=== PATIENT | male | born 1955 | race Caucasian/White ===

== ENCOUNTER → 2017-04-01 | Outpatient (CLI) | payer MEDICARE, OTHER, SELFPAY | PROVIDERS: Family Provider Emergency Medicine; Visit Provider Orthopaedic Surgery | DX: S62.101D Fracture of unspecified carpal bone, right wrist, subsequent encounter for fracture with routine healing (principal) | CPT/HCPCS: 73110 ==

== ENCOUNTER → 2017-05-13 09:29 | Outpatient (CLI) | payer MEDICARE, OTHER, SELFPAY ==
--- NOTE | 2017-05-13 09:32 | XR_ITS ---
XR wrist RT min 3V HISTORY: Follow-up fracture ITS.REASON: Status post right wrist fracture ORDERING PHYSICIAN: Marlon Samuel MD PATIENT AGE: 61 years COMPARISON: 04/01/2017 FINDINGS: Impacted distal radial fracture once again noted with mild dorsal angulation of the distal fracture fragment. Fracture lines are less apparent compared to the previous exam consistent with healing of the fracture. Avulsion of the ulnar styloid once again noted unchanged. There is a notch in the lateral aspect of the scaphoid and may be a normal variant. IMPRESSION: Healing distal radial fracture with ulnar styloid avulsion.
== END ==
PROVIDERS: PCP Emergency Medicine; Visit Provider Orthopaedic Surgery
DX: Z47.89 Encounter for other orthopedic aftercare (principal)
CPT/HCPCS: 73110

== ENCOUNTER → 2018-11-11 09:34 | Outpatient (CLI) | payer MEDICARE, OTHER, SELFPAY ==
--- NOTE | 2018-11-11 09:44 | FL_ITS ---
EXAM: Barium swallow/esophagram. INDICATION: ITS.REASON: difficulty swallowing ORDERING PHYSICIAN: Caleb Coelho MD PATIENT AGE: 63 years COMPARISON: None TECHNIQUE: In the upright position the patient was observed to swallow barium in both the AP and lateral view. The cervical esophagus was examined under fluoroscopy with images obtained. The patient was then placed prone in the right anterior oblique position and was observed to swallow barium with Valsalva technique . FLUOROSCOPY TIME: 1 minute and 2 seconds FINDINGS: There was no evidence of aspiration. There was normal peristalsis. No filling defects or mucosal abnormalities. No masses or strictures. IMPRESSION: Negative barium swallow.
== END ==
PROVIDERS: PCP Emergency Medicine; Visit Provider Emergency Medicine
DX: R13.10 Dysphagia, unspecified (principal)
CPT/HCPCS: 74220

== ENCOUNTER 2019-04-23 19:40 | Observation (INO) ==
[2019-04-23 20:07] LABS: Basophils % 0.4 % (0.1-2.0); Eosinophils # 0.3 K/mm3 (0.0-0.4); Eosinophils % 3.4 % (0.1-12.0); Hematocrit 42.9 % (42.0-52.0); Hemoglobin 14.5 g/dL (14.1-18.0); Lymphocytes # 1.1 K/mm3 (0.7-4.5); Lymphocytes % 11.3 % (10-50); Mean Corpuscular HGB Conc 33.9 g/dL (31.8-35.4); Mean Corpuscular Volume 94.9 fl (80-94); Mean Platelet Volume 8.6 fl (7.4-10.4); Monocytes # 0.6 K/mm3 (0.1-1.0); Monocytes % 5.8 % (1.7-9.3); Neutrophils # 7.5 K/mm3 (1.8-7.8); Neutrophils % 79.1 % (37.0-80.0); Platelet Count 165 K/mm3 (142-424); Red Blood Count 4.52 M/mm3 (4.60-6.20); Red Cell Distribution Width 13.4 % (11.5-17.5); White Blood Count 9.5 K/mm3 (4.8-10.8)
--- NOTE | 2019-04-23 20:12 | Emergency Department Note ---
ED Disposition Clinical Impression: Small bowel obstruction Disposition: Admitted As Inpatient Condition on Discharge: Fair Referrals: Caleb Coelho MD [Primary Care Provider] - - Critical Care Critical Care Time: No Attestation: On 04/23/19, the high probability of a clinically significant, sudden or life threatening deterioration of the following system(s) required my full and direct attention, intervention and personal management. The time I documented below is in addition to time spent performing reported procedures but includes the following listed in this critical care notation. Medical Decision Making - Tucker Inquiry Pt receiving controlled substance: Yes [place] was queried for this patient: No Reason not queried -: Emergent pt cond-no time Risks and benefits of using a controlled substance: were not discussed with pt by me Vital Signs: 04/23/19 19:41 04/23/19 20:13 Temperature 98.5 F Temperature Source Oral Pulse Rate [Right] 76 75 Respiratory Rate 16 16 Blood Pressure [Right Arm] 160/80 H 137/64 Blood Pressure Mean [Right Arm] 106 88 Blood Pressure Source [Right Arm] Automatic Cuff Blood Pressure Position [Right Arm] Supine 02 Sat by Pulse Oximetry 94 L 94 L Oxygen Delivery Method Room Air - Lab Data Lab Results 04/23/19 18:45: WBC 9.5, RBC 4.52 L, Hgb 14.5, Hct 42.9, MCV 94.9 H, MCH 32.2 H, MCHC 33.9, RDW 13.4, Plt Count 165, MPV 8.6, Neut % (Auto) 79.1, Lymph % (Auto) 11.3, [place] % (Auto) 5.8, Eos % (Auto) 3.4, Baso % (Auto) 0.4, Neut # (Auto) 7.5, Lymph # (Auto) 1.1, [place] # (Auto) 0.6, Eos # (Auto) 0.3, Baso # (Auto) 0.0 04/23/19 18:45: Sodium 140, Potassium 3.9, Chloride 105, Carbon Dioxide 28, Anion Gap 10.9, BUN 11, Creatinine 0.91, Estimated Creat Clear 124, Estimated GFR 84, Est GFR ( Amer) 101, Glucose 179 H, Calcium 8.5, Total Bilirubin 0.7, AST 59 H, ALT 70, Alkaline Phosphatase 173 H, Total Protein 6.4, Albumin 3.5, Globulin 2.9, Albumin/Globulin Ratio 1.2, Amylase 23 L, Lipase 34 L 04/23/19 19:45: Troponin I < 0.02 04/23/19 21:30: Urine Color Yellow, Urine Appearance Clear, Urine pH 6.0, Ur Specific [place] 1.010, Urine Protein Negative, Urine Glucose (UA) Negative, Urine Ketones Negative, Urine Blood Trace-i, Urine Nitrate Negative, Urine Bilirubin Negative, Urine Urobilinogen 1.0, Ur Leukocyte Esterase 1+ A, Urine RBC 3-5, Urine WBC 5-10 Result diagrams: 04/23/19 18:45 04/23/19 18:45 Orders (Tests/Meds): ED MEDICATIONS Generic Name Dose Route Start Last Admin Trade Name Freq PRN Reason Stop Dose Admin Sodium Chloride 1,000 mls @ 999 mls/hr 04/23/19 20:00 04/23/19 19:51 Sod Chlor 0.9% 1000ml Bag IV 04/23/19 21:00 999 mls/hr .[id number] SHWETHA Administration Discontinued Medications Generic Name Dose Route Start Last Admin Trade Name Freq PRN Reason Stop Dose Admin Ioversol 75 ml 04/23/19 21:03 04/23/19 21:04 Rad-Optiray 350 100ml Vial IV 04/23/19 21:04 75 ml ONCE ONE Administration Protocol Morphine Sulfate 4 mg 04/23/19 21:39 04/23/19 21:44 Morphine 4mg/Ml Syringe IV 04/23/19 21:40 4 mg ONCE ONE Administration Ondansetron HCl 4 mg 04/23/19 19:47 04/23/19 19:51 Zofran 4mg/2ml Vial IV 04/23/19 19:48 4 mg ONCE ONE Administration Sodium Chloride 10 ml 04/23/19 21:03 04/23/19 21:04 Rad-Saline Flush 10ml Syringe IV 04/23/19 21:04 10 ml ONCE ONE Administration ORDERS Category Date Time Status CT abdomen pelvis w con Stat Cat Scan 04/23/19 20:17 Taken Urine Culture Stat Micro 04/23/19 21:30 Received - CT Data CT Scan: Abdomen, Pelvis Time Received: 21:40 ([facility] fax) ED CT Reviewed: Yes: I have viewed the radiologist's interpretation Findings Narrative: Multiple loops of dilated small bowel with air-fluid levels and a transition point to decompressed bowel in the pelvis, compatible with mechanical small bowel obstruction. Small fat-containing ventral hernia. - ECG Data Tracing #1 EKG interpreted by Ramiro Tobin MD: Rhythm: sinus Rate: 72 [place]: normal Ectopy: none Conduction: normal ST Segment Changes: none T Wave Changes: none Q Waves: none No evidence of acute ischemia or injury Normal electrocardiogram - Physician Consults Physician Consulted: Daniel Time: 21:45 Reason -: Surgical Eval/Care Comment/Response: NG tube. Additional Consult: Laquita Time: 21:49 Reason -: Admission Comment/Response: Agrees to admit the patient to the hospital. We discussed the patient's clinical information, including history, exam, laboratory and radiology results and ED course. Per hospital procedure, I will write temporary bridge inpatient orders on the patient. Specific orders requested by the admitting physician: Sliding scale insulin, before meals and at bedtime. N.p.o. IV normal saline. Pain medication and nausea medication. General Adult HPI - General Chief complaint: Nausea/Vomiting/Diarrhea Stated complaint: Nausea Time Seen by Provider: 04/23/19 20:12 Mode of Arrival: EMS Limitations: No Limitations Description of Symptoms (Recalled from ER Triage Doc. by RN): Pt states he has felt nauseated for a few days - History of Present Illness HPI narrative: States that for 2 to 3 days he has generalized abdominal discomfort, but states that "the crux of it" is in the epigastrium. Nausea and vomiting. Denies diarrhea or constipation or fever. Denies urinary symptoms. Says that he feels generally weak and sick all over. Denies cough or cold symptoms. Prior cholecystectomy and appendectomy. States he has not had this type of pain before. - Related Data Home Medications Medication Instructions Recorded Confirmed aripiprazole 15 mg tablet 30 mg PO BID tab 05/13/17 04/23/19 aspirin 81 mg tablet,delayed 81 mg PO QDAY 05/13/17 04/23/19 release ferrous sulfate 325 mg (65 mg 325 mg PO ONCE tab 05/13/17 04/23/19 iron) tablet gabapentin 100 mg capsule 100 mg PO BID cap 05/13/17 04/23/19 ibuprofen 400 mg tablet 600 mg PO Q6H PRN tab 05/13/17 04/23/19 insulin NPH-regular 70-30 U-100 18 unit SUB-Q QPM ml 05/13/17 04/23/19 insulin 100 unit/mL subcutaneous pen insulin NPH-regular 70-30 U-100 30 unit SUB-Q QAM ml 05/13/17 04/23/19 insulin 100 unit/mL subcutaneous pen lisinopril 20 mg tablet 20 mg PO QDAY 05/13/17 04/23/19 loperamide 2 mg capsule 2 mg PO Q3H cap 05/13/17 04/23/19 sertraline 100 mg tablet 100 mg PO Q24H 05/15/17 04/23/19 simvastatin 40 mg tablet 40 mg PO QAM 05/15/17 04/23/19 Ascorbic Acid [Vitamin C] 250 mg PO DAILY 04/23/19 04/23/19 Cholecalciferol (Vitamin D3) 400 units PO DAILY 04/23/19 04/23/19 [Vitamin D3] Metformin HCl [Glucophage Xr] 500 mg PO BID 04/23/19 04/23/19 Multivitamin [Multi-Vitamin Plain] 1 tab PO DAILY 04/23/19 04/23/19 Omeprazole [Omeprazole 40mg 40 mg PO DAILY 04/23/19 04/23/19 Capsule] Allergies Allergy/AdvReac Type Severity Reaction Status Date / Time No Known Allergies Allergy Verified 01/08/19 09:21 [facility] History - Hepatitis A Screen Drug use history?: No High risk sexual behaviors?: No History of sexually transmitted infection?: No Currently employed?: No Childcare worker?: No Do you have indoor plumbing?: Yes Do you have electricity?: Yes Attestation statement:: This patient has been screened for Hepatitis A risk factors. I have reviewed the patient's past medical history: Yes Medical History: Reports:: Anxiety, Depression, Diabetes Mellitus Type 2, Gastro esophageal Reflux Disease(GERD), Hyperlipidemia, Hypertension Denies:: Diabetes Mellitus Type 1, Internal Pacemaker, Lung Disease, Seizures Other Medical History: Reports: Arthritis Comment: Neuropathy, Schizophrenia, Iron Def. Other Surgeries: Yes: Appendectomy, Cholecystectomy, Colonoscopy, EGD, Other. No: Pacemaker - Social History Smoking Status: Never smoker Alcohol Intake: never Substance Use Type: denies use Occupational Status: disabled Housing: assisted living facility Comment: Patients resides at [facility] - Psychiatric History Pschychiatric History:: Reports:: Anxiety, Depression, Schizophrenia Family Hx:: Unable to obtain ROS Obtained: Yes All systems reviewed & no additional complaints - Constitutional Constitutional: Reports fatigue, Denies fever(s), Reports weakness - Cardiovascular Cardiovascular: Denies chest pain - Respiratory Respiratory: No cough, No dyspnea - Gastrointestinal Gastrointestingal: Reports: abdominal pain, nausea, vomiting. Denies: constipation, diarrhea - Genitourinary Male Genitourinary: Denies difficulty urinating Physical Exam - General General appearance: alert, in no apparent distress - Head Head exam: atraumatic, normocephalic - Eye Eye exam: Present: normal appearance, EOMI - ENT ENT exam: Present: mucous membranes moist - Neck Neck exam: Present: normal inspection, trachea midline - Chest Chest inspection: Present: normal inspection, symmetric chest wall rise - Respiratory Respiratory exam: Present: normal lung sounds bilaterally. Absent: respiratory distress - Cardiovascular Cardiovascular exam: Present: regular rate, normal rhythm, normal heart sounds - Abdominal Exam Abdominal exam: Present: distention, tenderness, normal bowel sounds Abdominal tenderness: Present: epigastrium, moderate - Extremities Exam Extremities exam: Present: normal inspection - Neurological Exam Neurological exam: Present: alert - Psychiatric Psychiatric exam: Present: normal mood, flat affect - Skin Skin exam: Present: warm, dry
[2019-04-23 20:17] LABS: Albumin Level 3.5 gm/dL (3.4-5.0); Albumin/Globulin Ratio 1.2 (1.1-1.8); Anion Gap 10.9 mEq/L (5-15); Bilirubin,Total 0.7 mg/dL (0.2-1.0); Calcium 8.5 mg/dL (8.5-10.1); Globulin 2.9 gm/dl (1.3-3.2); Total Protein,Serum 6.4 gm/dL (6.4-8.2)
[2019-04-23 21:32] LABS: Microscopic, Urine URINE MICROSCOPIC (MICROSCOPIC)
[2019-04-23 21:33] LABS: Appearance,Urine CLEAR (Clear); Bilirubin,Urine Negative (Negative); Blood, Urine TRACE-I (Negative); Color,Urine YELLOW (Yellow); Glucose,Urine (UA) Negative (Negative); Ketones,Urine Negative (Negative); Leukocyte Esterase,Urine 1+ (Negative); Protein,Urine Negative (Negative)
--- NOTE | 2019-04-23 23:28 | Consult Report ---
*Admission Date: 04/23/19 *Reason for consult:: Small bowel obstruction *History of present illness: Is a 63-year-old gentleman seen in consultation from the service of Dr. Coelho for evaluation regarding possible small bowel obstruction. He presented to the emergency department with increasing abdominal pain with nausea and associated emesis. He states that he has continued to pass flatus and his most recent episode of flatus was approximately 1 hour ago. Despite continuing to pass flatus he did have radiographic evidence of a possible small bowel obstruction with multiple loops of dilated small bowel and a possible transition in the right lower quadrant. Surgical service was consulted for ongoing evaluation and management. Review of Systems - Constitutional Denies chills - Eyes Denies change in vision - ENT Denies difficulty swallowing - *Cardiovascular Denies chest pain - *Respiratory Denies cough - *Gastrointestinal Reports abdominal pain, Reports nausea, Reports vomiting - *Neurologic Reports weakness [facility] History Medical History: Reports:: Anxiety, Depression, Diabetes Mellitus Type 2, Gastroesophageal Reflux Disease(GERD), Hyperlipidemia, Hypertension Denies:: Cancer, Diabetes Mellitus Type 1, Internal Pacemaker, Lung Disease, MRSA, Seizures *Have you ever received a pneumonia vaccine?: No *Have you received a flu vaccine this season?: Yes Other Medical History: Reports: Arthritis Other Surgeries: Yes: Appendectomy, Cholecystectomy, Colonoscopy, EGD, Other. No: Pacemaker Amputation: No - *Social History Smoking Status: Never smoker Alcohol Intake: never Substance Use Type: denies use *Occupational Status:: disabled Housing: assisted living facility *Travel in the last 8 weeks: None - Psychiatric History Pschychiatric History:: Reports:: Anxiety, Depression, Schizophrenia Family Hx:: Unable to obtain, Diabetes, Hyperlipidemia, Hypertension Meds Home Medications Medication Instructions Recorded Confirmed Type aripiprazole 15 mg tablet 30 mg PO BID tab 05/13/17 04/23/19 History aspirin 81 mg tablet,delayed 81 mg PO QDAY 05/13/17 04/23/19 History release ferrous sulfate 325 mg (65 mg 325 mg PO ONCE tab 05/13/17 04/23/19 History iron) tablet gabapentin 100 mg capsule 100 mg PO BID cap 05/13/17 04/23/19 History ibuprofen 400 mg tablet 600 mg PO Q6H PRN tab 05/13/17 04/23/19 History insulin NPH-regular 70-30 U-100 18 unit SUB-Q QPM ml 05/13/17 04/23/19 History insulin 100 unit/mL subcutaneous pen insulin NPH-regular 70-30 U-100 30 unit SUB-Q QAM ml 05/13/17 04/23/19 History insulin 100 unit/mL subcutaneous pen lisinopril 20 mg tablet 20 mg PO QDAY 05/13/17 04/23/19 History loperamide 2 mg capsule 2 mg PO Q3H cap 05/13/17 04/23/19 History sertraline 100 mg tablet 100 mg PO Q24H 05/15/17 04/23/19 History simvastatin 40 mg tablet 40 mg PO QAM 05/15/17 04/23/19 History Acetaminophen [Tylenol 8 Hour] 650 mg PO Q12HP PRN 04/23/19 04/23/19 History Ascorbic Acid [Vitamin C] 250 mg PO DAILY 04/23/19 04/23/19 History Cholecalciferol (Vitamin D3) 400 units PO DAILY 04/23/19 04/23/19 History [Vitamin D3] Metformin HCl [Glucophage Xr] 500 mg PO BID 04/23/19 04/23/19 History Multivitamin [Multi-Vitamin Plain] 1 tab PO DAILY 04/23/19 04/23/19 History Omeprazole [Omeprazole 40mg 40 mg PO DAILY 04/23/19 04/23/19 History Capsule] Allergies Allergy/AdvReac Type Severity Reaction Status Date / Time No Known Allergies Allergy Verified 01/08/19 09:21 Exam Vital signs and Labs for Last 24 Hours: Temp Pulse Resp BP Pulse Ox 98.0 F 70 18 146/73 H 94 L 04/23/19 22:10 04/23/19 22:10 04/23/19 22:10 04/23/19 22:10 04/23/19 20:13 Laboratory Results - last 24 hr 04/23/19 18:45: WBC 9.5, RBC 4.52 L, Hgb 14.5, Hct 42.9, MCV 94.9 H, MCH 32.2 H, MCHC 33.9, RDW 13.4, Plt Count 165, MPV 8.6, Neut % (Auto) 79.1, Lymph % (Auto) 11.3, [place] % (Auto) 5.8, Eos % (Auto) 3.4, Baso % (Auto) 0.4, Neut # (Auto) 7.5, Lymph # (Auto) 1.1, [place] # (Auto) 0.6, Eos # (Auto) 0.3, Baso # (Auto) 0.0 04/23/19 18:45: Sodium 140, Potassium 3.9, Chloride 105, Carbon Dioxide 28, Anion Gap 10.9, BUN 11, Creatinine 0.91, Estimated Creat Clear 124, Estimated GFR 84, Est GFR ( Amer) 101, Glucose 179 H, Calcium 8.5, Total Bilirubin 0.7, AST 59 H, ALT 70, Alkaline Phosphatase 173 H, Total Protein 6.4, Albumin 3.5, Globulin 2.9, Albumin/Globulin Ratio 1.2, Amylase 23 L, Lipase 34 L 04/23/19 19:45: Troponin I < 0.02 04/23/19 21:30: Urine Color Yellow, Urine Appearance Clear, Urine pH 6.0, Ur Specific [place] 1.010, Urine Protein Negative, Urine Glucose (UA) Negative, Urine Ketones Negative, Urine Blood Trace-i, Urine Nitrate Negative, Urine Bilirubin Negative, Urine Urobilinogen 1.0, Ur Leukocyte Esterase 1+ A, Urine RBC 3-5, Urine WBC 5-10 I & O for Last 24 hours: Intake & Output 04/21/19 04/22/19 04/23/19 04/24/19 11:59 11:59 11:59 11:59 Intake Total 1000 / 1000 Balance 1000 / 1000 Weight 260 lb - Constitutional no acute distress - *Routine Respiratory Exam Absent: respiratory distress - *Routine Cardiovascular Exam Present: RRR - *Routine Abdominal Exam Present: soft, tenderness, distended Results - Labs 04/23/19 18:45 04/23/19 18:45 Laboratory Results - last 24 hr 04/23/19 18:45: WBC 9.5, RBC 4.52 L, Hgb 14.5, Hct 42.9, MCV 94.9 H, MCH 32.2 H, MCHC 33.9, RDW 13.4, Plt Count 165, MPV 8.6, Neut % (Auto) 79.1, Lymph % (Auto) 11.3, [place] % (Auto) 5.8, Eos % (Auto) 3.4, Baso % (Auto) 0.4, Neut # (Auto) 7.5, Lymph # (Auto) 1.1, [place] # (Auto) 0.6, Eos # (Auto) 0.3, Baso # (Auto) 0.0 04/23/19 18:45: Sodium 140, Potassium 3.9, Chloride 105, Carbon Dioxide 28, Anion Gap 10.9, BUN 11, Creatinine 0.91, Estimated Creat Clear 124, Estimated GFR 84, Est GFR ( Amer) 101, Glucose 179 H, Calcium 8.5, Total Bilirubin 0.7, AST 59 H, ALT 70, Alkaline Phosphatase 173 H, Total Protein 6.4, Albumin 3.5, Globulin 2.9, Albumin/Globulin Ratio 1.2, Amylase 23 L, Lipase 34 L 04/23/19 19:45: Troponin I < 0.02 04/23/19 21:30: Urine Color Yellow, Urine Appearance Clear, Urine pH 6.0, Ur Specific [place] 1.010, Urine Protein Negative, Urine Glucose (UA) Negative, Urine Ketones Negative, Urine Blood Trace-i, Urine Nitrate Negative, Urine Bilir ubin Negative, Urine Urobilinogen 1.0, Ur Leukocyte Esterase 1+ A, Urine RBC 3- 5, Urine WBC 5-10 - Imaging CT scan - abdomen: report reviewed, image reviewed CT scan - pelvis: report reviewed, image reviewed Assessment and Plan (1) Small bowel obstruction Current visit: Yes Status: Acute Category: Medical Code(s): K56.609 - Unspecified intestinal obstruction, unspecified as to partial versus complete obstruction The patient has had symptoms for approximately 3 days and he continues to pass flatus. His overall findings are somewhat equivocal and may not be secondary to a true mechanical obstruction. Consideration for enteritis or other inflammatory etiology will be ongoing. Flat and upright abdominal films have been ordered for tomorrow and serial abdominal exams will continue. If he continues to pass flatus and his films do not show improvement a small bowel series will be considered. If he does not continue to pass flatus plans for operative intervention will be implemented.
--- NOTE | 2019-04-24 08:06 | Progress Note ---
Subjective Patient reports: feels better, flatus, no bowel movement Narrative: He states that his abdominal pain is "almost gone". He states that he is "almost back to normal". Exam Vital signs and Labs for Last 24 Hours: Temp Pulse Resp BP Pulse Ox 98.2 F 80 18 126/60 90 L 04/24/19 04:00 04/24/19 04:00 04/24/19 04:00 04/24/19 04:00 04/24/19 04:00 Laboratory Results - last 24 hr 04/23/19 18:45: WBC 9.5, RBC 4.52 L, Hgb 14.5, Hct 42.9, MCV 94.9 H, MCH 32.2 H, MCHC 33.9, RDW 13.4, Plt Count 165, MPV 8.6, Neut % (Auto) 79.1, Lymph % (Auto) 11.3, [place] % (Auto) 5.8, Eos % (Auto) 3.4, Baso % (Auto) 0.4, Neut # (Auto) 7.5, Lymph # (Auto) 1.1, [place] # (Auto) 0.6, Eos # (Auto) 0.3, Baso # (Auto) 0.0 04/23/19 18:45: Sodium 140, Potassium 3.9, Chloride 105, Carbon Dioxide 28, Anion Gap 10.9, BUN 11, Creatinine 0.91, Estimated Creat Clear 124, Estimated GFR 84, Est GFR ( Amer) 101, Glucose 179 H, Calcium 8.5, Total Bilirubin 0.7, AST 59 H, ALT 70, Alkaline Phosphatase 173 H, Total Protein 6.4, Albumin 3.5, Globulin 2.9, Albumin/Globulin Ratio 1.2, Amylase 23 L, Lipase 34 L 04/23/19 19:45: Troponin I < 0.02 04/23/19 21:30: Urine Color Yellow, Urine Appearance Clear, Urine pH 6.0, Ur Specific [place] 1.010, Urine Protein Negative, Urine Glucose (UA) Negative, Urine Ketones Negative, Urine Blood Trace-i, Urine Nitrate Negative, Urine Bilirubin Negative, Urine Urobilinogen 1.0, Ur Leukocyte Esterase 1+ A, Urine RBC 3-5, Urine WBC 5-10 04/24/19 06:02: POC Glucose 145 H I & O for Last 24 hours: Intake & Output 04/21/19 04/22/19 04/23/19 04/24/19 11:59 11:59 11:59 11:59 Intake Total 1882 / 1882 Output Total 600 / 600 Balance 1282 / 1282 Weight 260 lb 3 oz - Constitutional no acute distress - *Routine Respiratory Exam Absent: respiratory distress - *Routine Cardiovascular Exam Present: RRR - *Routine Abdominal Exam Present: soft Comments: Much less tender Progress Note: A&P (1) Small bowel obstruction Status: Acute Assessment and plan: CT with IV contrast only reveals changes consistent with either partial obstruction or ileus/enteritis. The patient does feel significantly better this AM; however, he is a somewhat poor historian and is somewhat slow to answer questions. Recommendations for repeat CT scan with both IV and PO contrast were made by radiology and this has been ordered as it will likely help assist in decision making/disposition. Keep NPO for now F/U AM films and repeat CT Serial exams to continue Current Visit: Yes
--- NOTE | 2019-04-24 11:14 | History & Physical Report ---
*Admission Date: 04/23/19 *Chief complaint: abd pain *History of present illness: this patient from local [facility] living -he was seen in the ed-cription of Symptoms (Recalled from ER Triage Doc. by RN): Pt states he has felt nauseated for a few days States that for 2 to 3 days he has generalized abdominal discomfort, but states that "the crux of it" is in the epigastrium. Nausea and vomiting. Denies diarrhea or constipation or fever. Denies urinary symptoms. Says that he feels generally weak and sick all over. Denies cough or cold symptoms. Prior cholecystectomy and appendectomy. States he has not had this type of pain before. pt was found to have sbo and after discussion with surg was admitted [facility] History I have reviewed the patient's past medical history: Yes Medical History: Reports:: Anxiety, Depression, Diabetes Mellitus Type 2, Gastroesophageal Reflux Disease(GERD), Hyperlipidemia, Hypertension Denies:: Cancer, Diabetes Mellitus Type 1, Internal Pacemaker, Lung Disease, MRSA, Seizures *Have you ever received a pneumonia vaccine?: No *Have you received a flu vaccine this season?: Yes Other Medical History: Reports: Arthritis Other Surgeries: Yes: Appendectomy, Cholecystectomy, Colonoscopy, EGD, Other. No: Pacemaker Amputation: No - *Social History Smoking Status: Never smoker Alcohol Intake: never Substance Use Type: denies use *Occupational Status:: disabled Housing: assisted living facility *Travel in the last 8 weeks: None - Psychiatric History Pschychiatric History:: Reports:: Anxiety, Depression, Schizophrenia Family Hx:: Unable to obtain, Diabetes, Hyperlipidemia, Hypertension Review of Systems - Review of Systems Review of systems:: pertinent systems reviewed and negative unless documented below - Constitutional Denies fever(s) - Eyes Denies change in vision - ENT Denies dizziness - *Cardiovascular Denies chest pain at rest - *Respiratory Denies cough - *Gastrointestinal Reports abdominal pain, Reports bloating, Reports nausea, Reports vomiting - *Genitourinary Denies blood in urine - *Musculoskeletal Denies joint pain, Denies joint swelling - Integumentary/Breasts Denies rash - *Neurologic Reports weakness, Denies headache(s), Denies seizure-like activity - Psychiatric Denies anxiety Meds Home Medications Medication Instructions Recorded Confirmed Type aripiprazole 15 mg tablet 30 mg PO BID tab 05/13/17 04/23/19 History aspirin 81 mg tablet,delayed 81 mg PO QDAY 05/13/17 04/23/19 History release ferrous sulfate 325 mg (65 mg 325 mg PO ONCE tab 05/13/17 04/23/19 History iron) tablet gabapentin 100 mg capsule 100 mg PO BID cap 05/13/17 04/23/19 History ibuprofen 400 mg tablet 600 mg PO Q6H PRN tab 05/13/17 04/23/19 History insulin NPH-regular 70-30 U-100 18 unit SUB-Q QPM ml 05/13/17 04/23/19 History insulin 100 unit/mL subcutaneous pen insulin NPH-regular 70-30 U-100 30 unit SUB-Q QAM ml 05/13/17 04/23/19 History insulin 100 unit/mL subcutaneous pen lisinopril 20 mg tablet 20 mg PO QDAY 05/13/17 04/23/19 History loperamide 2 mg capsule 2 mg PO Q3H cap 05/13/17 04/23/19 History sertraline 100 mg tablet 100 mg PO Q24H 05/15/17 04/23/19 History simvastatin 40 mg tablet 40 mg PO QAM 05/15/17 04/23/19 History Acetaminophen [Tylenol 8 Hour] 650 mg PO Q12HP PRN 04/23/19 04/23/19 History Ascorbic Acid [Vitamin C] 250 mg PO DAILY 04/23/19 04/23/19 History Cholecalciferol (Vitamin D3) 400 units PO DAILY 04/23/19 04/23/19 History [Vitamin D3] Metformin HCl [Glucophage Xr] 500 mg PO BID 04/23/19 04/23/19 History Multivitamin [Multi-Vitamin Plain] 1 tab PO DAILY 04/23/19 04/23/19 History Omeprazole [Omeprazole 40mg 40 mg PO DAILY 04/23/19 04/23/19 History Capsule] Allergies Allergy/AdvReac Type Severity Reaction Status Date / Time No Known Allergies Allergy Verified 01/08/19 09:21 Exam Vital signs and Labs for Last 24 Hours: Temp Pulse Resp BP Pulse Ox 98.6 F 79 18 166/74 H 91 L 04/24/19 08:00 04/24/19 08:00 04/24/19 08:00 04/24/19 08:00 04/24/19 09:39 Laboratory Results - last 24 hr 04/23/19 18:45: WBC 9.5, RBC 4.52 L, Hgb 14.5, Hct 42.9, MCV 94.9 H, MCH 32.2 H, MCHC 33.9, RDW 13.4, Plt Count 165, MPV 8.6, Neut % (Auto) 79.1, Lymph % (Auto) 11.3, [place] % (Auto) 5.8, Eos % (Auto) 3.4, Baso % (Auto) 0.4, Neut # (Auto) 7.5, Lymph # (Auto) 1.1, [place] # (Auto) 0.6, Eos # (Auto) 0.3, Baso # (Auto) 0.0 04/23/19 18:45: Sodium 140, Potassium 3.9, Chloride 105, Carbon Dioxide 28, Anion Gap 10.9, BUN 11, Creatinine 0.91, Estimated Creat Clear 124, Estimated GFR 84, Est GFR ( Amer) 101, Glucose 179 H, Calcium 8.5, Total Bilirubin 0.7, AST 59 H, ALT 70, Alkaline Phosphatase 173 H, Total Protein 6.4, Albumin 3.5, Globulin 2.9, Albumin/Globulin Ratio 1.2, Amylase 23 L, Lipase 34 L 04/23/19 19:45: Troponin I < 0.02 04/23/19 21:30: Urine Color Yellow, Urine Appearance Clear, Urine pH 6.0, Ur Specific [place] 1.010, Urine Protein Negative, Urine Glucose (UA) Negative, Urine Ketones Negative, Urine Blood Trace-i, Urine Nitrate Negative, Urine Bilirubin Negative, Urine Urobilinogen 1.0, Ur Leukocyte Esterase 1+ A, Urine RBC 3-5, Urine WBC 5-10 04/24/19 06:02: POC Glucose 145 H I & O for Last 24 hours: Intake & Output 04/21/19 04/22/19 04/23/19 04/24/19 11:59 11:59 11:59 11:59 Intake Total 1882 / 1882 Output Total 600 / 600 Balance 1282 / 1282 Weight 260 lb 3 oz - Constitutional no acute distress, obese - *Routine HEENT Exam Head: Present: normocephalic Eye: Present: EOMI, PERRL ENT: Present: mucous membranes dry - *Routine Neck Exam Absent: JVD - *Routine Respiratory Exam Present: decreased breath sounds - *Routine Cardiovascular Exam Present: RRR, murmur, S4 - *Routine Abdominal Exam Present: soft, tenderness, distended Comments: has ng tube - *Routine Extremities Exam Absent: edema - *Routine Skin Exam Present: intact - *Routine Neurological Exam Present: alert, oriented X3, CN II-XII intact - Routine Psychiatric Exam Present: normal affect Assessment and Plan (1) Small bowel obstruction Current visit: Yes Status: Acute Category: Medical Code(s): K56.609 - Unspecified intestinal obstruction, unspecified as to partial versus complete obstruction (2) Obesity (BMI 30-39.9) Current visit: Yes Status: Acute Category: Medical Code(s): E66.9 - Obesity, unspecified (3) Splenomegaly Current visit: Yes Status: Acute Category: Medical Code(s): R16.1 - Splenomegaly, not elsewhere classified (4) Diverticulosis Current visit: Yes Status: Acute Category: Medical Code(s): K57.90 - Diverticulosis of intestine, part unspecified, without perforation or abscess without bleeding (5) Hx of cholecystectomy Current visit: Yes Status: Acute Category: Surgical Code(s): Z90.49 - Acquired absence of other specified parts of digestive tract (6) Diabetes mellitus Current visit: Yes Status: Acute Qualifiers: Diabetes mellitus type: type 2 Diabetes mellitus exterminator insulin use: with fpc use Diabetes mellitus complication status: with other specified complication Qualified Code(s): E11.69 - Type 2 diabetes mellitus with other specified complication; Z79.4 - exterminator (current) use of insulin Category: Medical Code(s): E11.9 - Type 2 diabetes mellitus without complications
--- NOTE | 2019-04-24 12:09 | Pharmacy Consult Notes ---
[facility] Pharmacy VTE Monitoring - Patient Demographics Admission date: 04/24/19 Report Date: 04/24/19 Time: 12:08 Allergies/Adverse Reactions: Patient Allergies No Known Allergies Allergy (Verified 01/08/19 09:21) Height: 1.8 m Weight: 118.019 kg Patient Problems: Current Active Problems Small bowel obstruction (Acute) Obesity (BMI 30-39.9) (Acute) Splenomegaly (Acute) Diverticulosis (Acute) Hx of cholecystectomy (Acute) Diabetes mellitus (Acute) - VTE Risk Labs: VTE Related Lab Results Hgb 14.5 g/dL (14.1-18.0) 04/23/19 18:45 Hct 42.9 % (42.0-52.0) 04/23/19 18:45 Plt Count 165 K/mm3 (142-424) 04/23/19 18:45 BUN 11 mg/dL (7-18) 04/23/19 18:45 Creatinine 0.91 mg/dL (0.70-1.30) 04/23/19 18:45 Estimated Creat Clear 124 mL/min (50-200) 04/23/19 18:45 VTE Score: 5 VTE Risk Level: Low Risk - Prophylaxis Types of VTE Prophylaxis: TEDS Knee High (LOS HOSE ORDERED) Location of Applied Device: Refused
--- NOTE | 2019-04-24 14:20 | Electrocardiograph Report ---
APPROVED REPORT Exam: Resting ECG HR:72 bpm ECG Measurements Heart Rate 72 AXES SC 174 P 38 QRSd 94 QRS 35 QT 398 T42 QTc 435 <Conclusion> Normal sinus rhythm Normal ECG Electronically signed by : Salvador Mayfield, 04/24/2019 14:19:26
--- NOTE | 2019-04-25 08:18 | Progress Note ---
Subjective Patient reports: feels better, flatus, bowel movement Narrative: The patient states that he has no abdominal pain. He states that he had a bowel movement last night and continues to pass "a little bit of gas". Exam Vital signs and Labs for Last 24 Hours: Temp Pulse Resp BP Pulse Ox 98.2 F 67 17 131/59 L 90 L 04/25/19 03:52 04/25/19 03:52 04/25/19 03:52 04/25/19 03:52 04/25/19 03:52 Laboratory Results - last 24 hr 04/24/19 11:06: POC Glucose 193 H 04/24/19 15:57: POC Glucose 167 H 04/24/19 20:40: POC Glucose 145 H 04/25/19 05:43: POC Glucose 133 H I & O for Last 24 hours: Intake & Output 04/22/19 04/23/19 04/24/19 04/25/19 11:59 11:59 11:59 11:59 Intake Total 2122 / 2122 2049 / 2049 Output Total 900 / 900 90 / 90 Balance 1222 / 1222 1960 / 1960 Weight 260 lb 3 oz 263 lb 1 oz Microbiology Reports for the Last 24 Hours: Microbiology 04/23/19 21:30 Urine,Clean Catch Urine Culture - Preliminary - Constitutional no acute distress - *Routine Respiratory Exam Absent: respiratory distress - *Routine Cardiovascular Exam Present: RRR - *Routine Abdominal Exam Present: soft Progress Note: A&P (1) Small bowel obstruction Status: Ruled-out Assessment and plan: The patient's repeat CT scan yesterday and abdominal films this morning are more consistent with enteritis. A partial obstruction is still a possibility; however, this is less likely. A complete obstruction has been "ruled out" secondary to the fact that contrast is noted within the colon. In addition, he has had a bowel movement overnight and continues to pass flatus. Remove nasogastric tube Clear liquid diet without carbonation Continue serial abdominal exams Current Visit: Yes (2) Obesity (BMI 30-39.9) Status: Acute Current Visit: Yes (3) Splenomegaly Status: Acute Current Visit: Yes (4) Diverticulosis Status: Acute Current Visit: Yes (5) Hx of cholecystectomy Status: Acute Current Visit: Yes (6) Diabetes mellitus Status: Acute Current Visit: Yes (7) Enteritis Status: Acute Current Visit: Yes
--- NOTE | 2019-04-25 12:51 | Progress Note ---
Internal Medicine - PN: Subj *Date: 04/26/19 *Time: 07:34 Interval history: doing better w/o ng tube Exam Vital signs and Labs for Last 24 Hours: Temp Pulse Resp BP Pulse Ox 98.3 F 69 18 146/63 H 93 L 04/25/19 08:00 04/25/19 08:00 04/25/19 08:00 04/25/19 08:00 04/25/19 08:00 Laboratory Results - last 24 hr 04/24/19 11:06: POC Glucose 193 H 04/24/19 15:57: POC Glucose 167 H 04/24/19 20:40: POC Glucose 145 H 04/25/19 05:43: POC Glucose 133 H 04/25/19 11:04: POC Glucose 188 H I & O for Last 24 hours: Intake & Output 04/23/19 04/24/19 04/25/19 04/26/19 11:59 11:59 11:59 11:59 Intake Total 2122 / 2122 2170 / 2170 Output Total 900 / 900 90 / 90 Balance 1222 / 1222 2080 / 2080 Weight 260 lb 3 oz 263 lb 1 oz Microbiology Reports for the Last 24 Hours: Microbiology 04/23/19 21:30 Urine,Clean Catch Urine Culture - Preliminary - Constitutional no acute distress - *Routine HEENT Exam Head: Present: normocephalic Eye: Present: EOMI, PERRL ENT: Present: mucous membranes dry - *Routine Neck Exam Absent: JVD - *Routine Respiratory Exam Present: CTA bilaterally - *Routine Cardiovascular Exam Present: RRR, murmur - *Routine Abdominal Exam Present: soft - *Routine Extremities Exam Absent: calf tenderness - *Routine Skin Exam Present: intact - *Routine Neurological Exam Present: alert, oriented X3, CN II-XII intact - Routine Psychiatric Exam Present: normal affect Assessment and Plan (1) Small bowel obstruction Current visit: Yes Status: Ruled-out Category: Medical Code(s): K56.609 - Unspecified intestinal obstruction, unspecified as to partial versus complete obstruction (2) Obesity (BMI 30-39.9) Current visit: Yes Status: Acute Category: Medical Code(s): E66.9 - Obesity, unspecified (3) Splenomegaly Current visit: Yes Status: Acute Category: Medical Code(s): R16.1 - Splenomegaly, not elsewhere classified (4) Diverticulosis Current visit: Yes Status: Acute Category: Medical Code(s): K57.90 - Diverticulosis of intestine, part unspecified, without perforation or abscess without bleeding (5) Hx of cholecystectomy Current visit: Yes Status: Acute Category: Surgical Code(s): Z90.49 - Acquired absence of other specified parts of digestive tract (6) Diabetes mellitus Current visit: Yes Status: Acute Qualifiers: Diabetes mellitus type: type 2 Diabetes mellitus senior care insulin use: with senior care use Diabetes mellitus complication status: with other specified complication Qualified Code(s): E11.69 - Type 2 diabetes mellitus with other specified complication; Z79.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
[2019-04-25 13:49] LABS: Basophils # 0.1 K/mm3 (0-0.2); Basophils % 0.7 % (0.1-2.0); Eosinophils # 0.2 K/mm3 (0.0-0.4); Eosinophils % 1.8 % (0.1-12.0); Hematocrit 38.8 % (42.0-52.0); Hemoglobin 14.2 g/dL (14.1-18.0); Lymphocytes # 1.1 K/mm3 (0.7-4.5); Lymphocytes % 14.1 % (10-50); Mean Corpuscular HGB Conc 36.7 g/dL (31.8-35.4); Mean Platelet Volume 8.8 fl (7.4-10.4); Monocytes # 0.5 K/mm3 (0.1-1.0); Neutrophils # 6.3 K/mm3 (1.8-7.8); Neutrophils % 77.4 % (37.0-80.0); Platelet Count 146 K/mm3 (142-424); Red Blood Count 3.88 M/mm3 (4.60-6.20); Red Cell Distribution Width 13.6 % (11.5-17.5); White Blood Count 8.1 K/mm3 (4.8-10.8)
[2019-04-25 13:58] LABS: Albumin Level 3.4 gm/dL (3.4-5.0); Albumin/Globulin Ratio 1.1 (1.1-1.8); Anion Gap 12.8 mEq/L (5-15); Bilirubin,Total 0.9 mg/dL (0.2-1.0); Calcium 8.1 mg/dL (8.5-10.1); Total Protein,Serum 6.4 gm/dL (6.4-8.2)
--- NOTE | 2019-04-26 07:47 | Progress Note ---
Subjective Patient reports: feels better, flatus, bowel movement, diarrhea (He states that he has had "quite a bit of diarrhea") Exam Vital signs and Labs for Last 24 Hours: Temp Pulse Resp BP Pulse Ox 97.8 F 80 18 152/80 H 93 L 04/26/19 04:00 04/26/19 04:00 04/26/19 04:00 04/26/19 04:00 04/26/19 04:00 Laboratory Results - last 24 hr 04/25/19 11:04: POC Glucose 188 H 04/25/19 13:25: WBC 8.1, RBC 3.88 L, Hgb 14.2, Hct 38.8 L, MCV 100.0 H, MCH 36.7 H, MCHC 36.7 H, RDW 13.6, Plt Count 146, MPV 8.8, Neut % (Auto) 77.4, Lymph % ( Auto) 14.1, [place] % (Auto) 6.0, Eos % (Auto) 1.8, Baso % (Auto) 0.7, Neut # (Auto) 6.3, Lymph # (Auto) 1.1, [place] # (Auto) 0.5, Eos # (Auto) 0.2, Baso # (Auto) 0.1 04/25/19 13:25: Sodium 136, Potassium 3.8, Chloride 99, Carbon Dioxide 28, Anion Gap 12.8, BUN 11, Creatinine 0.99, Estimated Creat Clear 126, Estimated GFR 76, Est GFR ( Amer) 92, Glucose 291 H, Calcium 8.1 L, Total Bilirubin 0.9, AST 27 D, ALT 51 D, Alkaline Phosphatase 183 H, Total Protein 6.4, Albumin 3.4, Globulin 3.0, Albumin/Globulin Ratio 1.1 04/25/19 16:01: POC Glucose 254 H 04/25/19 20:32: POC Glucose 147 H 04/26/19 05:47: POC Glucose 172 H I & O for Last 24 hours: Intake & Output 04/23/19 04/24/19 04/25/19 04/26/19 11:59 11:59 11:59 11:59 Intake Total 2122 / 2122 2170 / 2170 976 / 976 Output Total 900 / 900 90 / 90 240 / 240 Balance 1222 / 1222 2080 / 2080 736 / 736 Weight 260 lb 3 oz 263 lb 1 oz 264 lb 4 oz Microbiology Reports for the Last 24 Hours: Microbiology 04/23/19 21:30 Urine,Clean Catch Urine Culture - Preliminary - Constitutional no acute distress - *Routine Respiratory Exam Absent: respiratory distress - *Routine Cardiovascular Exam Present: RRR - *Routine Abdominal Exam Present: soft Progress Note: A&P (1) Obesity (BMI 30-39.9) Status: Acute Current Visit: Yes (2) Splenomegaly Status: Acute Current Visit: Yes (3) Diverticulosis Status: Acute Current Visit: Yes (4) Hx of cholecystectomy Status: Acute Current Visit: Yes (5) Diabetes mellitus Status: Acute Current Visit: Yes (6) Enteritis Status: Acute Assessment and plan: Although the patient has slightly increased small bowel distention on this morning's film, he does have contrast in his colon and has continued to pass flatus. He currently complains of diarrhea and at least does not have a complete obstruction. The patient's symptoms and radiographic analysis are more consistent with enteritis. Diarrhea panel ordered He has been advanced to full liquid diet Current Visit: Yes (7) Diarrhea Status: Acute Assessment and plan: Diarrhea panel pending Current Visit: Yes
--- NOTE | 2019-04-26 08:33 | Progress Note ---
Internal Medicine - PN: Subj *Date: 04/26/19 *Time: 08:31 Interval history: Patient sitting up in chair asking for something to eat. Patient states he has no abdominal pain just emptiness from not eating. Exam Vital signs and Labs for Last 24 Hours: Temp Pulse Resp BP Pulse Ox 97.8 F 80 18 152/80 H 93 L 04/26/19 04:00 04/26/19 04:00 04/26/19 04:00 04/26/19 04:00 04/26/19 04:00 Laboratory Results - last 24 hr 04/25/19 11:04: POC Glucose 188 H 04/25/19 13:25: WBC 8.1, RBC 3.88 L, Hgb 14.2, Hct 38.8 L, MCV 100.0 H, MCH 36.7 H, MCHC 36.7 H, RDW 13.6, Plt Count 146, MPV 8.8, Neut % (Auto) 77.4, Lymph % (Auto) 14.1, [place] % (Auto) 6.0, Eos % (Auto) 1.8, Baso % (Auto) 0.7, Neut # (Auto) 6.3, Lymph # (Auto) 1.1, [place] # (Auto) 0.5, Eos # (Auto) 0.2, Baso # (Auto) 0.1 04/25/19 13:25: Sodium 136, Potassium 3.8, Chloride 99, Carbon Dioxide 28, Anion Gap 12.8, BUN 11, Creatinine 0.99, Estimated Creat Clear 126, Estimated GFR 76, Est GFR ( Amer) 92, Glucose 291 H, Calcium 8.1 L, Total Bilirubin 0.9, AST 27 D, ALT 51 D, Alkaline Phosphatase 183 H, Total Protein 6.4, Albumin 3.4, Globulin 3.0, Albumin/Globulin Ratio 1.1 04/25/19 16:01: POC Glucose 254 H 04/25/19 20:32: POC Glucose 147 H 04/26/19 05:47: POC Glucose 172 H I & O for Last 24 hours: Intake & Output 04/23/19 04/24/19 04/25/19 04/26/19 11:59 11:59 11:59 11:59 Intake Total 2122 / 2122 2170 / 2170 976 / 976 Output Total 900 / 900 90 / 90 240 / 240 Balance 1222 / 1222 2080 / 2080 736 / 736 Weight 260 lb 3 oz 263 lb 1 oz 264 lb 4 oz Microbiology Reports for the Last 24 Hours: Microbiology 04/23/19 21:30 Urine,Clean Catch Urine Culture - Preliminary - Constitutional no acute distress, obese - *Routine HEENT Exam Head: Present: normocephalic Eye: Present: PERRL ENT: Present: mucous membranes moist - *Routine Neck Exam Present: supple. Absent: lymphadenopathy - *Routine Respiratory Exam Present: CTA bilaterally - *Routine Cardiovascular Exam Present: RRR - *Routine Abdominal Exam Present: soft, normoactive bowel sounds, obese. Absent: tenderness - *Routine Extremities Exam Present: full ROM. Absent: cyanosis, clubbing, edema - *Routine Skin Exam Present: intact, warm. Absent: rash - *Routine Neurological Exam Present: alert - Routine Psychiatric Exam Present: normal affect Assessment and Plan (1) Obesity (BMI 30-39.9) Current visit: Yes Status: Acute Category: Medical Code(s): E66.9 - Obesity, unspecified (2) Splenomegaly Current visit: Yes Status: Acute Category: Medical Code(s): R16.1 - Splenomegaly, not elsewhere classified (3) Diverticulosis Current visit: Yes Status: Acute Category: Medical Code(s): K57.90 - Diverticulosis of intestine, part unspecified, without perforation or abscess without bleeding (4) Hx of cholecystectomy Current visit: Yes Status: Acute Category: Surgical Code(s): Z90.49 - Acquired absence of other specified parts of digestive tract (5) Diabetes mellitus Current visit: Yes Status: Acute Qualifiers: Diabetes mellitus type: type 2 Diabetes mellitus penitentiary insulin use: with penitentiary use Diabetes mellitus complication status: with other specified complication Qualified Code(s): E11.69 - Type 2 diabetes mellitus with other specified complication; Z79.4 - ferry terminal supervisor (current) use of insulin Category: Medical Code(s): E11.9 - Type 2 diabetes mellitus without complications (6) Enteritis Current visit: Yes Status: Acute Category: Medical Code(s): K52.9 - Noninfective gastroenteritis and colitis, unspecified (7) Diarrhea Current visit: Yes Status: Acute Category: Medical Code(s): R19.7 - Diarrhea, unspecified - Assessment and plan all Dx Assessment and Plan for all problems:: Rounded with Dr. Coelho all orders per Laquita Advance to a full liquid diet
--- NOTE | 2019-04-27 08:21 | Progress Note ---
Subjective Patient reports: diarrhea Narrative: asking for "better food" Exam Vital signs and Labs for Last 24 Hours: Temp Pulse Resp BP Pulse Ox 97.4 F L 81 18 164/79 H 95 04/27/19 07:52 04/27/19 07:52 04/27/19 07:52 04/27/19 07:52 04/27/19 07:52 Laboratory Results - last 24 hr 04/23/19 21:30: Urine Color Yellow, Urine Appearance Clear, Urine pH 6.0, Ur Specific [place] 1.010, Urine Protein Negative, Urine Glucose (UA) Negative, Urine Ketones Negative, Urine Blood Trace-i, Urine Nitrate Negative, Urine Bilirubin Negative, Urine Urobilinogen 1.0, Ur Leukocyte Esterase 1+ A, Urine RBC 3-5, Urine WBC 5-10 04/26/19 10:00: Stl Aeromonas (PCR) Not detected, Stl C. cayetanensis PCR Not detected, Stool Rotavirus (PCR) Not detected, Stl Adenov F 40/41 PCR Not detected, Stool Astrovirus (PCR) Not detected, Stool Campylobacter PCR Not detected, Stl C.difficile Tox PCR Not detected, Stool Cryptosporidium PCR Not detected, Stl E.coli Shiga Tox PCR Not detected, Stool E coli O157 PCR Not detected, Stl Enterotoxigenic E PCR Not detected, Stool EPEC (PCR) Not detected, Stool EAEC (PCR) Not detected, Stl E. histolytica PCR Not detected, Stool Giardia Lamblia PCR Not detected, Stool Salmonella PCR Not detected, Stool Sapovirus (PCR) Not detected, Stl P. shigelloides PCR Not detected, Stl Shigella/EIEC PCR Not detected, St Y.enterocolitica PCR Not detected, Stool Vibrio (PCR) Not detected, Stl Vibrio cholerae PCR Not detected, Stl Norovirus GI/GII PCR Not detected 04/26/19 12:14: POC Glucose 284 H 04/26/19 15:33: POC Glucose 223 H 04/26/19 21:12: POC Glucose 178 H 04/27/19 06:02: POC Glucose 168 H I & O for Last 24 hours: Intake & Output 04/24/19 04/25/19 04/26/19 04/27/19 11:59 11:59 11:59 11:59 Intake Total 2122 / 2122 2170 / 2170 1641 / 1641 3526 / 3526 Output Total 900 / 900 90 / 90 640 / 640 2180 / 2180 Balance 1222 / 1222 2080 / 2080 1001 / 1001 1346 / 1346 Weight 260 lb 3 oz 263 lb 1 oz 264 lb 4 oz 266 lb 2 oz Microbiology Reports for the Last 24 Hours: Microbiology 04/23/19 21:30 Urine,Clean Catch Urine Culture - Final Staphylococcus aureus - Constitutional no acute distress - *Routine Respiratory Exam Absent: respiratory distress - *Routine Cardiovascular Exam Present: RRR Progress Note: A&P (1) Obesity (BMI 30-39.9) Status: Acute Current Visit: Yes (2) Splenomegaly Status: Acute Current Visit: Yes (3) Diverticulosis Status: Acute Current Visit: Yes (4) Hx of cholecystectomy Status: Acute Current Visit: Yes (5) Diabetes mellitus Status: Acute Current Visit: Yes (6) Enteritis Status: Acute Assessment and plan: Currently the patient's only complaint is "feeling hungry" and "diarrhea". Advance diet Current Visit: Yes (7) Diarrhea Status: Acute Assessment and plan: Diarrhea panel negative. Ongoing management as per primary service. Current Visit: Yes
[2019-04-27 08:54] LABS: Anion Gap 12.6 mEq/L (5-15); Calcium 8.4 mg/dL (8.5-10.1)
[2019-04-27 08:59] LABS: Basophils % 0.6 % (0.1-2.0); Eosinophils # 0.2 K/mm3 (0.0-0.4); Eosinophils % 2.5 % (0.1-12.0); Hematocrit 40.8 % (42.0-52.0); Hemoglobin 13.7 g/dL (14.1-18.0); Lymphocytes % 14.7 % (10-50); Mean Corpuscular HGB Conc 33.7 g/dL (31.8-35.4); Mean Corpuscular Volume 95.2 fl (80-94); Mean Platelet Volume 8.5 fl (7.4-10.4); Monocytes # 0.5 K/mm3 (0.1-1.0); Monocytes % 8.1 % (1.7-9.3); Neutrophils # 4.8 K/mm3 (1.8-7.8); Platelet Count 185 K/mm3 (142-424); Red Blood Count 4.28 M/mm3 (4.60-6.20); Red Cell Distribution Width 13.4 % (11.5-17.5); White Blood Count 6.5 K/mm3 (4.8-10.8)
--- NOTE | 2019-04-27 09:30 | Discharge Summary ---
General - General Admission date:: 04/23/19 Discharge date: 04/27/19 HPI HPI: 63-year-old male patient sitting up in chair, reports he is feeling better denies abdominal pain. [facility] -he was seen in the ed-cription of Symptoms (Recalled from ER Triage Doc. by RN): Pt states he has felt nauseated for a few days States that for 2 to 3 days he has generalized abdominal discomfort, but states that "the crux of it" is in the epigastrium. Nausea and vomiting. Denies diarrhea or constipation or fever. Denies urinary symptoms. Says that he feels generally weak and sick all over. Denies cough or cold symptoms. Prior cholecystectomy and appendectomy. States he has not had this type of pain before. pt was found to have sbo and after discussion with surg was admitted Hospital Course Hospital Course: Pt sitting up in chair reports he is feeling better, has tolerated a regular diet and will be D/C back to [facility] this patient from local [facility] -he was seen in the ed, Pt states he has felt nauseated for a few days States that for 2 to 3 days he has generalized abdominal discomfort, but states that "the crux of it" is in the epigastrium. Nausea and vomiting. Denies diarrhea or constipation or fever. Denies urinary symptoms. Says that he feels generally weak and sick all over. Denies cough or cold symptoms. Prior cholecystectomy and appendectomy. States he has not had this type of pain before. pt was found to have sbo and after discussion with surg was admitted (Per Dr. Coelho). 04/[address]: IMPRESSION: Persistent mildly dilated loops of small bowel without obvious transition point with some scattered mildly thickened small bowel loops and some stranding of the central mesenteric fat which would lead 1 to consider enteritis over small-bowel obstruction although the latter entity is not excluded. A high-grade obstruction is not felt to be present as contrast does flow into the large bowel in a timely fashion. Suggest follow-up to confirm resolution. Dictated by: Dr. Nguyen 04/[address]: IMPRESSION: Small-bowel loops are slightly more distended in the mid and upper abdominal region on the left with air-fluid levels. The NG tube has been removed. Dictated by: Dr. Nguyen Diarrhea Panel is NEG Gen Surg has seen and Rec: Although the patient has slightly increased small bowel distention on this morning's film, he does have contrast in his colon and has continued to pass flatus. He currently complains of diarrhea and at least does not have a complete obstruction. The patient's symptoms and radiographic analysis are more consistent with enteritis. Urine Culture POS for Staph Aureus MRSA, will be D/C w/ Bactrim DS Objective Vital signs: Temp Pulse Resp BP Pulse Ox 97.4 F L 81 18 164/79 H 95 04/27/19 07:52 04/27/19 07:52 04/27/19 07:52 04/27/19 07:52 04/27/19 07:52 no acute distress - *Routine HEENT Exam Head: Present: normocephalic, atraumatic Eye: Present: EOMI, PERRL. Absent: periorbital swelling ENT: Present: mucous membranes moist. Absent: sinus tenderness - *Routine Neck Exam Present: supple, full ROM, trachea midline. Absent: JVD, tracheal deviation - *Routine Respiratory Exam Present: CTA bilaterally. Absent: accessory muscle use - *Routine Cardiovascular Exam Present: RRR - *Routine Abdominal Exam Present: soft, normoactive bowel sounds. Absent: tenderness, firm - *Routine Extremities Exam Present: full ROM, pulses intact. Absent: calf tenderness - Routine Back/Spine/Pelvis Exam Back/Spine: Present: full ROM. Absent: CVA tenderness - *Routine Skin Exam Present: intact, warm. Absent: erythema, jaundice - *Routine Neurological Exam Present: alert, oriented X3, CN II-XII intact. Absent: altered mental status - Routine Psychiatric Exam Present: normal affect. Absent: auditory hallucinations, visual hallucinations Results Labs on day of discharge: Labs from last 24 hours 04/27/19 04/27/19 04/27/19 08:27 08:27 06:02 WBC 6.5 RBC 4.28 L Hgb 13.7 L Hct 40.8 L MCV 95.2 H MCH 32.1 H MCHC 33.7 RDW 13.4 Plt Count 185 D MPV 8.5 Neut % (Auto) 74.0 Lymph % (Auto) 14.7 [place] % (Auto) 8.1 Eos % (Auto) 2.5 Baso % (Auto) 0.6 Neut # (Auto) 4.8 Lymph # (Auto) 1.0 [place] # (Auto) 0.5 Eos # (Auto) 0.2 Baso # (Auto) 0.0 Sodium 138 Potassium 3.6 Chloride 103 Carbon Dioxide 26 Anion Gap 12.6 BUN 4 L D Creatinine 0.77 D Estimated Creat Clear 127 Estimated GFR 102 Est GFR ( Amer) 123 D Glucose 264 H POC Glucose 168 H Calcium 8.4 L Urine Color Urine Appearance Urine pH Ur Specific [place] Urine Protein Urine Glucose (UA) Urine Ketones Urine Blood Urine Nitrate Urine Bilirubin Urine Urobilinogen Ur Leukocyte Esterase Urine RBC Urine WBC Stl Aeromonas (PCR) Stl C. cayetanensis PCR Stool Rotavirus (PCR) Stl Adenov F PCR Stool Astrovirus (PCR) Stool Campylobacter PCR Stl C.difficile Tox PCR Stool Cryptosporidium PCR Stl E.coli Shiga Tox PCR Stool E coli O157 PCR Stl Enterotoxigenic E PCR Stool EPEC (PCR) Stool EAEC (PCR) Stl E. histolytica PCR Stool Giardia Lamblia PCR Stool Salmonella PCR Stool Sapovirus (PCR) Stl P. shigelloides PCR Stl Shigella/EIEC PCR St Y.enterocolitica PCR Stool Vibrio (PCR) Stl Vibrio cholerae PCR Stl Norovirus GI/GII PCR 04/26/19 04/26/19 04/26/19 21:12 15:33 12:14 WBC RBC Hgb Hct MCV MCH MCHC RDW Plt Count MPV Neut % (Auto) Lymph % (Auto) [place] % (Auto) Eos % (Auto) Baso % (Auto) Neut # (Auto) Lymph # (Auto) [place] # (Auto) Eos # (Auto) Baso # (Auto) Sodium Potassium Chloride Carbon Dioxide Anion Gap BUN Creatinine Estimated Creat Clear Estimated GFR Est GFR ( Amer) Glucose POC Glucose 178 H 223 H 284 H Calcium Urine Color Urine Appearance Urine pH Ur Specific [place] Urine Protein Urine Glucose (UA) Urine Ketones Urine Blood Urine Nitrate Urine Bilirubin Urine Urobilinogen Ur Leukocyte Esterase Urine RBC Urine WBC Stl Aeromonas (PCR) Stl C. cayetanensis PCR Stool Rotavirus (PCR) Stl Adenov F PCR Stool Astrovirus (PCR) Stool Campylobacter PCR Stl C.difficile Tox PCR Stool Cryptosporidium PCR Stl E.coli Shiga Tox PCR Stool E coli O157 PCR Stl Enterotoxigenic E PCR Stool EPEC (PCR) Stool EAEC (PCR) Stl E. histolytica PCR Stool Giardia Lamblia PCR Stool Salmonella PCR Stool Sapovirus (PCR) Stl P. shigelloides PCR Stl Shigella/EIEC PCR St Y.enterocolitica PCR Stool Vibrio (PCR) Stl Vibrio cholerae PCR Stl Norovirus GI/GII PCR 04/26/19 04/23/19 10:00 21:30 WBC RBC Hgb Hct MCV MCH MCHC RDW Plt Count MPV Neut % (Auto) Lymph % (Auto) [place] % (Auto) Eos % (Auto) Baso % (Auto) Neut # (Auto) Lymph # (Auto) [place] # (Auto) Eos # (Auto) Baso # (Auto) Sodium Potassium Chloride Carbon Dioxide Anion Gap BUN Creatinine Estimated Creat Clear Estimated GFR Est GFR ( Amer) Glucose POC Glucose Calcium Urine Color Yellow Urine Appearance Clear Urine pH 6.0 Ur Specific [place] 1.010 Urine Protein Negative Urine Glucose (UA) Negative Urine Ketones Negative Urine Blood Trace-i Urine Nitrate Negative Urine Bilirubin Negative Urine Urobilinogen 1.0 Ur Leukocyte Esterase 1+ A Urine RBC 3-5 Urine WBC 5-10 Stl Aeromonas (PCR) Not detected Stl C. cayetanensis PCR Not detected Stool Rotavirus (PCR) Not detected Stl Adenov F 40/41 PCR Not detected Stool Astrovirus (PCR) Not detected Stool Campylobacter PCR Not detected Stl C.difficile Tox PCR Not detected Stool Cryptosporidium PCR Not detected Stl E.coli Shiga Tox PCR Not detected Stool E coli O157 PCR Not detected Stl Enterotoxigenic E PCR Not detected Stool EPEC (PCR) Not detected Stool EAEC (PCR) Not detected Stl E. histolytica PCR Not detected Stool Giardia Lamblia PCR Not detected Stool Salmonella PCR Not detected Stool Sapovirus (PCR) Not detected Stl P. shigelloides PCR Not detected Stl Shigella/EIEC PCR Not detected St Y.enterocolitica PCR Not detected Stool Vibrio (PCR) Not detected Stl Vibrio cholerae PCR Not detected Stl Norovirus GI/GII PCR Not detected - Additional Comments Rounded w/ Dr. Coelho, all orderws per Dr. Coelho 1. D/C to [facility] 2. Bactrim DS BID X 10 days DS: Diagnosis - Discharge Diagnosis (1) Obesity (BMI 30-39.9) Status: Acute (2) Splenomegaly Status: Acute (3) Diverticulosis Status: Acute (4) Hx of cholecystectomy Status: Acute (5) Diabetes mellitus Status: Acute (6) Enteritis Status: Acute (7) Diarrhea Status: Acute (8) UTI (urinary tract infection), bacterial Status: Acute Discharge Plan - Patient Discharge Instructions ACTIVITY: Continue current activity DIET: continue same diet Patient Instructions: Small Bowel Obstruction, DI for Small Bowel Obstruction - Follow up Plan Follow up with: Sharan Colby APRN [Advanced Practice Nurse] - 2 weeks Disposition: Home, Self-Intermediate Medications: Home Medications Medication Instructions Recorded Confirmed Type aspirin 81 mg tablet,delayed 81 mg PO QDAY 05/13/17 04/23/19 History release ferrous sulfate 325 mg (65 mg 325 mg PO DAILY tab 05/13/17 04/24/19 History iron) tablet gabapentin 100 mg capsule 100 mg PO BID cap 05/13/17 04/23/19 History ibuprofen 400 mg tablet 600 mg PO Q6H PRN tab 05/13/17 04/23/19 History insulin NPH-regular 70-30 U-100 18 unit SUB-Q QPM ml 05/13/17 04/23/19 History insulin 100 unit/mL subcutaneous pen insulin NPH-regular 70-30 U-100 30 unit SUB-Q QAM ml 05/13/17 04/23/19 History insulin 100 unit/mL subcutaneous pen lisinopril 20 mg tablet 20 mg PO DAILY 05/13/17 04/24/19 History loperamide 2 mg capsule 2 mg PO Q3HP PRN cap 05/13/17 04/24/19 History sertraline 100 mg tablet 100 mg PO HS 05/15/17 04/24/19 History simvastatin 40 mg tablet 40 mg PO HS 05/15/17 04/24/19 History Acetaminophen [Tylenol 8 Hour] 650 mg PO Q12HP PRN 04/23/19 04/23/19 History Ascorbic Acid [Vitamin C] 250 mg PO DAILY 04/23/19 04/23/19 History Cholecalciferol (Vitamin D3) 400 units PO DAILY 04/23/19 04/23/19 History [Vitamin D3] Metformin HCl [Glucophage Xr] 500 mg PO BID 04/23/19 04/23/19 History Multivitamin [Multi-Vitamin Plain] 1 tab PO DAILY 04/23/19 04/23/19 History Omeprazole [Omeprazole 40mg 40 mg PO DAILY 04/23/19 04/23/19 History Capsule] ARIPiprazole [Aripiprazole] 30 mg PO BID 04/24/19 04/24/19 History Prescriptions/Medication Reconciliation: New Sulfamethoxazole/Trimethoprim [Bactrim DS tablet] 1 each PO BID tablet Continued ibuprofen 400 mg tablet 600 mg PO Q6H PRN tab PRN Reason: pain loperamide 2 mg capsule 2 mg PO Q3HP PRN cap PRN Reason: Diarrhea ferrous sulfate 325 mg (65 mg iron) tablet 325 mg PO DAILY tab gabapentin 100 mg capsule 100 mg PO BID cap insulin NPH-regular 70-30 U-100 insulin 100 unit/mL subcutaneous pen 18 unit SUB-Q QPM ml insulin NPH-regular 70-30 U-100 insulin 100 unit/mL subcutaneous pen 30 unit SUB-Q QAM ml lisinopril 20 mg tablet 20 mg PO DAILY simvastatin 40 mg tablet 40 mg PO HS sertraline 100 mg tablet 100 mg PO HS aspirin 81 mg tablet,delayed release 81 mg PO QDAY Ascorbic Acid [Vitamin C] 250 mg PO DAILY Omeprazole [Omeprazole 40mg Capsule] 40 mg PO DAILY Metformin HCl [Glucophage Xr] 500 mg PO BID Cholecalciferol (Vitamin D3) [Vitamin D3] 400 units PO DAILY Multivitamin [Multi-Vitamin Plain] 1 tab PO DAILY Acetaminophen [Tylenol 8 Hour] 650 mg PO Q12HP PRN PRN Reason: Mild Pain,Fever,Headache ARIPiprazole [Aripiprazole] 30 mg PO BID - Problem Reconciliation Problems Reviewed?: Yes
== END 2019-04-27 16:15 | disposition home or self-care (01) ==
LOC: ER 19:40 → 2ND 21:52 → INTOOBSV 22:32 → 2ND 22:32
PROVIDERS: ADMIT Emergency Medicine; ATTEND Emergency Medicine
CPT/HCPCS: 36415; 74021; 74022; 74177; 80048; 80053; 81001; 82150; 82962; 83690; 84484; 85025; 87086; 87088; 87186; 87506; 93005; 96365; 96375; 99285; G0378; J2405; Q9967

== ENCOUNTER → 2019-12-20 14:07 | Outpatient (CLI) | payer MEDICARE, OTHER, SELFPAY ==
[2019-12-20 15:16] LABS: Coronavirus 19 IgG Antibody Negative (Negative); Coronavirus 19 IgM Antibody Negative (Negative)
== END ==
PROVIDERS: PCP Emergency Medicine; Visit Provider Emergency Medicine
DX: Z03.818 Encounter for observation for suspected exposure to other biological agents ruled out (principal)
CPT/HCPCS: 36415; 86328

== ENCOUNTER 2019-12-21 08:23 | Day surgery (SDC) | payer MEDICARE, OTHER, SELFPAY ==
[2019-12-21] VITALS (7 sets, daily range): BP systolic 164–194; BP diastolic 74–93; PULSE 55–74; RESP 18–20; TEMP 36.3–36.7; O2SAT 95–99; BMI 36.2
[2019-12-21 09:01] LABS: POC Glucose,Bedside 185 (70-110)
== END 2019-12-21 09:59 | disposition home or self-care (01) ==
LOC: OR 08:24
PROVIDERS: PCP Emergency Medicine; Visit Provider Ophthalmology
PROC: (CPT 66982; principal; 2019-12-21 10:00)
DX: H25.813 Combined forms of age-related cataract, bilateral (principal); H53.8 Other visual disturbances; H57.03 Miosis; H52.10 Myopia, unspecified eye; E11.8 Type 2 diabetes mellitus with unspecified complications; Z90.49 Acquired absence of other specified parts of digestive tract; Z87.19 Personal history of other diseases of the digestive system; E66.9 Obesity, unspecified; Z79.82 Long term (current) use of aspirin; Z79.899 Other long term (current) drug therapy; Z79.4 Long term (current) use of insulin
CPT/HCPCS: 66982; 82962; V2632

== ENCOUNTER → 2020-01-19 13:45 | Outpatient (CLI) | payer MEDICARE, OTHER, SELFPAY ==
[2020-01-19 15:02] LABS: Basophils # 0.1 K/mm3 (0-0.2); Basophils % 0.7 % (0.1-2.0); Eosinophils # 0.1 K/mm3 (0.0-0.4); Eosinophils % 1.6 % (0.1-12.0); Hematocrit 46.3 % (42.0-52.0); Hemoglobin 15.1 g/dL (14.1-18.0); Lymphocytes # 1.5 K/mm3 (0.7-4.5); Lymphocytes % 19.9 % (10-50); Mean Corpuscular HGB Conc 32.7 g/dL (31.8-35.4); Mean Corpuscular Hemoglobin 32.1 pg (27.0-31.2); Mean Corpuscular Volume 98.2 fl (80-94); Mean Platelet Volume 8.8 fl (7.4-10.4); Monocytes # 0.5 K/mm3 (0.1-1.0); Monocytes % 6.8 % (1.7-9.3); Neutrophils # 5.2 K/mm3 (1.8-7.8); Platelet Count 182 K/mm3 (142-424); Red Blood Count 4.72 M/mm3 (4.60-6.20); Red Cell Distribution Width 13.4 % (11.5-17.5); White Blood Count 7.3 K/mm3 (4.8-10.8)
[2020-01-19 15:10] LABS: Chloride 99 mmol/L (98-107); Potassium 3.9 mmoL/L (3.5-5.1); Sodium 140 mmol/L (136-145)
[2020-01-19 15:13] LABS: Alanine Aminotransferase 21 U/L (12-78); Alkaline Phosphatase 141 U/L (38-126); Amylase 35 U/L (30-110); Anion Gap 13.9 mEq/L (5-15); Aspartate Amino Transferase 29 U/L (17-59); Bilirubin,Total 0.6 mg/dl (0.2-1.3); Blood Urea Nitrogen 13 mg/dl (9-20); Calcium 9.5 mg/dl (8.4-10.2); Carbon Dioxide 31 mmol/L (22.0-30.0); Estimated Glomerular Filt Rate 97 ml/min (>60); GFR (African American) 117 ML/MIN (>60); Glucose 272 mg/dl (74-100); Lipase 26 U/L (23-300)
[2020-01-19 15:14] LABS: Albumin Level 4.3 g/dl (3.5-5.0); Albumin/Globulin Ratio 1.9 (1.1-1.8); Globulin 2.3 g/dL (1.3-3.2); Total Protein,Serum 6.6 g/dl (6.3-8.2)
== END ==
PROVIDERS: Visit Provider Emergency Medicine
DX: R19.7 Diarrhea, unspecified (principal); R10.9 Unspecified abdominal pain
CPT/HCPCS: 80053; 82150; 83690; 85025; 87086

== ENCOUNTER → 2020-01-24 11:23 | Outpatient (CLI) | payer MEDICARE, OTHER, SELFPAY ==
[2020-01-24 14:48] LABS: Coronavirus 19 IgG Antibody Negative (Negative); Coronavirus 19 IgM Antibody Negative (Negative)
== END ==
PROVIDERS: Visit Provider Ophthalmology
DX: Z01.89 Encounter for other specified special examinations (principal); H26.9 Unspecified cataract
CPT/HCPCS: 36415; 86328

== ENCOUNTER 2020-01-25 09:15 | Day surgery (SDC) | payer MEDICARE, OTHER, SELFPAY ==
[2020-01-19 10:22] VITALS: BMI 33.5
[2020-01-25 09:34] VITALS: BP 153/80; PULSE 72; RESP 18; TEMP 36.6; O2SAT 94
[2020-01-25 09:49] LABS: POC Glucose,Bedside 124 (70-110)
[2020-01-25 10:40] VITALS: BP 181/81; PULSE 61; RESP 16; RESP 18; O2SAT 97
[2020-01-25 10:45] VITALS: BP 161/78; PULSE 60; RESP 18; O2SAT 97
[2020-01-25 10:50] VITALS: BP 150/74; PULSE 59; RESP 18; O2SAT 99
[2020-01-25 10:55] VITALS: BP 153/76; PULSE 57; RESP 18; O2SAT 99
[2020-01-25 10:58] VITALS: BP 155/70; PULSE 57; RESP 18; TEMP 36.1; O2SAT 96
== END 2020-01-25 11:04 | disposition home or self-care (01) ==
LOC: OR 09:17
PROVIDERS: PCP Emergency Medicine; Visit Provider Ophthalmology
DX: H26.9 Unspecified cataract (principal); H57.03 Miosis; E11.9 Type 2 diabetes mellitus without complications; Z90.49 Acquired absence of other specified parts of digestive tract; Z79.82 Long term (current) use of aspirin; Z79.84 Long term (current) use of oral hypoglycemic drugs; Z79.4 Long term (current) use of insulin; Z79.899 Other long term (current) drug therapy
CPT/HCPCS: 66982; 82962; V2632

== ENCOUNTER → 2020-02-02 13:46 | Outpatient (CLI) | payer MEDICARE, OTHER, SELFPAY | PROVIDERS: Visit Provider Emergency Medicine | DX: A49.9 Bacterial infection, unspecified (principal); N39.0 Urinary tract infection, site not specified | CPT/HCPCS: 87086 ==

== ENCOUNTER → 2020-02-03 12:22 | Outpatient (CLI) | payer MEDICARE, OTHER, SELFPAY ==
--- NOTE | 2020-02-03 12:22 | CT_ITS ---
PROCEDURE: CT ABDOMEN PELVIS WO CON CLINICAL INDICATION: abdominal pain Right-sided abdominal pain COMPARISON: CT CT ABDOMEN PELVIS W CON from 04/24/2019 TECHNIQUE: Axial images obtained with sagittal and coronal reformats. All CT scans at the facility use one or more dose reduction, viz: automated exposure control, ma/kV adjustment per patient size (including targeted exams where dose is matched to indication, i.e. head), or iterative reconstruction technique. FINDINGS: LOWER THORAX: No acute finding ABDOMEN & PELVIS: There has been a prior cholecystectomy. There is mild splenomegaly at 15 cm. There is fatty infiltration of the pancreas. No renal or ureteral calculi. No hydronephrosis. There is minimal ectasia of the left ureter which is nonspecific. No definite ureteral calculus. Unremarkable appearing adrenal glands. No focal liver lesion. There is mild fatty infiltration of the liver. Exophytic isodense the projects off the lower aspect of the right kidney and may represent a renal cyst at 1.5 cm. There is a small umbilical hernia containing fat. Prior appendectomy. No intestinal obstruction or free air. The prostate is enlarged at 4.7 cm. The no pelvic mass or abnormal fluid collection. No acute bony anomalies. There is fusion of the left SI joint and a sclerotic focus in the left ilium unchanged. IMPRESSION: 1. No acute abdominal or pelvic findings. 2. Mild splenomegaly. 3. Other nonacute findings as described above. Dictated by: Real Nguyen MD 02/05/2020 08:54 Real Nguyen MD in [place] 02/05/2020 08:54
== END ==
PROVIDERS: PCP Emergency Medicine; Visit Provider Emergency Medicine
DX: R10.9 Unspecified abdominal pain (principal)
CPT/HCPCS: 74176

== ENCOUNTER → 2020-04-26 10:06 | Outpatient (CLI) | payer MEDICARE, OTHER, SELFPAY ==
[2020-04-26 10:32] LABS: Basophils # 0.1 K/mm3 (0-0.2); Basophils % 0.5 % (0.1-2.0); Eosinophils % 0.4 % (0.1-12.0); Hematocrit 47.8 % (42.0-52.0); Hemoglobin 15.3 g/dL (14.1-18.0); Lymphocytes # 1.6 K/mm3 (0.7-4.5); Lymphocytes % 17.1 % (10-50); Mean Corpuscular Hemoglobin 32.1 pg (27.0-31.2); Mean Corpuscular Volume 100.2 fl (80-94); Mean Platelet Volume 8.7 fl (7.4-10.4); Monocytes # 0.6 K/mm3 (0.1-1.0); Monocytes % 6.5 % (1.7-9.3); Neutrophils # 7.2 K/mm3 (1.8-7.8); Neutrophils % 75.4 % (37.0-80.0); Platelet Count 203 K/mm3 (142-424); Red Blood Count 4.76 M/mm3 (4.60-6.20); Red Cell Distribution Width 14.2 % (11.5-17.5); White Blood Count 9.5 K/mm3 (4.8-10.8)
[2020-04-26 12:24] LABS: Anion Gap 13.9 mEq/L (5-15); Blood Urea Nitrogen 17 mg/dl (9-20); Calcium 9.7 mg/dl (8.4-10.2); Carbon Dioxide 32 mmol/L (22.0-30.0); Chloride 99 mmol/L (98-107); Estimated Glomerular Filt Rate 97 ml/min (>60); GFR (African American) 117 ML/MIN (>60); Glucose 214 mg/dl (74-100); Potassium 3.9 mmoL/L (3.5-5.1); Sodium 141 mmol/L (136-145)
[2020-04-26 12:31] LABS: Coronavirus 19 IgG Antibody Negative (Negative); Coronavirus 19 IgM Antibody Negative (Negative)
== END ==
PROVIDERS: Visit Provider Surgery
DX: L72.3 Sebaceous cyst (principal); R20.8 Other disturbances of skin sensation; Z01.812 Encounter for preprocedural laboratory examination; Z11.52 Encounter for screening for COVID-19
CPT/HCPCS: 36415; 80048; 85025; 86328

== ENCOUNTER 2020-04-28 08:46 | Day surgery (SDC) | payer MEDICARE, OTHER, SELFPAY ==
[2020-04-25 14:00] VITALS: BMI 40.3
[2020-04-28] VITALS (12 sets, daily range): BP systolic 146–166; BP diastolic 75–90; PULSE 64–96; RESP 12–19; TEMP 36.1–36.6; O2SAT 94–99
[2020-04-28 10:03] LABS: POC Glucose,Bedside 155 (70-110)
--- NOTE | 2020-04-28 11:43 | P.PN_ITS ---
[facility] Anesthesia Checklist - Patient Identification Patient Identification: Arm Band - Structural Data Admitted From: Home Planned Operative Procedure/s: general Consent for Planned Operative Procedure(s) Verified: Yes Verified Documents: Surgical Consent - Additional verifications Anesthesia Reactions: No Hx Blood Transfusions: No Blood Transfusion Reaction: No - Airway Assessment TMJ Mobility Assessed: No Dentition: Good Dentition - Anesthesia Plan Anesthesia Risk discussed: Yes Anesthesia Plan: Verified ASA Class: III Anesthesia Type: General - Preoperative Comments Pre-Operative Comments: non [facility] History Medical History: Reports:: Anxiety, Depression, Diabetes Mellitus Type 2, Gastroesophageal Reflux Disease(GERD), Hyperlipidemia, Hypertension Denies:: Cancer, Diabetes Mellitus Type 1, Internal Pacemaker, Lung Disease, MRSA, Seizures *Have you ever received a pneumonia vaccine?: No *Have you received a flu vaccine this season?: No Other Medical History: Reports: Arthritis, Cataracts. Denies: Blood Transfusion Reaction Anesthesia experience/problems:: general Other Surgeries: Yes: Appendectomy, Cholecystectomy, Colonoscopy, EGD, Other. No: Pacemaker Amputation: No Fractures: No - *Social History Smoking Status: Never smoker Alcohol Intake: never Substance Use Type: denies use *Occupational Status:: disabled Housing: assisted living facility *Travel in the last 8 weeks: None - Psychiatric History Pschychiatric History:: Reports:: Anxiety, Depression, Schizophrenia Family Hx:: Diabetes
--- NOTE | 2020-04-28 12:02 | HMH.OPNOTE ---
Date of procedure: 04/28/20 Pre-op Diagnosis:: Recurrent sebaceous cyst along right upper back (2.5 cm) Post-op Diagnosis:: Same Procedure performed:: Excision of 2.5 cm right upper back cyst Surgeon:: Carlos Sanchez MD Anesthesia: local, LMA Estimated blood loss (mL): 10 Operative findings:: 2.5 cm cyst excised in toto Operative note:: After informed consent was obtained the patient was taken to the operating room and placed in the supine position. General anesthesia with laryngeal mask airway was achieved. Patient was then transferred to a left lateral decubitus position. The right upper back was prepped and draped in a sterile fashion. After infiltration local anesthetic an elliptical incision was made around the lesion. The deep subcutaneous tissue was dissected with electrocautery. The lesion was excised in toto and passed off for pathologic evaluation. Hemostasis was achieved with electrocautery along the margin. A small area of ongoing ooze was noted centrally in the deep margin of the wound. This was controlled with interrupted Vicryl. The wound was irrigated. Skin was reapproximated with interrupted 4-0 nylon. Dressings were applied and the patient was transferred to recovery in stable condition after removal of his laryngeal mask airway. Condition: stable Disposition: PACU Specimens:: 2.5 cm right upper back cyst Complications:: No immediate
[2020-04-28 12:34] LABS: POC Glucose,Bedside 153 (70-110)
--- NOTE | 2020-04-28 17:44 | P.PN_ITS ---
[facility] Anesthesia Record Part II Discharge Time: 12:42 Destination: Surgical Day Care (OP Surgery) PACU nurse assessment reviewed?: Yes Patient Condition:: Good Anesthesia Complications:: None Swallowing reflex intact?: Yes Cyanosis?: No Blood Pressure: 158/84 Pulse Rate: 69 Temperature: 97.5 F Mental Status: Alert & Oriented Pain level:: 3 Nausea and/or vomitting:: None Intake, IV Amount: 0
== END 2020-04-28 13:24 | disposition home or self-care (01) ==
LOC: OR 08:47
PROVIDERS: PCP Emergency Medicine; Visit Provider Surgery
PROC: (CPT 11403; principal; 2020-04-28 10:45)
DX: L72.3 Sebaceous cyst (principal); E11.9 Type 2 diabetes mellitus without complications; E78.5 Hyperlipidemia, unspecified; I10 Essential (primary) hypertension; F41.9 Anxiety disorder, unspecified; F32.9 Major depressive disorder, single episode, unspecified; M19.90 Unspecified osteoarthritis, unspecified site; Z90.49 Acquired absence of other specified parts of digestive tract; Z88.2 Allergy status to sulfonamides; Z79.82 Long term (current) use of aspirin; Z79.84 Long term (current) use of oral hypoglycemic drugs; Z79.4 Long term (current) use of insulin; Z79.899 Other long term (current) drug therapy
CPT/HCPCS: 11403; 82962; 88304; 96374; J2405

== ENCOUNTER 2021-01-14 05:52 | Emergency (ER) | payer MEDICARE, OTHER, SELFPAY ==
[2021-01-14 05:45] VITALS: BP 158/70; PULSE 62; RESP 16; TEMP 36.9; O2SAT 96; BMI 33.2
--- NOTE | 2021-01-14 06:20 | XR_ITS ---
PROCEDURE INFORMATION: Exam: XR Right Ribs with PA Chest Exam date and time: 01/14/2021 6:20 AM Age: 65 years old Clinical indication: Pain and injury or trauma; Fall; Rib area; Blunt trauma (contusions or hematomas); Other: Right rib pain; Injury date: 01/13/21; Injury details: Patient fell and hit right ribs-- cxr and 3 rib views taken -- pain is right sided rib pain no one spot diffuse pain TECHNIQUE: Imaging protocol: XR Right ribs with PA chest. Views: 3 views COMPARISON: CT ABDOMEN PELVIS WO CON 02/03/2020 12:58 PM FINDINGS: Lungs: Mild bibasilar atelectasis. Pleural spaces: No pneumothorax. Heart/Mediastinum: Unremarkable. No cardiomegaly. Bones/joints: Mildly displaced fracture right rib 8 posterolaterally. IMPRESSION: 1. Mildly displaced fracture right rib 8 posterolaterally. 2. Mild bibasilar atelectasis. No pneumothorax.
--- NOTE | 2021-01-14 06:40 | HMH.EDGENADL ---
ED Disposition Clinical Impression: Pleurisy Disposition: Home, Self-Care Condition on Discharge: Good Instructions: DI for Pleurisy Additional Instructions: resume orders Referrals: Caleb Coelho MD [Primary Care Provider] - - Critical Care Critical Care Time: No Attestation: On 01/14/21, the high probability of a clinically significant, sudden or life threatening deterioration of the following system(s) required my full and direct attention, intervention and personal management. The time I documented below is in addition to time spent performing reported procedures but includes the following listed in this critical care notation. Medical Decision Making - Medical Records Medical records reviewed: Yes: I reviewed the patient's medical records. - [place] Inquiry Pt receiving controlled substance: No Vital Signs: 01/14/21 05:45 01/14/21 06:41 01/14/21 07:01 Temperature 98.5 F Temperature Source Oral Pulse Rate 72 63 Pulse Rate [Right] 62 Respiratory Rate 16 18 17 Blood Pressure 154/67 H 124/47 L Blood Pressure [Right Arm] 158/70 H Blood Pressure Mean 86 72 Blood Pressure Mean [Right Arm] 99 02 Sat by Pulse Oximetry 96 95 95 01/14/21 07:30 Temperature Temperature Source Pulse Rate 58 L Pulse Rate [Right] Respiratory Rate 19 Blood Pressure 136/51 L Blood Pressure [Right Arm] Blood Pressure Mean 71 Blood Pressure Mean [Right Arm] 02 Sat by Pulse Oximetry 93 L - Lab Data Lab results reviewed: Yes: I reviewed the patient's lab results. Orders (Tests/Meds): ORDERS Category Date Time Status XR ribs RT min 3V w CXR1V Stat Exams 01/14/21 06:20 Taken - Radiology Data #1 Image(s): Chest Image Reviewed: Yes I reviewed the patient's radiology image Preliminary Findings: No Fracture Seen Medical Decision Narrative: pt with no rash or abn xrays and stable exam - prob pleurisy General Adult HPI - General Chief complaint: PAIN Stated complaint: rib pain x1 week Time Seen by Provider: 01/14/21 06:15 Mode of Arrival: EMS Source of Information: Patient, EMS, Medical Record Limitations: No Limitations Description of Symptoms (Recalled from ER Triage Doc. by RN): pt c/o lt rib pain x 1 week - History of Present Illness HPI narrative: pt with rt rib pain w/o fever or rash or trauma - had recent covid-19- resident of [facility] Onset (ago): day(s) Location: chest Severity: moderate Associated symptoms: denies other symptoms Treatments prior to arrival: none - Related Data Home Medications Medication Instructions Recorded Confirmed aspirin 81 mg tablet,delayed 81 mg PO QDAY 05/13/17 07/19/20 release ferrous sulfate 325 mg (65 mg 325 mg PO DAILY tab 05/13/17 07/19/20 iron) tablet ibuprofen 400 mg tablet 600 mg PO Q6H PRN tab 05/13/17 07/19/20 insulin NPH-regular 70-30 U-100 18 unit SUB-Q QPM ml 05/13/17 07/19/20 insulin 100 unit/mL subcutaneous pen insulin NPH-regular 70-30 U-100 30 unit SUB-Q QAM ml 05/13/17 07/19/20 insulin 100 unit/mL subcutaneous pen lisinopril 20 mg tablet 20 mg PO DAILY 05/13/17 07/19/20 loperamide 2 mg capsule 2 mg PO Q3HP PRN cap 05/13/17 07/19/20 sertraline 100 mg tablet 100 mg PO HS 05/15/17 07/19/20 simvastatin 40 mg tablet 40 mg PO HS 05/15/17 07/19/20 Acetaminophen [Tylenol 8 Hour] 650 mg PO Q12HP PRN 04/23/19 07/19/20 Ascorbic Acid [Vitamin C] 250 mg PO DAILY 04/23/19 07/19/20 Cholecalciferol (Vitamin D3) 400 units PO DAILY 04/23/19 07/19/20 [Vitamin D3] Multivitamin [Multi-Vitamin Plain] 1 tab PO DAILY 04/23/19 07/19/20 Omeprazole [Omeprazole 40mg 40 mg PO DAILY 04/23/19 07/19/20 Capsule] ARIPiprazole [Aripiprazole] 30 mg PO BID 04/24/19 07/19/20 metformin 500 mg tablet,extended 2,000 mg PO DAILY tab 01/24/20 07/19/20 release 24 hr Previous Rx's Medication Instructions Recorded Hydrocod/Acet 5/325 mg [[place] 1 - 2 tab PO Q6HP PRN #9 tab 04/28/20 5/325mg tablet] b
[2021-01-14 06:41] VITALS: BP 154/67; PULSE 72; RESP 18; O2SAT 95
[2021-01-14 07:01] VITALS: BP 124/47; PULSE 63; RESP 17; O2SAT 95
[2021-01-14 07:30] VITALS: BP 136/51; PULSE 58; RESP 19; O2SAT 93
[2021-01-14 08:27] LABS: POC Glucose,Bedside 203 (70-110)
--- NOTE | 2021-01-14 09:03 | PC.NURSE ---
spoke with radiology, hafsa said she called [facility] to check on status of xray read. [facility] staff states the images have been assigned but they are currently at a high turn over rate.
--- NOTE | 2021-01-14 09:30 | PC.NURSE ---
Called for pt a ride at [facility], staff states they will send an aide for the pt
[2021-01-14 10:03] VITALS: BP 136/51; PULSE 58; RESP 18; TEMP 36.9; O2SAT 93
== END 2021-01-14 10:03 | disposition home or self-care (01) ==
PROVIDERS: Emergency Provider Emergency Medicine; PCP Emergency Medicine
DX: R09.1 Pleurisy (principal); R07.89 Other chest pain; F41.8 Other specified anxiety disorders; K21.9 Gastro-esophageal reflux disease without esophagitis; E78.5 Hyperlipidemia, unspecified; I10 Essential (primary) hypertension; E11.9 Type 2 diabetes mellitus without complications; Z79.4 Long term (current) use of insulin; Z79.899 Other long term (current) drug therapy
CPT/HCPCS: 71101; 82962; 99282

== ENCOUNTER 2021-03-06 17:10 | Emergency (ER) | payer MEDICARE, OTHER, SELFPAY ==
[2021-03-06 17:13] VITALS: BP 180/73; PULSE 102; RESP 20; TEMP 37.3; O2SAT 94; BMI 33.9
--- NOTE | 2021-03-06 17:35 | XR_ITS ---
PROCEDURE INFORMATION: Exam: XR Chest Exam date and time: 03/06/2021 5:35 PM Age: 65 years old Clinical indication: Other: Aches, chills , diarrhea; Additional info: Aches, chills, diarrhea TECHNIQUE: Imaging protocol: XR of the chest. Views: 1 view. COMPARISON: CR XR RIBS RT MIN 3V W CXR1V 01/14/2021 6:25 AM FINDINGS: Lungs: Unremarkable. No consolidation. Pleural spaces: Unremarkable. No pleural effusion. No pneumothorax. Heart/Mediastinum: Unremarkable. No cardiomegaly. Bones/joints: Unremarkable. IMPRESSION: No acute findings.
[2021-03-06 18:05] LABS: Coronavirus 19, PCR Not Detected (NotDetected); Influenza A, PCR Not Detected (NotDetected); Influenza B, PCR Not Detected (NotDetected)
[2021-03-06 18:08] LABS: Basophils # 0.1 K/mm3 (0-0.2); Basophils % 0.5 % (0.1-2.0); Eosinophils # 0.2 K/mm3 (0.0-0.4); Eosinophils % 2.3 % (0.1-12.0); Hematocrit 39.6 % (42.0-52.0); Hemoglobin 13.6 g/dL (14.1-18.0); Lymphocytes # 0.6 K/mm3 (0.7-4.5); Lymphocytes % 5.5 % (10-50); Mean Corpuscular HGB Conc 34.3 g/dL (31.8-35.4); Mean Corpuscular Hemoglobin 32.1 pg (27.0-31.2); Mean Corpuscular Volume 93.4 fl (80-94); Mean Platelet Volume 9.5 fl (7.4-10.4); Monocytes # 0.5 K/mm3 (0.1-1.0); Monocytes % 5.1 % (1.7-9.3); Neutrophils % 86.6 % (37.0-80.0); Platelet Count 185 K/mm3 (142-424); Red Blood Count 4.24 M/mm3 (4.60-6.20); Red Cell Distribution Width 14.1 % (11.5-17.5); White Blood Count 10.4 K/mm3 (4.8-10.8)
[2021-03-06 18:11] LABS: MANUAL DIFFERENTIAL MANUAL DIFFERENTIAL (MANUAL DIFF); Microscopic, Urine URINE MICROSCOPIC (MICROSCOPIC)
[2021-03-06 18:14] LABS: Alanine Aminotransferase 30 U/L (12-78); Albumin Level 4.1 g/dl (3.5-5.0); Albumin/Globulin Ratio 1.8 (1.1-1.8); Alkaline Phosphatase 123 U/L (38-126); Anion Gap 11.2 mEq/L (5-15); Aspartate Amino Transferase 52 U/L (17-59); Bilirubin,Total 0.3 mg/dl (0.2-1.3); Blood Urea Nitrogen 9 mg/dl (9-20); Calcium 8.9 mg/dl (8.4-10.2); Carbon Dioxide 30 mmol/L (22.0-30.0); Chloride 95 mmol/L (98-107); Creatinine Clearance Estimated 117 mL/min (50-200); Estimated Glomerular Filt Rate 84 ml/min (>60); GFR (African American) 102 ML/MIN (>60); Globulin 2.3 g/dL (1.3-3.2); Glucose 263 mg/dl (74-100); Potassium 4.2 mmoL/L (3.5-5.1); Sodium 132 mmol/L (136-145); Total Protein,Serum 6.4 g/dl (6.3-8.2)
[2021-03-06 18:20] LABS: Appearance,Urine CLEAR (Clear); Bilirubin,Urine Negative (Negative); Blood, Urine TRACE-I (Negative); Color,Urine STRAW (Yellow); Glucose,Urine (UA) 1+ (Negative); Ketones,Urine Negative (Negative); Leukocyte Esterase,Urine Negative (Negative); Nitrate,Urine Negative (Negative); Protein,Urine Negative (Negative); Specific Gravity, Urine <= 1.005 (1.005-1.030); Urobilinogen,Urine 0.2 EU/dl (0.2)
[2021-03-06 18:27] LABS: Eosinophils % 1 % (0-3); Lymphocytes % 4 % (10-50); Monocytes % 3 % (2-9); Neutrophils % 90 % (42-76); Platelet Estimate Normal; RBC Morphology Normal; Total Cells Counted 100
[2021-03-06 18:32] LABS: Bacteria,Urine Trace /lpf; RBC,Urine Occasional #/hpf (0-3); Squamous Epithelial Cell,Urine Occasional #/hpf (0-5)
[2021-03-06 19:16] LABS: Lactic Acid 1.4 mmol/L (0.7-2.1)
[2021-03-06 20:00] VITALS: BP 166/75; PULSE 91; RESP 20; O2SAT 96
[2021-03-06 20:02] VITALS: BP 166/75; PULSE 94; O2SAT 98
[2021-03-06 20:31] VITALS: BP 176/84; PULSE 99; O2SAT 96
[2021-03-06 21:01] VITALS: BP 135/70; PULSE 95; O2SAT 95
--- NOTE | 2021-03-06 21:13 | HMH.EDFEV ---
ED Disposition Clinical Impression: Gastroenteritis Disposition: Home, Self-Care Condition on Discharge: Good Instructions: DI for Viral Gastroenteritis -- Adult Additional Instructions: Please follow up with your primary care physician in 2-3 days for further management. Please collect stool sample and provide to your primary care for collection and analysis. Please continue to take tylenol and ibuprofen for pain and fever control and return if symptoms do not improve. Please stay hydrated and return if inability to tolerate food and hydration intake. Referrals: Caleb Coelho MD [Primary Care Provider] - Time of Disposition: 21:35 - Critical Care Critical Care Time: No Attestation: On 03/06/21, the high probability of a clinically significant, sudden or life threatening deterioration of the following system(s) required my full and direct attention, intervention and personal management. The time I documented below is in addition to time spent performing reported procedures but includes the following listed in this critical care notation. Medical Decision Making - Medical Records Medical records reviewed: Yes: I reviewed the patient's medical records. - Tucker Inquiry Pt receiving controlled substance: No Vital Signs: 03/06/21 17:13 03/06/21 20:00 Temperature 99.1 F Temperature Source Oral Pulse Rate 91 H Pulse Rate [Left Radial] 102 H Respiratory Rate 20 20 Blood Pressure 166/75 H Blood Pressure [Right Arm] 180/73 H Blood Pressure Mean [Right Arm] 108 Blood Pressure Source Automatic Cuff Blood Pressure Source [Right Arm] Automatic Cuff Blood Pressure Position Sitting Blood Pressure Position [Right Arm] Sitting 02 Sat by Pulse Oximetry 94 L 96 Oxygen Delivery Method Room Air Room Air - Lab Data Lab Results 03/06/21 18:00: WBC 10.4, RBC 4.24 L, Hgb 13.6 L, Hct 39.6 L, MCV 93.4, MCH 32.1 H, MCHC 34.3, RDW 14.1, Plt Count 185, MPV 9.5, Neut % (Auto) 86.6 H, Lymph % (Auto) 5.5 L, [place] % (Auto) 5.1, Eos % (Auto) 2.3, Baso % (Auto) 0.5, Neut # (Auto) 9.0 H, Lymph # (Auto) 0.6 L, [place] # (Auto) 0.5, Eos # (Auto) 0.2, Baso # (Auto) 0.1, Total Counted 100, Neutrophils % (Manual) 90 H, Band Neutrophils % 2.0, Lymphocytes % (Manual) 4 L, Monocytes % (Manual) 3, Eosinophils % (Manual) 1, Platelet Estimate Normal, RBC Morphology Normal 03/06/21 18:00: Sodium 132 L, Potassium 4.2, Chloride 95 L, Carbon Dioxide 30, Anion Gap 11.2, BUN 9, Creatinine 0.90, Estimated Creat Clear 117, Estimated GFR 84, Est GFR ( Amer) 102, Glucose 263 H, Calcium 8.9, Total Bilirubin 0.3, AST 52, ALT 30, Alkaline Phosphatase 123, Total Protein 6.4, Albumin 4.1, Globulin 2.3, Albumin/Globulin Ratio 1.8 03/06/21 18:00: SARS-CoV-2 (PCR) Not detected, Influenza A Untype (PCR) Not detected, Influenza Type B (PCR) Not detected 03/06/21 18:00: Urine Color Straw, Urine Appearance Clear, Urine pH 6.0, Ur Specific [place] <= 1.005, Urine Protein Negative, Urine Glucose (UA) 1+, Urine Ketones Negative, Urine Blood Trace-i, Urine Nitrate Negative, Urine Bilirubin Negative, Urine Urobilinogen 0.2, Ur Leukocyte Esterase Negative, Urine RBC Occasional, Ur Squamous Epith Cells Occasional, Urine Bacteria Trace 03/06/21 18:49: Lactate 1.4 Result diagrams: 03/06/21 18:00 03/06/21 18:00 Orders (Tests/Meds): ED MEDICATIONS Generic Name Dose Route Start Last Admin Trade Name Freq PRN Reason Stop Dose Admin Sodium Chloride 1,000 mls @ 999 mls/hr 03/06/21 17:45 03/06/21 18:47 Sod Chlor 0.9% 1000ml Bag IV 03/06/21 18:45 999 mls/hr .Q1H1M SHWETHA Administration Medical Decision Narrative: Mr. Vázquez is a 65 yo male who presents w/ fever, diarrhea, generalized malaise for 1 week. Patient is febrile on arrival, 102, but hemodynamically stable. Patient is given tylenol for fever control which improves 99.7, and 1L IV LR for fluid resucitation. Differentials to consider include: UTI, gastroenteritis, colitis/enteritis, COVID or ot
[2021-03-06 21:19] VITALS: BP 135/70; PULSE 95; RESP 16; TEMP 37.1; O2SAT 96
== END 2021-03-06 21:20 | disposition home or self-care (01) ==
PROVIDERS: Emergency Provider Student in an Organized Health Care Education/Training Program; PCP Emergency Medicine
DX: K52.9 Noninfective gastroenteritis and colitis, unspecified (principal); E11.65 Type 2 diabetes mellitus with hyperglycemia; K21.9 Gastro-esophageal reflux disease without esophagitis; I10 Essential (primary) hypertension; E78.5 Hyperlipidemia, unspecified; F41.8 Other specified anxiety disorders; Z20.822 Contact with and (suspected) exposure to COVID-19
CPT/HCPCS: 71045; 80053; 81001; 83605; 85007; 85025; 96365; 99283; C9803; U0003; U0005

== ENCOUNTER 2022-04-14 23:50 | Emergency (ER) | payer MEDICARE, OTHER, SELFPAY ==
[2022-04-14 23:50] VITALS: BP 172/131; PULSE 101; RESP 16; TEMP 37; O2SAT 93; BMI 33.9
--- NOTE | 2022-04-14 23:54 | ECG_ITS ---
APPROVED REPORT Exam: Resting ECG HR:92 bpm ECG Measurements Heart Rate 92 AXES CO 172 P 56 QRSd 97 QRS 67 QT 359 T 72 QTc 409 Conclusion SINUS RHYTHM NORMAL ECG UNCONFIRMED REPORT Electronically signed by : Salvador Mayfield MD 04/15/2022 20:02:49
[2022-04-15] VITALS (8 sets, daily range): BP systolic 93–125; BP diastolic 39–54; PULSE 64–87; RESP 20; TEMP 36.8; O2SAT 93–96
[2022-04-15 00:09] LABS: Basophils % 0.4 % (0.1-2.0); Eosinophils # 0.1 K/mm3 (0.0-0.4); Eosinophils % 1.3 % (0.1-12.0); Hematocrit 41.7 % (42.0-52.0); Hemoglobin 13.8 g/dL (14.1-18.0); Lymphocytes # 0.5 K/mm3 (0.7-4.5); Mean Corpuscular HGB Conc 33.2 g/dL (31.8-35.4); Mean Corpuscular Hemoglobin 31.6 pg (27.0-31.2); Mean Corpuscular Volume 95.3 fl (80-94); Mean Platelet Volume 8.3 fl (7.4-10.4); Monocytes # 0.4 K/mm3 (0.1-1.0); Monocytes % 3.5 % (1.7-9.3); Neutrophils # 9.4 K/mm3 (1.8-7.8); Neutrophils % 89.8 % (37.0-80.0); Platelet Count 189 K/mm3 (142-424); Red Blood Count 4.37 M/mm3 (4.60-6.20); Red Cell Distribution Width 13.6 % (11.5-17.5); White Blood Count 10.4 K/mm3 (4.8-10.8)
[2022-04-15 00:10] LABS: MANUAL DIFFERENTIAL MANUAL DIFFERENTIAL (MANUAL DIFF)
[2022-04-15 00:17] LABS: Chloride 97 mmol/L (98-107); Sodium 134 mmol/L (136-145)
[2022-04-15 00:18] LABS: Potassium 4.3 mmoL/L (3.5-5.1)
[2022-04-15 00:20] LABS: Alanine Aminotransferase 31 U/L (12-78); Albumin Level 3.9 g/dl (3.5-5.0); Albumin/Globulin Ratio 1.8 (1.1-1.8); Alkaline Phosphatase 129 U/L (38-126); Anion Gap 12.3 mEq/L (5-15); Aspartate Amino Transferase 32 U/L (17-59); Bilirubin,Total 0.4 mg/dl (0.2-1.3); Blood Urea Nitrogen 18 mg/dl (9-20); Carbon Dioxide 29 mmol/L (22.0-30.0); Creatinine Clearance Estimated 115 mL/min (50-200); Estimated Glomerular Filt Rate 84 ml/min (>60); GFR (African American) 102 ML/MIN (>60); Globulin 2.2 g/dL (1.3-3.2); Total Protein,Serum 6.1 g/dl (6.3-8.2)
[2022-04-15 00:21] LABS: Calcium 8.1 mg/dl (8.4-10.2); Glucose 371 mg/dl (74-100)
[2022-04-15 00:26] LABS: C-Reactive Protein 12.2 mg/L (0-4)
[2022-04-15 00:32] LABS: Erythrocyte Sedimentation Rate 23 mm/hr (0-20)
[2022-04-15 00:43] LABS: Troponin I < 0.01 ng/ml (0.00-0.034)
--- NOTE | 2022-04-15 01:01 | XR_ITS ---
PROCEDURE INFORMATION: Exam: XR Chest Exam date and time: 04/15/2022 12:55 AM Age: 66 years old Clinical indication: Cough; Additional info: Cough, weakness TECHNIQUE: Imaging protocol: Radiologic exam of the chest. Views: 2 views. COMPARISON: CR XR CHEST PORTABLE 03/06/2021 5:46 PM FINDINGS: Lungs: Minor elevation the right hemidiaphragm is present. There is flattening of the hemidiaphragms suggesting COPD. The lungs appear stable. No focal areas of consolidation. Pleural spaces: No pleural effusions or appreciable adenopathy. Negative for pneumothorax. Heart/Mediastinum: Cardiac silhouette and pulmonary vasculature are within range of normal. Bones/joints: There is no evidence of acute fracture. The thoracic spine demonstrates mild degenerative changes at multiple levels. IMPRESSION: Negative for an acute cardiopulmonary abnormality. Stable chest radiograph.
--- NOTE | 2022-04-15 01:05 | HMH.EDWEAK ---
Discharge Plan Disposition Patient Disposition: Home, Self-Care Prescriptions Prescriptions: New levofloxacin 500 mg tablet 500 mg PO DAILY Qty: 7 0RF No Action ibuprofen 400 mg tablet 600 mg PO Q6H PRN (Reason: pain) loperamide [Anti-Diarrheal (loperamide)] 2 mg capsule 2 mg PO Q3HP PRN (Reason: Diarrhea) aspirin [Aspir-81] 81 mg tablet,delayed release (DR/EC) 81 mg PO QDAY ferrous sulfate 325 mg (65 mg iron) tablet 325 mg PO DAILY insulin NPH and regular human [Humulin 70/30 U-100 KwikPen] 100 unit/mL (70-30) insulin pen 18 unit SUB-Q QPM Label Comments: once daily at 4:30 pm before supper insulin NPH and regular human [Humulin 70/30 U-100 KwikPen] 100 unit/mL (70-30) insulin pen 30 unit SUB-Q QAM Label Comments: If below 120 take 20 units lisinopril 20 mg tablet 20 mg PO DAILY sertraline 100 mg tablet 100 mg PO HS simvastatin 40 mg tablet 40 mg PO HS (DME) Blood Glucose Test Strip See Rx Instructions .ROUTE .MEDSUPPLY Qty: 100 5RF Rx Instructions: TID As directed (DME) blood-glucose meter [Advanced Glucose Meter] Mis See Rx Instructions .Route Qty: 1 0RF Rx Instructions: Test sugar twice daily (DME) lancets [Advanced Travel Lancets] 28 gauge misc See Rx Instructions .Route Qty: 100 4RF Rx Instructions: Test sugar twice daily (DME) Advanced Gluc Meter Test Strip Strip See Rx Instructions .Route Qty: 100 4RF Rx Instructions: Test sugar twice daily (DME) lancets [OneTouch Delica Plus Lancet] 33 gauge misc See Rx Instructions .ROUTE .COMPLEX Qty: 100 0RF Dose Instruction: TEST BLOOD SUAGR 3 TIMES A DAY DIRECTED Rx Instructions: TEST BLOOD SUAGR 3 TIMES A DAY DIRECTED gabapentin 100 mg capsule 100 mg PO BID Qty: 60 5RF hydrocodone-acetaminophen 1 TAB tablet 1 - 2 tab PO Q6HP PRN (Reason: post-op pain) Qty: 9 0RF multivitamin 0 tablet 1 tab PO DAILY ascorbic acid (vitamin C) 250 tablet 250 mg PO DAILY cholecalciferol (vitamin D3) 400 tablet 400 units PO DAILY omeprazole 40 MG capsule,delayed release(DR/EC) 40 mg PO DAILY acetaminophen 650 MG tablet extended release 650 mg PO Q12HP PRN (Reason: Mild Pain,Fever,Headache) aripiprazole 30 tablet 30 mg PO BID metformin 500 mg tablet extended release 24 hr 2,000 mg PO DAILY Referrals Follow up/Referrals: Caleb Coelho MD [Primary Care Provider] - See instructions Clinical Impressions Clinical Impression: Diabetes mellitus, UTI (urinary tract infection), bacterial Instructions Patient Instructions: DI for Urinary Tract Infection (UTI) Discharge ED Provider: Caleb Coelho Weakness HPI General Chief complaint: Weakness Stated complaint: weakness Time Seen by Provider: 04/15/22 01:05 Mode of Arrival: EMS Source of Information: Patient, EMS and Medical Record Limitations: No Limitations Description of Symptoms (Recalled from ER Triage Doc. by RN): pt c/o increasing weakness and elevated high blood pressure. Pt state he hasn't felt like himself for a couple of days History of Present Illness HPI Narrative: not feeling well over the last few days has been noncompliant with diabetes Complaint: generalized weakness Onset (ago): day(s) Duration: intermittent Location: generalized Migration: none Severity: moderate Associated symptoms: denies other symptoms Related Data Home Medications Medication Instructions Recorded Confirmed aspirin 81 mg tablet,delayed 81 mg PO QDAY Heart disease 05/13/17 07/19/20 release (Aspir-) ferrous sulfate 325 mg (65 mg 325 mg PO DAILY Supplement 05/13/17 07/19/20 iron) tablet ibuprofen 400 mg tablet 600 mg PO Q6H PRN pain 05/13/17 07/19/20 insulin NPH-regular 70-30 U-100 18 unit SUB-Q QPM Diabetes 05/13/17 07/19/20 insulin 100 unit/mL subcutaneous pen (Humulin 70/30 U-100 Yg) insul
[2022-04-15 01:14] LABS: Acetone, Serum (Rapid) None Detected (None Detect)
[2022-04-15 01:37] LABS: Procalcitonin 0.167 ng/mL (0.0-2.0)
[2022-04-15 01:47] LABS: Lymphocytes % 7 % (10-50); Neutrophils % 92 % (42-76); Platelet Estimate Normal; RBC Morphology Normal; Total Cells Counted 100
[2022-04-15 03:18] LABS: Coronavirus 19, PCR Not Detected (NotDetected); Influenza A, PCR Not Detected (NotDetected); Influenza B, PCR Not Detected (NotDetected)
[2022-04-15 03:23] LABS: Troponin I < 0.01 ng/ml (0.00-0.034)
[2022-04-15 03:24] LABS: Microscopic, Urine URINE MICROSCOPIC (MICROSCOPIC)
[2022-04-15 03:25] LABS: Bilirubin,Urine Negative (Negative); Blood, Urine 1+ (Negative); Color,Urine YELLOW (Yellow); Glucose,Urine (UA) 2+ (Negative); Ketones,Urine Negative (Negative); Leukocyte Esterase,Urine 2+ (Negative); Nitrate,Urine Negative (Negative); Protein,Urine Negative (Negative); Urobilinogen,Urine 0.2 EU/dl (0.2)
[2022-04-15 03:29] LABS: Appearance,Urine Slightly Cloudy (Clear)
[2022-04-15 03:47] LABS: Bacteria,Urine 1+ /lpf; Mucus,Urine 1+ /lpf; Squamous Epithelial Cell,Urine Occasional #/hpf (0-5)
--- NOTE | 2022-04-15 04:07 | PC.NURSE ---
re-checked, it was 160. notified
[2022-04-15 04:09] LABS: POC Glucose,Bedside 160 (70-110)
== END 2022-04-15 04:47 | disposition home or self-care (01) ==
PROVIDERS: Emergency Provider Emergency Medicine; PCP Emergency Medicine
DX: R53.1 Weakness (principal); E11.9 Type 2 diabetes mellitus without complications; N39.0 Urinary tract infection, site not specified; Z20.822 Contact with and (suspected) exposure to COVID-19
CPT/HCPCS: 80053; 81001; 82009; 82962; 84145; 84484; 85007; 85025; 85651; 86140; 87086; 96361; 96374; 99285; C9803; J0696; U0003; U0005

== ENCOUNTER 2022-09-26 21:47 | Emergency (ER) | payer MEDICARE, OTHER, SELFPAY ==
--- NOTE | 2022-09-26 21:49 | ECG_ITS ---
APPROVED REPORT Exam: Resting ECG HR:101 bpm ECG Measurements Heart Rate 101 AXES ID 184 P 58 QRSd 97 QRS 63 QT 335 T 42 QTc 393 Conclusion SINUS TACHYCARDIA ABNORMAL RHYTHM ECG UNCONFIRMED REPORT Electronically signed by : Salvador Mayfield MD 09/27/2022 16:18:58
[2022-09-26 21:59] VITALS: BP 160/70; PULSE 82; RESP 16; TEMP 36.6; O2SAT 98; BMI 35.2
[2022-09-26 22:00] VITALS: BP 163/69; PULSE 96; RESP 25; O2SAT 92
--- NOTE | 2022-09-26 22:04 | XR_ITS ---
PROCEDURE INFORMATION: Exam: XR Chest Exam date and time: 09/26/2022 10:30 PM Age: 67 years old Clinical indication: Injury or trauma; Fall; Blunt trauma (contusions or hematomas) TECHNIQUE: Imaging protocol: Radiologic exam of the chest. Views: 1 view. COMPARISON: CR XR CHEST 2V 05/15/2022 00:55 FINDINGS: Lungs: Bibasilar atelectasis. Pleural spaces: Unremarkable. No pleural effusion. No pneumothorax. Heart/Mediastinum: Unremarkable. No cardiomegaly. Bones/joints: Unremarkable. IMPRESSION: No acute intrathoracic organ injury.
--- NOTE | 2022-09-26 22:08 | HMH.EDFALL ---
Discharge Plan Disposition Patient Disposition: Home, Self-Care Chief Complaint: Weakness Prescriptions Prescriptions: No Action ibuprofen 400 mg tablet 600 mg PO Q6H PRN (Reason: pain) loperamide [Anti-Diarrheal (loperamide)] 2 mg capsule 2 mg PO Q3HP PRN (Reason: Diarrhea) aspirin [Aspir-81] 81 mg tablet,delayed release (DR/EC) 81 mg PO QDAY ferrous sulfate 325 mg (65 mg iron) tablet 325 mg PO DAILY insulin NPH and regular human [Humulin 70/30 U-100 KwikPen] 100 unit/mL (70-30) insulin pen 18 unit SUB-Q QPM Label Comments: once daily at 4:30 pm before supper insulin NPH and regular human [Humulin 70/30 U-100 KwikPen] 100 unit/mL (70-30) insulin pen 30 unit SUB-Q QAM Label Comments: If below 120 take 20 units lisinopril 20 mg tablet 20 mg PO DAILY sertraline 100 mg tablet 100 mg PO HS simvastatin 40 mg tablet 40 mg PO HS (DME) Blood Glucose Test Strip See Rx Instructions .ROUTE .MEDSUPPLY Qty: 100 5RF Rx Instructions: TID As directed (DME) blood-glucose meter [Advanced Glucose Meter] Misc See Rx Instructions .Route Qty: 1 0RF Rx Instructions: Test sugar twice daily (DME) lancets [Advanced Travel Lancets] 28 gauge misc See Rx Instructions .Route Qty: 100 4RF Rx Instructions: Test sugar twice daily (DME) Advanced Gluc Meter Test Strip Strip See Rx Instructions .Route Qty: 100 4RF Rx Instructions: Test sugar twice daily (DME) lancets [OneTouch Delica Plus Lancet] 33 gauge misc See Rx Instructions .ROUTE .COMPLEX Qty: 100 0RF Dose Instruction: TEST BLOOD SUAGR 3 TIMES A DAY DIRECTED Rx Instructions: TEST BLOOD SUAGR 3 TIMES A DAY DIRECTED gabapentin 100 mg capsule 100 mg PO BID Qty: 60 5RF hydrocodone-acetaminophen 1 TAB tablet 1 - 2 tab PO Q6HP PRN (Reason: post-op pain) Qty: 9 0RF levofloxacin 500 mg tablet 500 mg PO DAILY Qty: 7 0RF multivitamin 0 tablet 1 tab PO DAILY ascorbic acid (vitamin C) 250 tablet 250 mg PO DAILY cholecalciferol (vitamin D3) 400 tablet 400 units PO DAILY omeprazole 40 MG capsule,delayed release(DR/EC) 40 mg PO DAILY acetaminophen 650 MG tablet extended release 650 mg PO Q12HP PRN (Reason: Mild Pain,Fever,Headache) aripiprazole 30 tablet 30 mg PO BID metformin 500 mg tablet extended release 24 hr 2,000 mg PO DAILY Referrals Follow up/Referrals: Caleb Coelho MD [Primary Care Provider] - See instructions Clinical Impressions Clinical Impression: Lumbar contusion, Diabetes Instructions Patient Instructions: DI for Low Back Pain Discharge ED Provider: Laquita (ED)Caleb Fall HPI General Chief Complaint: Weakness Stated Complaint: fall Time Seen by Provider: 09/26/22 22:00 Mode of Arrival: EMS Source of Information: Patient, EMS and Medical Record Limitations: No Limitations Description of Symptoms (Recalled from ER Triage Doc. by RN): Patient arrives via ems c c/o generalized weakness for the last couple of days. Does report that he fell a few hours ago in his room and his his back on his television. States that he did not hit his head or lose consciousness. Denies any injury from the fall. Denies any cough fever or sick contacts. History of Present Illness HPI Narrative: pt with fall today and has ongoing weakness complaint: fall Onset (ago): hour(s) Fall from: standing Fall witnessed: no Place fall occurred: home Loss of consciousness: none Prolonged down time: no Location of injury: back Severity: moderate Associated symptoms (after fall): denies Related Data Home Medications Medication Instructions Recorded Confirmed aspirin 81 mg tablet,delayed 81 mg PO QDAY Heart disease 05/13/17 07/19/20 release (Aspir-) ferrous sulfate 325 mg (65 mg 325 mg PO DAILY Supplement 05/13/17 07/19/20 iron) tablet ibuprofen 400 mg tablet 600 mg PO
[2022-09-26 22:09] LABS: Coronavirus 19, PCR Not Detected (NotDetected); Influenza A, PCR Not Detected (NotDetected); Influenza B, PCR Not Detected (NotDetected)
--- NOTE | 2022-09-26 22:11 | CT_ITS ---
PROCEDURE INFORMATION: Exam: CT Thoracic Spine Without Contrast Exam date and time: 09/26/2022 10:41 PM Age: 67 years old Clinical indication: Injury or trauma; Blunt trauma (contusions or hematomas); Injury date: Tonight; Injury details: Fall, C/O back pain TECHNIQUE: Imaging protocol: Computed tomography of the thoracic spine without contrast. Radiation optimization: All CT scans at this facility use at least one of these dose optimization techniques: automated exposure control; mA and/or kV adjustment per patient size (includes targeted exams where dose is matched to clinical indication); or iterative reconstruction. REPORTING DATA: Count of CT and Cardiac NM exams in prior 12 months: This patient has received 0 known CTs and 0 known cardiac nuclear medicine studies in the 12 months prior to the current study. COMPARISON: CT CERVICAL SPINE WO CON 26/09/2022 22:38 FINDINGS: Bones/joints: No acute fracture. Normal alignment. No significant disc bulge or herniation. No severe spinal canal stenosis. No significant neural foraminal narrowing. Soft tissues: Unremarkable. Vasculature: The aorta demonstrates mild atherosclerotic disease. Lungs: Posterior atelectasis. Heart: Cardiomegaly. Mitral and aortic valve calcifications. Coronary arteries: Coronary artery calcifications. IMPRESSION: No acute fracture or malalignment of the thoracic spine.
--- NOTE | 2022-09-26 22:11 | CT_ITS ---
PROCEDURE INFORMATION: Exam: CT Cervical Spine Without Contrast Exam date and time: 09/26/2022 10:38 PM Age: 67 years old Clinical indication: Injury or trauma; Fall; Blunt trauma; Injury date: Tonight TECHNIQUE: Imaging protocol: Computed tomography of the cervical spine without contrast. Radiation optimization: All CT scans at this facility use at least one of these dose optimization techniques: automated exposure control; mA and/or kV adjustment per patient size (includes targeted exams where dose is matched to clinical indication); or iterative reconstruction. REPORTING DATA: Count of CT and Cardiac NM exams in prior 12 months: This patient has received 0 known CTs and 0 known cardiac nuclear medicine studies in the 12 months prior to the current study. 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 Multilevel degenerative changes of the cervical spine producing multiple levels of mild spinal canal stenosis. Lungs: Lung apices are normal. Soft tissues: Unremarkable. IMPRESSION: No acute fracture or malalignment of the cervical spine.
--- NOTE | 2022-09-26 22:11 | CT_ITS ---
PROCEDURE INFORMATION: Exam: CT Lumbar Spine Without Contrast Exam date and time: 09/26/2022 10:44 PM Age: 67 years old Clinical indication: Injury or trauma; Blunt trauma (contusions or hematomas); Injury details: Fall, back pain TECHNIQUE: Imaging protocol: Computed tomography of the lumbar spine without contrast. Radiation optimization: All CT scans at this facility use at least one of these dose optimization techniques: automated exposure control; mA and/or kV adjustment per patient size (includes targeted exams where dose is matched to clinical indication); or iterative reconstruction. REPORTING DATA: Count of CT and Cardiac NM exams in prior 12 months: This patient has received 0 known CTs and 0 known cardiac nuclear medicine studies in the 12 months prior to the current study. COMPARISON: CT THORACIC SPINE WO CON 26/09/2022 22:41 FINDINGS: Bones/joints: Scattered bone islands. Multilevel degenerative changes of the lumbar spine producing multiple levels of mild spinal canal stenosis. Liver: Hepatic steatosis. Pancreas: There is a 10 mm pancreatic body cystic lesion image 10 series 3. Kidneys and ureters: Low attenuation renal lesions measuring up to 2 cm in diameter are incompletely characterized, but are likely cysts. No followup imaging is warranted. Stomach and bowel: Duodenal diverticula. Vasculature: The arteries demonstrate mild atherosclerotic disease. Soft tissues: Unremarkable. IMPRESSION: 1. No acute fracture or malalignment of the lumbar spine. 2. There is a 10 mm pancreatic body cystic lesion image 10 series 3. Reimaging every 2 years for 10 years is recommended. (Reference: Hilary, 2017) 3. Hepatic steatosis. COMMENTS: Consistent with the [employer]'s Incidental Findings Committee white paper (J Am Kristi Radiol 2018): Any incidental renal lesion less than 1 cm or classified as too small to characterize, or any incidental cystic renal lesion characterized as simple-appearing, is likely benign. No follow-up imaging is recommended for these lesions per consensus recommendations based on imaging criteria. REFERENCES: Hilary COLLINS, et al. Management of Incidental Pancreatic Cysts: A White Paper of the ACR Incidental Findings Committee. J Am Kristi Radiol. 2017;14(7):911-923.
[2022-09-26 22:13] LABS: Chloride 95 mmol/L (98-107); Sodium 133 mmol/L (136-145)
[2022-09-26 22:15] LABS: Blood Urea Nitrogen 15 mg/dl (9-20); Creatinine Clearance Estimated 118 mL/min (50-200); Estimated Glomerular Filt Rate 84 ml/min (>60); GFR (African American) 102 ML/MIN (>60)
[2022-09-26 22:16] LABS: Alanine Aminotransferase 40 U/L (12-78); Albumin/Globulin Ratio 1.6 (1.1-1.8); Alkaline Phosphatase 126 U/L (38-126); Aspartate Amino Transferase 47 U/L (17-59); Bilirubin,Total 0.5 mg/dl (0.2-1.3); Calcium 8.9 mg/dl (8.4-10.2); Carbon Dioxide 28 mmol/L (22.0-30.0); Globulin 2.5 g/dL (1.3-3.2); Glucose 356 mg/dl (74-100); Total Protein,Serum 6.5 g/dl (6.3-8.2)
[2022-09-26 22:17] LABS: Basophils % 0.1 % (0.1-2.0); Eosinophils # 0.1 K/mm3 (0.0-0.4); Eosinophils % 0.4 % (0.1-12.0); Hematocrit 41.2 % (42.0-52.0); Hemoglobin 13.5 g/dL (14.1-18.0); Lymphocytes # 0.8 K/mm3 (0.7-4.5); Lymphocytes % 4.8 % (10-50); Mean Corpuscular HGB Conc 32.9 g/dL (31.8-35.4); Mean Corpuscular Hemoglobin 30.9 pg (27.0-31.2); Mean Corpuscular Volume 94.2 fl (80-94); Mean Platelet Volume 8.1 fl (7.4-10.4); Monocytes # 0.7 K/mm3 (0.1-1.0); Monocytes % 4.4 % (1.7-9.3); Neutrophils # 14.7 K/mm3 (1.8-7.8); Neutrophils % 90.3 % (37.0-80.0); Platelet Count 195 K/mm3 (142-424); Red Blood Count 4.37 M/mm3 (4.60-6.20); Red Cell Distribution Width 13.8 % (11.5-17.5); White Blood Count 16.3 K/mm3 (4.8-10.8)
[2022-09-26 22:21] LABS: MANUAL DIFFERENTIAL MANUAL DIFFERENTIAL (MANUAL DIFF)
[2022-09-26 22:34] LABS: Troponin I 0.02 ng/ml (0.00-0.034)
[2022-09-26 22:51] LABS: Lymphocytes % 8 % (10-50); Monocytes % 3 % (2-9); Neutrophils % 89 % (42-76); Platelet Estimate Normal; RBC Morphology Normal; Total Cells Counted 100
[2022-09-26 23:03] LABS: Microscopic, Urine URINE MICROSCOPIC (MICROSCOPIC)
[2022-09-26 23:04] LABS: Appearance,Urine CLEAR (Clear); Bilirubin,Urine Negative (Negative); Blood, Urine 1+ (Negative); Color,Urine YELLOW (Yellow); Glucose,Urine (UA) 3+ (Negative); Ketones,Urine Negative (Negative); Leukocyte Esterase,Urine TRACE (Negative); Nitrate,Urine Negative (Negative); PH,Urine 6.5 (5.0-8.5); Protein,Urine Negative (Negative)
[2022-09-26 23:25] LABS: WBC,Urine Occasional #/hpf (0-3)
[2022-09-27 01:47] LABS: Troponin I 0.03 ng/ml (0.00-0.034)
[2022-09-27 04:24] VITALS: BP 152/74; PULSE 79; RESP 18; TEMP 36.6
== END 2022-09-27 04:27 | disposition home or self-care (01) ==
PROVIDERS: Emergency Provider Emergency Medicine; PCP Emergency Medicine
DX: R53.1 Weakness (principal); S30.0XXA Contusion of lower back and pelvis, initial encounter; E11.9 Type 2 diabetes mellitus without complications; W18.30XA Fall on same level, unspecified, initial encounter
CPT/HCPCS: 71045; 72125; 72128; 72131; 80053; 81001; 84484; 85007; 85025; 87636; 93005; 93041; 96361; 96374; 99285; C9803; U0003; U0005

== ENCOUNTER 2022-12-02 08:42 | Emergency (ER) | payer MEDICARE, OTHER, SELFPAY ==
[2022-12-02] VITALS (8 sets, daily range): BP systolic 120–167; BP diastolic 55–80; PULSE 55–96; RESP 16–20; TEMP 36.7–36.9; O2SAT 92–95; BMI 35.5
--- NOTE | 2022-12-02 09:11 | CT_ITS ---
FINAL REPORT TECHNIQUE: Axial images were obtained of the lumbar spine by computed tomography. Coronal and sagittal reconstruction process performed. This study was performed with techniques to keep radiation doses as low as reasonably achievable (ALARA). Individualized dose reduction techniques using automated exposure control or adjustment of mA and/or kV according to the patient''s size were employed. CLINICAL HISTORY: low back pain rad down R leg COMPARISON: 09/27/2022 FINDINGS: There is mild loss of height at the L5-S1 level. Disc spaces are well-preserved. There is no malalignment. The facets are properly aligned. L1-2: No significant spinal canal stenosis or neuroforaminal narrowing. L2-3: No significant spinal canal stenosis or neuroforaminal narrowing. L3-4: Mild diffuse disc bulge. Mild bilateral neuroforaminal narrowing. L4-5: Mild diffuse disc bulge. Mild bilateral neuroforaminal narrowing. L5-S1: Small midline disc protrusion. Mild compromise of the spinal canal. IMPRESSION: Mild degenerative changes L3-4 through L5-S1 as above. Reviewed, Interpreted and Dictated by Gerardo Fraser MD Transcribed by Lisa Ryder Authenticated and [facility]
--- NOTE | 2022-12-02 09:13 | PC.NURSE ---
upon arrival to ED pt requesting to use the restroom, due to weakness bedside commode offered. pt assisted to bedside commode, urine collected and sent to lab. warm blanket given to pt, and tv remote.
--- NOTE | 2022-12-02 09:15 | PC.NURSE ---
BLADDER SCAN DONE WITH 146ML LEFT AFTER VOID
--- NOTE | 2022-12-02 09:21 | HMH.EDGENADL ---
Discharge Plan Disposition Patient Disposition: Home, Self-Care Condition: Good Prescriptions Prescriptions: New lidocaine [Lidoderm] 5 % adhesive patch,medicated 1 patch topical DAILY Qty: 15 0RF Rx Instructions: leave on most painful area for up to 12 hrs naproxen 500 mg tablet 500 mg PO BID PRN (Reason: pain) Qty: 20 0RF No Action ibuprofen 400 mg tablet 600 mg PO Q6H PRN (Reason: pain) loperamide [Anti-Diarrheal (loperamide)] 2 mg capsule 2 mg PO Q3HP PRN (Reason: Diarrhea) aspirin [Aspir-81] 81 mg tablet,delayed release (DR/EC) 81 mg PO QDAY ferrous sulfate 325 mg (65 mg iron) tablet 325 mg PO DAILY insulin NPH and regular human [Humulin 70/30 U-100 KwikPen] 100 unit/mL (70-30) insulin pen 30 unit SUB-Q QAM Patient Comments: If below 120 take 20 units lisinopril 20 mg tablet 20 mg PO DAILY sertraline 100 mg tablet 100 mg PO HS simvastatin 40 mg tablet 40 mg PO HS (DME) Blood Glucose Test Strip See Rx Instructions .ROUTE .MEDSUPPLY Qty: 100 5RF Rx Instructions: TID As directed (DME) blood-glucose meter [Advanced Glucose Meter] Misc See Rx Instructions .Route Qty: 1 0RF Rx Instructions: Test sugar twice daily (DME) lancets [Advanced Travel Lancets] 28 gauge misc See Rx Instructions .Route Qty: 100 4RF Rx Instructions: Test sugar twice daily (DME) lancets [OneTouch Delica Plus Lancet] 33 gauge misc See Rx Instructions .ROUTE .COMPLEX Qty: 100 0RF Dose Instruction: TEST BLOOD SUAGR 3 TIMES A DAY DIRECTED Rx Instructions: TEST BLOOD SUAGR 3 TIMES A DAY DIRECTED Humulin 70/30 U-100 KwikPen 100 unit/mL (70-30) insulin pen See Rx Instructions .ROUTE .COMPLEX Qty: 15 0RF Dose Instruction: INJECT 35 UNITS SUBCUTANEOUSLY EVERY DAY IN THE MORNING and 22 UNITS SUBCUTANEOUSLY EVERY DAY AT BEDTIME Rx Instructions: INJECT 35 UNITS SUBCUTANEOUSLY EVERY DAY IN THE MORNING and 22 UNITS SUBCUTANEOUSLY EVERY DAY AT BEDTIME (DME) OneTouch Ultra Test Strip See Rx Instructions .ROUTE .COMPLEX Qty: 100 0RF Dose Instruction: TEST BLOOD SUGAR 2 TIMES A DAY Rx Instructions: TEST BLOOD SUGAR 2 TIMES A DAY gabapentin 100 mg capsule 100 mg PO BID Qty: 60 5RF hydrocodone-acetaminophen 1 TAB tablet 1 - 2 tab PO Q6HP PRN (Reason: post-op pain) Qty: 9 0RF levofloxacin 500 mg tablet 500 mg PO DAILY Qty: 7 0RF multivitamin 0 tablet 1 tab PO DAILY ascorbic acid (vitamin C) 250 tablet 250 mg PO DAILY cholecalciferol (vitamin D3) 400 tablet 400 units PO DAILY omeprazole 40 MG capsule,delayed release(DR/EC) 40 mg PO DAILY acetaminophen 650 MG tablet extended release 650 mg PO Q12HP PRN (Reason: Mild Pain,Fever,Headache) aripiprazole 30 tablet 30 mg PO BID metformin 500 mg tablet extended release 24 hr 2,000 mg PO DAILY Referrals Follow up/Referrals: Caleb Coelho MD [Primary Care Provider] - See instructions Activity Restrictions/Add. Instructions Additional Instructions/Restrictions: You were evaluated in the emergency department today. Please lemon picker your prescriptions and take as needed for pain. You may also take Tylenol. Follow-up with your primary care provider over the next 3 days for reassessment. Return to the emergency department for new or worsening symptoms, such as urinary incontinence, fecal incontinence, saddle anesthesia, or other concerns. Clinical Impressions Clinical Impression: Acute right-sided back pain with sciatica Instructions Patient Instructions: DI for Sciatica, DI for Acute Pain -- Adult Discharge ED Provider: Noa Menjivar General Adult HPI General Chief complaint: PAIN Stated complaint: weakness Time Seen by Provider: 12/02/22 08:44 Mode of Arrival: EMS Source of Information: Patient Limitations: No Limitations Description of Symptoms (Recalled f
--- NOTE | 2022-12-02 09:23 | PC.NURSE ---
lidocaine patch placed on right lower hip
--- NOTE | 2022-12-02 10:47 | PC.NURSE ---
contacted rad to check on status of CT results, waiting nutrition technician back
--- NOTE | 2022-12-02 11:39 | INFXCTL.NOTE ---
contacted rad to check on status of CT results, rad staff reports will send down preliminaries
--- NOTE | 2022-12-02 11:56 | PC.NURSE ---
called [facility] for transport, they were going to call [facility] to see if someone could get him.
--- NOTE | 2022-12-02 12:38 | PC.NURSE ---
Called jenn back for pt transport, no answer at either place
--- NOTE | 2022-12-02 13:30 | PC.NURSE ---
contacted care management to assist with d/c transport of pt.
--- NOTE | 2022-12-02 13:47 | CARE MANAGER ---
[facility]
--- NOTE | 2022-12-02 13:49 | PC.NURSE ---
george from care management is attempting to arrange transport via [facility]
--- NOTE | 2022-12-02 14:02 | INFXCTL.NOTE ---
assisted pt to the bathroom
== END 2022-12-02 15:16 | disposition home or self-care (01) ==
PROVIDERS: Emergency Provider Emergency Medicine; PCP Emergency Medicine
DX: M54.41 Lumbago with sciatica, right side (principal); R53.1 Weakness; E11.9 Type 2 diabetes mellitus without complications
CPT/HCPCS: 72131; 99284

== ENCOUNTER 2023-01-25 03:18 | Emergency (ER) | payer MEDICARE, OTHER, SELFPAY ==
[2023-01-25] VITALS (10 sets, daily range): BP systolic 129–159; BP diastolic 66–80; PULSE 56–68; RESP 16–20; TEMP 36.7–36.8; O2SAT 95–97; BMI 34.8
--- NOTE | 2023-01-25 03:48 | HMH.EDGENADL ---
Discharge Plan Disposition Patient Disposition: Xfer Other Condition: Good Prescriptions Prescriptions: New fluticasone propionate [Flonase Allergy Relief] 50 mcg/actuation spray,suspension 1 spray intranasal BID Qty: 16 0RF Rx Instructions: administer into each nostril loratadine [Claritin] 10 mg tablet 10 mg PO DAILY Qty: 30 0RF ibuprofen 800 mg tablet 800 mg PO Q8H PRN (Reason: pain) Qty: 20 0RF No Action ibuprofen 400 mg tablet 600 mg PO Q6H PRN (Reason: pain) loperamide [Anti-Diarrheal (loperamide)] 2 mg capsule 2 mg PO Q3HP PRN (Reason: Diarrhea) aspirin [Aspir-81] 81 mg tablet,delayed release (DR/EC) 81 mg PO QDAY ferrous sulfate 325 mg (65 mg iron) tablet 325 mg PO DAILY insulin NPH and regular human [Humulin 70/30 U-100 KwikPen] 100 unit/mL (70-30) insulin pen 30 unit SUB-Q QAM Patient Comments: If below 120 take 20 units lisinopril 20 mg tablet 20 mg PO DAILY sertraline 100 mg tablet 100 mg PO HS simvastatin 40 mg tablet 40 mg PO HS (DME) Blood Glucose Test Strip See Rx Instructions .ROUTE .MEDSUPPLY Qty: 100 5RF Rx Instructions: TID As directed (DME) blood-glucose meter [Advanced Glucose Meter] [facility] [place] See Rx Instructions .Route Qty: 1 0RF Rx Instructions: Test sugar twice daily (DME) lancets [Advanced Travel Lancets] 28 gauge misc See Rx Instructions .Route Qty: 100 4RF Rx Instructions: Test sugar twice daily (DME) lancets [OneTouch Delica Plus Lancet] 33 gauge misc See Rx Instructions .ROUTE .COMPLEX Qty: 100 0RF Dose Instruction: TEST BLOOD SUAGR 3 TIMES A DAY DIRECTED Rx Instructions: TEST BLOOD SUAGR 3 TIMES A DAY DIRECTED Humulin 70/30 U-100 KwikPen 100 unit/mL (70-30) insulin pen See Rx Instructions .ROUTE .COMPLEX Qty: 15 0RF Dose Instruction: INJECT 35 UNITS SUBCUTANEOUSLY EVERY DAY IN THE MORNING and 22 UNITS SUBCUTANEOUSLY EVERY DAY AT BEDTIME Rx Instructions: INJECT 35 UNITS SUBCUTANEOUSLY EVERY DAY IN THE MORNING and 22 UNITS SUBCUTANEOUSLY EVERY DAY AT BEDTIME (DME) OneTouch Ultra Test Strip See Rx Instructions .ROUTE .COMPLEX Qty: 100 0RF Dose Instruction: TEST BLOOD SUGAR 2 TIMES A DAY Rx Instructions: TEST BLOOD SUGAR 2 TIMES A DAY gabapentin 100 mg capsule 100 mg PO BID Qty: 60 5RF hydrocodone-acetaminophen 1 TAB tablet 1 - 2 tab PO Q6HP PRN (Reason: post-op pain) Qty: 9 0RF levofloxacin 500 mg tablet 500 mg PO DAILY Qty: 7 0RF lidocaine [Lidoderm] 5 % adhesive patch,medicated 1 patch topical DAILY Qty: 15 0RF Rx Instructions: leave on most painful area for up to 12 hrs naproxen 500 mg tablet 500 mg PO BID PRN (Reason: pain) Qty: 20 0RF multivitamin 0 tablet 1 tab PO DAILY ascorbic acid (vitamin C) 250 tablet 250 mg PO DAILY cholecalciferol (vitamin D3) 400 tablet 400 units PO DAILY omeprazole 40 MG capsule,delayed release(DR/EC) 40 mg PO DAILY acetaminophen 650 MG tablet extended release 650 mg PO Q12HP PRN (Reason: Mild Pain,Fever,Headache) aripiprazole 30 tablet 30 mg PO BID metformin 500 mg tablet extended release 24 hr 2,000 mg PO DAILY Referrals Follow up/Referrals: Caleb Coelho MD [Primary Care Provider] - See instructions Activity Restrictions/Add. Instructions Additional Instructions/Restrictions: You were evaluated in the emergency department today. Please car pick up driver your prescriptions at the pharmacy and take them as prescribed. Make sure that you are staying hydrated. Take Tylenol and ibuprofen at home as needed for pain or fever. Return to the emergency department for new or worsening symptoms. Clinical Impressions Clinical Impression: Sinusitis Instructions Patient Instructions: DI for Sinusitis Discharge ED Provider: Noa Menjivar General Adult HPI General Chief complaint: Dizz
[2023-01-25 03:51] LABS: Coronavirus 19, PCR Not Detected (NotDetected); Influenza A, PCR Not Detected (NotDetected); Influenza B, PCR Not Detected (NotDetected)
--- NOTE | 2023-01-25 04:37 | PC.NURSE ---
call placed to [facility], voicemail left on machine.
--- NOTE | 2023-01-25 04:39 | PC.NURSE ---
received call back from celine at [facility] who stated she didn't have any way to transport patient and asked if we could call dispatch and ask them. advised them we would attempt and then progress from there.
--- NOTE | 2023-01-25 05:14 | PC.NURSE ---
spoke with ashleigh-sales advisory manager for [facility] after no answer. was told that they wouldn't have transport till at least 6:30. will advise oncoming shift if no answer at that time of situation.
== END 2023-01-25 07:33 | disposition other institution (70) ==
PROVIDERS: Emergency Provider Emergency Medicine; PCP Emergency Medicine
DX: J01.90 Acute sinusitis, unspecified (principal); R53.1 Weakness; R42 Dizziness and giddiness; E11.9 Type 2 diabetes mellitus without complications; Z79.4 Long term (current) use of insulin
CPT/HCPCS: 87636; 96372; 99283

== ENCOUNTER 2023-04-16 12:53 | Outpatient (RCR) | payer MEDICARE, MEDICAID, SELFPAY ==
--- NOTE | 2023-04-16 14:08 | HMH.PTOPEV ---
PT Outpatient Evaluation Rehab PT Outpatient Evaluation Start: 04/16/23 13:03 Freq: Status: Active Protocol: Document 04/16/23 13:05 JANICE (Rec: 04/16/23 14:08 JANICE [id number]) E-signed By Melecio Bunn, PT Outpatient Therapy Subjective History Subjective History Patient is a 67 year old male presenting to outpatient PT with reports of chronic LBP with RLE radicular symptoms to the R hip. Symptoms of insidious onset, and have progressively gotten worse over the past 2 months. Most recent imaging indicates mild degenerative changes L 3/4-L5/ S1. Comorbidities include hx of diabetes, HL, HTN, cholecystectomy, appendectomy and dep/anx. New diagnosis of cancer in past 12 No months? Chief Complaint Pain,Stiff,Paresthesia Symptom Type Burning Symptoms Relieved By Rest/Positioning,OTC Meds Symptoms Aggravated By Standing,Bending/Stooping, Physical Activity,Walking, Lifting Prior Functional Limitations None Current Functional Limitations Lifting,Standing,Walking, Bending/Stooping Symptom Description Intermittent Level of pain today (0-10) 0 Pain scale - at its best (0-10) 0 Pain scale - at its worst (0-10) 8 Lumbopelvic Eval Posture Thoracic Spine Posture Standing Position Increased Kyphosis Lumbar Spine Posture Standing Position Increased Lordosis Palapation tenderness right paraspinal tenderness Yes: R QL mm 2/4 Accessory Movement L3 right L4 right L5 right S1 right Range of Motion Lumbar Spine Active Flexion Range of 46 Motion (degrees) Lumbar Spine Active Extension Range of 12 Motion (degrees) Left Lumbar Spine Lateral Flexion Active 12 Range of Motion (degrees) Right Lumbar Spine Lateral Flexion 16 Active Range of Motion (degrees) Lumbar Spine ROM Limitations Soft Tissue Tightness,Bony Restriction Manual Muscle Test Right Knee Extension Strength Grade 4 Good Knee Flexion Strength Grade 4 Good Hip Flexion Strength Grade 4 Good Extensor Hallucis Longus Strength Grade 4 Good Ankle Dorsiflexion Strength Grade 4 Good Gastronemius/Soleus Strength Grade 4 Good Altered Sensation LE Dermatome Level L5 Comment Burning Special Tests Hip Manuel (RADHA) Test Positive Left,Positive Right Hip Мария Test Positive Left,Positive Right Hip Piriformis Test Positive Left,Positive Right Sciatic Nerve Tension Test Negative Left,Positive Right Earl Test Positive Sacroiliac Joint Compression Test Negative Left,Negative Right Sacroiliac Joint Distraction Test Negative Left,Negative Right Lumbar [place] Distraction Test/Manual Positive Traction Oswestry Index Section 1 Pain Intensity The pain comes and goes and is very mild Section 2 Personal Care (Washing,Dresing) change my way of washing or dressing in order to avoid pain Section 3 Lifting I can only lift very light weights at most Section 4 Walking I cannot walk more than 1/4 mile without increasing pain Section 5 Sitting Pain prevents me from sitting for more than one hour Section 6 Standing I cannot stand more than 10 minutes without increasing pain Section 7 Sleeping I get no pain in bed Section 8 Social Life My social life is normal and gives me no extra pain Section 9 Traveling I get some pain when traveling , but none of my usual forms of travel m Section 10 Changing Degreee of Pain My pain is gradually getting worse Score and Risk Level Oswestry Sc 20 Oswestry Risk Level Moderate Disability Outpatient Therapy Plan of Care Treatment Plan May Include Therapeutic Exercise Including Home Yes Exercise Program Manual Therapy Techniques Yes Neuromuscular Re-education Yes Therapeutic Activities to Return to Yes Previous Functional/Work Level Gait Training Yes ADL/Self Care Education Yes Mechanical Traction Yes Dry Needling Yes Thermal Modalities Yes Electrical Stimulation Yes Ultrasound/Phonophoresis Yes Iontophoresis Yes Orthotics/Bracing/Splinting Yes Massage Yes Eval/Re-Eval Yes Frequency Times per week 2 Duration Number of Weeks 4-6 Addendums This patient is a candidate for social No or vocational rehab? Patient/Guardian verbally acknowledges Yes understanding of treatment program and consents to further treatment? Patient/Guardian verbally acknowledges Yes understanding of diagnosis, prognosis and goals for treatment? Eval Complexity PT Charges 45614 - Moderate Complexity Shoulder/Elbow Eval Shoulder Objective Measurements Elbow Objective Measurements PHYSICIAN CERTIFICATION: I certify the specified therapy services for Miles Vázquez are required, authorized, and reviewed every 30 days.
== END 2023-04-16 14:00 | disposition home or self-care (01) ==
LOC: PT 12:53
PROVIDERS: PCP Nurse Practitioner Family; Visit Provider Nurse Practitioner Family
DX: M54.41 Lumbago with sciatica, right side (principal)
CPT/HCPCS: 97163

== ENCOUNTER 2023-04-30 16:32 | Emergency (ER) | payer MEDICARE, OTHER, SELFPAY ==
[2023-04-30 16:32] VITALS: BP 143/73; PULSE 95; RESP 16; TEMP 36.8; O2SAT 97; BMI 35.7
--- NOTE | 2023-04-30 16:32 | CA_ITS ---
FINAL REPORT TECHNIQUE: Color Doppler, duplex Doppler and compression sonography of the left lower extremity deep venous systems was performed. CLINICAL HISTORY: concern for DVT , redness, edema FINDINGS: There is no evidence of deep venous thrombosis from the level of the groin to the calf. The veins are patent and compressible. IMPRESSION: No evidence of deep venous thrombosis left lower extremity. Reviewed, Interpreted and Dictated by Dov Thornton III, MD Transcribed by Katiana Claudio Authenticated and [facility]
--- NOTE | 2023-04-30 16:50 | PC.NURSE ---
PT IS NEGATIVE FOR DVT
[2023-04-30 17:06] LABS: Basophils % 0.5 % (0.1-2.0); Eosinophils # 0.1 K/mm3 (0.0-0.4); Hematocrit 42.3 % (42.0-52.0); Hemoglobin 14.5 g/dL (14.1-18.0); Lymphocytes # 1.1 K/mm3 (0.7-4.5); Lymphocytes % 11.9 % (10-50); Mean Corpuscular HGB Conc 34.4 g/dL (31.8-35.4); Mean Corpuscular Hemoglobin 32.7 pg (27.0-31.2); Mean Corpuscular Volume 95.1 fl (80-94); Mean Platelet Volume 8.7 fl (7.4-10.4); Monocytes # 0.6 K/mm3 (0.1-1.0); Monocytes % 6.3 % (1.7-9.3); Neutrophils # 7.2 K/mm3 (1.8-7.8); Neutrophils % 80.4 % (37.0-80.0); Platelet Count 180 K/mm3 (142-424); Red Blood Count 4.45 M/mm3 (4.60-6.20); Red Cell Distribution Width 14.2 % (11.5-17.5)
[2023-04-30 17:15] LABS: Alanine Aminotransferase 33 U/L (12-78); Albumin Level 4.2 g/dl (3.5-5.0); Albumin/Globulin Ratio 1.9 (1.1-1.8); Alkaline Phosphatase 162 U/L (38-126); Anion Gap 12.4 mEq/L (5-15); Aspartate Amino Transferase 48 U/L (17-59); Bilirubin,Total 0.4 mg/dl (0.2-1.3); Blood Urea Nitrogen 17 mg/dl (9-20); Calcium 8.1 mg/dl (8.4-10.2); Carbon Dioxide 30 mmol/L (22.0-30.0); Chloride 97 mmol/L (98-107); Creatinine Clearance Estimated 118 mL/min (50-200); Estimated Glomerular Filt Rate 84 ml/min (>60); GFR (African American) 102 ML/MIN (>60); Globulin 2.2 g/dL (1.3-3.2); Glucose 253 mg/dl (74-100); Potassium 4.4 mmoL/L (3.5-5.1); Sodium 135 mmol/L (136-145); Total Protein,Serum 6.4 g/dl (6.3-8.2)
--- NOTE | 2023-04-30 17:18 | HMH.EDGENADL ---
Discharge Plan Disposition Patient Disposition: Home, Self-Care Chief Complaint: Extremity Problem,Nontraumatic Prescriptions Prescriptions: No Action (DME) BD AutoShield Duo Pen Needle 30 gauge x 3/16 needle See Rx Instructions .ROUTE .MEDSUPPLY Qty: 100 Rx Instructions: As directed loperamide [Anti-Diarrheal (loperamide)] 2 mg capsule 2 mg PO Q3HP PRN (Reason: Diarrhea) aspirin [Aspir-81] 81 mg tablet,delayed release (DR/EC) 81 mg PO QDAY ferrous sulfate 325 mg (65 mg iron) tablet 325 mg PO DAILY lisinopril 20 mg tablet 20 mg PO DAILY sertraline 100 mg tablet 100 mg PO HS simvastatin 40 mg tablet 40 mg PO HS (DME) Blood Glucose Test Strip See Rx Instructions .ROUTE .MEDSUPPLY Qty: 100 5RF Rx Instructions: TID As directed (DME) blood-glucose meter [Advanced Glucose Meter] Misc See Rx Instructions .Route Qty: 1 0RF Rx Instructions: Test sugar twice daily (DME) lancets [Advanced Travel Lancets] 28 gauge misc See Rx Instructions .Route Qty: 100 4RF Rx Instructions: Test sugar twice daily Humulin 70/30 U-100 KwikPen 100 unit/mL (70-30) insulin pen See Rx Instructions .ROUTE .COMPLEX Qty: 15 0RF Dose Instruction: INJECT 35 UNITS SUBCUTANEOUSLY EVERY DAY IN THE MORNING and 22 UNITS SUBCUTANEOUSLY EVERY DAY AT BEDTIME Rx Instructions: INJECT 35 UNITS SUBCUTANEOUSLY EVERY DAY IN THE MORNING and 22 UNITS SUBCUTANEOUSLY EVERY DAY AT BEDTIME (DME) OneTouch Ultra Test Strip See Rx Instructions .ROUTE .COMPLEX Qty: 100 0RF Dose Instruction: TEST BLOOD SUGAR 2 TIMES A DAY Rx Instructions: TEST BLOOD SUGAR 2 TIMES A DAY gabapentin 100 mg capsule 100 mg PO BID Qty: 60 5RF (DME) lancets [OneTouch Delica Plus Lancet] 33 gauge misc See Rx Instructions .ROUTE .COMPLEX Qty: 100 5RF Dose Instruction: TEST BLOOD SUAGR 3 TIMES A DAY DIRECTED Rx Instructions: TEST BLOOD SUAGR 3 TIMES A DAY DIRECTED naproxen 500 mg tablet 500 mg PO BID PRN (Reason: pain) Qty: 20 0RF fluticasone propionate [Flonase Allergy Relief] 50 mcg/actuation spray,suspension 1 spray intranasal BID Qty: 16 0RF Rx Instructions: administer into each nostril ibuprofen 800 mg tablet 800 mg PO Q8H PRN (Reason: pain) Qty: 20 0RF multivitamin 0 tablet 1 tab PO DAILY ascorbic acid (vitamin C) 250 tablet 250 mg PO DAILY cholecalciferol (vitamin D3) 400 tablet 400 units PO DAILY omeprazole 40 MG capsule,delayed release(DR/EC) 40 mg PO DAILY acetaminophen 650 MG tablet extended release 650 mg PO Q12HP PRN (Reason: Mild Pain,Fever,Headache) aripiprazole 30 tablet 30 mg PO BID metformin 500 mg tablet extended release 24 hr 2,000 mg PO DAILY Activity Restrictions/Add. Instructions Additional Instructions/Restrictions: Call your family doctor to establish care for this visit to the emergency department and schedule follow-up within 48 hours to ensure improvement. If you have any worsening of your condition or any other concerning signs or symptoms, return to the emergency department or your primary care doctor for further evaluation. Redness can continue to be the same if not spread a little over the next 48 hours. If redness continues to expand after 72 hours, return to the emergency department or your family doctor for further evaluation. Take Tylenol 1000 mg every 6 hours (4 times daily) and ibuprofen 400 mg every 6 hours (4 times daily) as needed with food and water to prevent GI upset and kidney damage. Clinical Impressions Clinical Impression: Cellulitis of left leg Discharge ED Provider: Braulio Harding General Adult HPI General Chief complaint: Extremity Problem,Nontraumatic Stated complaint: leg pain Time Seen by Provider: 04/30/23 16:34 Mode of Arrival: EMS Source of Information: Patient Limitations: No Limitations Description of Symptoms (Recalled from ER Triage Doc. by RN): c/o left lower leg redness/swelling/pain for a few weeks. History of Present Illness HPI narrative: 67-year-old male history of hypertension, hyperlipidemia, diabetes, obesity presenting with left leg swelling. This is been going on for few weeks, got worse over the past few days. It is now red, tender. No fevers or chills, nausea or vomiting, but he noticed that it started moving upward toward his knee. He was sent here from [facility] because a worker was concerned about a DVT, so sent for ultrasound. Patient has no other complaints Related Data Home Medications Medication Instructions Recorded Confirmed aspirin 81 mg tablet,delayed 81 mg PO QDAY Heart disease 05/13/17 03/27/23 release (Aspir-) ferrous sulfate 325 mg (65 mg 325 mg PO DAILY Supplement 05/13/17 03/27/23 iron) tablet lisinopril 20 mg tablet 20 mg PO DAILY blood pressure 05/13/17 03/27/23 loperamide 2 mg capsule 2 mg PO Q3HP PRN Diarrhea 05/13/17 03/27/23 (Anti-Diarrheal (loperamide)) sertraline 100 mg tablet 100 mg PO HS mood 05/15/17 03/27/23 simvastatin 40 mg tablet 40 mg PO HS Cholesterol 05/15/17 03/27/23 acetaminophen 650 mg 650 mg PO Q12HP PRN Mild 04/23/19 03/27/23 tablet,extended release Pain,Fever,Headache ascorbic acid (vitamin C) 250 mg 250 mg PO DAILY Diet supplement 04/23/19 03/27/23 tablet cholecalciferol (vitamin D3) 10 400 units PO DAILY Diet supplement 04/23/19 03/27/23 mcg (400 unit) tablet multivitamin 1 tab PO DAILY Diet supplement 04/23/19 03/27/23 omeprazole 40 mg capsule,delayed 40 mg PO DAILY GERD 04/23/19 03/27/23 release aripiprazole 30 mg tablet 30 mg PO BID MOOD 04/24/19 03/27/23 metformin 500 mg tablet,extended 2,000 mg PO DAILY Diabetes 01/24/20 03/27/23 release 24 hr pen needle,diabetic dual safty 30 #100 ea 03/27/23 03/27/23 gauge x 3/16 (BD AutoShield Duo Pen Needle) Previous Rx's Medication Instructions Recorded blood sugar diagnostic (Blood #100 ea 09/13/20 Glucose Test strips) blood-glucose meter (Advanced #1 ea 12/29/20 Glucose Meter) lancets 28 gauge (Advanced Travel #100 ea 12/29/20 Lancets) insulin NPH-regular 70-30 U-100 See Rx Instructions .Route 11/12/22 insulin 100 unit/mL subcutaneous .COMPLEX #15 mL pen (Humulin 70/30 U-100 KwikPen) blood sugar diagnostic (OneTouch #100 strips 11/18/22 Ultra Test strips) gabapentin 100 mg capsule 100 mg PO BID Pain #60 caps 11/18/22 naproxen 500 mg tablet 500 mg PO BID PRN pain #20 tabs 12/02/22 fluticasone propionate 50 1 spray intranasal BID #16 grams 01/25/23 mcg/actuation nasal spray,suspension (Flonase Allergy Relief) ibuprofen 800 mg tablet 800 mg PO Q8H PRN pain #20 tabs 01/25/23 lancets 33 gauge (OneTouch Delica #100 ea 02/06/23 Plus Lancet) Allergies Allergy/AdvReac Type Severity Reaction Status Date / Time sulfamethoxazole Allergy Intermediate Rash Verified 03/27/23 10:37 [From Bactrim] trimethoprim [From Bactrim] Allergy Intermediate Rash Verified 03/27/23 10:37 PFSH PFS Disclaimer: The information contained in this section may have been updated after the patient was seen, as this information can be updated by other users. Social History Smoking Status: Never smoker alcohol intake: never substance use type: denies use current occupational status: disabled Travel in the last 8 weeks: None housing: assisted living facility current occupational exposures/hazards: No caffeine: No ROS Obtained: Yes All systems reviewed & no additional complaints except as documented Physical Exam General General appearance: alert and in no apparent distress Head Head exam: atraumatic and normocephalic Eye Eye exam: Present normal appearance, PERRL and EOMI ENT ENT exam: Present mucous membranes moist Neck Neck exam: Present normal inspection, full ROM and trachea midline Respiratory Respiratory exam: Absent respiratory distress, wheezes, stridor, accessory muscle use or prolonged expiratory phase Cardiovascular Cardiovascular exam: Present normal rhythm Abdominal Exam Abdominal exam: Present soft; Absent distention, tenderness, guarding, rebound or rigidity Extremities Exam Extremities exam: Present edema and other (Erythema with nonpitting edema this fusiform distal calf onward left lower extremity. Tender to the touch. No evidence of crepitus) Neurological Exam Neurological exam: Present alert, oriented X3, CN II-XII intact and normal gait; Absent motor sensory deficit Skin Skin exam: Present warm and dry; Absent diaphoresis or erythema Medical Decision Making Medical Records Medical records reviewed: Yes I reviewed the patient's medical records. Tucker Inquiry Pt receiving controlled substance: No Tucker was queried for this patient: No Vital Signs: 04/30/23 16:32 Temperature 98.2 F Temperature Source Oral Pulse Rate [Left Radial] 95 H Respiratory Rate 16 Blood Pressure [Right Arm] 143/73 H Blood Pressure Mean [Right Arm] 96 Blood Pressure Source [Right Arm] Automatic Cuff Blood Pressure Position [Right Arm] Sitting 02 Sat by Pulse Oximetry 97 Oxygen Delivery Method Room Air Lab Data Lab Results 04/30/23 : WBC 9.0, RBC 4.45 L, Hgb 14.5, Hct 42.3, MCV 95.1 H, MCH 32.7 H, MCHC 34.4, RDW 14.2, Plt Count 180, MPV 8.7, Neut % (Auto) 80.4 H, Lymph % (Auto) 11.9, [place] % (Auto) 6.3, Eos % (Auto) 1.0, Baso % (Auto) 0.5, Neut # (Auto) 7.2, Lymph # (Auto) 1.1, [place] # (Auto) 0.6, Eos # (Auto) 0.1, Baso # (Auto) 0.0, Sodium 135 L, Potassium 4.4, Chloride 97 L, Carbon Dioxide 30, Anion Gap 12.4, BUN 17, Creatinine 0.90, Estimated Creat Clear 118, Estimated GFR 84, Est GFR ( Amer) 102, Glucose 253 H, Calcium 8.1 L, Total Bilirubin 0.4, AST 48, ALT 33, Alkaline Phosphatase 162 H, Total Protein 6.4, Albumin 4.2, Globulin 2.2, Albumin/Globulin Ratio 1.9 H 04/30/23 Unknown 04/30/23 Unknown Orders (Tests/Meds): ORDERS Category Date Time Status CBC w/Auto Diff [Complete Blood Count Auto Diff] Stat Lab 04/30/23 Completed CMP [Comprehensive Metabolic Panel] Stat Lab 04/30/23 Completed CA venous doppler LE LT Stat Y 04/30/23 16:32 Completed Medical Decision Narrative: 67-year-old male history of hypertension, hyperlipidemia, diabetes, obesity presenting with left leg swelling. This is been going on for few weeks, got worse over the past few days. It is now red, tender. No fevers or chills, nausea or vomiting, but he noticed that it started moving upward toward his knee. He was sent here from [facility] because a worker was concerned about a DVT, so sent for ultrasound. Patient has no other complaints. It should be noted that patient does have diabetes which is complicating care. History was obtained via conversation with patient. On arrival, patient hemodynamically stable, alert, oriented x4, appropriate, GCS 15, moving all extremities spontaneously, pupils equal and reactive to light. Full physical exam performed and significant for erythematous, tender left lower extremity from mid calf downward. No evidence of crepitus. No skin sloughing or fluctuance. Differential includes cellulitis, abscess, DVT, among others. Patient was given Dalvance 1.5 g for symptomatic management and correction of underlying abnormalities. Workup independently interpreted and significant for nonactionable CBC or chemistry. Left lower extremity DVT study negative for acute DVT. See radiology read for full review of final results. Because patient on Dalvance, deemed appropriate for outpatient management for left lower extremity cellulitis. Because patient at baseline without signs or symptoms of clinical decompensation, deemed appropriate for discharge. Results were relayed to patient who voiced understanding and were agreeable to outpatient management and follow up. At the time of discharge the patient was hemodynamically stable, tolerating PO, and mobilizing appropriately. Critical Care Critical Care Time Critical Care Time: No
[2023-04-30] MEDS: DALBAVANCIN HCL 1,500 MG in DEXTROSE 5 % IN WATER 250 ML 500 MG IV (17:34)
[2023-04-30 17:41] VITALS: BP 139/90; PULSE 102; O2SAT 91
[2023-04-30 18:00] VITALS: BP 138/66; PULSE 83; O2SAT 92
[2023-04-30 18:58] VITALS: BP 137/70; PULSE 81; RESP 16; TEMP 36.8; O2SAT 95
== END 2023-04-30 18:59 | disposition home or self-care (01) ==
PROVIDERS: Emergency Provider Emergency Medicine; PCP Nurse Practitioner Family
DX: L03.116 Cellulitis of left lower limb (principal); I10 Essential (primary) hypertension; E78.5 Hyperlipidemia, unspecified; E11.9 Type 2 diabetes mellitus without complications
CPT/HCPCS: 80053; 85025; 93971; 96365; 99284; J0875

== ENCOUNTER 2023-11-14 07:42 | Inpatient (IN) | payer MEDICARE, OTHER, SELFPAY ==
[2023-11-14] VITALS (19 sets, daily range): BP systolic 131–186; BP diastolic 69–86; PULSE 89–120; RESP 16–34; TEMP 36.3–39.7; O2SAT 85–98; BMI 36.5; BMI 37.0; BMI 36.8
--- NOTE | 2023-11-14 07:48 | XR_ITS ---
FINAL REPORT CLINICAL HISTORY: vomitign, fever, productive cough, hypoxemia COMPARISON: 09/26/2022 FINDINGS: The heart size is normal. The mediastinum is normal. There is no focal infiltrate or edema. There are no pleural effusions. There is no pneumothorax. There is no osseous abnormality. IMPRESSION: No acute cardiopulmonary process Reviewed, Interpreted and Dictated by Gerardo Fraser MD Transcribed by Ana Farley Authenticated and [facility]
--- NOTE | 2023-11-14 08:01 | ECG_ITS ---
APPROVED REPORT Exam: Resting ECG HR:107 bpm ECG Measurements Heart Rate 107 AXES ME 208 P 49 QRSd 94 QRS 81 QT 318 T 26 QTc 381 Conclusion Sinus tachycardia Electronically signed by : IGNACIA REINOSO, 11/14/2023 13:23:44
--- NOTE | 2023-11-14 08:01 | HMH.EDGENADL ---
Discharge Plan Disposition Patient Disposition: Admitted Chief Complaint: Nausea/Vomiting/Diarrhea Prescriptions Prescriptions: No Action (DME) BD AutoShield Duo Pen Needle 30 gauge x 3/16 needle See Rx Instructions .ROUTE .MEDSUPPLY Qty: 100 Rx Instructions: As directed loperamide [Anti-Diarrheal (loperamide)] 2 mg capsule 2 mg PO Q3HP PRN (Reason: Diarrhea) aspirin [Aspir-81] 81 mg tablet,delayed release (DR/EC) 81 mg PO QDAY ferrous sulfate 325 mg (65 mg iron) tablet 325 mg PO DAILY lisinopril 20 mg tablet 20 mg PO DAILY sertraline 100 mg tablet 100 mg PO HS simvastatin 40 mg tablet 40 mg PO HS (DME) Blood Glucose Test Strip See Rx Instructions .ROUTE .MEDSUPPLY Qty: 100 5RF Rx Instructions: TID As directed (DME) blood-glucose meter [Advanced Glucose Meter] Misc See Rx Instructions .Route Qty: 1 0RF Rx Instructions: Test sugar twice daily (DME) lancets [Advanced Travel Lancets] 28 gauge misc See Rx Instructions .Route Qty: 100 4RF Rx Instructions: Test sugar twice daily Humulin 70/30 U-100 KwikPen 100 unit/mL (70-30) insulin pen See Rx Instructions .ROUTE .COMPLEX Qty: 15 0RF Dose Instruction: INJECT 35 UNITS SUBCUTANEOUSLY EVERY DAY IN THE MORNING and 22 UNITS SUBCUTANEOUSLY EVERY DAY AT BEDTIME Rx Instructions: INJECT 35 UNITS SUBCUTANEOUSLY EVERY DAY IN THE MORNING and 22 UNITS SUBCUTANEOUSLY EVERY DAY AT BEDTIME (DME) OneTouch Ultra Test Strip See Rx Instructions .ROUTE .COMPLEX Qty: 100 0RF Dose Instruction: TEST BLOOD SUGAR 2 TIMES A DAY Rx Instructions: TEST BLOOD SUGAR 2 TIMES A DAY gabapentin 100 mg capsule 100 mg PO BID Qty: 60 5RF (DME) lancets [OneTouch Delica Plus Lancet] 33 gauge misc See Rx Instructions .ROUTE .COMPLEX Qty: 100 5RF Dose Instruction: TEST BLOOD SUAGR 3 TIMES A DAY DIRECTED Rx Instructions: TEST BLOOD SUAGR 3 TIMES A DAY DIRECTED naproxen 500 mg tablet 500 mg PO BID PRN (Reason: pain) Qty: 20 0RF fluticasone propionate [Flonase Allergy Relief] 50 mcg/actuation spray,suspension 1 spray intranasal BID Qty: 16 0RF Rx Instructions: administer into each nostril ibuprofen 800 mg tablet 800 mg PO Q8H PRN (Reason: pain) Qty: 20 0RF multivitamin 0 tablet 1 tab PO DAILY ascorbic acid (vitamin C) 250 tablet 250 mg PO DAILY cholecalciferol (vitamin D3) 400 tablet 400 units PO DAILY omeprazole 40 MG capsule,delayed release(DR/EC) 40 mg PO DAILY acetaminophen 650 MG tablet extended release 650 mg PO Q12HP PRN (Reason: Mild Pain,Fever,Headache) aripiprazole 30 tablet 30 mg PO BID metformin 500 mg tablet extended release 24 hr 2,000 mg PO DAILY Referrals Follow up/Referrals: Provider,Referral, MD [Primary Care Provider] - See instructions Clinical Impressions Clinical Impression: Fever, Acute alteration in mental status, Sepsis Instructions Patient Instructions: DI for Diarrhea and Traveler's Diarrhea -- Adult, DI for Diarrhea and Traveler's Diarrhea -- Child, DI for Nausea -- Adult, DI for Nausea -- Child Print Language Print Language: Gabonese Discharge ED Provider: Braulio Harding General Adult HPI General Chief complaint: Nausea/Vomiting/Diarrhea Stated complaint: Nausea/Vomiting Time Seen by Provider: 11/14/23 07:47 History of Present Illness HPI narrative: Please note that above description of symptoms, in this electronic medical record under categorization of recalled from ER triage doctor by RN are reflective of an initial nursing assessment, however, is not reflective of my full history and physical exam that was personally taken and clarified. Consequentially, this preceding description of symptoms, which may include the patient's categorized chief complaint in the EMR, do not reflect my personal clinical impression, and the ultimate de
--- NOTE | 2023-11-14 08:03 | PC.NURSE ---
RAD at for CXR
--- NOTE | 2023-11-14 08:07 | PC.NURSE ---
Notified RT of VBG order
[2023-11-14 08:09] LABS: VBG HCO3 27.2 mmol/L (23-30); VBG PCO2 46.6 mmol/L (35-51); VBG PH 7.38 mmol/L (7.31-7.41); VBG PO2 67.5 mmol/L (28-40)
[2023-11-14 08:10] LABS: Lactate Venous 2.4 mmol/L (0.4-2.0); VBG Base Excess 2.1 mmol/L (-2.4-2.3); VBG Oxygen Saturation 93.2 % (50-70); VBG Total CO2 28.6 mmol/L (23-27)
[2023-11-14 08:11] LABS: Basophils # 0.1 K/mm3 (0-0.2); Basophils % 0.5 % (0.1-2.0); Coronavirus 19, PCR Not Detected (NotDetected); Eosinophils # 0.2 K/mm3 (0.0-0.4); Eosinophils % 1.4 % (0.1-12.0); Hemoglobin 13.6 g/dL (14.1-18.0); Influenza A, PCR Not Detected (NotDetected); Influenza B, PCR Not Detected (NotDetected); Lymphocytes # 0.5 K/mm3 (0.7-4.5); Lymphocytes % 4.5 % (10-50); Mean Corpuscular Hemoglobin 32.6 pg (27.0-31.2); Mean Corpuscular Volume 95.9 fl (80-94); Mean Platelet Volume 8.1 fl (7.4-10.4); Microscopic, Urine URINE MICROSCOPIC (MICROSCOPIC); Monocytes # 0.3 K/mm3 (0.1-1.0); Monocytes % 2.8 % (1.7-9.3); Neutrophils # 9.4 K/mm3 (1.8-7.8); Neutrophils % 90.7 % (37.0-80.0); Platelet Count 142 K/mm3 (142-424); Red Blood Count 4.17 M/mm3 (4.60-6.20); Red Cell Distribution Width 14.5 % (11.5-17.5); White Blood Count 10.4 K/mm3 (4.8-10.8)
[2023-11-14 08:23] LABS: MANUAL DIFFERENTIAL MANUAL DIFFERENTIAL (MANUAL DIFF)
[2023-11-14 08:26] LABS: Appearance,Urine CLEAR (Clear); Bilirubin,Urine Negative (Negative); Blood, Urine TRACE-I (Negative); Chloride 102 mmol/L (98-107); Color,Urine YELLOW (Yellow); Glucose,Urine (UA) TRACE (Negative); Ketones,Urine TRACE (Negative); Leukocyte Esterase,Urine Negative (Negative); Nitrate,Urine Negative (Negative); Protein,Urine Negative (Negative); Sodium 137 mmol/L (136-145); Specific Gravity, Urine 1.015 (1.005-1.030); Urobilinogen,Urine 0.2 EU/dl (0.2)
[2023-11-14 08:29] LABS: Alanine Aminotransferase 24 U/L (12-78); Albumin/Globulin Ratio 1.7 (1.1-1.8); Alkaline Phosphatase 138 U/L (38-126); Aspartate Amino Transferase 32 U/L (17-59); Bilirubin,Total 0.6 mg/dl (0.2-1.3); Blood Urea Nitrogen 14 mg/dl (9-20); Calcium 8.6 mg/dl (8.4-10.2); Carbon Dioxide 30 mmol/L (22.0-30.0); Creatinine Clearance Estimated 117 mL/min (50-200); Estimated Glomerular Filt Rate 84 ml/min (>60); GFR (African American) 101 ML/MIN (>60); Globulin 2.4 g/dL (1.3-3.2); Glucose 253 mg/dl (74-100); Lipase 29 U/L (23-300); Magnesium 1.1 mg/dl (1.6-2.3); Total Protein,Serum 6.4 g/dl (6.3-8.2)
[2023-11-14 08:30] LABS: Chol/HDL Ratio 2.9 (1-3.5); Cholesterol 133 mg/dl (140-200); HDL Cholesterol 46 mg/dl (40-60); Lactic Acid 1.8 mmol/L (0.7-2.1); Triglycerides 151 mg/dl (30-150); VLDL Cholesterol 30 mg/dL (0-40)
[2023-11-14 08:41] LABS: Direct LDL Cholesterol 49.11 mg/dL (100-129); NT Pro Brain Natriuretic Pep. 253 pg/mL (0-125)
[2023-11-14 08:44] LABS: Troponin I 0.12 ng/ml (0.00-0.034)
[2023-11-14 08:45] LABS: Bacteria,Urine Trace /lpf; Squamous Epithelial Cell,Urine Occasional #/hpf (0-5); WBC,Urine 20-50 #/hpf (0-3); White Blood Cell Casts,Urine Occasional #/lpf (0)
--- NOTE | 2023-11-14 08:48 | PC.NURSE ---
Pt resting in bed. No needs voiced at this time. Call light remains within reach.
[2023-11-14 09:02] LABS: Eosinophils % 1 % (0-3); Lymphocytes % 9 % (10-50); Monocytes % 1 % (2-9); Neutrophils % 89 % (42-76); Platelet Estimate Normal; RBC Morphology Normal; Total Cells Counted 100
--- NOTE | 2023-11-14 09:12 | ECG_ITS ---
APPROVED REPORT Exam: Resting ECG HR:96 bpm ECG Measurements Heart Rate 96 AXES VT 176 P 62 QRSd 97 QRS 80 QT 345 T 46 QTc 399 Conclusion Normal sinus rhythm Electronically signed by : IGNACIA REINOSO, 11/14/2023 13:24:06
--- NOTE | 2023-11-14 09:12 | CT_ITS ---
FINAL REPORT TECHNIQUE: multiple axial CT images were performed from the foramen magnum to the vertex without enhancement. Axial imaging of the head was obtained without contrast. This study was performed with techniques to keep radiation doses as low as reasonably achievable, (ALARA). Individualized dose reduction techniques using automated exposure control or adjustment of mA and/or kV according to the patient's size were employed. CLINICAL HISTORY: ams, vomiting, fever COMPARISON: None FINDINGS: The ventricles are mildly enlarged. There is mild diffuse atrophy. There is periventricular white matter change likely related to small vessel disease. There is no evidence of hemorrhage. No masses are identified. No extra-axial fluid is seen. There is mild mucoperiosteal thickening in the maxillary and ethmoid sinuses bilaterally. IMPRESSION: Mild atrophy and chronic changes without acute process. Mild mucoperiosteal thickening in the maxillary and ethmoid sinuses. Reviewed, Interpreted and Dictated by Gerardo Fraser MD Transcribed by Ana Farley Authenticated and . [facility]
--- NOTE | 2023-11-14 09:24 | PC.NURSE ---
Pt gone to RAD via stretcher
--- NOTE | 2023-11-14 09:58 | PC.NURSE ---
Waiting on callback from Dr. Goldman about pt admission
--- NOTE | 2023-11-14 10:00 | PC.NURSE ---
Dr. Harding speaking with Dr. Goldman
--- NOTE | 2023-11-14 10:03 | PC.NURSE ---
I rounded on the pt and rechecked his temp. 100.9 F rectally. no new complaints, no needs voiced. call concepcion in reach.
--- NOTE | 2023-11-14 10:11 | CA_ITS ---
APPROVED REPORT EXAM: Comprehensive 2D, Doppler, and color-flow Echocardiogram Machine Builder: Marlyn Elias CRT Ht: 5 ft 11 in Wt: 261lbs BSA: 2.36 BP: 131/73 mmHg Indications: Diabetes, Hyperlipidemia, NSTEMI, nausea, fever 2D Dimensions LA Volume 46.30 mL LA Volume Index 19.10 mL/m2 (M/F) 16-34 M-Mode Dimensions RVDd 2.85 cm (0.9-2.6) LA Diam 3.41 cm (1.9-4.0) LVDd 4.82 cm (3.5-5.7) LVDs 3.25 cm (3.5-5.7) IVSd 0.96 cm (0.6-1.1) PWd 0.76 cm (0.6-1.1) EF (Teich) 60.90% FS 32.60% EDV (Teich) 108.60 mL TAPSE 2.47 (<1.7) ESV (Teich) 42.50 mL LV Diastology E Decel Time 350 (160-240 msec) E/A Ratio 0.65 MED A' 10.70 cm/s LAT A' 15.60 cm/s Aortic Valve AO Peak GR. 6.30 mmHg Mitral Valve MV A Velocity 107.0 (40-130 cm/s) E/A Ratio 0.65 Pulmonary Valve PV Peak Velocity 123.0 (50-150 cm/s) Tricuspid Valve TR P. Velocity 289.00 cm/s RAP Estimate 10.00 mmHg RVSP 43.30 mmHg Left Ventricle The left ventricle is normal size. The left ventricular systolic function is normal. The left ventricular ejection fraction is within the normal range. There is increased LV wall thickness. There is normal LV segmental wall motion. The left ventricular diastolic function is normal. LVEF is 55%. Right Ventricle Right ventricle is moderately dilated. Right ventricle is moderately hypokinetic. Atria The left atrium size is normal. The right atrium size is normal. There is no Doppler evidence of interatrial shunt. Aortic Valve The aortic valve is mildly thickened. There is no aortic valvular stenosis. No aortic regurgitation is present. Mitral Valve The mitral valve is normal in structure. No evidence of mitral valve stenosis. Trace mitral regurgitation. Tricuspid Valve The tricuspid valve leaflets are thin and pliable. Trace tricuspid regurgitation. There is insufficient TR jet to estimate RVSP. Pulmonic Valve The pulmonary valve is normal in structure. Trace pulmonic regurgitation. Great Vessels The aortic root is not well-visualized. IVC is normal in size and collapses >50% with inspiration. Pericardium There is no pericardial effusion. Other Information Study Quality: Technically Difficult Conclusion Technically difficult study due to poor acoustic windows. Normal LV systolic function. Moderate RV dilation with moderate reduction in RV function. No significant valvular stenosis or regurgitation. There is no prior study for comparison. The chronicity of RV dysfunction is indeterminate. Electronically signed by : Patti Lundberg MD 11/16/2023 23:49:42
[2023-11-14 10:16] LABS: Creatine Kinase 61 U/L (55-170)
--- NOTE | 2023-11-14 10:21 | PC.NURSE ---
ROCÍO Cross aware of pt admit of fever, ams, sepsis
--- NOTE | 2023-11-14 10:43 | PC.NURSE ---
Vascular at BS for echo
--- NOTE | 2023-11-14 10:46 | PC.NURSE ---
I called report to Meenu DURANT
--- NOTE | 2023-11-14 10:48 | PC.NURSE ---
Received report from ED, Patient currently getting bedside echo per ed nurse. ED nurse stated she will call back when echo is completed to transport patient to floor
--- NOTE | 2023-11-14 11:04 | PC.NURSE ---
I notified JANEY Claudio, that the pt is done with his echo and is able to come up at this time.
--- NOTE | 2023-11-14 11:31 | PC.NURSE ---
arrived by stretcher from ED
[2023-11-14 12:02] LABS: Troponin I 0.43 ng/ml (0.00-0.034)
[2023-11-14 12:10] LABS: Reflex Lactic Add Lactic Reflex
[2023-11-14 12:20] LABS: POC Glucose,Bedside 187 (70-110)
--- NOTE | 2023-11-14 12:31 | ECG_ITS ---
APPROVED REPORT Exam: Resting ECG HR:110 bpm ECG Measurements Heart Rate 110 AXES WI 185 P 79 QRSd 94 QRS 73 QT 314 T 53 QTc 379 Conclusion SINUS TACHYCARDIA ABNORMAL RHYTHM ECG UNCONFIRMED REPORT Electronically signed by : Salvador Mayfield MD 11/15/2023 08:34:16
[2023-11-14 12:38] LABS: Lactic Acid Follow Up (RFLX 1) 1.6 mmol/L (0.7-2.1)
--- NOTE | 2023-11-14 13:00 | SW/DCPLANNER ---
Addendum entered by Anjali Valadez 11/18/23 07:58: Debra w/ [facility] stated that services will begin this week. Addendum entered by Anjali Valadez 11/17/23 15:08: I have arranged [employer] for this patient confirmation #[id number]. Addendum entered by Anjali Valadez 11/17/23 12:47: The plan for this patient is to return to [facility] today. I will set up home health services thru [facility] for PT/OT. Original Note: Patient currently resides at [facility]. [facility] baseline is alert and able to do everything for himself. I will continue to follow up w/ Yesenia from [facility] until patient is medically stable for discharge. Discharge date is unknown at this time.
--- NOTE | 2023-11-14 13:33 | CT_ITS ---
FINAL REPORT TECHNIQUE: Postcontrast axial images through the abdomen and pelvis were performed. This study was performed with techniques to keep radiation doses as low as reasonably achievable, (ALARA). Individualized dose reduction techniques using automated exposure control or adjustment of mA and/or kV according to the patient's size were employed. CLINICAL HISTORY: distension and pain FINDINGS: Abdomen: There are chronic changes at the bases. The liver parenchyma is homogeneous. The gallbladder is absent. The spleen is unremarkable. The adrenals are normal. There is fatty infiltration of the pancreas. There is a 1.2 cm nodule at the junction of the head and body of the pancreas well seen on image 43 of series 2. There is mild stranding in the lateral portion of the right hemipelvis well seen on images 95-117. There is no localized fluid collection or mass. The aorta is normal in caliber. There is a periampullary duodenal diverticulum. There are benign-appearing cysts in the right kidney. There is a mildly enlarged right inguinal lymph node measuring up to 2.2 cm. Pelvis: The appendix is not identified. The urinary bladder is unremarkable. There is no free fluid, free air, or abscess. IMPRESSION: Nodule in the head and body of the pancreas concerning for developing neoplasia. Based on location, this is not amenable to percutaneous needle sampling. Nonspecific mild inflammation in the right lateral pelvic sidewall. Reviewed, Interpreted and Dictated by Gerardo Fraser MD Transcribed by Katiana Claudio Authenticated and [facility]
--- NOTE | 2023-11-14 13:45 | HMH.OTEV ---
OT Inpatient Evaluation Rehab OT IP Evaluation Start: 11/14/23 10:12 Freq: ONCE Status: Active Protocol: [facility]14[facility]23 [facility] (Rec: 11/14/23 13:45 [facility] [id number]) Rehab OT IP Assessment Subjective History Pt oriented x 3 on arrival. Pt agreeable to engage in therapy evaluation. Pt admitted on 11/14/23 due to vomiting and nausea. History and Physical report: 68-year-old male history of hypertension, hyperlipidemia, diabetes, psychiatric comorbidity living in a snf facility [facility] presenting with concern for vomiting. Vomiting is nonbloody, nonbilious. Patient states that he woke up today, 11/13 and started vomiting out of nowhere, no other associated symptoms. Denies pain anywhere. Denies chest pain, abdominal pain, diarrhea. States that he is also been feeling fevered. History was obtained via conversation with patient. On arrival, patient hemodynamically stable, alert, oriented only to person and place, appropriate, GCS 15, moving all extremities spontaneously, pupils equal and reactive to light. Full physical exam performed and significant for acutely on chronically ill-appearing patient. He is obese. Sluggish appearing. Answering questions appropriately, but with slight delay after question. Mildly tachypneic around 25 breaths/min, covered in vomitus. Patient is palpably warm. Lungs are quiet, but he is moving air without focal breath sounds. Cardiac exam without murmurs, gallops, rubs. Pulses are equal a
--- NOTE | 2023-11-14 13:53 | HMH.PTEV ---
Physical Therapy Evaluation Rehab PT IP Evaluation Start: 11/14/23 10:12 Freq: ONCE Status: Active Protocol: Document 11/14/23 13:50 MATTHEW (Rec: 11/14/23 13:52 MATTHEW [id number]) Subjective/History History History History and Physical report: 68-year-old male history of hypertension, hyperlipidemia, diabetes, psychiatric comorbidity living in a [facility] facility [facility] presenting with concern for vomiting. Vomiting is nonbloody, nonbilious. Patient states that he woke up today, 8/ and started vomiting out of nowhere, no other associated symptoms. Denies pain anywhere. Denies chest pain, abdominal pain, diarrhea. States that he is also been feeling fevered. History was obtained via conversation with patient. On arrival, patient hemodynamically stable, alert, oriented only to person and place, appropriate, GCS 15, moving all extremities spontaneously, pupils equal and reactive to light. Full physical exam performed and significant for acutely on chronically ill-appearing patient. He is obese. Sluggish appearing. Answering questions appropriately, but with slight delay after question. Mildly tachypneic around 25 breaths/min, covered in vomitus. Patient is palpably warm. Lungs are quiet, but he is moving air without focal breath sounds. Cardiac exam without murmurs, gallops, rubs. Pulses are equal and symmetric in upper and lower extremities. Abdomen soft, nontender, nondistended. No lower extremity edema. Differential includes pne
--- NOTE | 2023-11-14 14:02 | HMH.ITSTN ---
Radiology in room to bring patient down for ct when patient stated he needed to use bed hopkins before we came down for ct. Nurse will call when patient is ready.
[2023-11-14 15:20] LABS: Troponin I 0.44 ng/ml (0.00-0.034)
--- NOTE | 2023-11-14 16:18 | EXP.PHA.CONS ---
Pharmacy Consult Date: 11/14/23 Time: 16:18 Referring provider: DR. HSIEH Reason for Consult:: VANCOMYCIN DOSING Allergies Allergy/AdvReac Type Severity Reaction Status Date / Time sulfamethoxazole Allergy Intermediate Rash Verified 11/14/23 08:05 [From Bactrim] trimethoprim [From Bactrim] Allergy Intermediate Rash Verified 11/14/23 08:05 Home Medications ?Medication ?Instructions ?Recorded ?Confirmed ?Type aspirin 81 mg tablet,delayed 81 mg PO QDAY Heart disease 05/13/17 11/14/23 History release (Aspir-) ferrous sulfate 325 mg (65 mg 325 mg PO DAILY Supplement 05/13/17 11/14/23 History iron) tablet lisinopril 20 mg tablet 20 mg PO DAILY blood pressure 05/13/17 03/27/23 History loperamide 2 mg capsule 2 mg PO Q3HP PRN Diarrhea 05/13/17 03/27/23 History (Anti-Diarrheal (loperamide)) sertraline 100 mg tablet 100 mg PO HS mood 05/15/17 11/14/23 History simvastatin 40 mg tablet 40 mg PO HS Cholesterol 05/15/17 03/27/23 History acetaminophen 650 mg 650 mg PO Q12HP PRN Mild 04/23/19 03/27/23 History tablet,extended release Pain,Fever,Headache ascorbic acid (vitamin C) 250 mg 250 mg PO DAILY Diet supplement 04/23/19 11/14/23 History tablet cholecalciferol (vitamin D3) 10 400 units PO DAILY Diet supplement 04/23/19 03/27/23 History mcg (400 unit) tablet multivitamin 1 tab PO DAILY Diet supplement 04/23/19 11/14/23 History omeprazole 40 mg capsule,delayed 40 mg PO DAILY GERD 04/23/19 03/27/23 History release aripiprazole 30 mg tablet 30 mg PO BID MOOD 04/24/19 11/14/23 History metformin 500 mg tablet,extended 2,000 mg PO DAILY Diabetes 01/24/20 03/27/23 History release 24 hr blood sugar diagnostic (Blood #100 ea 09/13/20 03/27/23 Rx Glucose Test strips) blood-glucose meter (Advanced #1 ea 12/29/20 03/27/23 Rx Glucose Meter) lancets 28 gauge (Advanced Travel #100 ea 12/29/20 03/27/23 Rx Lancets) insulin NPH-regular 70-30 U-100 See Rx Instructions .Route 11/12/22 11/14/23 Rx insulin 100 unit/mL subcutaneous .COMPLEX #15 mL pen (Humulin 70/30 U-100 MargieikPen) blood sugar diagnostic (OneTouch #100 strips 11/18/22 11/14/23 Rx Ultra Test strips) gabapentin 100 mg capsule 100 mg PO BID Pain #60 caps 11/18/22 11/14/23 Rx naproxen 500 mg tablet 500 mg PO BID PRN pain #20 tabs 12/02/22 03/27/23 Rx fluticasone propionate 50 1 spray intranasal BID #16 grams 01/25/23 11/14/23 Rx mcg/actuation nasal spray,suspension (Flonase Allergy Relief) ibuprofen 800 mg tablet 800 mg PO Q8H PRN pain #20 tabs 01/25/23 03/27/23 Rx lancets 33 gauge (OneTouch Delica #100 ea 02/06/23 11/14/23 Rx Plus Lancet) pen needle,diabetic dual safty 30 #100 ea 03/27/23 11/14/23 History gauge x 3/16 (BD AutoShield Duo Pen Needle) New Prescriptions to Start Prescriptions: Height: 1.8 m Weight: 120.656 kg Laboratory Results:: Laboratory Results - last 24 hr 11/14/23 07:58: WBC 10.4, RBC 4.17 L, Hgb 13.6 L, Hct 40.0 L, MCV 95.9 H, MCH 32.6 H, MCHC 34.0, RDW 14.5, Plt Count 142, MPV 8.1, Neut % (Auto) 90.7 H, Lymph % (Auto) 4.5 L, Gibson % (Auto) 2.8, Eos % (Auto) 1.4, Baso % (Auto) 0.5, Neut # (Auto) 9.4 H, Lymph # (Auto) 0.5 L, Gibson # (Auto) 0.3, Eos # (Auto) 0.2, Baso # (Auto) 0.1, Total Counted 100, Neutrophils % (Manual) 89 H, Lymphocytes % (Manual) 9 L, Monocytes % (Manual) 1 L, Eosinophils % (Manual) 1, Platelet Estimate Normal, RBC Morphology Normal, Sodium 137, Potassium 4.0, Chloride 102, Carbon Dioxide 30, Anion Gap 9.0, BUN 14, Creatinine 0.90, Estimated Creat Clear 117, Estimated GFR 84, Est GFR ( Amer) 101, Glucose 253 H, Lactate 1.8, Calcium 8.6, Magnesium 1.1 L, Total Bilirubin 0.6, AST 32, ALT 24, Alkaline Phosphatase 138 H, Total Creatine Kinase 61, Troponin I 0.12 H 11/14/23 07:58: Troponin I Cancelled, NT-Pro-B Natriuret Pep 253 H, Total Protein 6.4, Albumin 4.0, Globulin 2.4, Albumin/Globulin Ratio 1.7, Triglycerides 151 H, Cholesterol 133 L, LDL Cholesterol Direct 49.11 L, VLDL Chol
[2023-11-14 16:38] LABS: POC Glucose,Bedside 331 (70-110)
--- NOTE | 2023-11-14 18:33 | EXP.HP ---
History of Present Illness *Admission Date: 11/14/23 *Reason for visit:: Fever and altered mental status *History of present illness: Mr. Arango is a 68-year-old male with history of hypertension, hyperlipidemia, diabetes, schizophrenia who lives at [facility]. He presented to the ER today via EMS due to confusion. Woke up and began having nonbloody, nonbilious emesis. Reportedly had no other symptoms. No shortness of breath, diarrhea, chest pain. Found to be frankly febrile on arrival. Tachycardic and hypertensive. Concern for presentation with sepsis. Patient initiated empirically on antibiotics and cultures were obtained. Temperature 103.5, heart rate 107, blood pressure with systolics 170s over 80s. Difficulty obtaining history from patient. He does not know all of his medications. Attempting to obtain medication list from [facility]. Given his vital instability, SIRS criteria, medicine consulted for admission. Admitted to stepdown level of care. Urine with 20-50 white cells, trace bacteria. Possible source of infection. Chest x-ray with no consolidation. Of note, also found to have mild elevation in troponin with no ST changes on EKG. on arrival to the floor, patient confused. Slow to answer questions. Noticed to have jerking of his arms. Random twitching noted. Abdomen appears distended and is diffusely tender. No daniel emesis since admission. [facility] Disclaimer: The information contained in this section may have been updated after the patient was seen, as this information can be updated by other users. Medical History (Updated 11/14/23 @ 22:24 by Marlon Goldman MD) Depression Anxiety Schizophrenic disorder History of gastroesophageal reflux (GERD) Hypertension Hyperlipidemia Diabetes mellitus, type 2 Surgical History History of cholecystectomy Family History Other No significant family history Social History Smoking Status: Unknown if ever smoked alcohol intake: never substance use type: denies use current occupational status: disabled Travel in the last 8 weeks: None housing: assisted living facility current occupational exposures/hazards: No caffeine: No Review of Systems Review of Systems Review of systems (narrative): 14 point review of systems performed, pertinent positives and negatives as per HPI Meds Home Medications and Allergies Home Medications ?Medication ?Instructions ?Recorded ?Confirmed ?Type aspirin 81 mg tablet,delayed 81 mg PO QDAY Heart disease 05/13/17 11/14/23 History release (Aspir-) ferrous sulfate 325 mg (65 mg 325 mg PO DAILY Supplement 05/13/17 11/14/23 History iron) tablet lisinopril 20 mg tablet 20 mg PO DAILY blood pressure 05/13/17 03/27/23 History loperamide 2 mg capsule 2 mg PO Q3HP PRN Diarrhea 05/13/17 03/27/23 History (Anti-Diarrheal (loperamide)) sertraline 100 mg tablet 100 mg PO HS mood 05/15/17 11/14/23 History simvastatin 40 mg tablet 40 mg PO HS Cholesterol 05/15/17 03/27/23 History acetaminophen 650 mg 650 mg PO Q12HP PRN Mild 04/23/19 03/27/23 History tablet,extended release Pain,Fever,Headache ascorbic acid (vitamin C) 250 mg 250 mg PO DAILY Diet supplement 04/23/19 11/14/23 History tablet cholecalciferol (vitamin D3) 10 400 units PO DAILY Diet supplement 04/23/19 03/27/23 History mcg (400 unit) tablet multivitamin 1 tab PO DAILY Diet supplement 04/23/19 11/14/23 History omeprazole 40 mg capsule,delayed 40 mg PO DAILY GERD 04/23/19 03/27/23 History release aripiprazole 30 mg tablet 30 mg PO BID MOOD 04/24/19 11/14/23 History metformin 500 mg tablet,extended 2,000 mg PO DAILY Diabetes 01/24/20 03/27/23 History release 24 hr blood sugar diagnostic (Blood #100 ea 09/13/20 03/27/23 Rx Glucose Test strips) blood-glucose meter (Advanced
[2023-11-15] VITALS (13 sets, daily range): BP systolic 114–139; BP diastolic 48–95; PULSE 66–98; RESP 17–32; TEMP 36.4–37.7; O2SAT 90–98; BMI 37.0
[2023-11-15 05:20] LABS: POC Glucose,Bedside 289 (70-110)
--- NOTE | 2023-11-15 05:45 | EXP.PN ---
Subjective *Date: 11/15/23 *Time: 12:11 Interval history: Vomiting Blood culture positive Streptococcus Exam Data for Last 24 hours Vital signs and Labs for Last 24 Hours: Temp Pulse Resp BP Pulse Ox O2 Del Method O2 Flow Rate 99.8 F H 98 H 28 H 131/63 93 L Nasal Cannula 1 11/15/23 04:00 11/15/23 04:00 11/15/23 04:00 11/15/23 04:00 11/15/23 04:00 11/15/23 04:00 11/15/23 04:00 Laboratory Results - last 24 hr 11/14/23 07:58: WBC 10.4, RBC 4.17 L, Hgb 13.6 L, Hct 40.0 L, MCV 95.9 H, MCH 32.6 H, MCHC 34.0, RDW 14.5, Plt Count 142, MPV 8.1, Neut % (Auto) 90.7 H, Lymph % (Auto) 4.5 L, [place] % (Auto) 2.8, Eos % (Auto) 1.4, Baso % (Auto) 0.5, Neut # (Auto) 9.4 H, Lymph # (Auto) 0.5 L, [place] # (Auto) 0.3, Eos # (Auto) 0.2, Baso # (Auto) 0.1, Total Counted 100, Neutrophils % (Manual) 89 H, Lymphocytes % (Manual) 9 L, Monocytes % (Manual) 1 L, Eosinophils % (Manual) 1, Platelet Estimate Normal, RBC Morphology Normal, Sodium 137, Potassium 4.0, Chloride 102, Carbon Dioxide 30, Anion Gap 9.0, BUN 14, Creatinine 0.90, Estimated Creat Clear 117, Estimated GFR 84, Est GFR ( Amer) 101, Glucose 253 H, Lactate 1.8, Calcium 8.6, Magnesium 1.1 L, Total Bilirubin 0.6, AST 32, ALT 24, Alkaline Phosphatase 138 H, Total Creatine Kinase 61, Troponin I 0.12 H 11/14/23 07:58: Troponin I Cancelled, NT-Pro-B Natriuret Pep 253 H, Total Protein 6.4, Albumin 4.0, Globulin 2.4, Albumin/Globulin Ratio 1.7, Triglycerides 151 H, Cholesterol 133 L, LDL Cholesterol Direct 49.11 L, VLDL Cholesterol 30, HDL Cholesterol 46, Cholesterol/HDL Ratio 2.9, Lipase 29, Urine Color Yellow, Urine Appearance Clear, Urine pH 7.0, Ur Specific [place] 1.015, Urine Protein Negative, Urine Glucose (UA) Trace, Urine Ketones Trace, Urine Blood Trace-i, Urine Nitrate Negative, Urine Bilirubin Negative, Urine Urobilinogen 0.2, Ur Leukocyte Esterase Negative, Urine RBC None, Urine WBC 20-50, Ur Squamous Epith Cells Occasional, Urine Bacteria Trace, WBC Casts Occasional, SARS-CoV-2 (PCR) Not detected, Influenza A Untype (PCR) Not detected, Influenza Type B (PCR) Not detected 11/14/23 08:04: VBG pH 7.38, VBG pCO2 46.6, VBG pO2 67.5 H, VBG HCO3 27.2, VBG Total CO2 28.6 H, VBG O2 Saturation 93.2 H, VBG Base Excess 2.1, VBG Lactic Acid 2.4 H 11/14/23 11:27: Troponin I 0.43 H 11/14/23 12:11: POC Glucose 187 H 11/14/23 12:20: Lactate 1.6 11/14/23 14:25: Troponin I 0.44 H 11/14/23 16:27: POC Glucose 331 H* 11/14/23 20:08: POC Glucose 289 H I & O for Last 24 hours: Intake & Output 11/12/23 11/13/23 11/14/23 11/15/23 23:59 23:59 23:59 23:59 Intake Total 820 / 820 Output Total 300 / 300 0 / 0 Balance 520 / 520 0 / 0 Weight 120.656 kg 119.884 kg Microbiology Reports for the Last 24 Hours: Microbiology 11/14/23 07:58 Blood Blood Culture - Preliminary 11/14/23 08:00 Blood Blood Culture - Preliminary Narrative: Streptococcus and blood culture Constitutional Comments: Patient still having projectile vomiting, timing may be after he eats, *Routine Respiratory Exam Respiratory: Present normal respiratory effort *Routine Neurological Exam Neurological: Present alert and oriented X3 Assessment and Plan *Assessment and plan (1) Nausea and vomiting: Status: Acute Category: Medical Code(s): R11.2 - Nausea with vomiting, unspecified (2) Positive blood culture: Status: Acute Category: Medical Code(s): R78.81 - Bacteremia Plan 1. Nausea and vomiting, patient has had projectile type vomiting question whether it is related to after eating, will evaluate to make sure it is not related to the antibiotic he is received. 2. Positive blood cultures for Streptococcus, patient on IV Augmentin will continue that at present time wait for sensitivity.
[2023-11-15 07:35] LABS: Basophils % 0.3 % (0.1-2.0); Hematocrit 37.1 % (42.0-52.0); Hemoglobin 12.3 g/dL (14.1-18.0); Lymphocytes # 0.8 K/mm3 (0.7-4.5); Lymphocytes % 7.6 % (10-50); Mean Corpuscular HGB Conc 33.2 g/dL (31.8-35.4); Mean Corpuscular Hemoglobin 32.3 pg (27.0-31.2); Mean Corpuscular Volume 97.5 fl (80-94); Mean Platelet Volume 8.6 fl (7.4-10.4); Monocytes # 0.6 K/mm3 (0.1-1.0); Monocytes % 5.5 % (1.7-9.3); Neutrophils # 8.9 K/mm3 (1.8-7.8); Neutrophils % 86.5 % (37.0-80.0); Platelet Count 120 K/mm3 (142-424); Red Blood Count 3.81 M/mm3 (4.60-6.20); Red Cell Distribution Width 14.2 % (11.5-17.5); White Blood Count 10.3 K/mm3 (4.8-10.8)
[2023-11-15 07:38] LABS: MANUAL DIFFERENTIAL MANUAL DIFFERENTIAL (MANUAL DIFF)
[2023-11-15 07:42] LABS: Albumin Level 3.3 g/dl (3.5-5.0); Chloride 101 mmol/L (98-107); Potassium 3.4 mmoL/L (3.5-5.1); Sodium 132 mmol/L (136-145)
[2023-11-15 07:44] LABS: Amylase 42 U/L (30-110)
[2023-11-15 07:45] LABS: Alanine Aminotransferase 40 U/L (12-78); Albumin/Globulin Ratio 1.4 (1.1-1.8); Alkaline Phosphatase 123 U/L (38-126); Anion Gap 5.4 mEq/L (5-15); Aspartate Amino Transferase 67 U/L (17-59); Bilirubin,Total 0.7 mg/dl (0.2-1.3); Blood Urea Nitrogen 13 mg/dl (9-20); Carbon Dioxide 29 mmol/L (22.0-30.0); Creatinine Clearance Estimated 118 mL/min (50-200); Estimated Glomerular Filt Rate 74 ml/min (>60); GFR (African American) 90 ML/MIN (>60); Globulin 2.3 g/dL (1.3-3.2); Glucose 215 mg/dl (74-100); Total Protein,Serum 5.6 g/dl (6.3-8.2)
[2023-11-15 07:46] LABS: Magnesium 1.9 mg/dl (1.6-2.3)
[2023-11-15 08:38] LABS: Lipase 24 U/L (23-300)
[2023-11-15 08:42] LABS: Hemoglobin A1C 9.4 % (4.0-6.0)
[2023-11-15 09:09] LABS: Lymphocytes % 7 % (10-50); Monocytes % 5 % (2-9); Neutrophils % 88 % (42-76); Platelet Estimate Slight Decrease; RBC Morphology Normal; Total Cells Counted 100
--- NOTE | 2023-11-15 10:45 | EXP.ACUTE.PN ---
Subjective *Date: 11/15/23 *Time: 12:15 Interval history: Patient had an episode of emesis overnight. Will administer enema today to promote bowel movement. Does not know the last time he had a bowel movement. Blood cultures returned positive overnight for Streptococcus. Fevers effervescing. Continues to necessitate 1 L oxygen for appropriate saturations above 90%. On exam this morning, patient appears more alert. Blood pressure improved to 130/48, heart rate 88 and sinus rhythm. Temperature 99.8. Medical Exam Vital signs and Labs for Last 24 Hours: Vital Signs Temp Pulse Pulse Pulse Resp BP BP 11/15/23 08:00 97.7 F 11/15/23 08:00 90 11/15/23 08:00 90 22 123/69 11/15/23 06:00 88 25 H 130/48 L 11/15/23 04:00 90 11/15/23 04:00 11/15/23 04:00 99.8 F H 98 H 28 H 131/63 11/15/23 02:00 92 H 32 H 133/69 11/15/23 00:00 90 11/15/23 00:00 99.9 F H 11/15/23 00:00 92 H 17 136/73 11/14/23 22:00 107 H 16 173/86 H 11/14/23 20:00 100 H 11/14/23 20:00 98 H 11/14/23 20:00 100.5 F H 100 H 34 H 148/79 H 11/14/23 19:00 11/14/23 17:00 11/14/23 16:00 11/14/23 16:00 120 H 11/14/23 16:00 97.4 F L 105 H 19 158/76 H 11/14/23 15:25 103 H 24 172/75 H 11/14/23 15:05 11/14/23 14:00 109 H 24 168/86 H 11/14/23 13:30 98.1 F 11/14/23 13:10 11/14/23 12:00 100 H 11/14/23 11:52 98.3 F 89 21 136/76 11/14/23 11:40 11/14/23 11:26 100.9 F H 92 H 18 136/76 11/14/23 11:00 89 131/69 Pulse Ox O2 Del Method O2 Flow Rate 11/15/23 08:00 11/15/23 08:00 90 L Nasal Cannula 1 11/15/23 08:00 90 L Nasal Cannula 1 11/15/23 06:00 90 L Nasal Cannula 1 11/15/23 04:00 11/15/23 04:00 93 L Nasal Cannula 1 11/15/23 04:00 92 L Nasal Cannula 1 11/15/23 02:00 91 L Nasal Cannula 1 11/15/23 00:00 11/15/23 00:00 11/15/23 00:00 92 L Nasal Cannula 1 11/14/23 22:00 93 L Nasal Cannula 1 11/14/23 20:00 11/14/23 20:00 92 L Nasal Cannula 1 11/14/23 20:00 92 L Nasal Cannula 1 11/14/23 19:00 Nasal Cannula 2 11/14/23 17:00 Nasal Cannula 2 11/14/23 16:00 Room Air 11/14/23 16:00 11/14/23 16:00 94 L Nasal Cannula 4 11/14/23 15:25 90 L Room Air 11/14/23 15:05 Room Air 11/14/23 14:00 93 L Room Air 11/14/23 13:30 11/14/23 13:10 Room Air 11/14/23 12:00 11/14/23 11:52 97 Room Air 11/14/23 11:40 Room Air 11/14/23 11:26 Nasal Cannula 6 11/14/23 11:00 95 Nasal Cannula 6 Intake and Output 11/14/23 11/15/23 11/15/23 23:59 07:59 15:59 Intake Total 360 / 820 Output Total 300 / 300 0 / 0 0 / 0 Balance 60 / 520 0 / 0 0 / 0 Intake: Intake, Oral Amount 360 / 720 Output: Output, Urine Amount 300 / 300 0 / 0 0 / 0 Other: Number of Voids 0 Number of Unmeasured Voids 2 1 Weight 120.656 kg 119.884 kg Patient Weight 11/15/23 23:59 Weight 119.884 kg Laboratory Results - last 24 hr 11/14/23 07:58: Troponin I Cancelled 11/14/23 11:27: Troponin I 0.43 H 11/14/23 12:11: POC Glucose 187 H 11/14/23 12:20: Lactate 1.6 11/14/23 14:25: Troponin I 0.44 H 11/14/23 16:27: POC Glucose 331 H* 11/14/23 20:08: POC Glucose 289 H 11/15/23 06:18: WBC 10.3, RBC 3.81 L, Hgb 12.3 L, Hct 37.1 L, MCV 97.5 H, MCH 32.3 H, MCHC 33.2, RDW 14.2, Plt Count 120 L, MPV 8.6, Neut % (Auto) 86.5 H, Lymph % (Auto) 7.6 L, [place] % (Auto) 5.5, Eos % (Auto) 0.0 L, Baso % (Auto) 0.3, Neut # (Auto) 8.9 H, Lymph # (Auto) 0.8, [place] # (Auto) 0.6, Eos # (Auto) 0.0, Baso # (Auto) 0.0, Total Counted 100, Neutrophils % (Manual) 88 H, Lymphocytes % (Manual) 7 L, Monocytes % (Manual) 5, Platelet Estimate Slight decrease, RBC Morphology Normal, Sodium 132 L, Potassium 3.4 L, Chloride 101, Carbon Dioxide 29, Anion Gap 5.4, BUN 13, Creatinine 1.00, Estimated Creat Clear 118, Estimated GF
[2023-11-15 11:57] LABS: POC Glucose,Bedside 191 (70-110)
[2023-11-15 17:23] LABS: POC Glucose,Bedside 188 (70-110)
[2023-11-15 20:44] LABS: Vancomycin,Trough 12.3 ug/mL (5.0-10.0)
[2023-11-15 21:01] LABS: POC Glucose,Bedside 325 (70-110)
[2023-11-15 21:10] LABS: POC Glucose,Bedside 211 (70-110)
[2023-11-16] VITALS (8 sets, daily range): BP systolic 111–149; BP diastolic 60–70; PULSE 60–81; RESP 15–19; TEMP 36.5–36.9; O2SAT 92–100; BMI 37.3
[2023-11-16 05:14] LABS: POC Glucose,Bedside 183 (70-110)
--- NOTE | 2023-11-16 05:25 | PC.NURSE ---
Patient is alert and oriented x4 but is occasionally slow to responding. Patient has slept very well throughout the night. Patient was placed on 2 L of oxygen via nasal cannula at bedtime for sleep. Occasionally during the shift, his O2 sats dropped to the upper 80s, related to periods of apnea, but they have relatively maintained within the mid 90s to upper 90s. Patient's lung sounds were clear and diminished upon auscultation this shift. Patient is incontinent to void but can tell you when he has to do so. Patient is also incontinent of stool and has not had a bowel movement thus far this shift. His bowel sounds were hypoactive. He is also normal sinus rhythm on telemetry. Patient has some moderate edema in his ankles, as well as swelling on the top of both of his feet. Patient has not had any complaints of nausea, and he has not vomited this shift. He tolerates a full liquid diet well. He has only complained of feeling just sick. Patient has received his scheduled meds per JUN; he also received vancomycin and ampicillin antibiotics this shift. He was given a bed bath this shift. Patient's FSBS at 21:00 was 325 and at 05:00, it was 183; patient was given Lispro insulin according to sliding scale per JUN. Patient does not have any further complaints at this time. Call light within reach.
[2023-11-16 08:17] LABS: Alanine Aminotransferase 33 U/L (12-78); Albumin Level 3.1 g/dl (3.5-5.0); Albumin/Globulin Ratio 1.1 (1.1-1.8); Alkaline Phosphatase 115 U/L (38-126); Anion Gap 9.8 mEq/L (5-15); Aspartate Amino Transferase 55 U/L (17-59); Bilirubin,Total 0.5 mg/dl (0.2-1.3); Blood Urea Nitrogen 13 mg/dl (9-20); Calcium 8.2 mg/dl (8.4-10.2); Carbon Dioxide 25 mmol/L (22.0-30.0); Chloride 104 mmol/L (98-107); Creatinine Clearance Estimated 119 mL/min (50-200); Estimated Glomerular Filt Rate 112 ml/min (>60); GFR (African American) 135 ML/MIN (>60); Globulin 2.7 g/dL (1.3-3.2); Glucose 183 mg/dl (74-100); Magnesium 1.9 mg/dl (1.6-2.3); Potassium 3.8 mmoL/L (3.5-5.1); Sodium 135 mmol/L (136-145); Total Protein,Serum 5.8 g/dl (6.3-8.2)
[2023-11-16 08:43] LABS: Basophils # 0.1 K/mm3 (0-0.2); Basophils % 0.7 % (0.1-2.0); Eosinophils # 0.1 K/mm3 (0.0-0.4); Eosinophils % 0.7 % (0.1-12.0); Hematocrit 38.3 % (42.0-52.0); Hemoglobin 12.4 g/dL (14.1-18.0); Lymphocytes # 0.8 K/mm3 (0.7-4.5); Lymphocytes % 11.1 % (10-50); Mean Corpuscular HGB Conc 32.3 g/dL (31.8-35.4); Mean Corpuscular Hemoglobin 32.2 pg (27.0-31.2); Mean Corpuscular Volume 99.6 fl (80-94); Mean Platelet Volume 8.4 fl (7.4-10.4); Monocytes # 0.5 K/mm3 (0.1-1.0); Monocytes % 7.3 % (1.7-9.3); Neutrophils # 5.8 K/mm3 (1.8-7.8); Neutrophils % 80.2 % (37.0-80.0); Platelet Count 107 K/mm3 (142-424); Red Blood Count 3.85 M/mm3 (4.60-6.20); Red Cell Distribution Width 14.2 % (11.5-17.5); White Blood Count 7.3 K/mm3 (4.8-10.8)
[2023-11-16 11:46] LABS: POC Glucose,Bedside 264 (70-110)
--- NOTE | 2023-11-16 11:50 | EXP.PHA.CONS ---
Pharmacy Consult Date: 11/16/23 Time: 11:51 Referring provider: DR. HSIEH Reason for Consult:: VANCOMYCIN LEVEL Allergies Allergy/AdvReac Type Severity Reaction Status Date / Time sulfamethoxazole Allergy Intermediate Rash Verified 11/14/23 08:05 [From Bactrim] trimethoprim [From Bactrim] Allergy Intermediate Rash Verified 11/14/23 08:05 Home Medications ?Medication ?Instructions ?Recorded ?Confirmed ?Type ferrous sulfate 325 mg (65 mg 325 mg PO DAILY Supplement 05/13/17 11/14/23 History iron) tablet sertraline 100 mg tablet 100 mg PO HS mood 05/15/17 11/14/23 History simvastatin 40 mg tablet 40 mg PO HS Cholesterol 05/15/17 11/15/23 History acetaminophen 650 mg 650 mg PO Q12HP PRN Mild 04/23/19 11/15/23 History tablet,extended release Pain,Fever,Headache ascorbic acid (vitamin C) 250 mg 250 mg PO DAILY Diet supplement 04/23/19 11/14/23 History tablet multivitamin 1 tab PO DAILY Diet supplement 04/23/19 11/14/23 History omeprazole 40 mg capsule,delayed 40 mg PO DAILY GERD 04/23/19 11/15/23 History release aripiprazole 30 mg tablet 30 mg PO DAILY MOOD 04/24/19 11/15/23 History metformin 500 mg tablet,extended 2,000 mg PO DAILY Diabetes 01/24/20 11/15/23 History release 24 hr gabapentin 100 mg capsule 100 mg PO BID Pain #60 caps 11/18/22 11/14/23 Rx aspirin 81 mg tablet,delayed 81 mg PO DAILY 11/15/23 11/15/23 History release cholecalciferol (vitamin D3) 10 400 unit PO DAILY 11/15/23 11/15/23 History mcg (400 unit) tablet (Vitamin D3) insulin NPH-regular 70-30 U-100 30 unit SQ HS 11/15/23 11/15/23 History insulin 100 unit/mL subcutaneous pen (Humulin 70/30 U-100 KwikPen) insulin NPH-regular 70-30 U-100 35 unit SQ AM 11/15/23 11/15/23 History insulin 100 unit/mL subcutaneous pen (Humulin 70/30 U-100 KwikPen) lisinopril 30 mg tablet 30 mg PO DAILY 08/03/24 08/03/24 History oxcarbazepine 150 mg tablet 150 mg PO BID 11/15/23 11/15/23 History New Prescriptions to Start Prescriptions: Height: 1.8 m Weight: 120.882 kg Laboratory Results:: Laboratory Results - last 24 hr 11/15/23 06:11: POC Glucose 211 H 11/15/23 11:48: POC Glucose 191 H 11/15/23 17:12: POC Glucose 188 H 11/15/23 20:10: Vancomycin Trough 12.3 H 11/15/23 20:52: POC Glucose 325 H* 11/16/23 05:06: POC Glucose 183 H 11/16/23 06:40: WBC 7.3 D, RBC 3.85 L, Hgb 12.4 L, Hct 38.3 L, MCV 99.6 H, MCH 32.2 H, MCHC 32.3, RDW 14.2, Plt Count 107 L, MPV 8.4, Neut % (Auto) 80.2 H, Lymph % (Auto) 11.1, [place] % (Auto) 7.3, Eos % (Auto) 0.7, Baso % (Auto) 0.7, Neut # (Auto) 5.8, Lymph # (Auto) 0.8, [place] # (Auto) 0.5, Eos # (Auto) 0.1, Baso # (Auto) 0.1, Sodium 135 L, Potassium 3.8, Chloride 104, Carbon Dioxide 25, Anion Gap 9.8, BUN 13, Creatinine 0.70 D, Estimated Creat Clear 119, Estimated GFR 112, Est GFR ( Amer) 135 D, Glucose 183 H, Calcium 8.2 L, Magnesium 1.9, Total Bilirubin 0.5, AST 55, ALT 33, Alkaline Phosphatase 115, Total Protein 5.8 L, Albumin 3.1 L, Globulin 2.7, Albumin/Globulin Ratio 1.1 11/16/23 11:39: POC Glucose 264 H Medical History: Medical History (Updated 11/15/23 @ 12:12 by Marlon Hsieh MD) Depression Anxiety Schizophrenic disorder History of gastroesophageal reflux (GERD) Hypertension Hyperlipidemia Diabetes mellitus, type 2 Assessment and Plan Assessment and plan all Dx Assessment and Plan for all problems:: PATIENT'S VANCOMYCIN TROUGH LEVEL WAS 12.3 MCG/ML OVERNIGHT. RECOMMEND CONTINUING WITH VANCOMYCIN 1750 MG Q12H AT THIS TIME.
--- NOTE | 2023-11-16 12:43 | EXP.ACUTE.PN ---
Subjective *Date: 11/16/23 *Time: 12:43 Interval history: Patient feeling better this morning. Still no bowel movement. No nausea or vomiting overnight however. Tolerating p.o. intake. Weaned to room air this morning. Afebrile for over 24 hours. Still no bowel movement since admission. Clinically showing improvement. Instructed to get out of bed today, encouraged nursing to get him to the bedside chair for meals. Medical Exam Vital signs and Labs for Last 24 Hours: Vital Signs Temp Pulse Pulse Resp BP Pulse Ox O2 Del Method 11/16/23 11:00 Room Air 11/16/23 08:00 80 11/16/23 08:00 Room Air 11/16/23 08:00 98.5 F 11/16/23 08:00 81 18 149/70 H 96 11/16/23 06:35 Nasal Cannula 11/16/23 06:00 76 19 132/64 100 Nasal Cannula 11/16/23 05:00 97.7 F 11/16/23 05:00 Nasal Cannula 11/16/23 04:00 76 11/16/23 04:00 70 19 138/68 94 L Nasal Cannula 11/16/23 04:00 73 15 97 Nasal Cannula 11/16/23 03:00 Nasal Cannula 11/16/23 02:00 66 16 112/67 96 Nasal Cannula 11/16/23 01:00 Nasal Cannula 11/16/23 00:00 67 11/16/23 00:00 98.2 F 11/16/23 00:00 60 17 111/60 97 Nasal Cannula 11/15/23 23:00 Nasal Cannula 11/15/23 22:00 66 17 114/56 L 98 Nasal Cannula 11/15/23 21:00 Nasal Cannula 11/15/23 20:00 97.5 F L 11/15/23 20:00 75 11/15/23 20:00 79 92 L Room Air 11/15/23 20:00 68 17 118/52 L 93 L Nasal Cannula 11/15/23 18:58 Room Air 11/15/23 18:00 79 18 133/68 92 L Room Air 11/15/23 17:00 Nasal Cannula 11/15/23 16:40 94 L Nasal Cannula 11/15/23 16:00 80 11/15/23 16:00 79 22 139/70 92 L Nasal Cannula 11/15/23 15:36 Nasal Cannula 11/15/23 14:00 76 22 127/62 96 Nasal Cannula 11/15/23 13:00 Nasal Cannula O2 Flow Rate 11/16/23 11:00 11/16/23 08:00 11/16/23 08:00 11/16/23 08:00 11/16/23 08:00 11/16/23 06:35 2 11/16/23 06:00 2 11/16/23 05:00 11/16/23 05:00 2 11/16/23 04:00 11/16/23 04:00 2 11/16/23 04:00 2 11/16/23 03:00 2 11/16/23 02:00 2 11/16/23 01:00 2 11/16/23 00:00 11/16/23 00:00 11/16/23 00:00 2 11/15/23 23:00 2 11/15/23 22:00 2 11/15/23 21:00 2 11/15/23 20:00 11/15/23 20:00 11/15/23 20:00 11/15/23 20:00 2 11/15/23 18:58 11/15/23 18:00 11/15/23 17:00 2 11/15/23 16:40 2 11/15/23 16:00 11/15/23 16:00 2 11/15/23 15:36 2 11/15/23 14:00 2 11/15/23 13:00 2 Intake and Output 11/15/23 11/16/23 11/16/23 23:59 07:59 15:59 Intake Total 450 / 1350 900 / 1350 Output Total 0 / 0 0 / 0 0 / 0 Balance 0 / 900 450 / 1350 900 / 1350 Intake: Intake, Oral Amount 100 / 1000 900 / 1000 Intake, Total IV Amount 350 / 350 Vancomycin/Water For Inj (Peg) 350 / 350 1.75 gm In 350 ml @ 175 mls/hr IV Q12H [facility] Rx#:[id number] Output: Output, Urine Amount 0 / 0 0 / 0 0 / 0 Other: Number of Unmeasured Voids 2 2 1 Weight 120.882 kg 120.882 kg Patient Weight 11/16/23 23:59 Weight 120.882 kg Laboratory Results - last 24 hr 11/14/23 07:58: Urine Color Yellow, Urine Appearance Clear, Urine pH 7.0, Ur Specific [place] 1.015, Urine Protein Negative, Urine Glucose (UA) Trace, Urine Ketones Trace, Urine Blood Trace-i, Urine Nitrate Negative, Urine Bilirubin Negative, Urine Urobilinogen 0.2, Ur Leukocyte Esterase Negative, Urine RBC None, Urine WBC 20-50, Ur Squamous Epith Cells Occasional, Urine Bacteria Trace, WBC Casts Occasional 11/15/23 06:11: POC Glucose 211 H 11/15/23 17:12: POC Glucose 188 H 11/15/23 20:10: Vancomycin Trough 12.3 H 11/15/23 20:52: POC Glucose 325 H* 11/16/23 05:06: POC Glucose 183 H 11/16/23 06:40: WBC 7.3 D, RBC 3.85 L, Hgb 12.4 L, Hct 38.3 L, MCV 99.6 H, MCH 32.2 H, MCHC 32.3, RDW 14.2, Plt Count 107 L, MPV 8.4, Neut % (Auto) 80.2 H, Lymph % (Auto) 11.1, [place] % (Auto) 7.3, Eos % (
[2023-11-16 16:15] LABS: POC Glucose,Bedside 325 (70-110)
--- NOTE | 2023-11-16 17:48 | PC.NURSE ---
PT IS SITTING UP IN THE CHAIR. ALERT AND ORIENTED X3. EATING AND DRINKING WELL. PT HAS HAD 2 BOWEL MOVEMENTS THIS SHIFT. LUNG SOUNDS DIMINISHED. ABDOMEN LARGE/SOFT/NON TENDER WITH ACTIVE BOWEL SOUNDS. PT HAS BEEN AMBULATING WITH STAFF. INCONTINENT OF URINE. WILL CONTINUE TO MONITOR.
[2023-11-17 04:00] VITALS: BP 141/62; PULSE 69; RESP 16; TEMP 36.7; O2SAT 95; BMI 36.6
--- NOTE | 2023-11-17 04:44 | PC.NURSE ---
Alert and oriented. Ambulated in the [place] with 1 assist, using walker twice this shift. RA throughout shift. Abdomen soft, 1 bowel movement this shift. Incontinent of urine in brief. Complained of pain one time, treated per jun. No other complaints. Call light in reach.
--- NOTE | 2023-11-17 07:29 | EXP.PHA.PN ---
Subjective *Date: 11/17/23 *Time: 07:29 Medical Exam Vital signs and Labs for Last 24 Hours: Vital Signs Temp Pulse Pulse Resp BP Pulse Ox O2 Del Method 11/17/23 06:40 Room Air 11/17/23 04:43 Room Air 11/17/23 04:00 98.0 F 69 16 141/62 H 95 Room Air 11/17/23 02:43 Room Air 11/17/23 01:00 Room Air 11/16/23 22:40 Room Air 11/16/23 21:00 Room Air 11/16/23 20:00 Room Air 11/16/23 20:00 98.5 F 74 16 144/62 H 94 L Room Air 11/16/23 18:22 Room Air 11/16/23 16:39 Room Air 11/16/23 16:00 98.1 F 80 18 141/64 H 92 L Room Air 11/16/23 14:44 Room Air 11/16/23 12:49 Room Air 11/16/23 11:00 Room Air 11/16/23 08:00 80 11/16/23 08:00 Room Air 11/16/23 08:00 98.5 F 11/16/23 08:00 81 18 149/70 H 96 Intake and Output 11/16/23 11/16/23 11/17/23 15:59 23:59 07:59 Intake Total 1340 / 3650 1110 / 3650 750 / 750 Output Total 0 / 0 0 / 0 0 / 0 Balance 1340 / 3650 1110 / 3650 750 / 750 Intake: Intake, Oral Amount 900 / 2410 1110 / 2410 300 / 300 Intake, Total IV Amount 440 / 1240 450 / 450 Ampicillin/Sulbactam 3 gm In 0. 95 / 195 100 / 100 9 % Sodium Chloride 100 ml @ 200 mls/hr IV Q6H [facility] Rx#: [id number] Vancomycin/Water For Inj (Peg) 345 / 1045 350 / 350 1.75 gm In 350 ml @ 175 mls/hr IV Q12H [facility] Rx#:[id number] Output: Output, Urine Amount 0 / 0 0 / 0 0 / 0 Other: Number of Unmeasured Voids 1 1 1 Number of Bowel Movements 2 1 1 Weight 120.882 kg 118.75 kg Patient Weight 11/17/23 23:59 Weight 118.75 kg Laboratory Results - last 24 hr 11/14/23 07:58: Urine Color Yellow, Urine Appearance Clear, Urine pH 7.0, Ur Specific [place] 1.015, Urine Protein Negative, Urine Glucose (UA) Trace, Urine Ketones Trace, Urine Blood Trace-i, Urine Nitrate Negative, Urine Bilirubin Negative, Urine Urobilinogen 0.2, Ur Leukocyte Esterase Negative, Urine RBC None, Urine WBC 20-50, Ur Squamous Epith Cells Occasional, Urine Bacteria Trace, WBC Casts Occasional 11/16/23 06:40: WBC 7.3 D, RBC 3.85 L, Hgb 12.4 L, Hct 38.3 L, MCV 99.6 H, MCH 32.2 H, MCHC 32.3, RDW 14.2, Plt Count 107 L, MPV 8.4, Neut % (Auto) 80.2 H, Lymph % (Auto) 11.1, [place] % (Auto) 7.3, Eos % (Auto) 0.7, Baso % (Auto) 0.7, Neut # (Auto) 5.8, Lymph # (Auto) 0.8, [place] # (Auto) 0.5, Eos # (Auto) 0.1, Baso # (Auto) 0.1, Sodium 135 L, Potassium 3.8, Chloride 104, Carbon Dioxide 25, Anion Gap 9.8, BUN 13, Creatinine 0.70 D, Estimated Creat Clear 119, Estimated GFR 112, Est GFR ( Amer) 135 D, Glucose 183 H, Calcium 8.2 L, Magnesium 1.9, Total Bilirubin 0.5, AST 55, ALT 33, Alkaline Phosphatase 115, Total Protein 5.8 L, Albumin 3.1 L, Globulin 2.7, Albumin/Globulin Ratio 1.1 11/16/23 11:39: POC Glucose 264 H 11/16/23 16:09: POC Glucose 325 H* I & O for Labs for Last 24 Hours: Intake & Output 11/14/23 11/15/23 11/16/23 11/17/23 23:59 23:59 23:59 23:59 Intake Total 820 / 820 450 / 900 2900 / 3650 750 / 750 Output Total 300 / 300 0 / 0 0 / 0 0 / 0 Balance 520 / 520 450 / 900 2900 / 3650 750 / 750 Weight 120.656 kg 119.884 kg 120.882 kg 118.75 kg Microbiology Reports for the Last 24 Hours: Microbiology 11/14/23 08:00 Blood Blood Culture - Preliminary Gram Positive Cocci 11/14/23 07:58 Blood Blood Culture - Preliminary Gram Positive Cocci 11/14/23 07:58 Urine,Catheterized Urine Culture - Final No growth. The patient's infection will respond to the chosen ABx?: Yes Is the patient receiving the right drug, dose, and route?: Yes Could a more targeted ABx be ordered?: No (GRAM POSITIVE COCCI IN BLOOD CX X2)
[2023-11-17 08:00] VITALS: BP 141/62; PULSE 74; RESP 16; TEMP 36.5; O2SAT 95
[2023-11-17 08:45] LABS: Albumin Level 3.5 g/dl (3.5-5.0); Chloride 103 mmol/L (98-107)
[2023-11-17 08:46] LABS: Sodium 136 mmol/L (136-145)
[2023-11-17 08:48] LABS: Alanine Aminotransferase 57 U/L (12-78); Aspartate Amino Transferase 73 U/L (17-59); Blood Urea Nitrogen 10 mg/dl (9-20); Creatinine Clearance Estimated 117 mL/min (50-200); Estimated Glomerular Filt Rate 96 ml/min (>60); GFR (African American) 116 ML/MIN (>60)
[2023-11-17 08:49] LABS: Albumin/Globulin Ratio 1.3 (1.1-1.8); Alkaline Phosphatase 180 U/L (38-126); Bilirubin,Total 0.6 mg/dl (0.2-1.3); Calcium 8.4 mg/dl (8.4-10.2); Carbon Dioxide 29 mmol/L (22.0-30.0); Globulin 2.7 g/dL (1.3-3.2); Glucose 273 mg/dl (74-100); Total Protein,Serum 6.2 g/dl (6.3-8.2)
[2023-11-17 08:52] LABS: Basophils # 0.1 K/mm3 (0-0.2); Eosinophils # 0.1 K/mm3 (0.0-0.4); Eosinophils % 2.1 % (0.1-12.0); Hematocrit 38.6 % (42.0-52.0); Hemoglobin 12.7 g/dL (14.1-18.0); Lymphocytes # 1.2 K/mm3 (0.7-4.5); Lymphocytes % 21.5 % (10-50); Mean Corpuscular HGB Conc 32.9 g/dL (31.8-35.4); Mean Corpuscular Hemoglobin 32.3 pg (27.0-31.2); Mean Corpuscular Volume 98.1 fl (80-94); Mean Platelet Volume 9.1 fl (7.4-10.4); Monocytes # 0.4 K/mm3 (0.1-1.0); Monocytes % 7.6 % (1.7-9.3); Neutrophils # 3.8 K/mm3 (1.8-7.8); Neutrophils % 67.8 % (37.0-80.0); Platelet Count 136 K/mm3 (142-424); Red Blood Count 3.93 M/mm3 (4.60-6.20); Red Cell Distribution Width 14.2 % (11.5-17.5); White Blood Count 5.5 K/mm3 (4.8-10.8)
[2023-11-17 09:31] LABS: Magnesium 1.7 mg/dl (1.6-2.3)
[2023-11-17 11:39] LABS: POC Glucose,Bedside 305 (70-110)
--- NOTE | 2023-11-17 13:43 | EXP.DC.SUM ---
General Admission date:: 11/14/23 Discharge date: 11/17/23 HPI HPI HPI: Mr. Arango is a 68-year-old male with history of hypertension, hyperlipidemia, diabetes, schizophrenia who lives at [facility]. He presented to the ER today via EMS due to confusion. Woke up and began having nonbloody, nonbilious emesis. Reportedly had no other symptoms. No shortness of breath, diarrhea, chest pain. Found to be frankly febrile on arrival. Tachycardic and hypertensive. Concern for presentation with sepsis. Patient initiated empirically on antibiotics and cultures were obtained. Temperature 103.5, heart rate 107, blood pressure with systolics 170s over 80s. Difficulty obtaining history from patient. He does not know all of his medications. Attempting to obtain medication list from [facility]. Given his vital instability, SIRS criteria, medicine consulted for admission. Admitted to stepdown level of care. Urine with 20-50 white cells, trace bacteria. Possible source of infection. Chest x-ray with no consolidation. Of note, also found to have mild elevation in troponin with no ST changes on EKG. on arrival to the floor, patient confused. Slow to answer questions. Noticed to have jerking of his arms. Random twitching noted. Abdomen appears distended and is diffusely tender. No daniel emesis since admission. Hospital Course Hospital Course Hospital Course: 68-year-old male who presented with fever, tachycardia, altered mental status. Concern for sepsis with tachycardia, tachypnea, fever, possible infection with abnormal urine, possible intra-abdominal infection, having nausea and vomiting as well. Patient on multiple psychiatric meds including 30 mg Abilify twice daily. Differential diagnosis includes sepsis, neuroleptic malignant syndrome, serotonin syndrome, Abilify overdose. Discussed case with the ER, request admission for further management. I agreed to admit for further management. Patient found to be bacteremic. Showed gradual improvement. Transition to oral antibiotics. Mentation improved. Ambulatory with a walker. Stable to discharge back to personal [facility] care. Problems addressed as follows: Strep bacteremia Fever Encephalopathy Sepsis -Initial presentation concerning for sepsis versus neuroleptic malignant syndrome versus serotonin syndrome versus Abilify side effect. Sepsis workup initiated. Psychiatric meds were held. Mentation improved and blood cultures returned positive for Streptococcus species. Sensitive to levofloxacin. As he had a gram-positive bacteremia, repeat cultures were obtained. Remain negative at time of discharge. Was transitioned to levofloxacin based on sensitivities to complete 14 days total of antibiotics. Urine culture remain negative. White count normal on day of discharge at 5.5. Kidney function electrolytes normal. Tolerating p.o. intake. Ambulating independently. Gradually resumed his psychiatric medications given alternative explanation for his encephalopathy and symptoms. Tolerating home psych meds at baseline doses. Stable to discharge back to [facility]. Patient's sepsis improved with antibiotic treatment. Blood cultures returned positive for Streptococcus. Sensitive to levofloxacin. Will transition to levofloxacin to complete 14 days total of antibiotics. Due for 12 more days orally daily. Antibiotic sent to [facility] pharmacy. Distended abdomen and nausea and vomiting: CT abdomen obtained, no obstruction, stones, diverticulitis. Did have some stool burden but not significant. Aggressive bowel regimen, MiraLAX every 6 hours for 3 doses. Had multiple bowel movements. Feeling better. Nausea and vomiting resolved, no emesis for over 24 hours prior to discharge home. Hypertension: Blood pressure soft initially, held blood pressure regimen. Okay to resume at discharge due to improvement in blood pressure and tolerance of home meds Cont
[2023-11-17 16:58] LABS: POC Glucose,Bedside 293 (70-110)
--- NOTE | 2023-11-17 20:04 | PC.NURSE ---
Patient left floor with staff for to [facility] bus for transfer to [facility] at 19:55.
== END 2023-11-17 20:09 | disposition home health service (06) | DRG 872 ==
LOC: ER 10:26 → 2ND 10:39
PROVIDERS: Nurse Practitioner Family; Admitting Provider Internal Medicine Adolescent Medicine; Emergency Provider Emergency Medicine; Visit Provider Internal Medicine Adolescent Medicine
DX: A41.9 Sepsis, unspecified organism (principal); G93.40 Encephalopathy, unspecified; F32.A Depression, unspecified; F41.9 Anxiety disorder, unspecified; F20.9 Schizophrenia, unspecified; K21.9 Gastro-esophageal reflux disease without esophagitis; I10 Essential (primary) hypertension; E78.5 Hyperlipidemia, unspecified; E11.9 Type 2 diabetes mellitus without complications; Z79.4 Long term (current) use of insulin; E66.9 Obesity, unspecified; Z68.36 Body mass index [BMI] 36.0-36.9, adult
CPT/HCPCS: 36415; 70450; 71045; 74177; 80053; 80061; 80202; 81001; 82150; 82550; 82803; 82962; 83036; 83605; 83690; 83735; 83880; 84484; 85007; 85025; 85027; 87040; 87077; 87086; 87186; 87636; 93005; 93306; 97116; 97162; 97166; 97530; 97535; 99291; J0131; J0295; J1650; J1956; J2405; J2550; J2765; J3370; J3475; J7120; Q9967

== ENCOUNTER 2023-12-20 09:53 | Emergency (ER) | payer MEDICARE, OTHER, SELFPAY ==
[2023-12-20 09:53] VITALS: BP 187/78; PULSE 96; RESP 20; TEMP 36.8; O2SAT 94; BMI 36.2
[2023-12-20 10:00] VITALS: BP 152/66; PULSE 90; RESP 16; O2SAT 94
[2023-12-20] MEDS: LACTATED RINGERS 1000ML 1,000 ML 999 ML IV (10:24)
[2023-12-20] MEDS: ONDANSETRON 4MG/2ML VIAL 4 MG IV (10:24)
[2023-12-20 10:27] LABS: Basophils % 0.6 % (0.1-2.0); Eosinophils # 0.2 K/mm3 (0.0-0.4); Eosinophils % 2.4 % (0.1-12.0); Hematocrit 41.2 % (42.0-52.0); Hemoglobin 12.9 g/dL (14.1-18.0); Lymphocytes # 1.4 K/mm3 (0.7-4.5); Lymphocytes % 20.1 % (10-50); Mean Corpuscular HGB Conc 31.2 g/dL (31.8-35.4); Mean Corpuscular Hemoglobin 31.9 pg (27.0-31.2); Mean Corpuscular Volume 102.1 fl (80-94); Mean Platelet Volume 8.4 fl (7.4-10.4); Monocytes # 0.4 K/mm3 (0.1-1.0); Monocytes % 5.8 % (1.7-9.3); Neutrophils # 4.8 K/mm3 (1.8-7.8); Neutrophils % 71.2 % (37.0-80.0); Platelet Count 210 K/mm3 (142-424); Red Blood Count 4.04 M/mm3 (4.60-6.20); Red Cell Distribution Width 14.4 % (11.5-17.5); White Blood Count 6.8 K/mm3 (4.8-10.8)
[2023-12-20 10:28] LABS: VBG Base Excess -3.9 mmol/L (-2.4-2.3); VBG HCO3 21.8 mmol/L (23-30); VBG Oxygen Saturation 94.1 % (50-70); VBG PCO2 40.9 mmol/L (35-51); VBG PH 7.34 mmol/L (7.31-7.41); VBG PO2 74.8 mmol/L (28-40)
[2023-12-20 10:29] LABS: Albumin Level 3.8 g/dl (3.5-5.0); Chloride 103 mmol/L (98-107); Potassium 4.6 mmoL/L (3.5-5.1); Sodium 136 mmol/L (136-145)
[2023-12-20 10:29] LABS: Lactate Venous 2.7 mmol/L (0.4-2.0)
[2023-12-20 10:30] VITALS: BP 148/67; PULSE 81; RESP 16; O2SAT 94
[2023-12-20 10:31] LABS: Alanine Aminotransferase 28 U/L (12-78); Anion Gap 7.6 mEq/L (5-15); Aspartate Amino Transferase 31 U/L (17-59); Blood Urea Nitrogen 15 mg/dl (9-20); Carbon Dioxide 30 mmol/L (22.0-30.0); Creatinine Clearance Estimated 116 mL/min (50-200); Estimated Glomerular Filt Rate 96 ml/min (>60); GFR (African American) 116 ML/MIN (>60)
[2023-12-20 10:32] LABS: Albumin/Globulin Ratio 1.5 (1.1-1.8); Alkaline Phosphatase 143 U/L (38-126); Bilirubin,Total 0.5 mg/dl (0.2-1.3); Calcium 8.6 mg/dl (8.4-10.2); Globulin 2.5 g/dL (1.3-3.2); Glucose 365 mg/dl (74-100); Lipase 34 U/L (23-300); Total Protein,Serum 6.3 g/dl (6.3-8.2)
--- NOTE | 2023-12-20 10:38 | ECG_ITS ---
APPROVED REPORT Exam: Resting ECG HR:71 bpm ECG Measurements Heart Rate 71 AXES TN 171 P 49 QRSd 96 QRS 53 QT 387 T 44 QTc 409 Conclusion SINUS RHYTHM NORMAL ECG UNCONFIRMED REPORT Electronically signed by : Marlon Kathleen, 12/22/2023 14:46:15
--- NOTE | 2023-12-20 10:39 | HMH.EDGENADL ---
Discharge Plan Disposition Patient Disposition: Home, Self-Care Prescriptions Prescriptions: New ondansetron 4 mg tablet,disintegrating 4 mg PO Q6H PRN (Reason: nausea and vomiting) Qty: 10 0RF No Action ferrous sulfate 325 mg (65 mg iron) tablet 325 mg PO DAILY sertraline 100 mg tablet 100 mg PO HS simvastatin 40 mg tablet 40 mg PO HS gabapentin 100 mg capsule 100 mg PO BID Qty: 60 5RF aspirin 81 mg Tablet,Delayed Release (Dr/Ec) 81 mg PO DAILY cholecalciferol (vitamin D3) [Vitamin D3] 10 mcg (400 unit) tablet 400 unit PO DAILY lisinopril 30 mg tablet 30 mg PO DAILY oxcarbazepine 150 mg tablet 150 mg PO BID Humulin 70/30 U-100 KwikPen 100 unit/mL (70-30) insulin pen 35 unit SQ AM Humulin 70/30 U-100 KwikPen 100 unit/mL (70-30) insulin pen 30 unit SQ HS levofloxacin 750 mg tablet 750 mg PO DAILY 12 Days Qty: 12 0RF multivitamin 0 tablet 1 tab PO DAILY ascorbic acid (vitamin C) 250 tablet 250 mg PO DAILY omeprazole 40 MG capsule,delayed release(DR/EC) 40 mg PO DAILY acetaminophen 650 MG tablet extended release 650 mg PO Q12HP PRN (Reason: Mild Pain,Fever,Headache) aripiprazole 30 tablet 30 mg PO DAILY metformin 500 mg tablet extended release 24 hr 2,000 mg PO DAILY Referrals Follow up/Referrals: Provider,Referral, [Referring] - See instructions Activity Restrictions/Add. Instructions Additional Instructions/Restrictions: Call your family doctor to establish care for this visit to the emergency department and schedule follow-up within 48 hours to ensure improvement. If you have any worsening of your condition or any other concerning signs or symptoms, return to the emergency department or your primary care doctor for further evaluation. Clinical Impressions Clinical Impression: Nausea, Diarrhea Instructions Patient Instructions: DI for Diarrhea and Traveler's Diarrhea -- Adult, DI for Nausea -- Adult Print Language Print Language: Georgian Discharge ED Provider: Braulio Harding General Adult HPI General Chief complaint: Nausea/Vomiting/Diarrhea Stated complaint: N/V/D Time Seen by Provider: 12/20/23 09:59 Mode of Arrival: EMS Source of Information: Patient Limitations: No Limitations Description of Symptoms (Recalled from ER Triage Doc. by RN): Patient reports increased diarrhea and weakness. States he had a blood infection back in November and he is worried he still has it. History of Present Illness HPI narrative: Please note that above description of symptoms, in this electronic medical record under categorization of recalled from ER triage doctor by RN are reflective of an initial nursing assessment, however, is not reflective of my full history and physical exam that was personally taken and clarified. Consequentially, this preceding description of symptoms, which may include the patient's categorized chief complaint in the EMR, do not reflect my personal clinical impression, and the ultimate description of history of present illness and patient stated complaints should be deferred to this section of the note. Unless stated otherwise or congruent with this section of the note, additional signs, symptoms, or incongruence should be interpreted as inaccurate with my clinical impression. Related Data Home Medications ?Medication ?Instructions ?Recorded ?Confirmed ferrous sulfate 325 mg (65 mg 325 mg PO DAILY Supplement 05/13/17 11/14/23 iron) tablet sertraline 100 mg tablet 100 mg PO HS mood 05/15/17 11/14/23 simvastatin 40 mg tablet 40 mg PO HS Cholesterol 05/15/17 11/15/23 acetaminophen 650 mg 650 mg PO Q12HP PRN Mild 04/23/19 11/15/23 tablet,extended release Pain,Fever,Headache ascorbic acid (vitamin C) 250 mg 250 mg PO DAILY Diet supplement 04/23/19 11/14/23 tablet multivitamin 1 tab PO DAILY Diet supplement 04/23/19 11/14/23 omeprazole 40 mg capsule,delayed 40 mg PO DAILY GERD 04/23/19 11/15/23 release aripiprazole 30 mg tablet 30 mg PO DAILY MOOD 04/24/19 11/15/23 metformin 500 mg tablet,extended 2,000 mg PO DAILY Diabetes 01/24/20 11/15/23 release 24 hr aspirin 81 mg tablet,delayed 81 mg PO DAILY 11/15/23 11/15/23 release cholecalciferol (vitamin D3) 10 400 unit PO DAILY 11/15/23 11/15/23 mcg (400 unit) tablet (Vitamin D3) insulin NPH-regular 70-30 U-100 30 unit SQ HS 11/15/23 11/15/23 insulin 100 unit/mL subcutaneous pen (Humulin 70/30 U-100 KwikPen) insulin NPH-regular 70-30 U-100 35 unit SQ AM 11/15/23 11/15/23 insulin 100 unit/mL subcutaneous pen (Humulin 70/30 U-100 KwikPen) lisinopril 30 mg tablet 30 mg PO DAILY 11/15/23 11/15/23 oxcarbazepine 150 mg tablet 150 mg PO BID 11/15/23 11/15/23 Previous Rx's ?Medication ?Instructions ?Recorded gabapentin 100 mg capsule 100 mg PO BID Pain #60 caps 11/18/22 levofloxacin 750 mg tablet 750 mg PO DAILY 12 days #12 tabs 11/17/23 ondansetron 4 mg disintegrating 4 mg PO Q6H PRN nausea and 12/20/23 tablet vomiting #10 tabs Allergies Allergy/AdvReac Type Severity Reaction Status Date / Time sulfamethoxazole Allergy Intermediate Rash Verified 11/14/23 08:05 [From Bactrim] trimethoprim [From Bactrim] Allergy Intermediate Rash Verified 11/14/23 08:05 PFSH PFS Disclaimer: The information contained in this section may have been updated after the patient was seen, as this information can be updated by other users. Medical History (Updated 12/20/23 @ 11:54 by Braulio Harding MD) Depression Anxiety Schizophrenic disorder History of gastroesophageal reflux (GERD) Hypertension Hyperlipidemia Diabetes mellitus, type 2 Surgical History (Updated 11/21/23 @ 00:01 by Kaye Martin) History of cholecystectomy Family History Other No significant family history Social History Smoking Status: Never smoker alcohol intake: never substance use type: denies use current occupational status: disabled Travel in the last 8 weeks: None housing: assisted living facility current occupational exposures/hazards: No caffeine: No ROS Obtained: Yes All systems reviewed & no additional complaints except as documented Physical Exam General General appearance: alert, in no apparent distress and obese Head Head exam: atraumatic and normocephalic Eye Eye exam: Present normal appearance, PERRL and EOMI Neck Neck exam: Present normal inspection, full ROM and trachea midline Respiratory Respiratory exam: Present normal lung sounds bilaterally; Absent respiratory distress, wheezes, stridor, accessory muscle use or prolonged expiratory phase Cardiovascular Cardiovascular exam: Present regular rate, normal rhythm and other (Pulses equal symmetric in upper and lower extremities) Abdominal Exam Abdominal exam: Present soft and distention; Absent tenderness, guarding, rebound, rigidity or pulsatile mass Extremities Exam Extremities exam: Absent edema Neurological Exam Neurological exam: Present alert, oriented X3 and CN II-XII intact; Absent motor sensory deficit Skin Skin exam: Present warm and dry; Absent diaphoresis or erythema Medical Decision Making Medical Records Medical records reviewed: Yes I reviewed the patient's medical records. Tucker Inquiry Pt receiving controlled substance: No Tucker was queried for this patient: No Vital Signs: 12/20/23 09:53 12/20/23 10:00 12/20/23 10:30 Temperature 98.2 F Temperature Source Oral Pulse Rate 90 81 Pulse Rate [Radial] 96 H Respiratory Rate 20 16 16 Blood Pressure 152/66 H 148/67 H Blood Pressure [Right Arm] 187/78 H Blood Pressure Mean 94 94 Blood Pressure Mean [Right Arm] 114 Blood Pressure Source [Right Arm] Automatic Cuff Blood Pressure Position [Right Arm] Sitting 02 Sat by Pulse Oximetry 94 L 94 L 94 L Oxygen Delivery Method Room Air Lab Data Lab Results 12/20/23 10:13: VBG pH 7.34, VBG pCO2 40.9, VBG pO2 74.8 H, VBG HCO3 21.8 L, VBG Total CO2 23.0, VBG O2 Saturation 94.1 H, VBG Base Excess -3.9 L, VBG Lactic Acid 2.7 H 12/20/23 10:17: WBC 6.8, RBC 4.04 L, Hgb 12.9 L, Hct 41.2 L, MCV 102.1 H, MCH 31.9 H, MCHC 31.2 L, RDW 14.4, Plt Count 210, MPV 8.4, Neut % (Auto) 71.2, Lymph % (Auto) 20.1, [place] % (Auto) 5.8, Eos % (Auto) 2.4, Baso % (Auto) 0.6, Neut # (Auto) 4.8, Lymph # (Auto) 1.4, [place] # (Auto) 0.4, Eos # (Auto) 0.2, Baso # (Auto) 0.0, Sodium 136, Potassium 4.6, Chloride 103, Carbon Dioxide 30, Anion Gap 7.6, BUN 15, Creatinine 0.80, Estimated Creat Clear 116, Estimated GFR 96, Est GFR ( Amer) 116, Glucose 365 H, Calcium 8.6, Total Bilirubin 0.5, AST 31, ALT 28, Alkaline Phosphatase 143 H, Troponin I < 0.01, Total Protein 6.3, Albumin 3.8, Globulin 2.5, Albumin/Globulin Ratio 1.5, Lipase 34 12/20/23 11:27: Urine Color Yellow, Urine Appearance Clear, Urine pH 6.0, Ur Specific [place] 1.015, Urine Protein Negative, Urine Glucose (UA) 3+, Urine Ketones Negative, Urine Blood Negative, Urine Nitrate Negative, Urine Bilirubin Negative, Urine Urobilinogen 0.2, Ur Leukocyte Esterase Negative, Urine RBC None, Urine WBC None, Ur Squamous Epith Cells Occasional, Urine Bacteria Trace 12/20/23 10:17 12/20/23 10:17 Orders (Tests/Meds): ED MEDICATIONS Discontinued Medications Generic Name Dose Route Start Last Admin Trade Name Freq PRN Reason Stop Dose Admin Lactated Ringer's 1,000 mls @ 999 mls/hr 12/20/23 10:13 12/20/23 10:24 Lactated Ringer's 1000 Ml Bag IV 12/20/23 11:13 999 mls/hr .Q1H1M ONE Administration Ondansetron HCl 4 mg 12/20/23 10:13 12/20/23 10:24 Ondansetron 4mg/2ml Vial IV 12/20/23 10:14 4 mg ONCE ONE Administration ORDERS Category Date Time Status CBC w/Auto Diff [Complete Blood Count Auto Diff] Stat Lab 12/20/23 10:17 Completed Comprehensive Metabolic Panel Stat Lab 12/20/23 10:17 Completed Lipase Stat Lab 12/20/23 10:17 Completed Trop I [Troponin I] Stat Lab 12/20/23 10:17 Completed Troponin I Q3H Lab 12/20/23 13:15 Ordered Troponin I Q3H Lab 12/20/23 16:15 Ordered UA [Urinalysis and Microscopic] Stat Lab 12/20/23 11:27 Completed VBG [Venous Blood Gas] Stat RT 12/20/23 10:13 Completed Medical Decision Narrative: 68-year-old male history of hypertension, hyperlipidemia, diabetes, schizophrenia presenting with nausea and diarrhea. This been going on for the past few days. States that his rectum is burning. States that he is having bowel movements, states that it is not emptying all the way and feels like there is something still there. No blood in the stool, mucus in the stool, vomiting, fevers, chills, urinary symptoms, abdominal pain, etc. Patient states he has been taking his meds as prescribed, no new medications or supplements. History was obtained via conversation with patient. On arrival, patient hemodynamically stable, alert, oriented x4, appropriate, GCS 15, moving all extremities spontaneously, pupils equal and reactive to light. Full physical exam performed and significant for very well-appearing male who is in no acute distress. Nontachypneic, nontachycardic. Abdomen is soft, nontender, mildly distended, patient states this is his baseline. Normal bowel sounds. Cardiopulmonary exam within normal limits normal S1-S2, normal pulses.. Differential includes gastritis, enteritis, pancreatitis, diabetic emergency, medication side effect, pancreatitis, among others. Patient placed on continuous cardiac monitoring and continuous pulse ox with initial blood pressure 187/78, heart rate 96, saturation 94% on room air I feel this is likely due to restrictive lung disease with patient large abdomen pushing up on his chest in bed. EKG independently turbid sinus rhythm no ST or T wave changes concerning for acute ischemia. WA 171, QRS 96, QTc 4 9. Normal axis. Patient was given Zofran fluids for symptomatic management and correction of underlying abnormalities. Workup independently interpreted and significant for nonactionable CBC acutely. Patient does have erythrocytic macrocytosis. VBG with normal pH, nonactionable CO2 or bicarbonate, but mildly elevated lactic acidosis 2.7. I feel this is likely related to GI losses. Patient given fluids for this. Labs unremarkable otherwise. Urinalysis without concern for UTI or blood. No ketones. On reevaluation, patient resting comfortably bed able to tolerate p.o. intake. Given patient presentation, workup, history, this most likely represents uncomplicated gastroenteritis. Close return precautions given. Because patient at baseline without signs or symptoms of clinical decompensation, deemed appropriate for discharge. Results were relayed to patient who voiced understanding and were agreeable to outpatient management and follow up. I discussed my clinical impression with patient and answered all questions. At this time, the evidence for any other entities in the differential is insufficient to warrant any further testing or ED observation. This was explained as well. Advisory was given that persistent or worsening symptoms require further evaluation. I confirmed the understanding of this discussion. Mechanical Systems Engineer disclaimer Much of this encounter note is an electronic pathology secretary/transcriptionist spoken language to printed text. Electronic pathology secretary/transcriptionist of the spoken language may permit errors. Although I have reviewed the note, some errors may still exist. Critical Care Critical Care Time Critical Care Time: No
[2023-12-20 10:47] LABS: Troponin I < 0.01 ng/ml (0.00-0.034)
[2023-12-20 11:00] VITALS: BP 140/61; PULSE 70; RESP 18; O2SAT 94
--- NOTE | 2023-12-20 11:11 | PC.NURSE ---
pt to restroom
[2023-12-20 11:39] LABS: Microscopic, Urine URINE MICROSCOPIC (MICROSCOPIC)
[2023-12-20 11:41] LABS: Appearance,Urine CLEAR (Clear); Bilirubin,Urine Negative (Negative); Blood, Urine Negative (Negative); Color,Urine YELLOW (Yellow); Glucose,Urine (UA) 3+ (Negative); Ketones,Urine Negative (Negative); Leukocyte Esterase,Urine Negative (Negative); Nitrate,Urine Negative (Negative); Protein,Urine Negative (Negative); Specific Gravity, Urine 1.015 (1.005-1.030); Urobilinogen,Urine 0.2 EU/dl (0.2)
[2023-12-20 11:47] LABS: Bacteria,Urine Trace /lpf; Squamous Epithelial Cell,Urine Occasional #/hpf (0-5)
[2023-12-20 11:48] VITALS: BP 140/61; PULSE 64; RESP 18; TEMP 36.9; O2SAT 96
--- NOTE | 2023-12-20 11:52 | PC.NURSE ---
Called Danny Bravo to notify that pt is ready for discharge. She states a rolloff driver will not be available until 1500 today. She is going to check with her laundry manager regarding other options and call back. welding production supervisor notified of this as well.
[2023-12-20 14:29] LABS: Reflex Lactic Add Lactic Reflex
== END 2023-12-20 12:04 | disposition home or self-care (01) ==
PROVIDERS: Emergency Provider Emergency Medicine; PCP Nurse Practitioner Family
DX: R53.1 Weakness (principal); R11.0 Nausea; R19.7 Diarrhea, unspecified
CPT/HCPCS: 80053; 81001; 82803; 83690; 84484; 85025; 93005; 96361; 96374; 99285; J2405; J7120

== ENCOUNTER 2024-02-12 11:25 | Inpatient (IN) | payer MEDICARE, OTHER, SELFPAY ==
[2024-02-12] VITALS (14 sets, daily range): BP systolic 115–156; BP diastolic 51–82; PULSE 109–129; RESP 18–22; TEMP 36.7–38.2; O2SAT 78–98; BMI 36.2; BMI 36.8
[2024-02-12] MEDS: 0.9 % SODIUM CHLORIDE 1000ML 2,260 ML 1130 ML IV (11:30)
--- NOTE | 2024-02-12 11:30 | ECG_ITS ---
APPROVED REPORT Exam: Resting ECG HR:113 bpm ECG Measurements Heart Rate 113 AXES ND 163 P 76 QRSd 94 QRS 87 QT 315 T 44 QTc 382 Conclusion SINUS TACHYCARDIA ABNORMAL RHYTHM ECG UNCONFIRMED REPORT Electronically signed by : SAKSHI LINK, 02/14/2024 00:48:04
--- NOTE | 2024-02-12 11:37 | XR_ITS ---
PROCEDURE INFORMATION: Exam: XR Chest Exam date and time: 02/12/2024 11:39 AM Age: 68 years old Clinical indication: Cough and fever; Additional info: Fever, cough TECHNIQUE: Imaging protocol: Radiologic exam of the chest. Views: 1 view. COMPARISON: CR XR CHEST PORTABLE 11/14/2023 7:58 AM FINDINGS: Lungs: No consolidation. Pleural spaces: Unremarkable. No pleural effusion. No pneumothorax. Heart/Mediastinum: Unremarkable. No cardiomegaly. Bones/joints: Unremarkable. IMPRESSION: No acute findings.
--- NOTE | 2024-02-12 11:38 | PC.NURSE ---
FSBS: 328
--- NOTE | 2024-02-12 11:40 | PC.NURSE ---
PT 88% ON ROOM AIR, PLACED ON 2L/NC
--- NOTE | 2024-02-12 11:43 | PC.NURSE ---
XR AT BEDSIDE
[2024-02-12 11:44] LABS: Coronavirus 19, PCR Not Detected (NotDetected); Influenza A, PCR Not Detected (NotDetected); Influenza B, PCR Not Detected (NotDetected)
[2024-02-12 11:48] LABS: Basophils # 0.1 K/mm3 (0-0.2); Basophils % 0.4 % (0.1-2.0); Chloride 100 mmol/L (98-107); Eosinophils % 0.2 % (0.1-12.0); Hemoglobin 14.1 g/dL (14.1-18.0); Lymphocytes # 0.5 K/mm3 (0.7-4.5); Lymphocytes % 3.1 % (10-50); Mean Corpuscular HGB Conc 34.4 g/dL (31.8-35.4); Mean Corpuscular Hemoglobin 31.9 pg (27.0-31.2); Mean Corpuscular Volume 92.7 fl (80-94); Mean Platelet Volume 7.9 fl (7.4-10.4); Monocytes # 0.6 K/mm3 (0.1-1.0); Monocytes % 3.7 % (1.7-9.3); Neutrophils # 14.9 K/mm3 (1.8-7.8); Neutrophils % 92.5 % (37.0-80.0); Platelet Count 211 K/mm3 (142-424); Red Blood Count 4.43 M/mm3 (4.60-6.20); Red Cell Distribution Width 14.4 % (11.5-17.5); White Blood Count 16.1 K/mm3 (4.8-10.8)
[2024-02-12 11:49] LABS: Albumin Level 4.1 g/dl (3.5-5.0); Potassium 4.1 mmoL/L (3.5-5.1); Sodium 136 mmol/L (136-145)
[2024-02-12 11:50] LABS: MANUAL DIFFERENTIAL MANUAL DIFFERENTIAL (MANUAL DIFF)
[2024-02-12 11:51] LABS: Alanine Aminotransferase 39 U/L (12-78); Anion Gap 16.1 mEq/L (5-15); Aspartate Amino Transferase 51 U/L (17-59); Bilirubin,Total 0.6 mg/dl (0.2-1.3); Blood Urea Nitrogen 16 mg/dl (9-20); Carbon Dioxide 24 mmol/L (22.0-30.0); Creatinine Clearance Estimated 106 mL/min (50-200); Estimated Glomerular Filt Rate 66 ml/min (>60); GFR (African American) 80 ML/MIN (>60)
[2024-02-12 11:52] LABS: Albumin/Globulin Ratio 1.6 (1.1-1.8); Alkaline Phosphatase 124 U/L (38-126); Calcium 8.8 mg/dl (8.4-10.2); Globulin 2.5 g/dL (1.3-3.2); Glucose 333 mg/dl (74-100); Total Protein,Serum 6.6 g/dl (6.3-8.2)
--- NOTE | 2024-02-12 11:55 | PC.NURSE ---
Notified RT of VBG
[2024-02-12 11:57] LABS: VBG HCO3 22.3 mmol/L (23-30); VBG Oxygen Saturation 84.8 % (50-70); VBG PCO2 44.9 mmol/L (35-51); VBG PH 7.31 mmol/L (7.31-7.41); VBG PO2 51.7 mmol/L (28-40); VBG Total CO2 23.6 mmol/L (23-27)
--- NOTE | 2024-02-12 12:07 | PC.NURSE ---
Both sets of blood cx collected and sent to LAB
[2024-02-12 12:18] LABS: Lactate Venous 5.6 mmol/L (0.4-2.0)
--- NOTE | 2024-02-12 12:18 | PC.NURSE ---
CRITICAL VBG RESULTS PO252, LACTIC 5.6. PT NAME AND R/V. DR REINOSO NOTIFIED
--- NOTE | 2024-02-12 12:25 | HMH.EDGENADL ---
Discharge Plan Disposition Patient Disposition: Admitted Chief Complaint: Weakness Prescriptions Prescriptions: No Action ferrous sulfate 325 mg (65 mg iron) tablet 325 mg PO DAILY sertraline 100 mg tablet 100 mg PO HS simvastatin 40 mg tablet 40 mg PO HS gabapentin 100 mg capsule 100 mg PO BID Qty: 60 5RF aspirin 81 mg Tablet,Delayed Release (Dr/Ec) 81 mg PO DAILY cholecalciferol (vitamin D3) [Vitamin D3] 10 mcg (400 unit) tablet 400 unit PO DAILY lisinopril 30 mg tablet 30 mg PO DAILY oxcarbazepine 150 mg tablet 150 mg PO BID Humulin 70/30 U-100 KwikPen 100 unit/mL (70-30) insulin pen 35 unit SQ AM Humulin 70/30 U-100 KwikPen 100 unit/mL (70-30) insulin pen 30 unit SQ HS levofloxacin 750 mg tablet 750 mg PO DAILY 12 Days Qty: 12 0RF multivitamin 0 tablet 1 tab PO DAILY ascorbic acid (vitamin C) 250 tablet 250 mg PO DAILY omeprazole 40 MG capsule,delayed release(DR/EC) 40 mg PO DAILY acetaminophen 650 MG tablet extended release 650 mg PO Q12HP PRN (Reason: Mild Pain,Fever,Headache) aripiprazole 30 tablet 30 mg PO DAILY metformin 500 mg tablet extended release 24 hr 2,000 mg PO DAILY ondansetron 4 mg tablet,disintegrating 4 mg PO Q6H PRN (Reason: nausea and vomiting) Qty: 10 0RF Referrals Follow up/Referrals: Provider,Referral, MD [Primary Care Provider] - See instructions Clinical Impressions Clinical Impression: Sepsis, Diarrhea Print Language Print Language: Kazakh Discharge ED Provider: Braulio Harding General Adult HPI General Chief complaint: Weakness Stated complaint: weakness Time Seen by Provider: 02/12/24 11:33 Mode of Arrival: EMS Source of Information: Patient and EMS Limitations: No Limitations Description of Symptoms (Recalled from ER Triage Doc. by RN): PT BROUGHT VIA EMS FOR WEAKNESS, CONGESTION, COUGH AND DIARRHEA History of Present Illness HPI narrative: Please note that above description of symptoms, in this electronic medical record under categorization of recalled from ER triage doctor by RN are reflective of an initial nursing assessment, however, is not reflective of my full history and physical exam that was personally taken and clarified. Consequentially, this preceding description of symptoms, which may include the patient's categorized chief complaint in the EMR, do not reflect my personal clinical impression, and the ultimate description of history of present illness and patient stated complaints should be deferred to this section of the note. Unless stated otherwise or congruent with this section of the note, additional signs, symptoms, or incongruence should be interpreted as inaccurate with my clinical impression. Related Data Home Medications ?Medication ?Instructions ?Recorded ?Confirmed ferrous sulfate 325 mg (65 mg 325 mg PO DAILY Supplement 05/13/17 11/14/23 iron) tablet sertraline 100 mg tablet 100 mg PO HS mood 05/15/17 11/14/23 simvastatin 40 mg tablet 40 mg PO HS Cholesterol 05/15/17 11/15/23 acetaminophen 650 mg 650 mg PO Q12HP PRN Mild 04/23/19 11/15/23 tablet,extended release Pain,Fever,Headache ascorbic acid (vitamin C) 250 mg 250 mg PO DAILY Diet supplement 04/23/19 11/14/23 tablet multivitamin 1 tab PO DAILY Diet supplement 04/23/19 11/14/23 omeprazole 40 mg capsule,delayed 40 mg PO DAILY GERD 04/23/19 11/15/23 release aripiprazole 30 mg tablet 30 mg PO DAILY MOOD 04/24/19 11/15/23 metformin 500 mg tablet,extended 2,000 mg PO DAILY Diabetes 01/24/20 11/15/23 release 24 hr aspirin 81 mg tablet,delayed 81 mg PO DAILY 11/15/23 11/15/23 release cholecalciferol (vitamin D3) 10 400 unit PO DAILY 11/15/23 11/15/23 mcg (400 unit) tablet (Vitamin D3) insulin NPH-regular 70-30 U-100 30 unit SQ HS 11/15/23 11/15/23 insulin 100 unit/mL subcutaneous pen (Humulin 70/30 U-100 KwikPen) insulin NPH-regular 70-30 U-100 35 unit SQ AM 11/15/23 11/15/23 insulin 100 unit/mL subcutaneous pen (Humulin 70/30 U-100 KwikPen) lisinopril 30 mg tablet 30 mg PO DAILY 11/15/23 11/15/23 oxcarbazepine 150 mg tablet 150 mg PO BID 11/15/23 11/15/23 Previous Rx's ?Medication ?Instructions ?Recorded gabapentin 100 mg capsule 100 mg PO BID Pain #60 caps 11/18/22 levofloxacin 750 mg tablet 750 mg PO DAILY 12 days #12 tabs 11/17/23 ondansetron 4 mg disintegrating 4 mg PO Q6H PRN nausea and 12/20/23 tablet vomiting #10 tabs Allergies Allergy/AdvReac Type Severity Reaction Status Date / Time sulfamethoxazole Allergy Intermediate Rash Verified 11/14/23 08:05 [From Bactrim] trimethoprim [From Bactrim] Allergy Intermediate Rash Verified 11/14/23 08:05 PFSH PFS Disclaimer: The information contained in this section may have been updated after the patient was seen, as this information can be updated by other users. Medical History (Updated 02/12/24 @ 14:15 by Braulio Harding MD) Depression Anxiety Schizophrenic disorder History of gastroesophageal reflux (GERD) Hypertension Hyperlipidemia Diabetes mellitus, type 2 Surgical History (Updated 11/21/23 @ 00:01 by Kaye Martin) History of cholecystectomy Family History Other No significant family history Social History Smoking Status: Never smoker alcohol intake: never substance use type: denies use current occupational status: disabled Travel in the last 8 weeks: None housing: assisted living facility current occupational exposures/hazards: No caffeine: No Other Medical History Have you received the Flu Vaccine for this season: No Have you received the Pneumonia Vaccine: No ROS Obtained: Yes All systems reviewed & no additional complaints except as documented Physical Exam General General appearance: alert Head Head exam: atraumatic and normocephalic Eye Eye exam: Present normal appearance, PERRL and EOMI Neck Neck exam: Present normal inspection, full ROM and trachea midline Respiratory Respiratory exam: Present normal lung sounds bilaterally; Absent respiratory distress, wheezes, stridor, accessory muscle use or prolonged expiratory phase Cardiovascular Cardiovascular exam: Present normal rhythm, tachycardia, normal heart sounds and other (Pulses equal symmetric in upper and lower extremities) Abdominal Exam Abdominal exam: Present soft and distention; Absent tenderness, guarding, rebound, rigidity or pulsatile mass Extremities Exam Extremities exam: Absent edema Neurological Exam Neurological exam: Present alert, oriented X3 and CN II-XII intact; Absent motor sensory deficit Skin Skin exam: Present warm and dry; Absent diaphoresis or erythema Medical Decision Making Medical Records Medical records reviewed: Yes I reviewed the patient's medical records. Screening: Per USPSTF and CDC recommendations, given the prevalence of disease in our region, it is our hospital?s policy to screen for HIV and viral Hepatitis for all patients aged 18 and over and those with ongoing risk factors. Tucker Inquiry Pt receiving controlled substance: No Tucker was queried for this patient: No Vital Signs: 02/12/24 11:25 02/12/24 11:30 02/12/24 12:00 Temperature 100.7 F H Temperature Source Oral Pulse Rate 115 H 109 H Pulse Rate [Apical] 112 H Respiratory Rate 18 Blood Pressure 115/51 L 122/55 L Blood Pressure [Right Arm] 115/51 L Blood Pressure Mean [Right Arm] 72 Blood Pressure Source [Right Arm] Automatic Cuff Blood Pressure Position [Right Arm] Sitting 02 Sat by Pulse Oximetry 88 L 96 96 Oxygen Delivery Method Room Air Room Air Room Air Oxygen Flow Rate (LPM) 02/12/24 12:32 Temperature Temperature Source Pulse Rate 117 H Pulse Rate [Apical] Respiratory Rate Blood Pressure 132/69 Blood Pressure [Right Arm] Blood Pressure Mean [Right Arm] Blood Pressure Source [Right Arm] Blood Pressure Position [Right Arm] 02 Sat by Pulse Oximetry 94 L Oxygen Delivery Method Nasal Cannula Oxygen Flow Rate (LPM) 2 Lab Data Lab Results 02/12/24 11:37: WBC 16.1 H, RBC 4.43 L, Hgb 14.1, Hct 41.0 L, MCV 92.7, MCH 31.9 H, MCHC 34.4, RDW 14.4, Plt Count 211, MPV 7.9, Neut % (Auto) 92.5 H, Lymph % (Auto) 3.1 L, [place] % (Auto) 3.7, Eos % (Auto) 0.2, Baso % (Auto) 0.4, Neut # (Auto) 14.9 H, Lymph # (Auto) 0.5 L, [place] # (Auto) 0.6, Eos # (Auto) 0.0, Baso # (Auto) 0.1, Total Counted 100, Neutrophils % (Manual) 91 H, Lymphocytes % (Manual) 5 L, Monocytes % (Manual) 4, Differential Comment , Platelet Estimate Normal, RBC Morphology Normal, Sodium 136, Potassium 4.1, Chloride 100, Carbon Dioxide 24, Anion Gap 16.1 H, BUN 16, Creatinine 1.10, Estimated Creat Clear 106, Estimated GFR 66, Est GFR ( Amer) 80, Glucose 333 H, Calcium 8.8, Total Bilirubin 0.6, AST 51, ALT 39, Alkaline Phosphatase 124, Troponin I < 0.01, NT-Pro-B Natriuret Pep 163 H, Total Protein 6.6, Albumin 4.1, Globulin 2.5, Albumin/Globulin Ratio 1.6, SARS-CoV-2 (PCR) Not detected, Influenza A Untype (PCR) Not detected, Influenza Type B (PCR) Not detected 02/12/24 11:51: VBG pH 7.31, VBG pCO2 44.9, VBG pO2 51.7 H, VBG HCO3 22.3 L, VBG Total CO2 23.6, VBG O2 Saturation 84.8 H, VBG Base Excess -4.0 L, VBG Lactic Acid 5.6 H 02/12/24 11:37 02/12/24 11:37 Orders (Tests/Meds): ED MEDICATIONS Generic Name Dose Route Start Last Admin Trade Name Freq PRN Reason Stop Dose Admin Vancomycin/PEG/NADA/Lysine/Water 1.75 gm in 350 mls @ 175 mls/hr 02/12/24 12:45 02/12/24 13:37 Vancomycin 1.75gm/350ml (Peg) Premix IV 02/12/24 14:44 175 mls/hr ONCE ONE Administration Sodium Chloride 10 ml 02/12/24 11:37 Sodium Chloride 0.9% 10ml Flush Syringe IV 03/13/24 11:36 NEEDED PRN Maintain IV Site Discontinued Medications Generic Name Dose Route Start Last Admin Trade Name Freq PRN Reason Stop Dose Admin Ampicillin Sodium/Sulbactam 100 mls @ 200 mls/hr 02/12/24 12:30 02/12/24 12:37 Sodium 3 gm/ Sodium Chloride IV 02/12/24 12:31 200 mls/hr ONCE ONE Administration Iopamidol 80 ml 02/12/24 13:15 02/12/24 13:17 Iopamidol-370 (76%);100ml Bottle IV 02/12/24 13:16 80 ml ONCE ONE Administration Miscellaneous 1 each 02/12/24 12:30 Vancomycin Consult Request NOTAPPLIC 03/13/24 12:29 [facility] Sodium Chloride 40 ml 02/12/24 13:15 02/12/24 13:16 0.9 % Sodium Chloride 50 Ml Vial IV 02/12/24 13:16 40 ml ONCE ONE Administration Sodium Chloride 10 ml 02/12/24 13:15 02/12/24 13:17 Sodium Chloride 0.9% 10ml Syr (Rad Only) IV 02/12/24 13:16 10 ml ONCE ONE Administration ORDERS Category Date Time Status CT angio abdomen pelvis Stat Cat Scan 02/12/24 12:28 Taken XR chest portable Stat Exams 02/12/24 11:37 Completed Complete Blood Count Auto Diff Stat Lab 02/12/24 11:37 Completed Comprehensive Metabolic Panel Stat Lab 02/12/24 11:37 Completed HIV (1&2) Antibody Rapid Stat Lab 02/12/24 11:37 Received Hep C Ab with Reflex to RNA Stat Lab 02/12/24 11:37 Ordered Lactic Acid Stat Lab 02/12/24 11:51 Ordered NT Pro Brain Natriuretic Pep. Stat Lab 02/12/24 11:37 Completed Rapid PCR Covid and Flu A/B Stat Lab 02/12/24 11:37 Completed Trop I [Troponin I] Stat Lab 02/12/24 11:37 Completed Troponin I Q3H Lab 02/12/24 15:00 Ordered Troponin I Q3H Lab 02/12/24 18:00 Ordered Blood Culture Stat Micro 02/12/24 12:03 Received VBG [Venous Blood Gas] Stat RT 02/12/24 11:51 Completed Medical Decision Narrative: 68-year-old male history of hypertension, hyperlipidemia, diabetes, depression, schizophrenia, GERD, chronic diarrhea presenting with diarrhea and nausea. States that has been having diarrhea for about a month this been getting worse. No blood in his vomit. He has been nauseated without vomiting. No chest pain, shortness of breath. No other associated symptoms. History was obtained via conversation with patient. On arrival, patient hemodynamically stable, alert, [oriented x4, ][appropriate, ]GCS [15], moving all extremities spontaneously, pupils equal and reactive to light. Full physical exam performed and significant for fatigued appearing male who is in no acute distress. Abdomen soft, distended, nontender. Cardiopulmonary exam within normal limits other than tachycardia. No murmurs gallops rubs. No lower extremity edema. Pulses equal and symmetric. Patient ambulatory, he is febrile. Differential includes UTI, pneumonia, sepsis, PUD, gastritis, enteritis, gastroenteritis, pancreatitis, SBO, colitis, diverticulitis, nephrolithiasis, UTI, cholecystitis, choledocholithiasis, appendicitis, torsion, hepatitis, aortic pathology, mesenteric ischemia among others. Patient placed on continuous cardiac monitoring and continuous pulse ox with initial blood pressure 122/55, heart rate 109, saturation 96% on room air. [Independent interpretation of EKG shows] sinus tachycardia 113 bpm with no acute ischemic change. Intervals within normal limits.. Patient was given sepsis bolus, empiric vancomycin and Unasyn for symptomatic management[ and correction of underlying abnormalities]. Workup independently interpreted and significant for leukocytosis 16.1 with neutrophilia. VBG with largely nonactionable findings other than lactic acid 5.6. Patient's chemistry nonactionable. Troponin and BNP nonactionable. COVID and flu swab negative. Chest x-ray without acute cardiopulmonary airspace disease On independent interpretation of imaging. CT angiogram of the abdomen and pelvis was ordered and independently interpreted. I do not appreciate any acute intra-abdominal abnormality. see radiology read for full review of final results. On reevaluation, patient resting at baseline, no acute complaints other than mild nausea. Hospital medicine contacted and case was discussed at length, to be admitted for concern for developing sepsis in the setting of fever, tachycardia, leukocytosis and lactic acidemia. Tissue perfusion/sepsis reevaluation performed at 2 PM and patient remained stable. Mildly tachycardic 120 bpm. Saturating 98 to 100% on room air and pressure 150/76. Given patient presentation, workup, history, this most likely represents acute undifferentiated sepsis. Because patient high risk for clinical decompensation, deemed appropriate for inpatient admission. Results were relayed to patient who voiced understanding and patient was agreeable to inpatient admission and management. Patient was admitted to the hospital for further definitive management. Exchange Administrator disclaimer Much of this encounter note is an electronic machine stamper spoken language to printed text. Electronic machine stamper of the spoken language may permit errors. Although I have reviewed the note, some errors may still exist. Critical Care Critical Care Time Critical Care Time: No
--- NOTE | 2024-02-12 12:28 | CT_ITS ---
PROCEDURE INFORMATION: Exam: CTA Abdomen and Pelvis With Contrast Exam date and time: 02/12/2024 1:16 PM Age: 68 years old Clinical indication: Other: Diarrhea; Additional info: Diarrhea abd pain, lactic TECHNIQUE: Imaging protocol: Computed tomographic angiography of the abdomen and pelvis with contrast. Exam focused on the arteries. 3D rendering (Not supervised by radiologist): MIP and/or 3D reconstructed images were created by the technologist. Radiation optimization: All CT scans at this facility use at least one of these dose optimization techniques: automated exposure control; mA and/or kV adjustment per patient size (includes targeted exams where dose is matched to clinical indication); or iterative reconstruction. Contrast material: [id number]; Contrast volume: 80 ml; Contrast route: INTRAVENOUS (IV); COMPARISON: CT ABDOMEN PELVIS W CON 11/14/2023 3:06 PM FINDINGS: Aorta: No aortic aneurysm. No aortic dissection. Celiac trunk and mesenteric arteries: Superior mesenteric artery arises from the celiac trunk. Renal arteries: No occlusion or significant stenosis. Right iliac arteries: No occlusion or significant stenosis. Left iliac arteries: No occlusion or significant stenosis. Other arteries: No arterial stenoses or occlusions. Liver: No mass. Gallbladder and biliary ducts: No calcified stones. No ductal dilation. Pancreas: 1.3 cm hyperdense nodule in the anterior body pancreas shown no change since 11/14/2023 and measured 0.6 cm on 02/03/2020 CT. Subtle stranding of fat anterior to the right external iliac artery and vein is unchanged since 11/22/2023 and was not present on 02/03/2020. Spleen: No splenomegaly. No mass or surrounding fluid. Adrenal glands: No mass. Kidneys and ureters: Right kidney has 2 nonenhancing cysts that measure 2 cm or less. No solid renal masses, calcified stones, or hydroureteronephrosis. Stomach and bowel: Surgical clips along the margin of the cecum. No intestinal masses, bowel wall thickening or abnormal luminal dilatation. Appendix: Appendix is not visualized and is reported to be surgically absent. Intraperitoneal space: No free air. No significant fluid collection. Lymph nodes: A few external iliac lymph nodes within the hazy fat, the largest measuring 1.4 cm in short axis diameter, and several right inguinal lymph nodes exhibit mild cortical enhancement and also have stranding of surrounding fat, but the lymph nodes have not enlarged since 2020 are unchanged and have fatty aravind with no cortical thickening. Urinary bladder: No asymmetric bladder wall thickening or enhancement. Reproductive: Prostate measures 6 cm and causes mass effect upon the floor of the bladder. Bones/joints: No acute fracture or focal bone lesions. Soft tissues: No soft tissue masses. IMPRESSION: 1. No GI tract abnormalities or interval changes. 2. Hyperdense 1.3 cm nodule in the anterior body the pancreas is unchanged since 06/14/2023 and measured 0.6 cm on 02/03/2020. MRI of the abdomen without and with contrast is suggested in 6-12 months. 3. Stranding of perivascular fat along the right external iliac artery and vein and in the right groin is of uncertain significance. Consider an inflammatory process such as retroperitoneal fibrosis, vasculitis or lymphangitis. A few lymph nodes are borderline enlarged but are unchanged since 02/03/2020.
[2024-02-12 12:37] LABS: NT Pro Brain Natriuretic Pep. 163 pg/mL (0-125)
[2024-02-12] MEDS: AMPICILLIN/SULBACTAM 3 GM in 0.9 % SODIUM CHLORIDE 100 ML IV (12:37)
[2024-02-12 12:45] LABS: Troponin I < 0.01 ng/ml (0.00-0.034)
[2024-02-12 12:56] LABS: Lymphocytes % 5 % (10-50); Monocytes % 4 % (2-9); Neutrophils % 91 % (42-76); Total Cells Counted 100
[2024-02-12 12:57] LABS: Platelet Estimate Normal; RBC Morphology Normal
--- NOTE | 2024-02-12 13:10 | PC.NURSE ---
PT TO CT
[2024-02-12] MEDS: 0.9 % SODIUM CHLORIDE 50 ML VIAL 40 ML IV (13:16)
[2024-02-12] MEDS: SODIUM CHLORIDE 0.9% 10ML SYR (RAD ONLY) 10 ML IV (13:17)
[2024-02-12] MEDS: IOPAMIDOL-370 (76%);100ML BOTTLE 80 ML IV (13:17)
[2024-02-12] MEDS: VANCOMYCIN/WATER FOR INJ (PEG) 1.75 GM/350 ML PIGGYBACK IV ×2 (13:37→23:55)
--- NOTE | 2024-02-12 14:26 | PC.NURSE ---
Danny ballesteros called for an update, I informed them the pt is being admitted for sepsis
--- NOTE | 2024-02-12 14:40 | PC.NURSE ---
INSULATOR TESTER NOTIFIED OF ADMISSION
[2024-02-12 14:59] LABS: HIV (1&2) Antibody Rapid NONREACTIVE (NONREACTIVE)
--- NOTE | 2024-02-12 15:14 | PC.NURSE ---
ATTEMPTED TO CALL REPORT, NO ANSWER
--- NOTE | 2024-02-12 15:17 | PC.NURSE ---
REPORT CALLED TO BHARGAV MAYBERRY
[2024-02-12 15:59] LABS: Reflex Lactic Add Lactic Reflex
[2024-02-12 16:22] LABS: POC Glucose,Bedside 303 (70-110)
[2024-02-12 16:29] LABS: Microscopic, Urine URINE MICROSCOPIC (MICROSCOPIC)
--- NOTE | 2024-02-12 16:29 | P.CONPHA_ITS ---
Pharmacy Consult Date: 02/12/24 Time: 16:29 Referring provider: DR. JUÁREZ Reason for Consult:: VANCOMYCIN DOSING Allergies Allergy/AdvReac Type Severity Reaction Status Date / Time sulfamethoxazole Allergy Intermediate Rash Verified 11/14/23 08:05 [From Bactrim] trimethoprim [From Bactrim] Allergy Intermediate Rash Verified 11/14/23 08:05 Home Medications ?Medication ?Instructions ?Recorded ?Confirmed ?Type ferrous sulfate 325 mg (65 mg 325 mg PO DAILY Supplement 05/13/17 11/14/23 History iron) tablet sertraline 100 mg tablet 100 mg PO HS mood 05/15/17 11/14/23 History simvastatin 40 mg tablet 40 mg PO HS Cholesterol 05/15/17 11/15/23 History acetaminophen 650 mg 650 mg PO Q12HP PRN Mild 04/23/19 11/15/23 History tablet,extended release Pain,Fever,Headache ascorbic acid (vitamin C) 250 mg 250 mg PO DAILY Diet supplement 04/23/19 11/14/23 History tablet multivitamin 1 tab PO DAILY Diet supplement 04/23/19 11/14/23 History omeprazole 40 mg capsule,delayed 40 mg PO DAILY GERD 04/23/19 11/15/23 History release aripiprazole 30 mg tablet 30 mg PO DAILY MOOD 04/24/19 11/15/23 History metformin 500 mg tablet,extended 2,000 mg PO DAILY Diabetes 01/24/20 11/15/23 History release 24 hr gabapentin 100 mg capsule 100 mg PO BID Pain #60 caps 11/18/22 11/14/23 Rx aspirin 81 mg tablet,delayed 81 mg PO DAILY 11/15/23 11/15/23 History release cholecalciferol (vitamin D3) 10 400 unit PO DAILY 11/15/23 11/15/23 History mcg (400 unit) tablet (Vitamin D3) insulin NPH-regular 70-30 U-100 30 unit SQ HS 11/15/23 11/15/23 History insulin 100 unit/mL subcutaneous pen (Humulin 70/30 U-100 KwikPen) insulin NPH-regular 70-30 U-100 35 unit SQ AM 11/15/23 11/15/23 History insulin 100 unit/mL subcutaneous pen (Humulin 70/30 U-100 KwikPen) lisinopril 30 mg tablet 30 mg PO DAILY 11/15/23 11/15/23 History oxcarbazepine 150 mg tablet 150 mg PO BID 11/15/23 11/15/23 History levofloxacin 750 mg tablet 750 mg PO DAILY 12 days #12 tabs 11/17/23 Rx ondansetron 4 mg disintegrating 4 mg PO Q6H PRN nausea and 12/20/23 Rx tablet vomiting #10 tabs New Prescriptions to Start Prescriptions: Height: 1.8 m Weight: 117.934 kg Laboratory Results:: Laboratory Results - last 24 hr 02/12/24 11:37: WBC 16.1 H, RBC 4.43 L, Hgb 14.1, Hct 41.0 L, MCV 92.7, MCH 31.9 H, MCHC 34.4, RDW 14.4, Plt Count 211, MPV 7.9, Neut % (Auto) 92.5 H, Lymph % (Auto) 3.1 L, [place] % (Auto) 3.7, Eos % (Auto) 0.2, Baso % (Auto) 0.4, Neut # (Auto) 14.9 H, Lymph # (Auto) 0.5 L, [place] # (Auto) 0.6, Eos # (Auto) 0.0, Baso # (Auto) 0.1, Total Counted 100, Neutrophils % (Manual) 91 H, Lymphocytes % (Manual) 5 L, Monocytes % (Manual) 4, Differential Comment , Platelet Estimate Normal, RBC Morphology Normal, Sodium 136, Potassium 4.1, Chloride 100, Carbon Dioxide 24, Anion Gap 16.1 H, BUN 16, Creatinine 1.10, Estimated Creat Clear 106, Estimated GFR 66, Est GFR ( Amer) 80, Glucose 333 H, Calcium 8.8, Total Bilirubin 0.6, AST 51, ALT 39, Alkaline Phosphatase 124, Troponin I < 0.01, NT-Pro-B Natriuret Pep 163 H, Total Protein 6.6, Albumin 4.1, Globulin 2.5, Albumin/Globulin Ratio 1.6, SARS-CoV-2 (PCR) Not detected, HIV 1&2 Antibody Rapid Nonreactive, Influenza A Untype (PCR) Not detected, Influenza Type B (PCR) Not detected 02/12/24 11:51: VBG pH 7.31, VBG pCO2 44.9, VBG pO2 51.7 H, VBG HCO3 22.3 L, VBG Total CO2 23.6, VBG O2 Saturation 84.8 H, VBG Base Excess -4.0 L, VBG Lactic Acid 5.6 H 02/12/24 16:14: POC Glucose 303 H* Medical History: Medical History (Updated 02/12/24 @ 14:15 by Braulio Harding MD) Depression Anxiety Schizophrenic disorder History of gastroesophageal reflux (GERD) Hypertension Hyperlipidemia Diabetes mellitus, type 2 Assessment and Plan Assessment and plan all Dx Assessment and Plan for all problems:: Pharmacokinetic dosing service Objective: Patient: Floor: Age: 68 yo Serum creatinine: 1.1 mg/dL Height: 71.0 Inches Weight (kg): 118 Assessment: IBW (kg): 75.30 Dosing wt(kg): 118 Estimated Creatinine clearance (ml/min): 67.5 CRCL method: Cockcroft and Gault using ibw(default). Drug selected: Vancomycin Loading dose (mg): 0 Vd (liters): 100.3 (factor used: 0.85 L/kg) Antonio (hr-1): 0.060 Half life (hrs): 11.55 Recommended dose: 1750 mg Interval: 12 hrs Infusion time (hrs): 2.0 Predicted peak (mcg/mL): 32.0 Predicted trough (mcg/mL): 17.56 Total body weight is being used for vancomycin dosing. Recommendations: Give Vancomycin 1750 mg q 12 hrs with an expected Cpeak of 32.0 mcg/ml and an expected Ctrough of 17.56 mcg/ml ----Vanco only - ignore for aminoglycosides----- CLvanco= 6.02 L/hr AUC 0-24 /RENE Data: RENE 0.5 mcg/mL: AUC/RENE: 1162.8 RENE 1.0 mcg/mL: AUC/RENE: 581.4 --------- RENE 1.5 mcg/mL: AUC/RENE: 387.6 RENE 2.0 mcg/mL: AUC/RENE: 290.7
[2024-02-12 16:44] LABS: Appearance,Urine CLEAR (Clear); Bilirubin,Urine Negative (Negative); Blood, Urine Negative (Negative); Color,Urine YELLOW (Yellow); Glucose,Urine (UA) TRACE (Negative); Ketones,Urine Negative (Negative); Leukocyte Esterase,Urine TRACE (Negative); Nitrate,Urine Negative (Negative); PH,Urine 5.5 (5.0-8.5); Protein,Urine Negative (Negative); Urobilinogen,Urine 0.2 EU/dl (0.2)
[2024-02-12 17:01] LABS: Lactic Acid Follow Up (RFLX 1) 4.2 mmol/L (0.7-2.1)
[2024-02-12 17:04] LABS: Troponin I 0.06 ng/ml (0.00-0.034)
[2024-02-12] MEDS: CEFEPIME HCL 2 GM in 0.9 % SODIUM CHLORIDE 100 ML IV ×2 (17:18→22:30)
[2024-02-12] MEDS: LACTATED RINGERS 1000ML 1,000 ML 75 ML IV (17:19)
[2024-02-12 17:30] LABS: POC Glucose,Bedside 311 (70-110)
[2024-02-12] MEDS: humaLOG 100 UNITS/ML 10ML VIAL (SSI) SUBCUT ×2 (17:41→21:50)
[2024-02-12] MEDS: ONDANSETRON 4MG/2ML VIAL 4 MG IV (18:23)
[2024-02-12 18:29] LABS: Bacteria,Urine Trace /lpf; RBC,Urine Occasional #/hpf (0-3); Squamous Epithelial Cell,Urine Occasional #/hpf (0-5)
--- NOTE | 2024-02-12 18:37 | P.HP_ITS ---
History of Present Illness *Admission Date: 02/12/24 *Reason for visit:: Nausea/vomiting/diarrhea and generalized weakness *History of present illness: Miles Arango is a 68-year-old male with a medical history significant for uncontrolled insulin-dependent diabetes, schizophrenia, hypertension, hyperlipidemia, peripheral neuropathy who presents with worsening diarrhea for 1 month. Patient is a poor historian at this time given malaise so most history was obtained via chart review. Apparently he has been having diarrhea for about a month that has been getting worse recently. He also endorses generalized weakness, but denies chest pain, shortness of breath, abdominal pain. On arr ival, patient was tachycardic to 115 but other vitals relatively stable. Workup in the ED significant for WBC 16.1, glucose 333, lactate 5.6, troponin 0.06. UA somewhat suggestive of UTI. CT does not show acute findings, neither does CXR. Case discussed with ED provider and decision was made to admit patient for severe sepsis secondary to cellulitis, UTI. Of note, patient was admitted last month for similar presentation and found to be bacteremic. [facility] Disclaimer: The information contained in this section may have been updated after the patient was seen, as this information can be updated by other users. Medical History (Updated 02/12/24 @ 18:52 by Sebastian Bill MD) Depression Anxiety Schizophrenic disorder History of gastroesophageal reflux (GERD) Hypertension Hyperlipidemia Diabetes mellitus, type 2 Surgical History (Updated 11/21/23 @ 00:01 by Kaye Martin) History of cholecystectomy Family History Other No significant family history Social History Smoking Status: Never smoker alcohol intake: never substance use type: denies use current occupational status: disabled Travel in the last 8 weeks: None housing: assisted living facility current occupational exposures/hazards: No caffeine: No Other Medical History Have you received the Flu Vaccine for this season: Yes Have you received the Pneumonia Vaccine: Yes Meds Home Medications and Allergies Home Medications ?Medication ?Instructions ?Recorded ?Confirmed ?Type ferrous sulfate 325 mg (65 mg 325 mg PO DAILY Supplement 05/13/17 11/14/23 History iron) tablet sertraline 100 mg tablet 100 mg PO HS mood 05/15/17 11/14/23 History simvastatin 40 mg tablet 40 mg PO HS Cholesterol 05/15/17 11/15/23 History acetaminophen 650 mg 650 mg PO Q12HP PRN Mild 04/23/19 11/15/23 History tablet,extended release Pain,Fever,Headache ascorbic acid (vitamin C) 250 mg 250 mg PO DAILY Diet supplement 04/23/19 11/14/23 History tablet multivitamin 1 tab PO DAILY Diet supplement 04/23/19 11/14/23 History omeprazole 40 mg capsule,delayed 40 mg PO DAILY GERD 04/23/19 11/15/23 History release aripiprazole 30 mg tablet 30 mg PO DAILY MOOD 04/24/19 11/15/23 History metformin 500 mg tablet,extended 2,000 mg PO DAILY Diabetes 01/24/20 11/15/23 History release 24 hr gabapentin 100 mg capsule 100 mg PO BID Pain #60 caps 11/18/22 11/14/23 Rx aspirin 81 mg tablet,delayed 81 mg PO DAILY 11/15/23 11/15/23 History release cholecalciferol (vitamin D3) 10 400 unit PO DAILY 11/15/23 11/15/23 History mcg (400 unit) tablet (Vitamin D3) insulin NPH-regular 70-30 U-100 30 unit SQ HS 11/15/23 11/15/23 History insulin 100 unit/mL subcutaneous pen (Humulin 70/30 U-100 KwikPen) insulin NPH-regular 70-30 U-100 35 unit SQ AM 11/15/23 11/15/23 History insulin 100 unit/mL subcutaneous pen (Humulin 70/30 U-100 KwikPen) lisinopril 30 mg tablet 30 mg PO DAILY 11/15/23 11/15/23 History oxcarbazepine 150 mg tablet 150 mg PO BID 11/15/23 11/15/23 History levofloxacin 750 mg tablet 750 mg PO DAILY 12 days #12 tabs 11/17/23 Rx ondansetron 4 mg disintegrating 4 mg PO Q6H PRN nausea and 12/20/23 Rx tablet vomiting #10 tabs New Prescriptions to Start Prescriptions: Allergies Allergy/AdvReac Type Severity Reaction Status Date / Time sulfamethoxazole Allergy Intermediate Rash Verified 11/14/23 08:05 [From Bactrim] trimethoprim [From Bactrim] Allergy Intermediate Rash Verified 11/14/23 08:05 Exam Data for Last 24 hours Vital signs and Labs for Last 24 Hours: Temp Pulse Resp BP Pulse Ox O2 Del Method O2 Flow Rate 98.1 F 120 H 22 125/61 92 L Nasal Cannula 4 02/12/24 16:00 02/12/24 16:30 02/12/24 16:00 02/12/24 16:00 02/12/24 17:54 02/12/24 17:54 02/12/24 17:54 Laboratory Results - last 24 hr 02/12/24 11:37: WBC 16.1 H, RBC 4.43 L, Hgb 14.1, Hct 41.0 L, MCV 92.7, MCH 31.9 H, MCHC 34.4, RDW 14.4, Plt Count 211, MPV 7.9, Neut % (Auto) 92.5 H, Lymph % (Auto) 3.1 L, Crisp % (Auto) 3.7, Eos % (Auto) 0.2, Baso % (Auto) 0.4, Neut # (Auto) 14.9 H, Lymph # (Auto) 0.5 L, Crisp # (Auto) 0.6, Eos # (Auto) 0.0, Baso # (Auto) 0.1, Total Counted 100, Neutrophils % (Manual) 91 H, Lymphocytes % (Manual) 5 L, Monocytes % (Manual) 4, Differential Comment , Platelet Estimate Normal, RBC Morphology Normal, Sodium 136, Potassium 4.1, Chloride 100, Carbon Dioxide 24, Anion Gap 16.1 H, BUN 16, Creatinine 1.10, Estimated Creat Clear 106, Estimated GFR 66, Est GFR ( Amer) 80, Glucose 333 H, Calcium 8.8, Total Bilirubin 0.6, AST 51, ALT 39, Alkaline Phosphatase 124, Troponin I < 0.01, NT-Pro-B Natriuret Pep 163 H, Total Protein 6.6, Albumin 4.1, Globulin 2.5, Albumin/Globulin Ratio 1.6, SARS-CoV-2 (PCR) Not detected, HIV 1&2 Antibody Rapid Nonreactive, Influenza A Untype (PCR) Not detected, Influenza Type B (PCR) Not detected 02/12/24 11:51: VBG pH 7.31, VBG pCO2 44.9, VBG pO2 51.7 H, VBG HCO3 22.3 L, VBG Total CO2 23.6, VBG O2 Saturation 84.8 H, VBG Base Excess -4.0 L, VBG Lactic Acid 5.6 H 02/12/24 16:14: POC Glucose 303 H* 02/12/24 16:20: Urine Color Yellow, Urine Appearance Clear, Urine pH 5.5, Ur Specific [place] 1.010, Urine Protein Negative, Urine Glucose (UA) Trace, Urine Ketones Negative, Urine Blood Negative, Urine Nitrate Negative, Urine Bilirubin Negative, Urine Urobilinogen 0.2, Ur Leukocyte Esterase Trace, Urine RBC Occasional, Urine WBC 3-5, Ur Squamous Epith Cells Occasional, Urine Bacteria Trace 02/12/24 16:34: Lactate 4.2 H, Troponin I 0.06 H 02/12/24 17:21: POC Glucose 311 H* I & O for Last 24 hours: Intake & Output 02/09/24 02/10/24 02/11/24 02/12/24 23:59 23:59 23:59 23:59 Weight 117.934 kg Constitutional Constitutional: mild distress, obese and chronically ill appearing Comments: Confused, slow to respond to questioning. *Routine HEENT Exam Head: Present normocephalic Eye: Present EOMI and PERRL ENT: Present mucous membranes moist *Routine Neck Exam Neck: Present supple; Absent lymphadenopathy *Routine Respiratory Exam Respiratory: Present CTA bilaterally; Absent rhonchi, wheezes or crackles *Routine Cardiovascular Exam Cardiovascular: Present tachycardia Comments: Regular rhythm *Routine Abdominal Exam Abdominal: Present soft, normoactive bowel sounds, tenderness (Nonfocal) and distended; Absent rebound or guarding *Routine Rectal Exam Rectal:: deferred *Routine Genitalia Exam Genitalia:: deferred *Routine Extremities Exam Extremities: Absent cyanosis, clubbing or edema Comments: Right lower extremity erythema, tenderness, warmth. Old ulceration under great toe. *Routine Skin Exam Skin: Present warm; Absent rash *Routine Neurological Exam Neurological: Present alert, altered mental status and moving all extremities Comments: Intermittent uncontrolled movement. Difficulty responding to questions. GCS of 15. Assessment and Plan *Assessment and plan (1) Severe sepsis: Status: Acute Category: Medical Code(s): A41.9 - Sepsis, unspecified organism; R65.20 - Severe sepsis without septic shock (2) Diarrhea: Status: Acute Category: Medical Code(s): R19.7 - Diarrhea, unspecified (3) Cellulitis: Status: Acute Category: Medical Code(s): L03.90 - Cellulitis, unspecified (4) UTI (urinary tract infection): Status: Acute Category: Medical Code(s): N39.0 - Urinary tract infection, site not specified Plan Miles Arango is a 68-year-old male with a medical history significant for uncontrolled insulin-dependent diabetes, schizophrenia, hypertension, hyperlipidemia, peripheral neuropathy who presents with worsening diarrhea for 1 month. Patient is a poor historian at this time given malaise so most history was obtained via chart review. Apparently he has been having diarrhea for about a month that has been getting worse recently. He also endorses generalized weakness, but denies chest pain, shortness of breath, abdominal pain. On arrival, patient was tachycardic to 115 but other vitals relatively stable. Workup in the ED significant for WBC 16.1, glucose 333, lactate 5.6, troponin 0.06. UA somewhat suggestive of UTI. CT does not show acute findings, neither does CXR. Case discussed with ED provider and decision was made to admit patient for severe sepsis secondary to cellulitis, UTI. Of note, patient was admitted last month for similar presentation and found to be bacteremic. #Severe sepsis #Suspected cellulitis, UTI ? There is right lower extremity erythema, tenderness, warmth without obvious skin abrasions. ? UA also suggestive of mild UTI. ? Initial WBC 16.1, lactate 5.6, tachycardia up to 120, tachypneic 22. Received 2 L sepsis bolus. ? Had bacteremia with Strep dysgalactiae last month. ? IV vancomycin, cefepime day 04/20. ? Continue LR at 100 mL/h. ? Follow-up blood, urine cultures. ? Follow-up right lower extremity venous Doppler to rule out DVT. #Insulin-dependent diabetes ? Lantus 30 units nightly. Uptitrate based on SSI needs. ? LDSSI, ACHS glucose checks. Chronic medical problems: #Schizophrenia #Hypertension #Peripheral neuropathy ? Resumed home oxcarbazepine, Abilify, gabapentin, sertraline. ? Resume other home medications once reconciled. Full code DVT prophylaxis: Lovenox Diabetic diet
[2024-02-12 18:39] LABS: Reflex Lactic (2 hrs) Add Lactic Reflex
[2024-02-12 19:28] LABS: Lactic Acid Follow up (RFLX 2) 4.4 mmol/L (0.7-2.1)
[2024-02-12 19:34] LABS: Troponin I 0.06 ng/ml (0.00-0.034)
--- NOTE | 2024-02-12 19:37 | PC.NURSE ---
Angelica FARFAN (at the 2nd floor help desk administrator) informed me that lab had called to report a critical lactate value of 4.4 for the patient. At this time, Rocky RING was paged to inform her about the critical lab value. She stated that she will begin to put new orders in.
[2024-02-12] MEDS: GABAPENTIN 100MG CAPSULE 100 MG PO (20:27)
[2024-02-12] MEDS: SERTRALINE 100MG TABLET 100 MG PO (20:27)
--- NOTE | 2024-02-12 20:36 | PC.NURSE ---
Addendum entered by Naima Merino RN 02/12/24 22:19: A new IV (20G) was inserted at this time in the right AC. Antibiotics and fluids will be resumed as appropriately. Cefepime will also be retimed due to the missed dose (not previously infusing) from 17:18. Addendum entered by Naima Merino RN 02/12/24 21:26: At this time thus far, patient is still currently waiting on regaining IV access. IV access likely to be ultrasound-guided. Original Note: Entered patient's room, IV pump was alarming with distal occlusion. Patient did not have his arm bent upon assessment, but I was told that he had consistently bent his arm during the previous shift. LR fluids and antibiotic from the previous shift were currently not infusing. Unhooked patient and assessed IV site at the right AC. IV site would not flush effectively and there was no blood return. Patient's antecubital was very red. Patient was unable to answer to whether or not he was having pain around the site. IV site has been discontinued.
[2024-02-12 21:22] LABS: POC Glucose,Bedside 254 (70-110)
[2024-02-12] MEDS: INSULIN GLARGINE 100 UNITS/ML 10ML VIAL 20 UNIT SUBCUT (21:51)
--- NOTE | 2024-02-12 22:17 | PC.NURSE ---
Late Entry: Urine sample was collected at 21:58 and sent to lab.
--- NOTE | 2024-02-12 22:25 | PC.NURSE ---
[facility] was paged at this time to retime the Cefepime dose per JUN. Cefepime and Lactated Ringers compatibility was also checked with the pharmacist; the medications were confirmed to be compatible together. Patient's infusions will be resumed appropriately.
[2024-02-12] MEDS: LACTATED RINGERS 1000ML 1,000 ML 999 ML IV (22:30)
[2024-02-12 23:04] LABS: Lactic Acid 3.1 mmol/L (0.7-2.1)
[2024-02-12] MEDS: ACETAMINOPHEN 500MG TAB 1000 MG PO (23:55)
[2024-02-13] VITALS (16 sets, daily range): BP systolic 114–153; BP diastolic 53–76; PULSE 90–136; RESP 18–20; TEMP 36.4–38.6; O2SAT 76–98; BMI 36.3
[2024-02-13] MEDS: LACTATED RINGERS 1000ML 1,000 ML 125 ML IV (00:27)
--- NOTE | 2024-02-13 02:16 | PC.NURSE ---
Addendum entered by Naima Merino RN 02/13/24 03:12: Perspiration was also noticed to dissipate. Addendum entered by Naima Merino RN 02/13/24 03:08: At this time, patient's oral temperature was reevaluated; it was 97.6. After checking, patient was given several sips of fresh ice water and tolerated it well. Patient reported that he feels a little better and is resting comfortably in bed at this time. Original Note: Entered patient's room at around 02:05. Beads of sweat was noticed upon the patient's forehead. He vocalized that he felt hot. Patient's oral temperature was taken; it was 100.2. Patient's top blankets were pulled back from him, and an oscillating fan was provided. Patient was given 1000 mg of Tylenol at around 23:55 per MAR due to a previous temperature spike. Patient appeared to be much more alert and talkative at this time compared to earlier this shift. Patient was also given a cup of cold grape juice per request. Patient was able to tolerate swallowing the juice quite well (and without coughing) compared to swallowing fluids earlier this shift, as well. Patient's status will be reevaluated.
--- NOTE | 2024-02-13 04:20 | PC.NURSE ---
Patient appeared to be quite fatigued, his speech was mumbled and incoherent, and he was difficult to keep aroused for an extended time during the first half (19:05 to 01:00) of this shift; during the second half (after 01:00) of this shift, the patient appeared to be much more alert, would talk in full and coherent sentences, and was less fatigued. He is alert to himself and sometimes his surroundings. During the first half of this shift, the patient was noticed to have difficulty with swallowing his PO medications and any other sort of liquid; he would cough quite violently afterwards. During the second half of this shift, the patient was able to request ice water and juices on his own to drink, and he tolerated swallowing through a straw quite well; he did not appear to cough after drinking this time. However, the patient continues to have an intermittent and dry, hacking cough, with/without consuming anything by mouth. Patient appears to need help with feeding himself at this time. He was noticed to have temperature spikes this shift (see prior note); this has been addressed accordingly. At this time, the patient's perspiration has diminished and he is afebrile, with a temperature of 98.3 (checked by me at this time). He has been running tachycardic for most of the night on telemetry. Blood pressure has also been slightly elevated. Upon auscultation, his bowel sounds were active and his lung sounds were clear but diminished. He has remained on 3.5 L of oxygen, and oxygen sats have been greater than 90%. Patient has also had lab draws taken accordingly for monitoring. He was given an LR bolus earlier this shift after IV access was regained (see prior note, per JUN). He has received his scheduled medications and IV antibiotics per MAR as well. A bag of LR is currently infusing at 125 mL/hr. Patient's purewick was removed earlier this shift on behalf of perineal excoriation; he is incontinent and in a brief. His right leg is quite red, and he has some swelling bilaterally. He has a yellow crusting on the ball of his left foot. Scattered scabs were noticed on his extremities. His skin appeared to be cooler during the first half of this shift; his skin appeared to become warmer within the second half of this shift. At this time, the patient does not have any further complaints. He is resting supine in bed. Culture results are still pending. Bed alarm on. Call light within reach.
[2024-02-13] MEDS: ONDANSETRON 4MG/2ML VIAL 4 MG IV ×2 (05:33→08:57)
--- NOTE | 2024-02-13 05:33 | PC.NURSE ---
Patient vocalized that he feels unwell. Patient projectile vomited a large amount of emesis. Bed and patient is being changed. Zofran 4 mg/2mL is also being administered at this time.
--- NOTE | 2024-02-13 05:35 | PC.NURSE ---
Lab called at this time to report a positive blood culture (in the anaerobic bottle). The gram stain showed gram positive cocci. The BCID came back positive for streptococcus. Rocky RING was paged at this time to inform her of these findings.
[2024-02-13] MEDS: humaLOG 100 UNITS/ML 10ML VIAL (SSI) SUBCUT ×3 (06:13→16:38)
[2024-02-13 06:14] LABS: POC Glucose,Bedside 197 (70-110)
[2024-02-13] MEDS: CEFEPIME HCL 2 GM in 0.9 % SODIUM CHLORIDE 100 ML IV ×2 (06:14→16:32)
[2024-02-13 07:25] LABS: Basophils # 0.1 K/mm3 (0-0.2); Basophils % 0.9 % (0.1-2.0); Eosinophils % 0.1 % (0.1-12.0); Hematocrit 45.8 % (42.0-52.0); Hemoglobin 15.1 g/dL (14.1-18.0); Lymphocytes # 0.7 K/mm3 (0.7-4.5); Lymphocytes % 5.4 % (10-50); Mean Corpuscular Hemoglobin 31.9 pg (27.0-31.2); Mean Corpuscular Volume 96.6 fl (80-94); Mean Platelet Volume 7.8 fl (7.4-10.4); Monocytes # 0.4 K/mm3 (0.1-1.0); Monocytes % 3.5 % (1.7-9.3); Neutrophils # 11.2 K/mm3 (1.8-7.8); Neutrophils % 90.1 % (37.0-80.0); Platelet Count 120 K/mm3 (142-424); Red Blood Count 4.74 M/mm3 (4.60-6.20); Red Cell Distribution Width 14.3 % (11.5-17.5); White Blood Count 12.5 K/mm3 (4.8-10.8)
[2024-02-13 07:34] LABS: MANUAL DIFFERENTIAL MANUAL DIFFERENTIAL (MANUAL DIFF)
[2024-02-13 07:58] LABS: Alanine Aminotransferase 43 U/L (12-78); Albumin Level 3.6 g/dl (3.5-5.0); Albumin/Globulin Ratio 1.5 (1.1-1.8); Alkaline Phosphatase 101 U/L (38-126); Aspartate Amino Transferase 66 U/L (17-59); Bilirubin,Total 0.9 mg/dl (0.2-1.3); Blood Urea Nitrogen 20 mg/dl (9-20); Calcium 8.3 mg/dl (8.4-10.2); Carbon Dioxide 23 mmol/L (22.0-30.0); Chloride 102 mmol/L (98-107); Creatinine Clearance Estimated 106 mL/min (50-200); Estimated Glomerular Filt Rate 66 ml/min (>60); GFR (African American) 80 ML/MIN (>60); Globulin 2.4 g/dL (1.3-3.2); Glucose 188 mg/dl (74-100); Magnesium 1.2 mg/dl (1.6-2.3); Sodium 133 mmol/L (136-145)
--- NOTE | 2024-02-13 08:06 | HMH.PHAINT1 ---
Pharmacy Intervention Comments: Home medication list verified using list from care home
[2024-02-13] MEDS: GABAPENTIN 100MG CAPSULE 100 MG PO (08:24)
[2024-02-13] MEDS: ENOXAPARIN 40MG/0.4ML SYRINGE 40 MG SUBCUT (08:24)
[2024-02-13] MEDS: ARIPiprazole 10MG TABLET 30 MG PO (08:24)
--- NOTE | 2024-02-13 08:45 | XR_ITS ---
PROCEDURE INFORMATION: Exam: XR Chest Exam date and time: 02/13/2024 8:51 AM Age: 68 years old Clinical indication: Dyspnea; Additional info: Poss aspiration. . Very SOA TECHNIQUE: Imaging protocol: Radiologic exam of the chest. Views: 1 view. COMPARISON: CR XR CHEST PORTABLE 02/12/2024 11:39 AM FINDINGS: Lungs: Unremarkable. No consolidation. Pleural spaces: Unremarkable. No pleural effusion. No pneumothorax. Heart/Mediastinum: Unremarkable. No cardiomegaly. Bones/joints: Unremarkable. IMPRESSION: No acute findings.
--- NOTE | 2024-02-13 08:47 | ECG_ITS ---
APPROVED REPORT Exam: Resting ECG HR:136 bpm ECG Measurements Heart Rate 136 AXES OH 187 P 105 QRSd 98 QRS 84 QT 368 T 60 QTc 447 Conclusion SINUS TACHYCARDIA WITH OCCASIONAL SUPRAVENTRICULAR PREMATURE COMPLEXES MODERATE ST DEPRESSION [0.05+ mV ST DEPRESSION] ABNORMAL ECG UNCONFIRMED REPORT Electronically signed by : Salvador Mayfield MD 02/22/2024 12:54:17
[2024-02-13 08:55] LABS: POC Glucose,Bedside 218 (70-110)
[2024-02-13 09:05] LABS: ABG HCO3 22.5 mmhg (22.0-26.0); ABG Oxygen Saturation 96 % (90-100); ABG PCO2 40.7 mmhg (35.0-45.0); ABG PH 7.36 mmol/L (7.35-7.45); ABG PO2 78.5 mmhg (80-100); ABG TCO2 23.7 mmhg (23-27)
[2024-02-13 09:06] LABS: Allen's Test ACCEPTABLE; Oxygen 100% %; Source R RADIAL
[2024-02-13 09:15] LABS: HCV Ab Non Reactive (Non Reactive)
[2024-02-13] MEDS: IPRATROPIUM/ALBUTEROL 3 ML NEB IH (09:15)
[2024-02-13] MEDS: SODIUM CHLORIDE 3% 15ML NEB 15 ML IH (09:15)
--- NOTE | 2024-02-13 09:17 | XR_ITS ---
PROCEDURE INFORMATION: Exam: XR Chest Exam date and time: 02/13/2024 9:45 AM Age: 68 years old Clinical indication: Device placement; Ng tube; Additional info: Ng tube placement TECHNIQUE: Imaging protocol: Radiologic exam of the chest. Views: 1 view. COMPARISON: CR XR CHEST PORTABLE 02/13/2024 8:51 AM FINDINGS: Tubes, catheters and devices: Nasogastric tube coiled within the esophagus Lungs: Unremarkable. No consolidation. Pleural spaces: Unremarkable. No pleural effusion. No pneumothorax. Heart/Mediastinum: Unremarkable. No cardiomegaly. Bones/joints: Unremarkable. IMPRESSION: Nasogastric tube coiled in the esophagus. This needs to be repositioned.
--- NOTE | 2024-02-13 09:18 | CT_ITS ---
PROCEDURE INFORMATION: Exam: CTA Chest With Contrast Exam date and time: 02/13/2024 9:32 AM Age: 68 years old Clinical indication: Shortness of breath; Additional info: SOB TECHNIQUE: Imaging protocol: Computed tomographic angiography of the chest with contrast. Exam focused on the arteries. 3D rendering (Not supervised by radiologist): MIP and/or 3D reconstructed images were created by the technologist. Radiation optimization: All CT scans at this facility use at least one of these dose optimization techniques: automated exposure control; mA and/or kV adjustment per patient size (includes targeted exams where dose is matched to clinical indication); or iterative reconstruction. Contrast material: [id number]; Contrast volume: 80 ml; Contrast route: INTRAVENOUS (IV); COMPARISON: CR XR CHEST PORTABLE 02/13/2024 8:51 AM FINDINGS: Tubes, catheters and devices: The nasogastric tube is coiled in the proximal esophagus. Pulmonary arteries: Normal. No pulmonary emboli. Aorta: Unremarkable. No aortic aneurysm. No aortic dissection. Lungs: Unremarkable. No consolidation. No masses. Pleural spaces: Unremarkable. No pneumothorax. No pleural effusion. Heart: Unremarkable. No cardiomegaly. No pericardial effusion. Esophagus: There is edema of the esophagus distal to this region. Lymph nodes: Unremarkable. No enlarged lymph nodes. Bones/joints: Unremarkable. No acute fracture. Soft tissues: Unremarkable. IMPRESSION: Nasogastric tube coiled within the proximal esophagus. There is edema of the esophagus distal to this region.
--- NOTE | 2024-02-13 09:20 | CT_ITS ---
PROCEDURE INFORMATION: Exam: CT Abdomen And Pelvis With Contrast Exam date and time: 02/13/2024 9:32 AM Age: 68 years old Clinical indication: Nausea and vomiting TECHNIQUE: Imaging protocol: Computed tomography of the abdomen and pelvis with contrast. Radiation optimization: All CT scans at this facility use at least one of these dose optimization techniques: automated exposure control; mA and/or kV adjustment per patient size (includes targeted exams where dose is matched to clinical indication); or iterative reconstruction. Contrast material: ISOVUE; Contrast volume: 80 ml; Contrast route: IV; COMPARISON: CT ANGIO ABDOMEN PELVIS 02/12/2024 1:16 PM FINDINGS: Liver: Normal. No mass. Gallbladder and biliary ducts: Gallbladder is surgically removed. Pancreas: Normal. No ductal dilation. Spleen: Normal. No splenomegaly. Adrenal glands: Normal. No mass. Kidneys and ureters: Normal. No hydronephrosis. Stomach and bowel: Unremarkable. No obstruction. No mucosal thickening. Appendix: The appendix is surgically absent Intraperitoneal space: Unremarkable. No free air. No significant fluid collection. Vasculature: Unremarkable. No abdominal aortic aneurysm. Lymph nodes: Unremarkable. No enlarged lymph nodes. Urinary bladder: Unremarkable as visualized. Reproductive: Unremarkable as visualized. Bones/joints: Unremarkable. No acute fracture. Soft tissues: Unremarkable. IMPRESSION: No acute abdominal or pelvic abnormality is appreciated
[2024-02-13 09:29] LABS: Lymphocytes % 5 % (10-50); Monocytes % 1 % (2-9); Neutrophils % 94 % (42-76); Total Cells Counted 100
[2024-02-13 09:30] LABS: Platelet Estimate Slight Decrease; RBC Morphology Normal
[2024-02-13] MEDS: SODIUM CHLORIDE 0.9% 10ML SYR (RAD ONLY) 10 ML IV (09:55)
[2024-02-13] MEDS: 0.9 % SODIUM CHLORIDE 50 ML VIAL IV (09:55)
[2024-02-13] MEDS: IOPAMIDOL-370 (76%);100ML BOTTLE 80 ML IV (09:55)
[2024-02-13 10:26] LABS: Adenovirus F 40/41, stool Not Detected (NotDetected); Astrovirus Not Detected (NotDetected); Campylobacter Not Detected (NotDetected); Clostridium Difficile A/B, PCR Not Detected (NotDetected); Cryptosporidium Not Detected (NotDetected); Cyclospora Cayetanesis Not Detected (NotDetected); Entamoeba histolytica Not Detected (NotDetected); Enteroaggregative E coli Not Detected (NotDetected); Enteropathogenic E coli Not Detected (NotDetected); Enterotoxigenic E coli Not Detected (NotDetected); Giardia lamblia Not Detected (NotDetected); Norovirus Not Detected (NotDetected); Plesimonas Shigalloides, PCR Not Detected (NotDetected); Rotavirus A Not Detected (NotDetected); Salmonella, PCR Not Detected (NotDetected); Sapovirus Not Detected (NotDetected); Shiga-like toxin E coli Not Detected (NotDetected); Shigella Enterovasive E coli Not Detected (NotDetected); Vibrio Cholerae Not Detected (NotDetected); Vibrio, PCR Not Detected (NotDetected); Yersinia Entercolitica, PCR Not Detected (NotDetected)
[2024-02-13 11:52] LABS: POC Glucose,Bedside 231 (70-110)
--- NOTE | 2024-02-13 12:01 | SW/DCPLANNER ---
This patient currently resides at [facility]. I will continue to follow up w/ patient throughout hospital admission to assist w/ needs or new orders. Discharge date is unknown at this time.
[2024-02-13] MEDS: VANCOMYCIN/WATER FOR INJ (PEG) 1.75 GM/350 ML PIGGYBACK IV ×2 (12:24→22:59)
[2024-02-13] MEDS: KETOROLAC 30MG/ML VIAL 15 MG IV ×2 (16:32→22:21)
--- NOTE | 2024-02-13 18:24 | PC.NURSE ---
Addendum entered by Alayna Contreras RN 02/13/24 18:37: Pt did spike fever of 101.3 this afternoon, MD was notified and PRN tordol order was put in and given. Pt Temp now 98.5. Original Note: This morning wardrobe consultant called this nurse to notify that pt HR was in the 140's. This nurse went in to assess him, pt was SOB and coughing and radial pulse matched what vitals machine was reading, O2 was in the 70's. This nurse called Charge nurse and MD to come assess pt. EKG was ordered and Non-rebreather was placed on pt at 15L NC. Pt began to vomit and was suctioned. PRN zofran was given for nausea. MD instructed to place NG and make pt NPO. Once O2 and vomiting was under control, pt went down for chest/abdomen CTA and chest x-ray for NG placement. This nurse went down with pt in case of emergency. NG was curled in the esophagus so MD said to remove NG because pt was no longer vomiting. Pt came back to floor was was given a bed bath and rested comfortably most of shift. Pt weaned down to 2L NC with O2 sat 95% and above. This evening he became more alert and started expressing more needs like needing to be changed/repositioned. Pt currently resting in bed with no complaints at this time. Bed alarm on, call light in place.
--- NOTE | 2024-02-13 18:49 | CA_ITS ---
FINAL REPORT TECHNIQUE: Color Doppler, duplex Doppler and compression sonography of the right lower extremity venous system was performed. CLINICAL HISTORY: REDNESS AND WARMTH RLE,HLD,HTN COMPARISON: none FINDINGS: There is no evidence of deep venous thrombosis from the level of the groin to the calf. The veins are patent and compressible. IMPRESSION: No evidence of deep venous thrombosis right lower extremity. Authenticated and ERN
--- NOTE | 2024-02-13 20:35 | PC.NURSE ---
Pt is not himself and c/o nausea. Pt vomited approx 500 ml while this nurse was in the room to admin meds. Pt was treated per MAR for nausea. Pt PO meds are held d/t previous aspiration, verified with MD and made aware. This nurse also held pt insulin d/t NPO status.
[2024-02-13] MEDS: PANTOPRAZOLE 40MG VIAL 40 MG IV (20:38)
[2024-02-13] MEDS: SODIUM CHLORIDE 0.9% 10ML VIAL 10 ML IV (20:38)
[2024-02-13] MEDS: PROMETHAZINE HCL 25MG/ML 1ML VIAL 12.5 MG IV (20:49)
--- NOTE | 2024-02-13 21:04 | XR_ITS ---
PROCEDURE INFORMATION: Exam: XR Chest Exam date and time: 02/13/2024 9:49 PM Age: 68 years old Clinical indication: Shortness of breath; Additional info: SOB TECHNIQUE: Imaging protocol: Radiologic exam of the chest. Views: 1 view. COMPARISON: CR XR CHEST PORTABLE 02/13/2024 9:45 AM FINDINGS: Lungs: Mild bibasilar ground-glass opacities. No consolidation. Pleural spaces: Normal. No pleural effusion. No pneumothorax. Heart/Mediastinum: Normal. No cardiomegaly. Bones/joints: Unremarkable. IMPRESSION: Mild bibasilar ground-glass opacities could be atelectasis or pneumonia.
--- NOTE | 2024-02-13 21:16 | EXP.PN ---
Subjective *Date: 02/13/24 *Time: 21:16 Exam Data for Last 24 hours Vital signs and Labs for Last 24 Hours: Temp Pulse Resp BP Pulse Ox O2 Del Method O2 Flow Rate 98.6 F 110 H 20 114/53 L 96 Nasal Cannula 2 02/13/24 18:06 02/13/24 16:00 02/13/24 16:00 02/13/24 16:00 02/13/24 16:00 02/13/24 18:47 02/13/24 18:47 FiO2 100 02/13/24 09:25 Laboratory Results - last 24 hr 02/12/24 10:17: Stl Aeromonas (PCR) Not detected, Stl C. cayetanensis PCR Not detected, Stool Rotavirus (PCR) Not detected, Stl Adenov F 40/41 PCR Not detected, Stool Astrovirus (PCR) Not detected, Stool Campylobacter PCR Not detected, Stl C.difficile Tox PCR Not detected, Stool Cryptosporidium PCR Not detected, Stl E.coli Shiga Tox PCR Not detected, Stool E coli O157 PCR Not detected, Stl Enterotoxigenic E PCR Not detected, Stool EPEC (PCR) Not detected, Stool EAEC (PCR) Not detected, Stl E. histolytica PCR Not detected, Stool Giardia Lamblia PCR Not detected, Stool Salmonella PCR Not detected, Stool Sapovirus (PCR) Not detected, Stl P. shigelloides PCR Not detected, Stl Shigella/EIEC PCR Not detected, St Y.enterocolitica PCR Not detected, Stool Vibrio (PCR) Not detected, Stl Vibrio cholerae PCR Not detected, Stl Norovirus GI/GII PCR Not detected 02/12/24 16:34: Hepatitis C Antibody Non reactive 02/12/24 20:29: POC Glucose 254 H 02/12/24 22:32: Lactate 3.1 H 02/13/24 06:03: POC Glucose 197 H 02/13/24 06:33: WBC 12.5 H, RBC 4.74, Hgb 15.1, Hct 45.8, MCV 96.6 H, MCH 31.9 H, MCHC 33.0, RDW 14.3, Plt Count 120 L D, MPV 7.8, Neut % (Auto) 90.1 H, Lymph % (Auto) 5.4 L, Hardy % (Auto) 3.5, Eos % (Auto) 0.1, Baso % (Auto) 0.9, Neut # (Auto) 11.2 H, Lymph # (Auto) 0.7, Hardy # (Auto) 0.4, Eos # (Auto) 0.0, Baso # (Auto) 0.1, Total Counted 100, Neutrophils % (Manual) 94 H, Lymphocytes % (Manual) 5 L, Monocytes % (Manual) 1 L, Platelet Estimate Slight decrease, RBC Morphology Normal, Sodium 133 L, Potassium 4.0, Chloride 102, Carbon Dioxide 23, Anion Gap 12.0, BUN 20, Creatinine 1.10, Estimated Creat Clear 106, Estimated GFR 66, Est GFR ( Amer) 80, Glucose 188 H D, Calcium 8.3 L, Magnesium 1.2 L, Total Bilirubin 0.9, AST 66 H D, ALT 43, Alkaline Phosphatase 101, Total Protein 6.0 L, Albumin 3.6 D, Globulin 2.4, Albumin/Globulin Ratio 1.5 02/13/24 08:49: POC Glucose 218 H 02/13/24 09:02: Specimen Source R radial, O2 % 100%, ABG pH 7.36, ABG pCO2 40.7, ABG pO2 78.5 L, ABG HCO3 22.5, ABG Total CO2 23.7, ABG O2 Saturation 96, ABG Base Excess -3.0 L, Real Test Acceptable 02/13/24 11:46: POC Glucose 231 H I & O for Last 24 hours: Intake & Output 02/10/24 02/11/24 02/12/24 02/13/24 23:59 23:59 23:59 23:59 Intake Total 1640 / 1640 Output Total 0 / 450 450 / 450 Balance 0 / 950 1190 / 1190 Weight 117.934 kg 118 kg Microbiology Reports for the Last 24 Hours: Microbiology 02/12/24 12:03 Blood Blood Culture - Preliminary NO GROWTH AFTER 24 HOURS 02/12/24 12:03 Blood Blood Culture - Preliminary Constitutional Constitutional: no acute distress Comments: Flat affect. *Routine HEENT Exam Head: Present normocephalic Eye: Present EOMI and PERRL ENT: Present mucous membranes moist *Routine Neck Exam Neck: Present supple; Absent lymphadenopathy *Routine Respiratory Exam Respiratory: Present CTA bilaterally *Routine Cardiovascular Exam Cardiovascular: Present RRR *Routine Abdominal Exam Abdominal: Present soft and normoactive bowel sounds; Absent tenderness *Routine Extremities Exam Extremities: Absent cyanosis, clubbing or edema *Routine Skin Exam Skin: Present warm; Absent rash *Routine Neurological Exam Neurological: Present alert Assessment and Plan *Assessment and plan (1) Severe sepsis: Status: Acute Category: Medical Code(s): A41.9 - Sepsis, unspecified organism; R65.20 - Severe sepsis without septic shock (2) Diarrhea: Status: Acute Category: Medical Code(s): R19.7 - Diarrhea, unspecified (3) Cellulitis: Status: Acute Category: Medical Code(s): L03.90 - Cellulitis, unspecified (4) UTI (urinary tract infection): Status: Acute Category: Medical Code(s): N39.0 - Urinary tract infection, site not specified Plan Miles Arango is a 68-year-old male with a medical history significant for uncontrolled insulin-dependent diabetes, schizophrenia, hypertension, hyperlipidemia, peripheral neuropathy who presents with worsening diarrhea for 1 month. Patient is a poor historian at this time given malaise so most history was obtained via chart review. Apparently he has been having diarrhea for about a month that has been getting worse recently. He also endorses generalized weakness, but denies chest pain, shortness of breath, abdominal pain. On arrival, patient was tachycardic to 115 but other vitals relatively stable. Workup in the ED significant for WBC 16.1, glucose 333, lactate 5.6, troponin 0.06. UA somewhat suggestive of UTI. CT does not show acute findings, neither does CXR. Case discussed with ED provider and decision was made to admit patient for severe sepsis secondary to cellulitis, UTI. Of note, patient was admitted last month for similar presentation and found to be bacteremic. #Severe sepsis #Suspected cellulitis, UTI ? There is right lower extremity erythema, tenderness, warmth without obvious skin abrasions. ? UA also suggestive of UTI. ? Initial WBC 16.1, lactate 5.6, tachycardia up to 120, tachypneic 22. Received 2 L sepsis bolus. ? Had bacteremia with Strep dysgalactiae last month. - WBC improved to 12.5 today. ? IV vancomycin, cefepime day 2/7. ? Continue LR at 75 mL/h. ? Follow-up blood, urine cultures. ? Follow-up right lower extremity venous Doppler to rule out DVT. #Aspiration #Nausea/vomiting - Patient had multiple episodes of N/V this morning, resulting in aspiration. - He had moderate respiratory distress, improved with nonrebreather, hypertonic saline, duonebs. - CTA showed distal esophageal edema which may represent acid reflux. - CT A/p did not show acute process. - Npo for now. May need FIELD CROP HARVEST CONTRACTOR eval if not improving. - IV protonix 40mg BID. #Insulin-dependent diabetes ? Lantus 30 units nightly. Uptitrate based on SSI needs. ? LDSSI, ACHS glucose checks. Chronic medical problems: #Schizophrenia #Hypertension #Peripheral neuropathy ? Resumed home oxcarbazepine, Abilify, gabapentin, sertraline. ? Resume other home medications once reconciled. Full code DVT prophylaxis: Lovenox Diabetic diet
[2024-02-13] MEDS: SCOPOLAMINE 1.5MG/72HRS PATCH 1 EACH TD (21:35)
[2024-02-13] MEDS: AMPICILLIN SODIUM/SULBACTAM 3 GM in 0.9 % SODIUM CHLORIDE 100 ML IV (21:35)
[2024-02-13 21:54] LABS: ABG Base Excess 1.2 mmol/L (-2.4-2.3); ABG HCO3 25.9 mmhg (22.0-26.0); ABG Oxygen Saturation 93 % (90-100); ABG PH 7.41 mmol/L (7.35-7.45); ABG PO2 61.9 mmhg (80-100); ABG TCO2 27.2 mmhg (23-27); Allen's Test Acceptable; Oxygen 3L NC %; Source Left Radial
--- NOTE | 2024-02-13 22:00 | PC.NURSE ---
Pt is working harder to breath, is hard to wake and admits to ongoing nausea and weakness, Pt has temp of 101.1. Dr Ramey contacted at this time d/t pt worsening condition.Chest xray and abg ordered, pt switched to non-rebreather from 2L. Pt fluids paused at this time due to MD request
[2024-02-13] MEDS: FUROSEMIDE 40MG/4ML VIAL 40 MG IV (22:20)
[2024-02-13 22:34] LABS: POC Glucose,Bedside 160 (70-110)
[2024-02-13 22:35] LABS: POC Glucose,Bedside 163 (70-110)
[2024-02-13 22:47] LABS: Vancomycin,Trough 18.6 ug/mL (5.0-10.0)
--- NOTE | 2024-02-13 23:00 | PC.NURSE ---
Pt Transferred to stepdown room 219, Report given to Mariela Saleh RN at this time
--- NOTE | 2024-02-13 23:13 | PC.NURSE ---
Khushi from [facility] pharmacy contacted about vanc trough, stated ok to go ahead with the 2300 dose
[2024-02-14] VITALS (13 sets, daily range): BP systolic 93–163; BP diastolic 50–66; PULSE 80–100; RESP 18–26; TEMP 36.8–38.2; O2SAT 88–97; BMI 36.3
[2024-02-14 01:08] LABS: ABG Base Excess 1.6 mmol/L (-2.4-2.3); ABG HCO3 26.6 mmhg (22.0-26.0); ABG Oxygen Saturation 95 % (90-100); ABG PCO2 45.6 mmhg (35.0-45.0); ABG PH 7.38 mmol/L (7.35-7.45)
[2024-02-14 01:09] LABS: Allen's Test Acceptable; Oxygen 4L NC %; Source Left Radial
[2024-02-14] MEDS: AMPICILLIN SODIUM/SULBACTAM 3 GM in 0.9 % SODIUM CHLORIDE 100 ML IV ×4 (03:54→21:03)
[2024-02-14] MEDS: KETOROLAC 30MG/ML VIAL 15 MG IV (05:29)
[2024-02-14 05:53] LABS: POC Glucose,Bedside 156 (70-110)
[2024-02-14 06:26] LABS: Basophils # 0.1 K/mm3 (0-0.2); Eosinophils % 0.1 % (0.1-12.0); Lymphocytes # 0.7 K/mm3 (0.7-4.5); Mean Platelet Volume 8.2 fl (7.4-10.4)
[2024-02-14 06:32] LABS: Albumin Level 2.9 g/dl (3.5-5.0); Chloride 104 mmol/L (98-107); Sodium 136 mmol/L (136-145)
--- NOTE | 2024-02-14 06:32 | PC.NURSE ---
Addendum entered by Mariela Barrera RN 02/14/24 06:35: FSBS at 0600 156, insulin held d/t pt NPO status Original Note: pt has rested since moving to this room, kept taking non rebreather mask off, redirected to leave on and did not, placed on 2L NC, some expiratory wheezes heard on auscultation, has been febrile t/o shift and was treated per JUN, incontinent of bowel and bladder, has been A&Ox4 since moving to [facility]
[2024-02-14 06:33] LABS: Potassium 3.6 mmoL/L (3.5-5.1)
[2024-02-14 06:35] LABS: Alanine Aminotransferase 32 U/L (12-78); Albumin/Globulin Ratio 1.2 (1.1-1.8); Alkaline Phosphatase 95 U/L (38-126); Anion Gap 8.6 mEq/L (5-15); Aspartate Amino Transferase 62 U/L (17-59); Basophils % 0.5 % (0.1-2.0); Bilirubin,Total 0.6 mg/dl (0.2-1.3); Blood Urea Nitrogen 29 mg/dl (9-20); Carbon Dioxide 27 mmol/L (22.0-30.0); Creatinine Clearance Estimated 97 mL/min (50-200); Estimated Glomerular Filt Rate 60 ml/min (>60); GFR (African American) 73 ML/MIN (>60); Globulin 2.5 g/dL (1.3-3.2); Hematocrit 36.5 % (42.0-52.0); Lymphocytes % 6.5 % (10-50); Mean Corpuscular HGB Conc 32.6 g/dL (31.8-35.4); Mean Corpuscular Hemoglobin 30.9 pg (27.0-31.2); Mean Corpuscular Volume 94.7 fl (80-94); Monocytes # 0.4 K/mm3 (0.1-1.0); Monocytes % 3.5 % (1.7-9.3); Neutrophils # 9.4 K/mm3 (1.8-7.8); Neutrophils % 89.4 % (37.0-80.0); Platelet Count 119 K/mm3 (142-424); Red Blood Count 3.85 M/mm3 (4.60-6.20); Red Cell Distribution Width 14.4 % (11.5-17.5); Total Protein,Serum 5.4 g/dl (6.3-8.2); White Blood Count 10.5 K/mm3 (4.8-10.8)
[2024-02-14 06:36] LABS: Calcium 7.7 mg/dl (8.4-10.2); Glucose 185 mg/dl (74-100); Hemoglobin 11.9 g/dL (14.1-18.0); MANUAL DIFFERENTIAL MANUAL DIFFERENTIAL (MANUAL DIFF)
[2024-02-14 07:05] LABS: Lymphocytes % 7 % (10-50); Monocytes % 3 % (2-9); Neutrophils % 75 % (42-76); Total Cells Counted 100
[2024-02-14 07:06] LABS: Platelet Estimate Slight Decrease; RBC Morphology Normal
[2024-02-14] MEDS: ASPIRIN EC 81MG TABLET 81 MG PO (09:40)
[2024-02-14] MEDS: ARIPiprazole 10MG TABLET 30 MG PO (09:40)
[2024-02-14] MEDS: ENOXAPARIN 40MG/0.4ML SYRINGE 40 MG SUBCUT (09:41)
[2024-02-14] MEDS: GABAPENTIN 100MG CAPSULE 100 MG PO ×2 (09:41→21:03)
[2024-02-14] MEDS: PANTOPRAZOLE 40MG VIAL 40 MG IV ×2 (09:42→21:03)
[2024-02-14] MEDS: SODIUM CHLORIDE 0.9% 10ML VIAL 10 ML IV ×2 (09:42→21:03)
[2024-02-14 11:30] LABS: POC Glucose,Bedside 171 (70-110)
[2024-02-14] MEDS: GUAIFENESIN/DEXTROMETHORPHAN 200MG/20MG 10ML UDC 10 ML PO (12:42)
--- NOTE | 2024-02-14 16:13 | P.PN_ITS ---
Subjective *Date: 02/14/24 *Time: 16:13 Exam Data for Last 24 hours Vital signs and Labs for Last 24 Hours: Temp Pulse Resp BP Pulse Ox O2 Del Method O2 Flow Rate 98.8 F 88 20 120/53 L 97 Nasal Cannula 2 02/14/24 12:00 02/14/24 14:00 02/14/24 14:00 02/14/24 14:00 02/14/24 14:00 02/14/24 15:00 02/14/24 15:00 FiO2 100 02/13/24 09:25 Laboratory Results - last 24 hr 02/13/24 20:36: POC Glucose 163 H 02/13/24 21:48: Specimen Source Left radial, O2 % 3l nc, ABG pH 7.41, ABG pCO2 42.0, ABG pO2 61.9 L, ABG HCO3 25.9, ABG Total CO2 27.2 H, ABG O2 Saturation 93, ABG Base Excess 1.2, Real Test Acceptable 02/13/24 22:05: Vancomycin Trough 18.6 H 02/13/24 22:26: POC Glucose 160 H 02/14/24 01:05: Specimen Source Left radial, O2 % 4l nc, ABG pH 7.38, ABG pCO2 45.6 H, ABG pO2 76.0 L, ABG HCO3 26.6 H, ABG Total CO2 28.0 H, ABG O2 Saturation 95, ABG Base Excess 1.6, Real Test Acceptable 02/14/24 05:34: POC Glucose 156 H 02/14/24 06:00: WBC 10.5, RBC 3.85 L, Hgb 11.9 L D, Hct 36.5 L, MCV 94.7 H, MCH 30.9, MCHC 32.6, RDW 14.4, Plt Count 119 L, MPV 8.2, Neut % (Auto) 89.4 H, Lymph % (Auto) 6.5 L, Major % (Auto) 3.5, Eos % (Auto) 0.1, Baso % (Auto) 0.5, Neut # (Auto) 9.4 H, Lymph # (Auto) 0.7, Major # (Auto) 0.4, Eos # (Auto) 0.0, Baso # (Auto) 0.1, Total Counted 100, Neutrophils % (Manual) 75, Band Neutrophils % 15.0 H, Lymphocytes % (Manual) 7 L, Monocytes % (Manual) 3, Platelet Estimate Slight decrease, RBC Morphology Normal, Sodium 136, Potassium 3.6, Chloride 104, Carbon Dioxide 27, Anion Gap 8.6, BUN 29 H D, Creatinine 1.20, Estimated Creat Clear 97, Estimated GFR 60, Est GFR ( Amer) 73, Glucose 185 H, Calcium 7.7 L, Total Bilirubin 0.6, AST 62 H, ALT 32 D, Alkaline Phosphatase 95, Total Protein 5.4 L, Albumin 2.9 L D, Globulin 2.5, Albumin/Globulin Ratio 1.2 02/14/24 11:23: POC Glucose 171 H I & O for Last 24 hours: Intake & Output 02/11/24 02/12/24 02/13/24 02/14/24 23:59 23:59 23:59 23:59 Intake Total 1640 / 1640 1050 / 1050 Output Total 0 / 450 450 / 450 400 / 400 Balance 0 / 950 1190 / 1190 650 / 650 Weight 117.934 kg 118 kg 118 kg Microbiology Reports for the Last 24 Hours: Microbiology 02/12/24 12:03 Blood Blood Culture - Preliminary NO GROWTH AFTER 48 HOURS 02/12/24 12:03 Blood Blood Culture - Final Strep dysgalactiae ssp equisi Constitutional Constitutional: no acute distress Comments: Flat affect. *Routine HEENT Exam Head: Present normocephalic Eye: Present EOMI and PERRL ENT: Present mucous membranes moist *Routine Neck Exam Neck: Present supple; Absent lymphadenopathy *Routine Respiratory Exam Respiratory: Present CTA bilaterally *Routine Cardiovascular Exam Cardiovascular: Present RRR *Routine Abdominal Exam Abdominal: Present soft and normoactive bowel sounds; Absent tenderness *Routine Extremities Exam Extremities: Present tenderness; Absent cyanosis, clubbing or edema Comments: Right lower extremity erythema. *Routine Skin Exam Skin: Present warm; Absent rash *Routine Neurological Exam Neurological: Present alert Assessment and Plan *Assessment and plan (1) Severe sepsis: Status: Acute Category: Medical Code(s): A41.9 - Sepsis, unspecified organism; R65.20 - Severe sepsis without septic shock (2) Diarrhea: Status: Acute Category: Medical Code(s): R19.7 - Diarrhea, unspecified (3) Cellulitis: Status: Acute Category: Medical Code(s): L03.90 - Cellulitis, unspecified (4) UTI (urinary tract infection): Status: Acute Category: Medical Code(s): N39.0 - Urinary tract infection, site not specified Plan Miles Arango is a 68-year-old male with a medical history significant for uncontrolled insulin-dependent diabetes, schizophrenia, hypertension, hyperlipidemia, peripheral neuropathy who presents with worsening diarrhea for 1 month. Patient is a poor historian at this time given malaise so most history was obtained via chart review. Apparently he has been having diarrhea for about a month that has been getting worse recently. He also endorses generalized weakness, but denies chest pain, shortness of breath, abdominal pain. On arrival, patient was tachycardic to 115 but other vitals relatively stable. Workup in the ED significant for WBC 16.1, glucose 333, lactate 5.6, troponin 0.06. UA somewhat suggestive of UTI. CT does not show acute findings, neither does CXR. Case discussed with ED provider and decision was made to admit gaston renae for severe sepsis secondary to cellulitis, UTI. Of note, patient was admitted last month for similar presentation and found to be bacteremic. #Severe sepsis #Strep dysgalactiae bacteremia #Suspected cellulitis, UTI ? There is right lower extremity erythema, tenderness, warmth without obvious skin abrasions. ? UA also suggestive of UTI. ? Initial WBC 16.1, lactate 5.6, tachycardia up to 120, tachypneic 22. Received 2 L sepsis bolus. ? Had bacteremia with Strep dysgalactiae last month. - WBC improved to 12.5 today. ? Blood culture on 02/13 revealed Strep dysgalactiae bacteremia, though only 1 out of 2 bottles. Sensitive to ceftriaxone. ? Follow-up repeat blood cultures. ? Started ceftriaxone day 06/25 coverage. Discontinued vancomycin, cefepime. ? Continue LR at 75 mL/h. ? Follow-up blood, urine cultures. ? Follow-up right lower extremity venous Doppler to rule out DVT. #Acute on chronic normocytic anemia ? Drop in hemoglobin from 15.1 to 11.9 today. ? BUN increased from 20-29 today. ? No gross GI bleed evidenced during admission. ? Follow-up FOBT. ? Follow-up H&H in the afternoon. #Aspiration #Nausea/vomiting - Patient has had multiple episodes of N/V, resulting in aspiration. - CTA showed distal esophageal edema which may represent acid reflux. - CT A/p did not show acute process. ? Patient again had aspiration event after p.o. challenge with bedside swallow then clear liquid diet today. - Npo for now. Will need TELEPHONE SOLICITOR SUPERVISOR evaluation. - IV protonix 40mg BID. #Insulin-dependent diabetes ? Lantus 30 units nightly. Uptitrate based on SSI needs. ? LDSSI, ACHS glucose checks. Chronic medical problems: #Schizophrenia #Hypertension #Peripheral neuropathy ? Resumed home oxcarbazepine, Abilify, gabapentin, sertraline. ? Resume other home medications once reconciled. Full code DVT prophylaxis: Lovenox Diabetic diet
[2024-02-14] MEDS: IPRATROPIUM/ALBUTEROL 3 ML NEB IH (16:24)
[2024-02-14] MEDS: SODIUM CHLORIDE 3% 15ML NEB 15 ML IH (16:25)
[2024-02-14] MEDS: NYSTATIN TOPICAL POWDER 30GM TP ×2 (16:46→17:49)
[2024-02-14 16:47] LABS: Hematocrit 29.7 % (42.0-52.0); Hemoglobin 11.3 g/dL (14.1-18.0)
[2024-02-14] MEDS: humaLOG 100 UNITS/ML 10ML VIAL (SSI) SUBCUT (17:19)
[2024-02-14 17:30] LABS: POC Glucose,Bedside 227 (70-110)
--- NOTE | 2024-02-14 17:46 | PC.NURSE ---
Patient remains A/O to self and place, can voice needs to staff. Patient up to chair for several hours to day requiring max assist x 2 for transfers. Continues of IV Atb therapy for sepsis with no ADR;s noted. Reviewed POC, d/c goals, deep breathing and pursed lip breathing with patient, educated on repositioning, use of call light for assist. Pt v/u and has no new c/o
[2024-02-14] MEDS: LACTATED RINGERS 1000ML 1,000 ML 50 ML IV (17:49)
[2024-02-14 20:06] LABS: POC Glucose,Bedside 191 (70-110)
[2024-02-14] MEDS: SERTRALINE 100MG TABLET 100 MG PO (21:02)
[2024-02-14] MEDS: PRAVASTATIN 40MG TAB 80 MG PO (21:02)
[2024-02-15] VITALS (7 sets, daily range): BP systolic 121–155; BP diastolic 63–87; PULSE 80–100; RESP 17–18; TEMP 36.8–37; O2SAT 90–98; BMI 36.3
[2024-02-15] MEDS: GUAIFENESIN/DEXTROMETHORPHAN 200MG/20MG 10ML UDC 10 ML PO ×2 (02:31→12:29)
[2024-02-15] MEDS: AMPICILLIN SODIUM/SULBACTAM 3 GM in 0.9 % SODIUM CHLORIDE 100 ML IV ×4 (04:03→22:41)
[2024-02-15] MEDS: humaLOG 100 UNITS/ML 10ML VIAL (SSI) SUBCUT ×3 (05:07→16:03)
[2024-02-15 05:08] LABS: POC Glucose,Bedside 235 (70-110)
[2024-02-15 06:55] LABS: Basophils % 0.4 % (0.1-2.0); Eosinophils % 0.3 % (0.1-12.0); Hematocrit 34.3 % (42.0-52.0); Hemoglobin 11.6 g/dL (14.1-18.0); Lymphocytes # 0.8 K/mm3 (0.7-4.5); Lymphocytes % 10.6 % (10-50); Mean Corpuscular HGB Conc 33.7 g/dL (31.8-35.4); Mean Corpuscular Hemoglobin 31.4 pg (27.0-31.2); Mean Platelet Volume 8.4 fl (7.4-10.4); Monocytes # 0.4 K/mm3 (0.1-1.0); Neutrophils # 6.6 K/mm3 (1.8-7.8); Neutrophils % 83.7 % (37.0-80.0); Platelet Count 128 K/mm3 (142-424); Red Blood Count 3.69 M/mm3 (4.60-6.20); Red Cell Distribution Width 14.3 % (11.5-17.5); White Blood Count 7.9 K/mm3 (4.8-10.8)
[2024-02-15 07:04] LABS: Alanine Aminotransferase 33 U/L (12-78); Albumin Level 3.1 g/dl (3.5-5.0); Albumin/Globulin Ratio 1.2 (1.1-1.8); Alkaline Phosphatase 104 U/L (38-126); Anion Gap 8.8 mEq/L (5-15); Aspartate Amino Transferase 55 U/L (17-59); Bilirubin,Total 0.6 mg/dl (0.2-1.3); Blood Urea Nitrogen 24 mg/dl (9-20); Carbon Dioxide 29 mmol/L (22.0-30.0); Chloride 103 mmol/L (98-107); Creatinine Clearance Estimated 116 mL/min (50-200); Estimated Glomerular Filt Rate 84 ml/min (>60); GFR (African American) 101 ML/MIN (>60); Globulin 2.6 g/dL (1.3-3.2); Glucose 196 mg/dl (74-100); Potassium 3.8 mmoL/L (3.5-5.1); Sodium 137 mmol/L (136-145); Total Protein,Serum 5.7 g/dl (6.3-8.2)
[2024-02-15 07:06] LABS: Occult Blood,Stool Negative (Negative)
[2024-02-15] MEDS: ENOXAPARIN 40MG/0.4ML SYRINGE 40 MG SUBCUT ×2 (08:22→15:58)
[2024-02-15] MEDS: SODIUM CHLORIDE 0.9% 10ML VIAL 10 ML IV ×2 (08:23→21:00)
[2024-02-15] MEDS: PANTOPRAZOLE 40MG VIAL 40 MG IV ×2 (08:23→21:00)
[2024-02-15 11:27] LABS: POC Glucose,Bedside 173 (70-110)
[2024-02-15] MEDS: NYSTATIN TOPICAL POWDER 30GM TP (12:30)
--- NOTE | 2024-02-15 14:56 | EXP.PN ---
Subjective *Date: 02/15/24 *Time: 14:56 Interval history: Patient states he feels well today, no acute concerns. No chest pain, shortness of breath. No evidence of GI bleed. N.p.o. for now. No signs of aspiration at this time Exam Data for Last 24 hours Vital signs and Labs for Last 24 Hours: Temp Pulse Resp BP Pulse Ox O2 Del Method O2 Flow Rate 98.2 F 88 18 151/75 H 91 L Room Air 1 02/15/24 12:00 02/15/24 12:00 02/15/24 12:00 02/15/24 12:00 02/15/24 12:00 02/15/24 13:05 02/15/24 04:41 FiO2 100 02/13/24 09:25 Laboratory Results - last 24 hr 02/14/24 16:27: Hgb 11.3 L, Hct 29.7 L 02/14/24 17:12: POC Glucose 227 H 02/14/24 19:46: POC Glucose 191 H 02/15/24 02:21: Stool Occult Blood Negative 02/15/24 05:01: POC Glucose 235 H 02/15/24 05:58: WBC 7.9, RBC 3.69 L, Hgb 11.6 L, Hct 34.3 L, MCV 93.0, MCH 31.4 H, MCHC 33.7, RDW 14.3, Plt Count 128 L, MPV 8.4, Neut % (Auto) 83.7 H, Lymph % (Auto) 10.6, [place] % (Auto) 5.0, Eos % (Auto) 0.3, Baso % (Auto) 0.4, Neut # (Auto) 6.6, Lymph # (Auto) 0.8, [place] # (Auto) 0.4, Eos # (Auto) 0.0, Baso # (Auto) 0.0, Sodium 137, Potassium 3.8, Chloride 103, Carbon Dioxide 29, Anion Gap 8.8, BUN 24 H, Creatinine 0.90 D, Estimated Creat Clear 116, Estimated GFR 84, Est GFR ( Amer) 101 D, Glucose 196 H, Calcium 8.0 L, Total Bilirubin 0.6, AST 55, ALT 33, Alkaline Phosphatase 104, Total Protein 5.7 L, Albumin 3.1 L, Globulin 2.6, Albumin/Globulin Ratio 1.2 02/15/24 11:09: POC Glucose 173 H I & O for Last 24 hours: Intake & Output 02/12/24 02/13/24 02/14/24 02/15/24 23:59 23:59 23:59 22:59 Intake Total 1640 / 1640 1050 / 1300 608 / 608 Output Total 0 / 450 450 / 450 400 / 400 0 / 0 Balance 0 / 950 1190 / 1190 650 / 900 608 / 608 Weight 117.934 kg 118 kg 118 kg 118 kg Microbiology Reports for the Last 24 Hours: Microbiology 02/14/24 08:37 Blood Blood Culture - Preliminary NO GROWTH AFTER 24 HOURS 02/14/24 08:39 Blood Blood Culture - Preliminary NO GROWTH AFTER 24 HOURS 02/12/24 21:58 Urine,Clean Catch Urine Culture - Final No growth. 02/12/24 12:03 Blood Blood Culture - Preliminary NO GROWTH AFTER 48 HOURS Constitutional Constitutional: no acute distress Comments: Flat affect. *Routine HEENT Exam Head: Present normocephalic Eye: Present EOMI and PERRL ENT: Present mucous membranes moist *Routine Neck Exam Neck: Present supple; Absent lymphadenopathy *Routine Respiratory Exam Respiratory: Present CTA bilaterally *Routine Cardiovascular Exam Cardiovascular: Present RRR *Routine Abdominal Exam Abdominal: Present soft and normoactive bowel sounds; Absent tenderness *Routine Extremities Exam Extremities: Present tenderness; Absent cyanosis, clubbing or edema Comments: Right lower extremity erythema. *Routine Skin Exam Skin: Present warm; Absent rash *Routine Neurological Exam Neurological: Present alert Assessment and Plan *Assessment and plan (1) Severe sepsis: Status: Acute Category: Medical Code(s): A41.9 - Sepsis, unspecified organism; R65.20 - Severe sepsis without septic shock (2) Diarrhea: Status: Acute Category: Medical Code(s): R19.7 - Diarrhea, unspecified (3) Cellulitis: Status: Acute Category: Medical Code(s): L03.90 - Cellulitis, unspecified (4) UTI (urinary tract infection): Status: Acute Category: Medical Code(s): N39.0 - Urinary tract infection, site not specified Plan Miles Arango is a 68-year-old male with a medical history significant for uncontrolled insulin-dependent diabetes, schizophrenia, hypertension, hyperlipidemia, peripheral neuropathy who presents with worsening diarrhea for 1 month. Patient is a poor historian at this time given malaise so most history was obtained via chart review. Apparently he has been having diarrhea for about a month that has been getting worse recently. He also endorses generalized weakness, but denies chest pain, shortness of breath, abdominal pain. On arrival, patient was tachycardic to 115 but other vitals relatively stable. Workup in the ED significant for WBC 16.1, glucose 333, lactate 5.6, troponin 0.06. UA somewhat suggestive of UTI. CT does not show acute findings, neither does CXR. Case discussed with ED provider and decision was made to admit patient for severe sepsis secondary to cellulitis, UTI. Of note, patient was admitted last month for similar presentation and found to be bacteremic. #Severe sepsis #Strep dysgalactiae bacteremia ? There is right lower extremity erythema, tenderness, warmth without obvious skin abrasions. ? UA also suggestive of UTI, but urine culture is normal. ? Initial WBC 16.1, lactate 5.6, tachycardia up to 120, tachypneic 22. Received 2 L sepsis bolus. ? Had bacteremia with Strep dysgalactiae last month. - WBC improved to 7.9 today. ? Blood culture on 02/13 revealed Strep dysgalactiae bacteremia, though only 1 out of 2 bottles. Sensitive to ceftriaxone. ? Follow-up repeat blood cultures. ? Continue ceftriaxone day 4 coverage for bacteremia. Discontinued vancomycin, cefepime. ? Continue LR at 75 mL/h. #Suspected DVT ? Right lower extremity erythema is not improving with antibiotics. Follow-up right lower extremity venous Doppler to rule out DVT. ? Started therapeutic Lovenox until Doppler results. #Acute on chronic normocytic anemia ? Initial 15.1, however hemoglobin stable at 11.6 today. Likely from hemoconcentration initially. ? BUN decreased from 29-24 today. ? No gross GI bleed evidenced during admission. ? FOBT normal. #Aspiration #Nausea/vomiting - Patient has had multiple episodes of N/V, resulting in aspiration. - CTA showed distal esophageal edema which may represent acid reflux. - CT A/p did not show acute process. ? Performing serial bedside swallow studies today. No signs of aspiration today. Consider clear liquid diet tomorrow - Npo for now. Will need INSTANT POWDER SUPERVISOR evaluation. - IV protonix 40mg BID. #Insulin-dependent diabetes ? Lantus 30 units nightly. Uptitrate based on SSI needs. ? LDSSI, ACHS glucose checks. Chronic medical problems: #Schizophrenia #Hypertension #Peripheral neuropathy ? Resumed home oxcarbazepine, Abilify, gabapentin, sertraline. ? Resume other home medications once reconciled. Full code DVT prophylaxis: Lovenox Diabetic diet
[2024-02-15] MEDS: LACTATED RINGERS 1000ML 1,000 ML 75 ML IV (16:15)
--- NOTE | 2024-02-15 18:08 | CT_ITS ---
PROCEDURE INFORMATION: Exam: CT Right Lower Extremity, Foot Exam date and time: 02/15/2024 7:40 PM Age: 68 years old Clinical indication: Edema and swelling, leg or foot; No, it is generalized; Additional info: Worsening erythema, swelling TECHNIQUE: Imaging protocol: CT of the right lower extremity with intravenous contrast was performed. Exam focused on the foot. Radiation optimization: All CT scans at this facility use at least one of these dose optimization techniques: automated exposure control; mA and/or kV adjustment per patient size (includes targeted exams where dose is matched to clinical indication); or iterative reconstruction. Contrast material: ISOVUE; Contrast volume: 120 ml; Contrast route: IV; COMPARISON: CT LOWER LEG RT W CON 02/15/2024 7:40 PM FINDINGS: Bones/joints: No fracture or destructive lesion. Small posterior and plantar surface calcaneal bone spurs. Mild degenerative changes in the tarsometatarsal joints. Soft tissues: Diffuse skin thickening and subcutaneous edema. IMPRESSION: 1. Diffuse skin thickening and subcutaneous edema. 2. No acute osseous abnormality.
--- NOTE | 2024-02-15 18:50 | CT_ITS ---
PROCEDURE INFORMATION: Exam: CT Right Lower Extremity, Leg Exam date and time: 02/15/2024 7:40 PM Age: 68 years old Clinical indication: Edema and weakness; No, it is generalized; Additional info: Worsening erythema, swelling TECHNIQUE: Imaging protocol: CT of the right lower extremity with intravenous contrast was performed. Exam focused on the lower leg. Radiation optimization: All CT scans at this facility use at least one of these dose optimization techniques: automated exposure control; mA and/or kV adjustment per patient size (includes targeted exams where dose is matched to clinical indication); or iterative reconstruction. Contrast material: ISOVUE; Contrast volume: 120 ml; Contrast route: IV; COMPARISON: CT FOOT RT W CON 02/15/2024 7:40 PM FINDINGS: Bones/joints: No fracture or destructive lesion. Severe degenerative change in the medial compartment of the knee with multiple subchondral cysts and subchondral sclerosis at the medial tibial plateau. Mild degenerative change in the patellofemoral compartment. Small knee joint effusion. Soft tissues: Mid to distal lower leg skin thickening and subcutaneous edema. Vasculature: Mild atherosclerotic disease. Scattered venous varices. IMPRESSION: 1. Mid to distal lower leg skin thickening and subcutaneous edema. 2. No acute osseous abnormality.
[2024-02-15] MEDS: IOPAMIDOL-370 (76%);100ML BOTTLE 120 ML IV (18:55)
[2024-02-15] MEDS: SODIUM CHLORIDE 0.9% 10ML SYR (RAD ONLY) 10 ML IV (18:55)
[2024-02-15] MEDS: 0.9 % SODIUM CHLORIDE 50 ML VIAL 40 ML IV (18:55)
[2024-02-15] MEDS: VANCOMYCIN CONSULT REQUEST 1 EACH NOTAPPLIC (19:30)
[2024-02-15 20:08] LABS: POC Glucose,Bedside 145 (70-110)
[2024-02-15] MEDS: VANCOMYCIN HCL 2,500 MG in 0.9 % SODIUM CHLORIDE 250 ML 125 MG IV (20:57)
[2024-02-15] MEDS: ENOXAPARIN 100MG/ML SYRINGE 120 MG SUBCUT (20:58)
--- NOTE | 2024-02-15 22:25 | PC.NURSE ---
Call placed to [facility] around 1929 for Vanc consult. Spoke with Khushi
[2024-02-15] MEDS: PROMETHAZINE HCL 25MG/ML 1ML VIAL 12.5 MG IV (22:40)
[2024-02-16] VITALS (7 sets, daily range): BP systolic 143–169; BP diastolic 68–85; PULSE 67–93; RESP 16–24; TEMP 36.4–36.9; O2SAT 94–96; BMI 36.3
[2024-02-16] MEDS: LORazepam 2MG/ML VIAL 1 MG IV (01:36)
[2024-02-16] MEDS: AMPICILLIN SODIUM/SULBACTAM 3 GM in 0.9 % SODIUM CHLORIDE 100 ML IV ×4 (04:08→22:20)
--- NOTE | 2024-02-16 05:03 | PC.NURSE ---
68 yo male pt has been confused most the the shift. He is oriented to name only. Pt has been very restless and attempted to get OOB numerous times. Pt was medicated with phenergan per MAR for nausea and Ativan for restless. After Ativan, pt slept well for a while. He has been up to [facility] several times for void but legs weaker and concerning for safety. [place] on . No BM this shift.
[2024-02-16 05:39] LABS: POC Glucose,Bedside 161 (70-110)
[2024-02-16 07:31] LABS: Basophils % 0.6 % (0.1-2.0); Eosinophils % 0.6 % (0.1-12.0); Hematocrit 31.8 % (42.0-52.0); Hemoglobin 10.8 g/dL (14.1-18.0); Lymphocytes # 1.1 K/mm3 (0.7-4.5); Lymphocytes % 16.2 % (10-50); Mean Corpuscular HGB Conc 34.1 g/dL (31.8-35.4); Mean Corpuscular Hemoglobin 32.2 pg (27.0-31.2); Mean Corpuscular Volume 94.4 fl (80-94); Mean Platelet Volume 9.5 fl (7.4-10.4); Monocytes # 0.6 K/mm3 (0.1-1.0); Monocytes % 9.2 % (1.7-9.3); Neutrophils # 4.9 K/mm3 (1.8-7.8); Neutrophils % 73.5 % (37.0-80.0); Platelet Count 82 K/mm3 (142-424); Red Blood Count 3.37 M/mm3 (4.60-6.20); Red Cell Distribution Width 14.4 % (11.5-17.5); White Blood Count 6.7 K/mm3 (4.8-10.8)
[2024-02-16 07:59] LABS: Alanine Aminotransferase 30 U/L (12-78); Albumin Level 2.8 g/dl (3.5-5.0); Albumin/Globulin Ratio 1.2 (1.1-1.8); Alkaline Phosphatase 86 U/L (38-126); Anion Gap 13.5 mEq/L (5-15); Aspartate Amino Transferase 64 U/L (17-59); Bilirubin,Total 0.8 mg/dl (0.2-1.3); Blood Urea Nitrogen 16 mg/dl (9-20); Carbon Dioxide 21 mmol/L (22.0-30.0); Chloride 107 mmol/L (98-107); Creatinine Clearance Estimated 116 mL/min (50-200); Estimated Glomerular Filt Rate 112 ml/min (>60); GFR (African American) 135 ML/MIN (>60); Globulin 2.3 g/dL (1.3-3.2); Glucose 149 mg/dl (74-100); Potassium 4.5 mmoL/L (3.5-5.1); Sodium 137 mmol/L (136-145); Total Protein,Serum 5.1 g/dl (6.3-8.2)
[2024-02-16] MEDS: VANCOMYCIN/WATER FOR INJ (PEG) 1.75 GM/350 ML PIGGYBACK IV ×2 (08:55→20:07)
[2024-02-16] MEDS: SODIUM CHLORIDE 0.9% 10ML VIAL 10 ML IV (09:01)
[2024-02-16] MEDS: PANTOPRAZOLE 40MG VIAL 40 MG IV ×2 (09:01→20:06)
[2024-02-16] MEDS: ENOXAPARIN 120MG/0.8ML SYRINGE 120 MG SUBCUT ×2 (09:02→20:05)
[2024-02-16] MEDS: GABAPENTIN 100MG CAPSULE 100 MG PO ×2 (09:06→20:05)
[2024-02-16] MEDS: ASPIRIN EC 81MG TABLET 81 MG PO (09:06)
[2024-02-16] MEDS: ARIPiprazole 10MG TABLET 30 MG PO (09:06)
[2024-02-16] MEDS: LISINOPRIL 10MG TABLET 30 MG PO (09:08)
--- NOTE | 2024-02-16 10:17 | HMH.OTEV ---
OT Inpatient Evaluation Rehab OT IP Evaluation Start: 02/16/24 09:24 Freq: ONCE Status: Active Protocol: Document 02/16/24 10:01 IRON (Rec: 02/16/24 10:16 IRON Desktop) Rehab OT IP Assessment Subjective History Miles Arango is a 68-year-old male with a medical history significant for uncontrolled insulin-dependent diabetes, schizophrenia, hypertension, hyperlipidemia, peripheral neuropathy who presents with worsening diarrhea for 1 month . Patient is a poor historian at this time given malaise so most history was obtained via chart review. Apparently he has been having diarrhea for about a month that has been getting worse recently. He also endorses generalized weakness, but denies chest pain, shortness of breath, abdominal pain. On arrival, patient was tachycardic to 115 but other vitals relatively stable. Workup in the ED significant for WBC 16.1, glucose 333, lactate 5.6, troponin 0.06. UA somewhat suggestive of UTI. CT does not show acute findings, neither does CXR. Case discussed with ED provider and decision was made to admit patient for severe sepsis secondary to cellulitis, UTI. Of note, patient was admitted last month for similar presentation and found to be bacteremic. Patient currently lives in a personal intermediate. Patient reported not using AE/devices to complete fx'l transfers and ADLs. Subjective I just feel weak. Instructed Patient on proper hand and foot placement to complete bed mobility from supine->sit @ EOB-> requiring Min A. Patient demonstrated good dynamic sitting balance while sitting @ EOB. Instructed Patient on proper hand and foot placement to complete SPT from EOB-> recliner with needing Mod A x2 . Left Patient sitting upright in recliner with needs met. Objective Patient Orientation Person,Name,Birthday Right Upper Extremity Gross ROM WNL Left Upper Extremity Gross ROM WNL Bed Mobility bed mobility-scooting Assist Level Minimal x 1 (25% assist) Transfer Training Sit/Stand/Pivot Transfer Assist Level Moderate x 2 (50% assist) Rehab OT IP prob,goals,plan Problems Date of Evaluation: 02/16/24 OT IP Problems Bed Mobility,Transfers,Balance ,Self care,Safety Rehab Potential Rehab Potential Good Equipment Needs Assistive Devices Rolling / Wheeled Walker Plan OT intervention Plan Bed Mobility,Transfers,Balance ,Self care,Safety OT Plan Frequency Daily Duration LOS Discharge Goals Bed Mobility Ability Standby Assistance Sit to Stand Chair Transfer Ability Moderate x 1 (50% assist) Chair Transfer Ability Moderate x 1 (50% assist) Chair Transfer Technique Sit to/from Ambulatory Chair Transfer Assistive Devices Rolling Walker Discharge Plan OT Discharge Plan Recommend placement at this time. Patient to continue skilled OT IP services while here at [facility]. Eval Complexity Eval Charge Codes 58272 - Low Complexity PHYSICIAN CERTIFICATION: I certify the specified therapy services for Miles Vázquez are required, authorized, and reviewed every 30 days.
[2024-02-16 11:08] LABS: POC Glucose,Bedside 184 (70-110)
--- NOTE | 2024-02-16 11:19 | HMH.SLDYSPHA ---
Speech & Language Evaluation Speech/Language Dysphagia Evaluation Start: 02/16/24 09:39 Freq: ONCE Status: Active Protocol: Document 02/16/24 09:39 TAVO (Rec: 02/16/24 11:18 MSTEWSHANTE Laptop) Dysphagia Assess/Goals/Plan Assessment Date of Evaluation: 02/16/24 Evaluation Type Initial Certification Assessment/Problems dysphagia per MD order Does Patient Qualify for Service Yes Qualify/Failure Comment Based on clinical bedside swallow evaluation, pt's mastication and manipulation of bolus and swallowing appear to be WFL. CUSTOM MARINE CANVAS FABRICATOR will f/u for diet tolerance. Recommendations PHYSICIAN CERTIFICATION: The specified therapy services are required, authorized, and reviewed every 30 days. Diet Recommendations Normal Liquid Type Recommendations Normal/Thin SL Swallow Guidelines Alt bite w/sip thru meal, Standard Aspiration Prec., Reflux precautions Dysphagia Swallow Precautions/Strategies Sitting Upright (90 deg), Double Swallow,Small Bites and Sips,Alternate Liquids/Solids Plan Pt/Guardian verbally ack understanding Yes of dx/prognosis/goals G -code Required No Education Instructions provided Discussed CSE results, diet recommendations, aspiration precautions, and compensatory strategies with pt, nursing, and care management all of which expressed understanding. Pt/Caregiver able to recall information Able to recall/restate Reinforcement needed No Speech & Language HPI History Present Illness Description of Patient Problem CUSTOM MARINE CANVAS FABRICATOR pulled following information from h&p and chart review, Miles Arango is a 68- year-old male with a medical history significant for uncontrolled insulin-dependent diabetes, schizophrenia, hypertension, hyperlipidemia, peripheral neuropathy who presents with worsening diarrhea for 1 month. Patient is a poor historian at this time given malaise so most history was obtained via chart review. Apparently he has been having diarrhea for about a month that has been getting worse recently. He also endorses generalized weakness, but denies chest pain, shortness of breath, abdominal pain. On arrival, patient was tachycardic to 115 but other vitals relatively stable . Workup in the ED significant for WBC 16.1, glucose 333, lactate 5.6, troponin 0.06. UA somewhat suggestive of UTI. CT does not show acute findings, neither does CXR. Case discussed with ED provider and decision was made to admit patient for severe sepsis secondary to cellulitis, UTI. Of note, patient was admitted last month for similar presentation and found to be bacteremic. CXR reports Mild bibasilar ground-glass opacities could be atelectasis or pneumonia. Pt/Caregiver Concerns Pt reported no concerns/ difficulties with eating/ drinking, swallowing, or with medication prior to admission. General Information General Current Food Consistancy NPO Dentition Good Dentition Oxygen Status Nasal Cannula Patient Orientation Person,Place,Situation Ability to Follow Directions Good Communication Ability Mild Impairment Dysphagia:Food Presentation Evaluation Food Type Pureed,Mechanical Soft,Regular ,Liquid,Pudding Dysphagia Evaluation Summary Pt was seen sitting upright in bed for CSE. Extensive oral care was provided prior to presenting bolus trials. Pt had a nonproductive cough at baseline per nursing and pt report. He stated he had a cough for 3-4 weeks. All trials presented 2-3x/trial to assess for consistency and/or fatigue. He was administered the following bolus consistencies: thin liquid ( ice chips, spoonful of water, open cup/straw sip, two consecutive sips via open cup/ straw), pudding, puree, mechanical soft(soft baked cookie), and regular (mallika cracker.) No overt s/sxs of aspiration were noted. Diet recommendations include regular solids with thin liquid diet with standard aspiration precautions and implementation of puree wash. CUSTOM MARINE CANVAS FABRICATOR reviewed with pt and he expressed understanding. CUSTOM MARINE CANVAS FABRICATOR will f/u for diet texture analysis and diet tolerance. Otherwise, no further skilled speech therapy services are warranted at this time. Stroke Dysphagia Assessment PHYSICIAN CERTIFICATION: I certify the specified therapy services for Miles Vázquez are required, authorized, and reviewed every 30 days.
--- NOTE | 2024-02-16 11:22 | SW/DCPLANNER ---
Addendum entered by Anjali [place] 02/18/24 07:50: Per Jaimie patient is approved SNF level of care. I have updated and Yesenia reyez/ [facility]. Patient will discharge today. Addendum entered by Anjali Valadez 02/17/24 13:05: Per Jaimie precert is still pending at this time. Addendum entered by Anjali [place] 02/16/24 14:46: Jaimie reyez/ [facility] can accept patient and will start auth today. I will update patient regarding discharge plans. Original Note: I spoke w/ patient regarding plans once medically stable for discharge. Patient was residing at [facility] prior to admission. PT/OT evaluated patient and recommended SNF level of care at time of discharge. Patient is alert and oriented able to answer questions appropriately while I spoke w/ him this AM. Patient is agreeable to placement at this time and does not have a preference. I will fax information to the following facilities: [facility], [facility] and [facility]. I have also updated Yesenia reyez/ [facility]. Discharge date is unknown at this time. I will continue to follow up.
[2024-02-16] MEDS: humaLOG 100 UNITS/ML 10ML VIAL (SSI) SUBCUT ×3 (11:34→20:06)
[2024-02-16] MEDS: LACTATED RINGERS 1000ML 1,000 ML 75 ML IV (11:35)
--- NOTE | 2024-02-16 12:07 | PC.NURSE ---
Addendum entered by Anya Reynoso RN 02/16/24 12:16: wardrobe manager called. pt was 88 on room air while at rest. pt placed back on 2L Original Note: PT IS 91% ON ROOM AIR WHILE AT REST.
--- NOTE | 2024-02-16 12:23 | P.CONS_ITS ---
History of Present Illness *Admission Date: 02/12/24 *History of present illness: Miles Arango is a 68-year-old male with a medical history significant for uncontrolled insulin-dependent diabetes, schizophrenia, hypertension, hyperlipidemia, peripheral neuropathy who presents with worsening diarrhea for 1 month. Patient is a poor historian at this time given malaise so most history was obtained via chart review. Apparently he has been having diarrhea for about a month that has been getting worse recently. He also endorses generalized weakness, but denies chest pain, shortness of breath, abdominal pain. On arrival, patient was tachycardic to 115 but other vitals relatively stable. Workup in the ED significant for WBC 16.1, glucose 333, lactate 5.6, troponin 0.06. UA somewhat suggestive of UTI. CT does not show acute findings, neither does CXR. Case discussed with ED provider and decision was made to admit patient for severe sepsis secondary to cellulitis, UTI. Of note, patient was admitted last month for similar presentation and found to be bacteremic. Per admission note - This is a 68-year-old male who reports that he has had about 6 weeks of nausea vomiting and diarrhea at home. This was a change for him. He presented to the ER and was found to be septic with UTI and possible pneumonia. He has been treated with IV antibiotics and aggressive IV fluid resuscitation initially. His hemoglobin dropped from 15.1 down to 11.6. It has stabilized since then. Hemoccult was negative. Abdomen pelvis CT unremarkable. CTA did show some mild distal esophageal edema. He is on Protonix IV twice daily. Patient has had resolution of nausea vomiting and diarrhea since admission. Both patient and nursing reports no diarrhea currently. Stool panel was normal. Patient was struggling with aspiration of food and fluid over the weekend. He was kept NPO. He failed bedside swallow test twice. Today the patient passed the bedside swallow test. He did also pass speech therapy swallow test today. Patient reports his last colonoscopy was about 15 years ago and he never had an EGD. He does not take any NSAIDs. He denies any blood in his stool. He thinks has had a black stool twice but not currently. He has had a low platelet count since admission and lowest today is 82. Liver enzymes are normal but for a slight elevation of AST at 64. [facility] Disclaimer: The information contained in this section may have been updated after the patient was seen, as this information can be updated by other users. Medical History (Updated 02/16/24 @ 13:10 by Kim Feliciano APRN) Depression Anxiety Schizophrenic disorder History of gastroesophageal reflux (GERD) Hypertension Hyperlipidemia Diabetes mellitus, type 2 Surgical History (Updated 11/21/23 @ 00:01 by Kaye Martin) History of cholecystectomy Family History Other No significant family history Social History Smoking Status: Never smoker alcohol intake: never substance use type: denies use current occupational status: disabled Travel in the last 8 weeks: None housing: assisted living facility current occupational exposures/hazards: No caffeine: No Meds Home Medications and Allergies Home Medications ?Medication ?Instructions ?Recorded ?Confirmed ?Type ferrous sulfate 325 mg (65 mg 325 mg PO DAILY 05/13/17 02/13/24 History iron) tablet sertraline 100 mg tablet 100 mg PO HS 05/15/17 02/13/24 History simvastatin 40 mg tablet 40 mg PO HS 05/15/17 02/13/24 History acetaminophen 650 mg 650 mg PO BID 04/23/19 02/13/24 History tablet,extended release ascorbic acid (vitamin C) 250 mg 250 mg PO DAILY 04/23/19 02/13/24 History tablet multivitamin 1 tab PO DAILY 04/23/19 02/13/24 History omeprazole 40 mg capsule,delayed 40 mg PO HS 04/23/19 02/13/24 History release aripiprazole 30 mg tablet 30 mg PO DAILY 04/24/19 02/13/24 History metformin 500 mg tablet,extended 1,000 mg PO BID 01/24/20 02/13/24 History release 24 hr gabapentin 100 mg capsule 100 mg PO BID Pain #60 caps 11/18/22 02/13/24 Rx aspirin 81 mg tablet,delayed 81 mg PO DAILY 11/15/23 02/13/24 History release insulin NPH-regular 70-30 U-100 30 unit SQ HS 11/15/23 02/13/24 History insulin 100 unit/mL subcutaneous pen (Humulin 70/30 U-100 KwikPen) insulin NPH-regular 70-30 U-100 35 unit SQ AM 11/15/23 02/13/24 History insulin 100 unit/mL subcutaneous pen (Humulin 70/30 U-100 KwikPen) lisinopril 30 mg tablet 30 mg PO DAILY 11/15/23 02/13/24 History oxcarbazepine 150 mg tablet 150 mg PO BID 11/15/23 02/13/24 History fluticasone propionate 50 1 spray intranasal DAILY 02/13/24 02/13/24 History mcg/actuation nasal spray,suspension New Prescriptions to Start Prescriptions: Allergies Allergy/AdvReac Type Severity Reaction Status Date / Time sulfamethoxazole Allergy Intermediate Rash Verified 11/14/23 08:05 [From Bactrim] trimethoprim [From Bactrim] Allergy Intermediate Rash Verified 11/14/23 08:05 Exam (Inpt) Vital signs and Labs for Last 24 Hours: Temp Pulse Resp BP Pulse Ox O2 Del Method O2 Flow Rate 98.3 F 67 18 162/69 H 94 L Nasal Cannula 2 02/16/24 08:00 02/16/24 08:00 02/16/24 08:00 02/16/24 08:00 02/16/24 08:00 02/16/24 10:57 02/16/24 10:57 FiO2 100 02/13/24 09:25 Laboratory Results - last 24 hr 02/15/24 19:58: POC Glucose 145 H 02/16/24 05:21: POC Glucose 161 H 02/16/24 06:36: WBC 6.7, RBC 3.37 L, Hgb 10.8 L, Hct 31.8 L, MCV 94.4 H, MCH 32.2 H, MCHC 34.1, RDW 14.4, Plt Count 82 L D, MPV 9.5, Neut % (Auto) 73.5, Lymph % (Auto) 16.2, [place] % (Auto) 9.2, Eos % (Auto) 0.6, Baso % (Auto) 0.6, Neut # (Auto) 4.9, Lymph # (Auto) 1.1, [place] # (Auto) 0.6, Eos # (Auto) 0.0, Baso # (Auto) 0.0, Sodium 137, Potassium 4.5, Chloride 107, Carbon Dioxide 21 L, Anion Gap 13.5, BUN 16 D, Creatinine 0.70 D, Estimated Creat Clear 116, Estimated GFR 112, Est GFR ( Amer) 135 D, Glucose 149 H, Calcium 8.0 L, Total Bilirubin 0.8, AST 64 H, ALT 30, Alkaline Phosphatase 86, Total Protein 5.1 L, Albumin 2.8 L, Globulin 2.3, Albumin/Globulin Ratio 1.2 02/16/24 11:01: POC Glucose 184 H I & O for Labs for Last 24 Hours: Intake & Output 02/14/24 02/15/24 02/16/24 02/17/24 11:59 10:59 11:59 11:59 Intake Total 450 1208 1328 Output Total 0 400 1675 Balance 450 808 -347 Weight 118 kg 118 kg 118 kg Microbiology Reports for the Last 24 Hours: Microbiology 02/12/24 12:03 Blood Blood Culture - Preliminary NO GROWTH AFTER 4 DAYS 02/14/24 08:39 Blood Blood Culture - Preliminary NO GROWTH AFTER 48 HOURS 02/14/24 08:37 Blood Blood Culture - Preliminary NO GROWTH AFTER 48 HOURS 02/12/24 21:58 Urine,Clean Catch Urine Culture - Final No growth. Constitutional: no acute distress, disheveled and cooperative Head: Present normocephalic and atraumatic Eyes: Present as per HPI Respiratory: Present rhonchi (Bilateral, slightly improves with coughing) Cardiac: Present Reg Rate and Rhythm GI: Present distention (Moderately distended with gas bloat) and tenderness (Mildly tender to palpation throughout) Extremities: Present edema (Mild generalized edema) Neuro: Present alert and awake Results Labs 02/16/24 06:36 02/16/24 06:36 Labs: Laboratory Results - last 24 hr 02/15/24 19:58: POC Glucose 145 H 02/16/24 05:21: POC Glucose 161 H 02/16/24 06:36: WBC 6.7, RBC 3.37 L, Hgb 10.8 L, Hct 31.8 L, MCV 94.4 H, MCH 32.2 H, MCHC 34.1, RDW 14.4, Plt Count 82 L D, MPV 9.5, Neut % (Auto) 73.5, Lymph % (Auto) 16.2, [place] % (Auto) 9.2, Eos % (Auto) 0.6, Baso % (Auto) 0.6, Neut # (Auto) 4.9, Lymph # (Auto) 1.1, [place] # (Auto) 0.6, Eos # (Auto) 0.0, Baso # (Auto) 0.0, Sodium 137, Potassium 4.5, Chloride 107, Carbon Dioxide 21 L, Anion Gap 13.5, BUN 16 D, Creatinine 0.70 D, Estimated Creat Clear 116, Estimated GFR 112, Est GFR ( Amer) 135 D, Glucose 149 H, Calcium 8.0 L, Total Bilirubin 0.8, AST 64 H, ALT 30, Alkaline Phosphatase 86, Total Protein 5.1 L, Albumin 2.8 L, Globulin 2.3, Albumin/Globulin Ratio 1.2 02/16/24 11:01: POC Glucose 184 H Assessment and Plan *Assessment and plan (1) Diarrhea: Status: Acute Category: Medical Code(s): R19.7 - Diarrhea, unspecified (2) Nausea and vomiting: Status: Acute Category: Medical Code(s): R11.2 - Nausea with vomiting, unspecified (3) Dysphagia: Status: Acute Category: Medical Code(s): R13.10 - Dysphagia, unspecified (4) Aspiration of food: Status: Acute Category: Medical Code(s): T17.928A - Food in respiratory tract, part unspecified causing other injury, initial encounter; [id number].F3XA - Food entering into or through a natural orifice, initial encounter (5) Anemia: Status: Acute Category: Medical Code(s): D64.9 - Anemia, unspecified Plan 1. Nausea vomiting diarrhea Patient reports about 6 weeks of nausea and diarrhea with a couple episodes of vomiting. Appears to be resolved currently. No current diarrhea per patient and nursing. Unsure if it acute gastroenteritis or related to current UTI/pneumonia with sepsis. Stool panel was negative. CT abdomen pelvis unremarkable. CTA showed some mild distal esophageal edema. 2. Dysphagia/aspiration of food Patient denies any dysphagia at home. He did have about 2 days of aspirating any food and fluid and failed bedside p.o. challenge. This appears to resolved as well. He passed bedside p.o. challenge and passed speech therapy testing today. Only some mild distal esophageal edema seen on CTA and nothing on CT abdomen pelvis. Plan for advancing diet today. 3. Anemia From admission, hemoglobin dropped from 15.1 down to 11.6. He was treated with aggressive IV fluid resuscitation due to sepsis initially. Hemoglobin has stabilized. Hemoccult negative. Seems like dilutional anemia. He is on Protonix IV twice daily. -After discussion with Dr. Siegel, concerning symptoms seem to have resolved or stabilized. I agree with trialing advancing diet starting today. At this point we can monitor from afar. If symptoms recur or worsen or if hemoglobin continues to drop, may reevaluate at that time.
--- NOTE | 2024-02-16 13:41 | HMH.PTEV ---
Physical Therapy Evaluation Rehab PT IP Evaluation Start: 02/16/24 09:24 Freq: ONCE Status: Active Protocol: Document 02/16/24 13:26 PHOMARY (Rec: 02/16/24 13:41 PHORBULMARO [id number]) Subjective/History History History Miles Arango is a 68-year-old male with a medical history significant for uncontrolled insulin-dependent diabetes, schizophrenia, hypertension, hyperlipidemia, peripheral neuropathy who presents with global weakness. Pt states he was living at [facility] before admission to [facility]. Pt reports having a walker, but has been too weak to use it . Subjective Subjective Pt presents in bedside chair this afternoon. Pt reports chief c/o of weakness and consents to therapy services. Rehab PT IP Eval Objective Appearance Patient Behavior Appropriate,Cooperative Difficulty following instructions mild Speech Pattern Appropriate,Mumbled Ambulation Patient Able to Ambulate No Balance Ability to Arise Able, uses arms to help Standing Balance Unsteady Dynamic Standing Balance Ability Poor Transfers Sit to Stand Chair Transfer Ability Minimal x 2 (25% assist) Rehab PT IP prob,goals,plan Problems Date of Evaluation: 02/16/24 PT IP Problems Bed Mobility,Transfers,Gait, Balance Rehab Potential Rehab Potential Good Plan PT Intervention Plan Bed Mobility,Transfers,Gait, Balance PT Plan Frequency BID Duration LOS Discharge Goals Sit to Stand Chair Transfer Ability Contact Guard/Hand Hold Ambulation Assistive Device Rolling Walker Ambulation Distance (feet) 10 Discharge Plan PT Discharge Plan Currently, pt is most appropriate for rehab placement once medically stable for d/c. Pt demonstrates global weakness, affecting his ability to perform functional daily activities. Pt demonstrates poor static standing balance and requires min assist to correct LOB in standing. PT services are indicated to increase strength, balance, and transfer skills. Eval Complexity Eval Charge Codes 55034 - High Complexity PHYSICIAN CERTIFICATION: I certify the specified therapy services for Miles Vázquez are required, authorized, and reviewed every 30 days.
[2024-02-16] MEDS: IPRATROPIUM/ALBUTEROL 3 ML NEB IH ×2 (13:47→19:45)
[2024-02-16 15:21] LABS: POC Glucose,Bedside 206 (70-110)
[2024-02-16 15:27] LABS: POC Glucose,Bedside 216 (70-110)
[2024-02-16 16:14] LABS: POC Glucose,Bedside 218 (70-110)
[2024-02-16 18:09] LABS: D-Dimer 0.77 ug/mL (0.0-0.5)
--- NOTE | 2024-02-16 18:42 | PC.NURSE ---
PT HAS DONE WELL THIS SHIFT. VSS. REMAINS ON 2L NASAL CANNULA. ATTEMPTED A ROOM AIR SAT PT'S RIGHT LEG ALSO LOOKS SLIGHTLY LESS RED THIS EVENING BUT IS STILL VERY WARM AND SWOLLEN.
[2024-02-16 19:55] LABS: POC Glucose,Bedside 268 (70-110)
[2024-02-16] MEDS: INSULIN GLARGINE 100 UNITS/ML 10ML VIAL 20 UNIT SUBCUT (20:05)
[2024-02-16] MEDS: SERTRALINE 100MG TABLET 100 MG PO (20:06)
[2024-02-16] MEDS: PRAVASTATIN 40MG TAB 80 MG PO (20:06)
--- NOTE | 2024-02-16 22:08 | P.PN_ITS ---
Subjective *Date: 02/16/24 *Time: 22:08 Interval history: Patient feels much better today, eating well without N.V or aspiration. Working with PT/OT, recommended SNF. Exam Data for Last 24 hours Vital signs and Labs for Last 24 Hours: Temp Pulse Resp BP Pulse Ox O2 Del Method O2 Flow Rate 98.4 F 93 H 16 157/85 H 95 Nasal Cannula 2 02/16/24 20:00 02/16/24 20:00 02/16/24 20:00 02/16/24 20:00 02/16/24 20:00 02/16/24 21:00 02/16/24 21:00 FiO2 100 02/13/24 09:25 Laboratory Results - last 24 hr 02/13/24 16:25: POC Glucose 206 H 02/15/24 15:57: POC Glucose 216 H 02/16/24 05:21: POC Glucose 161 H 02/16/24 06:36: WBC 6.7, RBC 3.37 L, Hgb 10.8 L, Hct 31.8 L, MCV 94.4 H, MCH 32.2 H, MCHC 34.1, RDW 14.4, Plt Count 82 L D, MPV 9.5, Neut % (Auto) 73.5, Lymph % (Auto) 16.2, [place] % (Auto) 9.2, Eos % (Auto) 0.6, Baso % (Auto) 0.6, Neut # (Auto) 4.9, Lymph # (Auto) 1.1, [place] # (Auto) 0.6, Eos # (Auto) 0.0, Baso # (Auto) 0.0, Sodium 137, Potassium 4.5, Chloride 107, Carbon Dioxide 21 L, [place] 13.5, BUN 16 D, Creatinine 0.70 D, Estimated Creat Clear 116, Estimated GFR 112, Est GFR ( Amer) 135 D, Glucose 149 H, Calcium 8.0 L, Total Bilirubin 0.8, AST 64 H, ALT 30, Alkaline Phosphatase 86, Total Protein 5.1 L, Albumin 2.8 L, Globulin 2.3, Albumin/Globulin Ratio 1.2 02/16/24 11:01: POC Glucose 184 H 02/16/24 16:06: POC Glucose 218 H 02/16/24 17:12: D-Dimer 0.77 H 02/16/24 19:47: POC Glucose 268 H I & O for Last 24 hours: Intake & Output 02/13/24 02/14/24 02/15/24 02/16/24 23:59 23:59 22:59 23:59 Intake Total 1640 / 1640 1050 / 1300 1211 / 1936 2218 / 2218 Output Total 450 / 450 400 / 400 900 / 1400 1375 / 1375 Balance 1190 / 1190 650 / 900 311 / 536 843 / 843 Weight 118 kg 118 kg 118 kg 118 kg Microbiology Reports for the Last 24 Hours: Microbiology 02/12/24 12:03 Blood Blood Culture - Preliminary NO GROWTH AFTER 4 DAYS 02/14/24 08:39 Blood Blood Culture - Preliminary NO GROWTH AFTER 48 HOURS 02/14/24 08:37 Blood Blood Culture - Preliminary NO GROWTH AFTER 48 HOURS Constitutional Constitutional: no acute distress *Routine HEENT Exam Head: Present normocephalic Eye: Present EOMI and PERRL ENT: Present mucous membranes moist *Routine Neck Exam Neck: Present supple; Absent lymphadenopathy *Routine Respiratory Exam Respiratory: Present CTA bilaterally *Routine Cardiovascular Exam Cardiovascular: Present RRR *Routine Abdominal Exam Abdominal: Present soft and normoactive bowel sounds; Absent tenderness *Routine Extremities Exam Extremities: Present tenderness; Absent cyanosis, clubbing or edema Comments: Right lower extremity erythema. *Routine Skin Exam Skin: Present warm; Absent rash *Routine Neurological Exam Neurological: Present alert Assessment and Plan *Assessment and plan (1) Severe sepsis: Status: Acute Category: Medical Code(s): A41.9 - Sepsis, unspecified organism; R65.20 - Severe sepsis without septic shock (2) Diarrhea: Status: Acute Category: Medical Code(s): R19.7 - Diarrhea, unspecified (3) Cellulitis: Status: Acute Category: Medical Code(s): L03.90 - Cellulitis, unspecified (4) UTI (urinary tract infection): Status: Acute Category: Medical Code(s): N39.0 - Urinary tract infection, site not specified Plan Miles Arango is a 68-year-old male with a medical history significant for uncontrolled insulin-dependent diabetes, schizophrenia, hypertension, hyperlipidemia, peripheral neuropathy who presents with worsening diarrhea for 1 month. Patient is a poor historian at this time given malaise so most history was obtained via chart review. Apparently he has been having diarrhea for about a month that has been getting worse recently. He also endorses generalized weakness, but denies chest pain, shortness of breath, abdominal pain. On arrival, patient was tachycardic to 115 but other vitals relatively stable. Workup in the ED significant for WBC 16.1, glucose 333, lactate 5.6, troponin 0.06. UA somewhat suggestive of UTI. CT does not show acute findings, neither does CXR. Case discussed with ED provider and decision was made to admit patient for severe sepsis secondary to cellulitis, UTI. Of note, patient was admitted last month for similar presentation and found to be bacteremic. #Severe sepsis, resolved #Strep dysgalactiae bacteremia #Possible cellulitis ? There is right lower extremity erythema, tenderness, warmth without obvious skin abrasions. ? UA also suggestive of UTI, but urine culture is normal. ? Initial WBC 16.1, lactate 5.6, tachycardia up to 120, tachypneic 22. Received 2 L sepsis bolus. ? Had bacteremia with Strep dysgalactiae last month. ? Blood culture on during admission revealed Strep dysgalactiae bacteremia again, though only 1 out of 2 bottles. Sensitive to ceftriaxone, penicillin. ? Follow-up repeat blood cultures. ? Continue Unasyn day 5/14 coverage for bacteremia (transitioned from ceftriaxone due to concern of aspiration pneumonia). - RLE redness seems to be improved since starting vancomycin again yesterday. However, therapeutic Lovenox was also started at this time. Vanc can be discontinued if doppler results in DVT or low suspicion for DVT. See separate problem. - WBC conitnued to be resolved. #Suspected DVT ? There is right lower extremity erythema, tenderness, warmth compared to LLE. ? Follow-up right lower extremity venous Doppler to rule out DVT. Spoke with RT today who notified me their system was down and venous dopplers have not been able to be read in 2 weeks. System is finally back up today, but it may take time to get venous doppler read. - Patient is high risk for DVT given obesity and physical deconditioning. - D-dimer elevated 0.77 today, was hoping to discontinue therapeutic Lovenox if negative as platelets are decreasing to 82 today. - CT LE reveals diffuse skin thickening and subcutaenous edema which is nonspecific to cellulitis vs DVT. ? Continue therapeutic Lovenox until Doppler results. - CLosely monitor platelets. #Physical deconditioning - PT/OT consulted, recommended SNF. Case management assisting with placement. #Acute on chronic normocytic anemia ? Initial 15.1, however hemoglobin stable at 11.6 today. Likely from hemocon centration initially. ? BUN decreased from 29-24 today. ? No gross GI bleed evidenced during admission. ? FOBT normal. - Occurred even before startin therapeutic Lovenox. #Aspiration, resolved #Nausea/vomiting, resolved - Patient has had multiple episodes of N/V, resulting in aspiration first 2 days of admission. - CTA showed distal esophageal edema which may represent acid reflux. - CT A/p did not show acute process. - CXR shows bibasilar opacities after second aspiration event. - Much better today, LUNCHROOM FOOD SERVICE SUPERVISOR evaluated patient and started regular diet. No signs of aspiration. - N/V likely from uncontrolled GERD. Improved since starting IV protonix. Will transition to PO. - IV protonix 40mg BID. #Insulin-dependent diabetes ? Lantus 30 units nightly. Uptitrate based on SSI needs. ? LDSSI, ACHS glucose checks. Chronic medical problems: #Schizophrenia #Hypertension #Peripheral neuropathy ? Resumed home oxcarbazepine, Abilify, gabapentin, sertraline. Full code DVT prophylaxis: Lovenox Diabetic diet
[2024-02-17] VITALS (7 sets, daily range): BP systolic 147–157; BP diastolic 68–90; PULSE 70–89; RESP 16–26; TEMP 36.3–37; O2SAT 92–95; BMI 36.3
[2024-02-17] MEDS: GUAIFENESIN/DEXTROMETHORPHAN 200MG/20MG 10ML UDC 10 ML PO ×2 (03:44→08:30)
[2024-02-17] MEDS: AMPICILLIN SODIUM/SULBACTAM 3 GM in 0.9 % SODIUM CHLORIDE 100 ML IV (03:44)
[2024-02-17] MEDS: IPRATROPIUM/ALBUTEROL 3 ML NEB IH ×3 (06:14→19:47)
[2024-02-17] MEDS: humaLOG 100 UNITS/ML 10ML VIAL (SSI) SUBCUT ×4 (06:48→21:15)
[2024-02-17 07:20] LABS: Basophils % 0.6 % (0.1-2.0); Eosinophils # 0.1 K/mm3 (0.0-0.4); Eosinophils % 1.6 % (0.1-12.0); Hematocrit 33.1 % (42.0-52.0); Hemoglobin 11.2 g/dL (14.1-18.0); Lymphocytes % 15.3 % (10-50); Mean Corpuscular HGB Conc 33.8 g/dL (31.8-35.4); Mean Corpuscular Hemoglobin 31.1 pg (27.0-31.2); Mean Corpuscular Volume 91.9 fl (80-94); Monocytes # 0.6 K/mm3 (0.1-1.0); Monocytes % 8.8 % (1.7-9.3); Neutrophils # 4.8 K/mm3 (1.8-7.8); Neutrophils % 73.6 % (37.0-80.0); Platelet Count 171 K/mm3 (142-424); Red Cell Distribution Width 14.3 % (11.5-17.5); White Blood Count 6.5 K/mm3 (4.8-10.8)
[2024-02-17 07:22] LABS: Alanine Aminotransferase 32 U/L (12-78); Albumin/Globulin Ratio 1.3 (1.1-1.8); Alkaline Phosphatase 128 U/L (38-126); Anion Gap 7.7 mEq/L (5-15); Aspartate Amino Transferase 44 U/L (17-59); Bilirubin,Total 0.5 mg/dl (0.2-1.3); Blood Urea Nitrogen 12 mg/dl (9-20); Calcium 7.8 mg/dl (8.4-10.2); Carbon Dioxide 31 mmol/L (22.0-30.0); Chloride 102 mmol/L (98-107); Creatinine Clearance Estimated 116 mL/min (50-200); Estimated Glomerular Filt Rate 96 ml/min (>60); GFR (African American) 116 ML/MIN (>60); Globulin 2.3 g/dL (1.3-3.2); Glucose 277 mg/dl (74-100); Potassium 3.7 mmoL/L (3.5-5.1); Sodium 137 mmol/L (136-145); Total Protein,Serum 5.3 g/dl (6.3-8.2)
[2024-02-17] MEDS: VANCOMYCIN/WATER FOR INJ (PEG) 1.75 GM/350 ML PIGGYBACK IV ×2 (08:30→21:16)
[2024-02-17] MEDS: LISINOPRIL 10MG TABLET 30 MG PO (08:31)
[2024-02-17] MEDS: ASPIRIN EC 81MG TABLET 81 MG PO (08:31)
[2024-02-17] MEDS: GABAPENTIN 100MG CAPSULE 100 MG PO ×2 (08:31→21:14)
[2024-02-17] MEDS: ARIPiprazole 10MG TABLET 30 MG PO (08:31)
[2024-02-17] MEDS: ENOXAPARIN 40MG/0.4ML SYRINGE 40 MG SUBCUT (08:41)
[2024-02-17 10:53] LABS: POC Glucose,Bedside 303 (70-110)
[2024-02-17 10:53] LABS: POC Glucose,Bedside 276 (70-110)
[2024-02-17] MEDS: levoFLOXacin 750 MG TABLET PO (11:34)
[2024-02-17] MEDS: POLYETHYLENE GLYCOL 3350 17 GM PACKET PO (11:34)
[2024-02-17] MEDS: BUMETANIDE 1MG/4ML VIAL 1 MG IV ×2 (11:34→16:42)
--- NOTE | 2024-02-17 13:26 | DIET.NUTRFU ---
Provider notified during rounds, no BM since 02/12- miralax ordered for today. Patient is tolerating diabetic diet with good po intake, nursing noting 50-75% of meals. TRANSVERSE ABDOMINAL MUSCLE SURGEON saw patient and PPI started. grease rack worker working on placement was from [facility]. Asa starting today. BS elevated 184-303- insulin and diabetic diet in place, labs reviewed. Will you continue to follow for any dietary concerns
[2024-02-17 16:12] LABS: POC Glucose,Bedside 326 (70-110)
--- NOTE | 2024-02-17 17:21 | PC.NURSE ---
Pt weaned down to Room air this shift with O2 sat 94% and above. Pt tolerating diet well with no swallowing issues. Pt up to bedside chair most of shift. Assist x1 with walker to bedside commode. Pt has had no complaints this shift. Call light in reach.
--- NOTE | 2024-02-17 18:28 | EXP.ACUTE.PN ---
Subjective *Date: 02/17/24 *Time: 18:28 Interval history: No acute complaints today. Stable on 2 L oxygen. Still has swelling in leg but Doppler is negative for DVT. Discussed diuresis today. No nausea or vomiting. Tolerating p.o. intake. Awaiting placement. Medical Exam Vital signs and Labs for Last 24 Hours: Vital Signs Temp Pulse Pulse Resp BP Pulse Ox O2 Del Method 02/17/24 17:00 Room Air 02/17/24 16:00 98.2 F 72 20 150/76 H 94 L Room Air 02/17/24 14:47 Room Air 02/17/24 12:59 Room Air 02/17/24 11:42 97.4 F L 84 26 H 151/75 H 94 L Room Air 02/17/24 11:00 Room Air 02/17/24 09:00 Nasal Cannula 02/17/24 08:00 Nasal Cannula 02/17/24 08:00 98.3 F 83 22 157/69 H 95 Nasal Cannula 02/17/24 07:00 Nasal Cannula 02/17/24 05:00 Nasal Cannula 02/17/24 04:00 98.6 F 79 16 150/70 H 95 Nasal Cannula 02/17/24 03:00 Nasal Cannula 02/17/24 01:00 Nasal Cannula 02/17/24 00:00 97.9 F 81 16 147/90 H 95 Nasal Cannula 02/16/24 23:00 Nasal Cannula 02/16/24 21:00 Nasal Cannula 02/16/24 20:00 98.4 F 93 H 16 157/85 H 95 Nasal Cannula 02/16/24 19:45 84 02/16/24 19:45 86 02/16/24 18:54 Nasal Cannula O2 Flow Rate 02/17/24 17:00 02/17/24 16:00 02/17/24 14:47 02/17/24 12:59 02/17/24 11:42 02/17/24 11:00 02/17/24 09:00 2 02/17/24 08:00 2 02/17/24 08:00 2 02/17/24 07:00 2 02/17/24 05:00 2 02/17/24 04:00 2 02/17/24 03:00 2 02/17/24 01:00 2 02/17/24 00:00 2 02/16/24 23:00 2 02/16/24 21:00 2 02/16/24 20:00 2 02/16/24 19:45 02/16/24 19:45 02/16/24 18:54 2 Intake and Output 02/17/24 02/17/24 02/17/24 07:59 15:59 23:59 Intake Total 750 / 1890 605 / 1890 535 / 1890 Output Total 500 / 500 Balance 250 / 1390 605 / 1390 535 / 1390 Intake: Intake, Oral Amount 300 / 1440 605 / 1440 535 / 1440 Intake, Total IV Amount 450 / 450 Ampicillin Sodium/Sulbactam 3 100 / 100 gm In 0.9 % Sodium Chloride 100 ml @ 200 mls/hr IV Q6H [facility] Rx# :[id number] Vancomycin/Water For Inj (Peg) 350 / 350 1.75 gm In 350 ml @ 175 mls/hr IV Q12H [facility] Rx#:[id number] Output: Output, Urine Amount 500 / 500 Other: Number of Unmeasured Voids 1 Weight 118 kg Patient Weight 02/17/24 23:59 Weight 118 kg Laboratory Results - last 24 hr 02/16/24 19:47: POC Glucose 268 H 02/17/24 06:38: WBC 6.5, RBC 3.60 L, Hgb 11.2 L, Hct 33.1 L, MCV 91.9, MCH 31.1, MCHC 33.8, RDW 14.3, Plt Count 171 D, MPV 8.0, Neut % (Auto) 73.6, Lymph % (Auto) 15.3, [place] % (Auto) 8.8, Eos % (Auto) 1.6, Baso % (Auto) 0.6, Neut # (Auto) 4.8, Lymph # (Auto) 1.0, [place] # (Auto) 0.6, Eos # (Auto) 0.1, Baso # (Auto) 0.0, Sodium 137, Potassium 3.7, Chloride 102, Carbon Dioxide 31 H, Anion Gap 7.7, BUN 12, Creatinine 0.80, Estimated Creat Clear 116, Estimated GFR 96, Est GFR ( Amer) 116, Glucose 277 H, Calcium 7.8 L, Total Bilirubin 0.5, AST 44 D, ALT 32, Alkaline Phosphatase 128 H, Total Protein 5.3 L, Albumin 3.0 L, Globulin 2.3, Albumin/Globulin Ratio 1.3 02/17/24 06:42: POC Glucose 303 H* 02/17/24 10:46: POC Glucose 276 H 02/17/24 16:02: POC Glucose 326 H* I & O for Labs for Last 24 Hours: Intake & Output 02/14/24 02/15/24 02/16/24 02/17/24 23:59 22:59 23:59 23:59 Intake Total 1050 / 1300 1211 / 1936 2218 / 2968 1890 / 1890 Output Total 400 / 400 900 / 1400 1725 / 1725 500 / 500 Balance 650 / 900 311 / 536 493 / 1243 1390 / 1390 Weight 118 kg 118 kg 118 kg 118 kg Microbiology Reports for the Last 24 Hours: Microbiology 02/12/24 12:03 Blood Blood Culture - Final NO GROWTH AFTER 5 DAYS Constitutional: Present no acute distress, obese, chronically ill appearing and cooperative Head: Present atraumatic and normocephalic ENT: Present normal exam Neck: Present normal inspection Respiratory: Present normal respiratory effort; Absent rhonchi, wheezes or crackles Cardiac: Present Reg Rate and Rhythm GI: Present soft, distention and normal bowel sounds; Absent tenderness, guarding or rebound Extremities: Present normal inspection, full ROM and edema (3+ edema right lower extremity, 1+ left lower extremity) Skin: Present intact; Absent erythema Comment:: Chronic stasis changes in the legs Neuro: Present Grossly Intact, alert, awake, oriented x 3 and moves all extremities Assessment and Plan *Assessment and plan (1) Severe sepsis: Status: Acute Category: Medical Code(s): A41.9 - Sepsis, unspecified organism; R65.20 - Severe sepsis without septic shock (2) Diarrhea: Status: Acute Category: Medical Code(s): R19.7 - Diarrhea, unspecified (3) Cellulitis: Status: Acute Category: Medical Code(s): L03.90 - Cellulitis, unspecified (4) UTI (urinary tract infection): Status: Acute Category: Medical Code(s): N39.0 - Urinary tract infection, site not specified (5) Bacteremia due to Streptococcus: Status: Acute Category: Medical Code(s): R78.81 - Bacteremia; B95.5 - Unspecified streptococcus as the cause of diseases classified elsewhere (6) Diabetes mellitus, type 2: Status: Acute Category: Medical Code(s): E11.9 - Type 2 diabetes mellitus without complications (7) Schizophrenic disorder: Status: Acute Category: Medical Code(s): F20.9 - Schizophrenia, unspecified (8) Depression: Status: Acute Category: Medical Code(s): F32.A - Depression, unspecified (9) Obesity (BMI 30-39.9): Status: Acute Category: Medical Code(s): E66.9 - Obesity, unspecified Plan Miles Arango is a 68-year-old male with a medical history significant for uncontrolled insulin-dependent diabetes, schizophrenia, hypertension, hyperlipidemia, peripheral neuropathy who presents with worsening diarrhea for 1 month. Patient is a poor historian at this time given malaise so most history was obtained via chart review. Apparently he has been having diarrhea for about a month that has been getting worse recently. He also endorses generalized weakness, but denies chest pain, shortness of breath, abdominal pain. On arrival, patient was tachycardic to 115 but other vitals relatively stable. Workup in the ED significant for WBC 16.1, glucose 333, lactate 5.6, troponin 0.06. UA somewhat suggestive of UTI. CT does not show acute findings, neither does CXR. Case discussed with ED provider and decision was made to admit patient for severe sepsis secondary to cellulitis, UTI. Of note, patient was admitted last month for similar presentation and found to be bacteremic. Continue antibiotics. Pending discharge to SNF for further management. #Severe sepsis, resolved #Strep dysgalactiae bacteremia #Possible cellulitis ? There is right lower extremity erythema, tenderness, warmth without obvious skin abrasions. ? UA also suggestive of UTI, but urine culture is normal. ? Initial WBC 16.1, lactate 5.6, tachycardia up to 120, tachypneic 22. Received 2 L sepsis bolus. ? Had bacteremia with Strep dysgalactiae last month. Blood cultures again positive for strep. Sensitive to Levaquin. Will de-escalate to Levaquin for 10-day course of antibiotics orally with 750 mg daily. Needs 4 more days of antibiotics. Last dose on 02/21/2024. Repeat blood cultures negative. -Discontinue Unasyn -Continue vancomycin for additional coverage of erythema in right leg. Monitor for improvement in swelling and erythema with diuresis. - Bumex 1 mg IV twice daily. #Suspected DVT ? Discussed case with radiology, negative for DVT. De-escalate to prophylactic Lovenox. Will address swelling with diuresis. Platelets improved to 171. #Physical deconditioning - PT/OT consulted, recommended SNF. Case management assisting with placement. #Acute on chronic normocytic anemia ? Initial 15.1, remained stable at 11. BUN normal at 12. Repeat CBC, CMP, magnesium ordered for the morning. No signs of active bleeding #Aspiration, resolved #Nausea/vomiting, resolved - Patient has had multiple episodes of N/V, resulting in aspiration first 2 days of admission. - CTA showed distal esophageal edema which may represent acid reflux. - CT A/p did not show acute process. - CXR shows bibasilar opacities after second aspiration event. - Much better today, OUTBOUND SALES AGENT evaluated patient and started regular diet. No signs of aspiration. - N/V likely from uncontrolled GERD. Improved since starting IV protonix. Will transition to PO. - IV protonix 40mg BID. #Insulin-dependent diabetes ? Increase Lantus to 35 units, morning glucose 277. Continue sliding scale insulin with fingersticks ACHS; A1c pending Chronic medical problems: #Schizophrenia #Hypertension #Peripheral neuropathy ? Resumed home oxcarbazepine, Abilify, gabapentin, sertraline. Full code DVT prophylaxis: Lovenox Diabetic diet
[2024-02-17 19:59] LABS: POC Glucose,Bedside 318 (70-110)
[2024-02-17] MEDS: INSULIN GLARGINE 100 UNITS/ML 3ML FLEXPEN 35 UNIT SUBCUT (21:15)
[2024-02-17] MEDS: PANTOPRAZOLE 40MG TABLET 40 MG PO (21:16)
[2024-02-17] MEDS: SERTRALINE 100MG TABLET 100 MG PO (21:16)
[2024-02-17] MEDS: PRAVASTATIN 40MG TAB 80 MG PO (21:16)
[2024-02-18] VITALS: BP 161/75; PULSE 88; RESP 16; TEMP 36.8; O2SAT 93
[2024-02-18 04:00] VITALS: BP 171/79; PULSE 81; RESP 16; TEMP 37.2; O2SAT 91; BMI 37.3
[2024-02-18] MEDS: humaLOG 100 UNITS/ML 10ML VIAL (SSI) SUBCUT ×2 (05:30→11:07)
[2024-02-18 05:33] LABS: POC Glucose,Bedside 200 (70-110)
[2024-02-18 06:15] VITALS: PULSE 81; PULSE 82; O2SAT 91
[2024-02-18] MEDS: IPRATROPIUM/ALBUTEROL 3 ML NEB IH ×2 (06:18→10:56)
[2024-02-18 07:08] LABS: Basophils % 0.5 % (0.1-2.0); Eosinophils # 0.2 K/mm3 (0.0-0.4); Eosinophils % 3.7 % (0.1-12.0); Hematocrit 33.9 % (42.0-52.0); Hemoglobin 11.5 g/dL (14.1-18.0); Lymphocytes % 15.5 % (10-50); Mean Corpuscular HGB Conc 33.8 g/dL (31.8-35.4); Mean Corpuscular Hemoglobin 31.2 pg (27.0-31.2); Mean Corpuscular Volume 92.4 fl (80-94); Mean Platelet Volume 7.8 fl (7.4-10.4); Monocytes # 0.6 K/mm3 (0.1-1.0); Monocytes % 8.3 % (1.7-9.3); Neutrophils # 4.7 K/mm3 (1.8-7.8); Neutrophils % 71.9 % (37.0-80.0); Platelet Count 202 K/mm3 (142-424); Red Blood Count 3.67 M/mm3 (4.60-6.20); Red Cell Distribution Width 14.4 % (11.5-17.5); White Blood Count 6.6 K/mm3 (4.8-10.8)
[2024-02-18 07:25] LABS: Alanine Aminotransferase 34 U/L (12-78); Albumin Level 3.1 g/dl (3.5-5.0); Albumin/Globulin Ratio 1.2 (1.1-1.8); Alkaline Phosphatase 135 U/L (38-126); Anion Gap 6.8 mEq/L (5-15); Aspartate Amino Transferase 44 U/L (17-59); Bilirubin,Total 0.6 mg/dl (0.2-1.3); Blood Urea Nitrogen 12 mg/dl (9-20); Calcium 8.4 mg/dl (8.4-10.2); Carbon Dioxide 35 mmol/L (22.0-30.0); Chloride 101 mmol/L (98-107); Creatinine Clearance Estimated 119 mL/min (50-200); Estimated Glomerular Filt Rate 96 ml/min (>60); GFR (African American) 116 ML/MIN (>60); Globulin 2.6 g/dL (1.3-3.2); Glucose 177 mg/dl (74-100); Magnesium 1.8 mg/dl (1.6-2.3); Potassium 3.8 mmoL/L (3.5-5.1); Sodium 139 mmol/L (136-145); Total Protein,Serum 5.7 g/dl (6.3-8.2)
--- NOTE | 2024-02-18 07:55 | P.DS_ITS ---
General Admission date:: 02/12/24 Discharge date: 02/18/24 HPI HPI HPI: Miles Arango is a 68-year-old male with a medical history significant for uncontrolled insulin-dependent diabetes, schizophrenia, hypertension, hyperlipidemia, peripheral neuropathy who presents with worsening diarrhea for 1 month. Patient is a poor historian at this time given malaise so most history was obtained via chart review. Apparently he has been having diarrhea for about a month that has been getting worse recently. He also endorses generalized weakness, but denies chest pain, shortness of breath, abdominal pain. On arriva l, patient was tachycardic to 115 but other vitals relatively stable. Workup in the ED significant for WBC 16.1, glucose 333, lactate 5.6, troponin 0.06. UA somewhat suggestive of UTI. CT does not show acute findings, neither does CXR. Case discussed with ED provider and decision was made to admit patient for severe sepsis secondary to cellulitis, UTI. Of note, patient was admitted last month for similar presentation and found to be bacteremic. Per admission note This is a 68-year-old male who reports that he has had about 6 weeks of nausea vomiting and diarrhea at home. This was a change for him. He presented to the ER and was found to be septic with UTI and possible pneumonia. He has been treated with IV antibiotics and aggressive IV fluid resuscitation initially. His hemoglobin dropped from 15.1 down to 11.6. It has stabilized since then. Hemoccult was negative. Abdomen pelvis CT unremarkable. CTA did show some mild distal esophageal edema. He is on Protonix IV twice daily. Patient has had resolution of nausea vomiting and diarrhea since admission. Both patient and nursing reports no diarrhea currently. Stool panel was normal. Patient was struggling with aspiration of food and fluid over the weekend. He was kept NPO. He failed bedside swallow test twice. Today the patient passed the bedside swallow test. He did also pass speech therapy swallow test today. Patient reports his last colonoscopy was about 15 years ago and he never had an EGD. He does not take any NSAIDs. He denies any blood in his stool. He thinks has had a black stool twice but not currently. He has had a low platelet count since admission and lowest today is 82. Liver enzymes are normal but for a slight elevation of AST at 64. Hospital Course Hospital Course Hospital Course: Miles Arango is a 68-year-old male with a medical history significant for uncontrolled insulin-dependent diabetes, schizophrenia, hypertension, hyperlipidemia, peripheral neuropathy who presents with worsening diarrhea for 1 month. Patient is a poor historian at this time given malaise so most history was obtained via chart review. Apparently he has been having diarrhea for about a month that has been getting worse recently. He also endorses generalized weakness, but denies chest pain, shortness of breath, abdominal pain. On arrival, patient was tachycardic to 115 but other vitals relatively stable. Workup in the ED significant for WBC 16.1, glucose 333, lactate 5.6, troponin 0.06. UA somewhat suggestive of UTI. CT does not show acute findings, neither does CXR. Case discussed with ED provider and decision was made to admit patient for severe sepsis secondary to cellulitis, UTI. Patient is responded well to antibiotics. At this point, right leg remains edematous, concern for venous stasis changes. Low concern for cellulitis. Complete antibiotics for UTI, pneumonia, strep bacteremia. Stable to discharge to rehab for further management. Graciously excepted by [facility]. Problems addressed as follows: #Severe sepsis, resolved #Strep dysgalactiae bacteremia #Possible cellulitis ? Initially on presentation findings of right lower extremity erythema and tenderness. Leg remains edematous but most consistent with venous stasis. Negative for DVT. Low concern for cellulitis. Blood culture positive x 1 bottle for strep dysgalactiae, will complete 10 days of Levaquin. Repeat blood cultures were negative. Course of antibiotics sent with last dose to be administered on 02/20. Treated with vancomycin to cover for erythema of leg. No indication for further staph coverage at discharge. Do recommend continuing Bumex 1 mg p.o. twice daily for edema component. #Suspected DVT: Discussed case with radiology, negative for DVT. Will address swelling with diuresis. Platelets improved to 171. #Physical deconditioning: PT/OT consulted, recommended SNF. Graciously excepted by [facility] for further management. #Acute on chronic normocytic anemia: Initial 15.1, remained stable at 11. BUN normal at 12. No signs of active bleeding #Aspiration, resolved #Nausea/vomiting, resolved - Patient has had multiple episodes of N/V, resulting in aspiration first 2 days of admission. CTA showed distal esophageal edema which may represent acid reflux. CT A/p did not show acute process. CXR shows bibasilar opacities after second aspiration event. Much better his acute condition resolved. [employer] evaluated patient and started regular diet. No signs of aspiration. N/V likely from uncontrolled GERD. Improved since starting IV protonix. Continue p.o. PPI at discharge. #Insulin-dependent diabetes ? Increase Lantus to 35 units, morning glucose 277. Continue sliding scale insulin with fingersticks ACHS; A1c 8.6. Resume home regimen of 70/30 combo at discharge Chronic medical problems: #Schizophrenia #Hypertension #Peripheral neuropathy ? Resumed home oxcarbazepine, Abilify, gabapentin, sertraline. No behavioral disturbances during admission Total time spent on discharge 32 minutes in counseling, documentation, chart review, and direct care with patient. Exam Data for Last 24 hours Vital signs and Labs for Last 24 Hours: Temp Pulse Resp BP Pulse Ox O2 Del Method O2 Flow Rate 98.9 F 82 16 171/79 H 91 L Room Air 2 02/18/24 04:00 02/18/24 06:15 02/18/24 04:00 02/18/24 04:00 02/18/24 06:15 02/18/24 06:51 02/17/24 09:00 FiO2 100 02/13/24 09:25 Laboratory Results - last 24 hr 02/17/24 06:42: POC Glucose 303 H* 02/17/24 10:46: POC Glucose 276 H 02/17/24 16:02: POC Glucose 326 H* 02/17/24 19:45: POC Glucose 318 H* 02/18/24 05:22: POC Glucose 200 H 02/18/24 06:06: WBC 6.6, RBC 3.67 L, Hgb 11.5 L, Hct 33.9 L, MCV 92.4, MCH 31.2, MCHC 33.8, RDW 14.4, Plt Count 202, MPV 7.8, Neut % (Auto) 71.9, Lymph % (Auto) 15.5, Robertson % (Auto) 8.3, Eos % (Auto) 3.7, Baso % (Auto) 0.5, Neut # (Auto) 4.7, Lymph # (Auto) 1.0, Robertson # (Auto) 0.6, Eos # (Auto) 0.2, Baso # (Auto) 0.0, Sodium 139, Potassium 3.8, Chloride 101, Carbon Dioxide 35 H, Anion Gap 6.8, BUN 12, Creatinine 0.80, Estimated Creat Clear 119, Estimated GFR 96, Est GFR ( Amer) 116, Glucose 177 H D, Calcium 8.4, Magnesium 1.8, Total Bilirubin 0.6, AST 44, ALT 34, Alkaline Phosphatase 135 H, Total Protein 5.7 L, Albumin 3.1 L, Globulin 2.6, Albumin/Globulin Ratio 1.2 I & O for Last 24 hours: Intake & Output 02/15/24 02/16/24 02/17/24 02/18/24 22:59 23:59 23:59 23:59 Intake Total 1211 / 1936 2218 / 2968 1890 / 2240 350 / 350 Output Total 900 / 1400 1725 / 1725 925 / 925 0 / 0 Balance 311 / 536 493 / 1243 965 / 1315 350 / 350 Weight 118 kg 118 kg 118 kg 120.746 kg Microbiology Reports for the Last 24 Hours: Microbiology 02/12/24 12:03 Blood Blood Culture - Final NO GROWTH AFTER 5 DAYS Constitutional Constitutional: no acute distress, obese, chronically ill appearing and cooperative *Routine HEENT Exam Head: Present normocephalic Eye: Present EOMI and PERRL ENT: Present mucous membranes moist *Routine Neck Exam Neck: Present supple; Absent lymphadenopathy *Routine Respiratory Exam Respiratory: Present CTA bilaterally; Absent rhonchi, wheezes or crackles *Routine Cardiovascular Exam Cardiovascular: Present RRR *Routine Abdominal Exam Abdominal: Present soft and normoactive bowel sounds; Absent tenderness *Routine Rectal Exam Patient deferred: visual exam *Routine Exam Patient deferred: penile exam *Routine Extremities Exam Extremities: Present edema; Absent cyanosis or clubbing Comments: Right lower extremity 2+ edema. Stasis changes bilaterally. *Routine Skin Exam Skin: Present intact and warm; Absent rash Comments: Stasis changes bilateral lower extremities, right worse than left *Routine Neurological Exam Neurological: Present alert Results Data Completed and Pending Labs on day of discharge: Labs from last 24 hours 02/18/24 02/18/24 02/17/24 06:06 05:22 19:45 WBC 6.6 RBC 3.67 L Hgb 11.5 L Hct 33.9 L MCV 92.4 MCH 31.2 MCHC 33.8 RDW 14.4 Plt Count 202 MPV 7.8 Neut % (Auto) 71.9 Lymph % (Auto) 15.5 Robertson % (Auto) 8.3 Eos % (Auto) 3.7 Baso % (Auto) 0.5 Neut # (Auto) 4.7 Lymph # (Auto) 1.0 Robertson # (Auto) 0.6 Eos # (Auto) 0.2 Baso # (Auto) 0.0 Sodium 139 Potassium 3.8 Chloride 101 Carbon Dioxide 35 H Anion Gap 6.8 BUN 12 Creatinine 0.80 Estimated Creat Clear 119 Estimated GFR 96 Est GFR ( Amer) 116 Glucose 177 H D POC Glucose 200 H 318 H* Calcium 8.4 Magnesium 1.8 Total Bilirubin 0.6 AST 44 ALT 34 Alkaline Phosphatase 135 H Total Protein 5.7 L Albumin 3.1 L Globulin 2.6 Albumin/Globulin Ratio 1.2 02/17/24 02/17/24 02/17/24 16:02 10:46 06:42 WBC RBC Hgb Hct MCV MCH MCHC RDW Plt Count MPV Neut % (Auto) Lymph % (Auto) Robertson % (Auto) Eos % (Auto) Baso % (Auto) Neut # (Auto) Lymph # (Auto) Robertson # (Auto) Eos # (Auto) Baso # (Auto) Sodium Potassium Chloride Carbon Dioxide Anion Gap BUN Creatinine Estimated Creat Clear Estimated GFR Est GFR ( Amer) Glucose POC Glucose 326 H* 276 H 303 H* Calcium Magnesium Total Bilirubin AST ALT Alkaline Phosphatase Total Protein Albumin Globulin Albumin/Globulin Ratio Preliminary micro results at discharge 02/14/24 08:39 Blood Culture - Preliminary Blood NO GROWTH AFTER 48 HOURS 02/14/24 08:37 Blood Culture - Preliminary Blood NO GROWTH AFTER 48 HOURS DS: Diagnosis Discharge Diagnosis (1) Severe sepsis: Status: Acute Code(s): A41.9 - Sepsis, unspecified organism; R65.20 - Severe sepsis without septic shock (2) Diarrhea: Status: Acute Code(s): R19.7 - Diarrhea, unspecified (3) Cellulitis: Status: Acute Code(s): L03.90 - Cellulitis, unspecified (4) UTI (urinary tract infection): Status: Acute Code(s): N39.0 - Urinary tract infection, site not specified (5) Bacteremia due to Streptococcus: Status: Acute Code(s): R78.81 - Bacteremia; B95.5 - Unspecified streptococcus as the cause of diseases classified elsewhere (6) Diabetes mellitus, type 2: Status: Acute Code(s): E11.9 - Type 2 diabetes mellitus without complications (7) Schizophrenic disorder: Status: Acute Code(s): F20.9 - Schizophrenia, unspecified (8) Depression: Status: Acute Code(s): F32.A - Depression, unspecified (9) Obesity (BMI 30-39.9): Status: Acute Code(s): E66.9 - Obesity, unspecified Meds Home Medications and Allergies Home Medications ?Medication ?Instructions ?Recorded ?Confirmed ?Type ferrous sulfate 325 mg (65 mg 325 mg PO DAILY 05/13/17 02/13/24 History iron) tablet sertraline 100 mg tablet 100 mg PO HS 05/15/17 02/13/24 History simvastatin 40 mg tablet 40 mg PO HS 05/15/17 02/13/24 History acetaminophen 650 mg 650 mg PO BID 04/23/19 02/13/24 History tablet,extended release ascorbic acid (vitamin C) 250 mg 250 mg PO DAILY 04/23/19 02/13/24 History tablet multivitamin 1 tab PO DAILY 04/23/19 02/13/24 History omeprazole 40 mg capsule,delayed 40 mg PO HS 04/23/19 02/13/24 History release aripiprazole 30 mg tablet 30 mg PO DAILY 04/24/19 02/13/24 History metformin 500 mg tablet,extended 1,000 mg PO BID 01/24/20 02/13/24 History release 24 hr gabapentin 100 mg capsule 100 mg PO BID Pain #60 caps 11/18/22 02/13/24 Rx aspirin 81 mg tablet,delayed 81 mg PO DAILY 11/15/23 02/13/24 History release insulin NPH-regular 70-30 U-100 30 unit SQ HS 11/15/23 02/13/24 History insulin 100 unit/mL subcutaneous pen (Humulin 70/30 U-100 KwikPen) insulin NPH-regular 70-30 U-100 35 unit SQ AM 11/15/23 02/13/24 History insulin 100 unit/mL subcutaneous pen (Humulin 70/30 U-100 KwikPen) lisinopril 30 mg tablet 30 mg PO DAILY 11/15/23 02/13/24 History oxcarbazepine 150 mg tablet 150 mg PO BID 11/15/23 02/13/24 History fluticasone propionate 50 1 spray intranasal DAILY 02/13/24 02/13/24 History mcg/actuation nasal spray,suspension bumetanide 1 mg tablet 1 mg PO BIDL 10 days #20 tabs 02/18/24 Rx levofloxacin 750 mg tablet 750 mg PO 1100 4 days #4 tabs 02/18/24 Rx nystatin 100,000 unit/gram topical 1 applic topical TIDP PRN Skin 02/18/24 Rx powder Irritation 10 days #60 grams pantoprazole 40 mg tablet,delayed 40 mg PO HS 30 days #30 tabs 02/18/24 Rx release New Prescriptions to Start Prescriptions: derrellmetanide Marlon Goldman levofloxacin Jones,Marlon nystatin Jones,Marlon pantoprazole Marlon Goldman Allergies Allergy/AdvReac Type Severity Reaction Status Date / Time sulfamethoxazole Allergy Intermediate Rash Verified 11/14/23 08:05 [From Bactrim] trimethoprim [From Bactrim] Allergy Intermediate Rash Verified 11/14/23 08:05 Discharge Plan Disposition Patient Disposition: [facility] Condition: Fair Discharge Order Discharge Orders: Discharge Order (Routine); Ordered 02/18/24 Ordered By: Marlon Goldman Follow up Plan Prescriptions/Medication Reconciliation: New pantoprazole 40 mg Tablet,Delayed Release (Dr/Ec) 40 mg PO HS 30 Days Qty: 30 0RF nystatin 100,000 unit/gram Powder 1 applic topical TIDP PRN (Reason: Skin Irritation) 10 Days Qty: 60 0RF levofloxacin 750 mg Tablet 750 mg PO 1100 4 Days Qty: 4 0RF bumetanide 1 mg tablet 1 mg PO BIDL 10 Days Qty: 20 0RF Continued ferrous sulfate 325 mg (65 mg iron) tablet 325 mg PO DAILY sertraline 100 mg tablet 100 mg PO HS simvastatin 40 mg tablet 40 mg PO HS gabapentin 100 mg capsule 100 mg PO BID Qty: 60 5RF aspirin 81 mg Tablet,Delayed Release (Dr/Ec) 81 mg PO DAILY lisinopril 30 mg tablet 30 mg PO DAILY oxcarbazepine 150 mg tablet 150 mg PO BID Humulin 70/30 U-100 KwikPen 100 unit/mL (70-30) insulin pen 35 unit SQ AM Humulin 70/30 U-100 KwikPen 100 unit/mL (70-30) insulin pen 30 unit SQ HS multivitamin 0 tablet 1 tab PO DAILY ascorbic acid (vitamin C) 250 tablet 250 mg PO DAILY omeprazole 40 MG capsule,delayed release(DR/EC) 40 mg PO HS acetaminophen 650 MG tablet extended release 650 mg PO BID aripiprazole 30 tablet 30 mg PO DAILY metformin 500 mg tablet extended release 24 hr 1,000 mg PO BID fluticasone propionate 50 mcg/actuation [place],Suspension 1 spray INTRANASAL DAILY Rx Instructions: administer into each nostril Problem Reconciliation Problems Reviewed?: Yes Patient Discharge Instructions ACTIVITY: Continue current activity DIET: continue same diet Patient Instructions: DI for Cellulitis -- Adult, DI for Urinary Tract Infection (UTI), DI for Diarrhea and Traveler's Diarrhea -- Adult, DI for Sepsis -- Adult Print Language: Gu[place]ian Providers Primary Care Provider: Provider,Referral Admit Provider: Sebastian Bill Attending Provider: Sebastian Bill
[2024-02-18 08:00] VITALS: BP 148/73; PULSE 76; RESP 19; TEMP 36.8; O2SAT 89; O2SAT 91
[2024-02-18] MEDS: VANCOMYCIN/WATER FOR INJ (PEG) 1.75 GM/350 ML PIGGYBACK IV (08:08)
[2024-02-18] MEDS: ARIPiprazole 10MG TABLET 30 MG PO (08:08)
[2024-02-18] MEDS: ENOXAPARIN 40MG/0.4ML SYRINGE 40 MG SUBCUT (08:08)
[2024-02-18] MEDS: ASPIRIN EC 81MG TABLET 81 MG PO (08:08)
[2024-02-18] MEDS: BUMETANIDE 1MG/4ML VIAL 1 MG IV (08:08)
[2024-02-18] MEDS: LISINOPRIL 10MG TABLET 30 MG PO (08:08)
[2024-02-18] MEDS: GABAPENTIN 100MG CAPSULE 100 MG PO (08:08)
[2024-02-18 09:15] LABS: Hemoglobin A1C 8.6 % (4.0-6.0)
[2024-02-18 10:57] VITALS: PULSE 77; PULSE 80
[2024-02-18] MEDS: levoFLOXacin 750 MG TABLET PO (11:07)
[2024-02-18] MEDS: SODIUM PHOS/BIPHOSPHATE FLEET 133ML ENEMA 133 ML RC (11:16)
[2024-02-18 11:31] LABS: POC Glucose,Bedside 305 (70-110)
[2024-02-18] MEDS: GUAIFENESIN/DEXTROMETHORPHAN 200MG/20MG 10ML UDC 10 ML PO (11:51)
== END 2024-02-18 12:11 | DRG 690 ==
LOC: ER 14:15 → 2ND 15:39
PROVIDERS: Internal Medicine; Internal Medicine Adolescent Medicine; Nurse Practitioner Acute Care; Admitting Provider Student in an Organized Health Care Education/Training Program; Emergency Provider Emergency Medicine; Visit Provider Student in an Organized Health Care Education/Training Program
DX: N39.0 Urinary tract infection, site not specified (principal); R78.81 Bacteremia; L03.115 Cellulitis of right lower limb; E11.65 Type 2 diabetes mellitus with hyperglycemia; E11.42 Type 2 diabetes mellitus with diabetic polyneuropathy; I10 Essential (primary) hypertension; E78.5 Hyperlipidemia, unspecified; B95.4 Other streptococcus as the cause of diseases classified elsewhere; Z79.4 Long term (current) use of insulin; Z79.899 Other long term (current) drug therapy; D64.9 Anemia, unspecified
CPT/HCPCS: 36415; 71045; 71275; 73701; 74174; 74177; 80053; 80202; 81001; 82272; 82803; 82962; 83036; 83605; 83735; 83880; 84484; 85007; 85014; 85018; 85025; 85378; 86803; 87040; 87086; 87186; 87389; 87507; 87636; 92526; 92610; 93005; 93971; 94640; 94760; 94761; 97110; 97163; 97165; 97530; 99285; G0328; J0295; J1650; J1885; J1939; J1940; J2060; J2405; J2550; J3370; J7030; J7120; J7620; Q9967

== ENCOUNTER 2024-03-06 19:46 | Emergency (ER) | payer MEDICARE, OTHER, SELFPAY ==
[2024-03-06 19:46] VITALS: BP 185/74; PULSE 86; RESP 20; TEMP 36.9; O2SAT 94; BMI 33.9
--- NOTE | 2024-03-06 19:55 | XR_ITS ---
PROCEDURE INFORMATION: Exam: XR Right Tibia and Fibula Exam date and time: 03/06/2024 7:56 PM Age: 68 years old Clinical indication: Cellulitis and edema and swelling, leg or foot; Location not specified; Lower leg; Right TECHNIQUE: Imaging protocol: Radiologic exam of the right tibia and fibula. Views: 2 views. COMPARISON: CR XR TIBIA FIBULA RT 2V 03/06/2024 7:56 PM FINDINGS: Bones/joints: Anatomic alignment is maintained. No acute fracture. Marginal osteophytes about the knee. Superior and posterior patellar enthesophytes. Cortical thickening along the posterior proximal tibial diaphysis likely represents tug lesion, unchanged. Soft tissues: Soft tissue edema about the lower extremity. Nonspecific scattered calcifications within the superficial soft tissues. IMPRESSION: Nonspecific soft tissue edema about the lower extremity without acute osseous abnormality. Recommend correlation with history/physical exam consider further evaluation as clinically indicated.
--- NOTE | 2024-03-06 19:59 | XR_ITS ---
PROCEDURE INFORMATION: Exam: XR Right Ankle Exam date and time: 03/06/2024 7:56 PM Age: 68 years old Clinical indication: Cellulitis and edema and swelling, leg or foot; Location not specified; Lower leg; Right; Additional info: Infection TECHNIQUE: Imaging protocol: Radiologic exam of the right ankle. Views: 1 or 2 views. COMPARISON: CR XR TIBIA FIBULA RT 2V 03/06/2024 7:56 PM FINDINGS: Bones/joints: No acute fracture. Soft tissues: Soft tissue edema about the ankle and foot. IMPRESSION: Nonspecific soft tissue edema about the ankle and foot without acute osseous abnormality. Recommend correlation with history/physical exam consider further evaluation as clinically indicated.
--- NOTE | 2024-03-06 19:59 | XR_ITS ---
PROCEDURE INFORMATION: Exam: XR Right Foot Exam date and time: 03/06/2024 7:56 PM Age: 68 years old Clinical indication: Cellulitis and edema and swelling, leg or foot; Location not specified; Lower leg; Right; Additional info: Infection TECHNIQUE: Imaging protocol: Radiologic exam of the right foot. Views: 3 or more views. COMPARISON: CT FOOT RT W CON 02/15/2024 7:40 PM FINDINGS: Bones/joints: Diffusely decreased osseous mineralization. Anatomic alignment is maintained. No displaced fracture. Typical osteoarthritic type changes involving the metatarsophalangeal joints. Inferior calcaneal enthesophyte. Soft tissues: Soft tissue edema about the foot. IMPRESSION: Nonspecific soft tissue edema without acute osseous abnormality. Recommend correlation with history/physical exam and consider further evaluation as clinically indicated.
[2024-03-06] MEDS: CEFTRIAXONE SODIUM 2 GM in 0.9 % SODIUM CHLORIDE 100 ML IV (20:00)
--- NOTE | 2024-03-06 20:01 | HMH.EDGENADL ---
Discharge Plan Disposition Patient Disposition: Home, Self-Care Condition: Good Prescriptions Prescriptions: No Action ferrous sulfate 325 mg (65 mg iron) tablet 325 mg PO DAILY sertraline 100 mg tablet 100 mg PO HS simvastatin 40 mg tablet 40 mg PO HS gabapentin 100 mg capsule 100 mg PO BID Qty: 60 5RF aspirin 81 mg Tablet,Delayed Release (Dr/Ec) 81 mg PO DAILY lisinopril 30 mg tablet 30 mg PO DAILY oxcarbazepine 150 mg tablet 150 mg PO BID Humulin 70/30 U-100 KwikPen 100 unit/mL (70-30) insulin pen 35 unit SQ AM Humulin 70/30 U-100 KwikPen 100 unit/mL (70-30) insulin pen 30 unit SQ HS multivitamin 0 tablet 1 tab PO DAILY ascorbic acid (vitamin C) 250 tablet 250 mg PO DAILY omeprazole 40 MG capsule,delayed release(DR/EC) 40 mg PO HS acetaminophen 650 MG tablet extended release 650 mg PO BID aripiprazole 30 tablet 30 mg PO DAILY metformin 500 mg tablet extended release 24 hr 1,000 mg PO BID fluticasone propionate 50 mcg/actuation [place],Suspension 1 spray INTRANASAL DAILY Rx Instructions: administer into each nostril pantoprazole 40 mg Tablet,Delayed Release (Dr/Ec) 40 mg PO HS 30 Days Qty: 30 0RF nystatin 100,000 unit/gram Powder 1 applic topical TIDP PRN (Reason: Skin Irritation) 10 Days Qty: 60 0RF levofloxacin 750 mg Tablet 750 mg PO 1100 4 Days Qty: 4 0RF bumetanide 1 mg tablet 1 mg PO BIDL 10 Days Qty: 20 0RF Referrals Follow up/Referrals: Provider,Referral, MD [Primary Care Provider] - See instructions Activity Restrictions/Add. Instructions Additional Instructions/Restrictions: You were evaluated in the emergency department today. You were given a strong dose of IV antibiotics that will last for approximately a week. Expect that symptoms may worsen slightly before they get better. Follow-up closely outpatient with your primary care provider over the next 48 hours. I also recommend close follow-up with podiatry. Keep your wounds on your leg clean and dry. Keep your leg elevated to help reduce swelling. Return to the emergency department for new or worsening symptoms such as fevers, significant increase in pain swelling, new numbness or tingling, or other concerns Clinical Impressions Clinical Impression: Cellulitis of leg, right Instructions Patient Instructions: DI for Cellulitis -- Adult Print Language Print Language: Maori Discharge ED Provider: Noa Menjivar General Adult HPI <Elizabeth Marquez (ED), VIDEO GAME DESIGNER - Last Filed: 03/06/24 21:06> General Chief complaint: Skin/Abscess/Foreign Body Stated complaint: Sores on leg, difficulty walking Time Seen by Provider: 03/06/24 19:47 Mode of Arrival: EMS Source of Information: Patient and EMS Limitations: No Limitations Description of Symptoms (Recalled from ER Triage Doc. by RN): pt reports severe infection to his right lower extremity. pts leg is red with scabs across the lateral side. pt does report he has not had treatment for this other than he has been applying lotion to it since yesterday. History of Present Illness HPI narrative: This is a 68-year-old male who comes in via EMS for right lower extremities redness, dryness to his leg with some pain. He has black scabs that cover his right lower extremity. He does have feeling however he is a diabetic has history of diabetes, hypertension, hyperlipidemia, GERD, schizophrenia, neuropathy and depression. Patient has had no fevers or chills. He says this redness has been going on for 6 to 8 weeks. He says yesterday he did put some lotion on the area. He has had no other treatment. Related Data Home Medications ?Medication ?Instructions ?Recorded ?Confirmed ferrous sulfate 325 mg (65 mg 325 mg PO DAILY 05/13/17 02/13/24 iron) tablet sertraline 100 mg tablet 100 mg PO HS 05/15/17 02/13/24 simvastatin 40 mg tablet 40 mg PO HS 05/15/17 02/13/24 acetaminophen 650 mg 650 mg PO BID 04/23/19 02/13/24 tablet,extended release ascorbic acid (vitamin C) 250 mg 250 mg PO DAILY 04/23/19 02/13/24 tablet multivitamin 1 tab PO DAILY 04/23/19 02/13/24 omeprazole 40 mg capsule,delayed 40 mg PO HS 04/23/19 02/13/24 release aripiprazole 30 mg tablet 30 mg PO DAILY 04/24/19 02/13/24 metformin 500 mg tablet,extended 1,000 mg PO BID 01/24/20 02/13/24 release 24 hr aspirin 81 mg tablet,delayed 81 mg PO DAILY 11/15/23 02/13/24 release insulin NPH-regular 70-30 U-100 30 unit SQ HS 11/15/23 02/13/24 insulin 100 unit/mL subcutaneous pen (Humulin 70/30 U-100 KwikPen) insulin NPH-regular 70-30 U-100 35 unit SQ AM 11/15/23 02/13/24 insulin 100 unit/mL subcutaneous pen (Humulin 70/30 U-100 KwikPen) lisinopril 30 mg tablet 30 mg PO DAILY 11/15/23 02/13/24 oxcarbazepine 150 mg tablet 150 mg PO BID 11/15/23 02/13/24 fluticasone propionate 50 1 spray intranasal DAILY 02/13/24 02/13/24 mcg/actuation nasal spray,suspension Previous Rx's ?Medication ?Instructions ?Recorded gabapentin 100 mg capsule 100 mg PO BID Pain #60 caps 11/18/22 bumetanide 1 mg tablet 1 mg PO BIDL 10 days #20 tabs 02/18/24 levofloxacin 750 mg tablet 750 mg PO 1100 4 days #4 tabs 02/18/24 nystatin 100,000 unit/gram topical 1 applic topical TIDP PRN Skin 02/18/24 powder Irritation 10 days #60 grams pantoprazole 40 mg tablet,delayed 40 mg PO HS 30 days #30 tabs 02/18/24 release Allergies Allergy/AdvReac Type Severity Reaction Status Date / Time sulfamethoxazole (From Allergy Intermediate Rash Verified 11/14/23 08:05 Bactrim) trimethoprim (From Bactrim) Allergy Intermediate Rash Verified 11/14/23 08:05 [facility] <Elizabeth Marquez (ED), VIDEO GAME DESIGNER - Last Filed: 03/06/24 21:06> [facility] Disclaimer: The information contained in this section may have been updated after the patient was seen, as this information can be updated by other users. Medical History (Updated 03/06/24 @ 22:52 by Noa Menjivar DO) Depression Anxiety Schizophrenic disorder History of gastroesophageal reflux (GERD) Hypertension Hyperlipidemia Diabetes mellitus, type 2 Surgical History (Updated 02/22/24 @ 00:00 by Kaye Martin) History of cholecystectomy Family History Other No significant family history Social History (Updated 03/06/24 @ 21:06 by Elizabeth Marquez (ED), VIDEO GAME DESIGNER) Smoking Status: Never smoker alcohol intake: never substance use type: denies use current occupational status: disabled Travel in the last 8 weeks: None housing: assisted living facility current occupational exposures/hazards: No caffeine: No Other Medical History Have you received the Flu Vaccine for this season: No Have you received the Pneumonia Vaccine: No <Elizabeth Marquez (ED), VIDEO GAME DESIGNER - Last Filed: 03/06/24 21:06> ROS Obtained: Yes Systems reviewed as appropriate & no additional complaints except as documented Constitutional Constitutional: Reports as per HPI Physical Exam <Elizabeth Marquez (ED), VIDEO GAME DESIGNER - Last Filed: 03/06/24 21:06> General General appearance: alert and in no apparent distress Head Head exam: atraumatic and normocephalic Eye Eye exam: Present normal appearance, PERRL and EOMI ENT ENT exam: Present mucous membranes moist Neck Neck exam: Present normal inspection, full ROM and trachea midline Respiratory Respiratory exam: Present normal lung sounds bilaterally Cardiovascular Cardiovascular exam: Present regular rate, normal rhythm, normal heart sounds, +S1 and +S2 Abdominal Exam Abdominal exam: Present soft and normal bowel sounds Extremities Exam Extremities exam: Present full ROM and other (Right lower extremity with cellulitic appearance, scabbing) Neurological Exam Neurological exam: Present alert and oriented X3 Skin Skin exam: Present warm, dry, erythema and other (Scabbing, erythema, dryness to right lower extremity) Medical Decision Making <Elizabeth Marquez (ED), VIDEO GAME DESIGNER - Last Filed: 03/06/24 21:06> Medical Records Screening: Per USPSTF and CDC recommendations, given the prevalence of disease in our region, it is our hospital?s policy to screen for HIV and viral Hepatitis for all patients aged 18 and over and those with ongoing risk factors. Tucker Inquiry Pt receiving controlled substance: No Tucker was queried for this patient: No Vital Signs: 03/06/24 19:46 03/06/24 20:47 03/06/24 21:00 Temperature 98.4 F Temperature Source Oral Pulse Rate 82 80 Pulse Rate [Right] 86 Respiratory Rate 20 Blood Pressure 163/74 H 157/67 H Blood Pressure [Right Arm] 185/74 H Blood Pressure Mean [Right Arm] 111 02 Sat by Pulse Oximetry 94 L 93 L 94 L Oxygen Delivery Method Room Air 03/06/24 21:34 03/06/24 22:54 Temperature 98.2 F Temperature Source Oral Pulse Rate 91 H 74 Pulse Rate [Right] Respiratory Rate 18 Blood Pressure 177/73 H 170/75 H Blood Pressure [Right Arm] Blood Pressure Mean [Right Arm] 02 Sat by Pulse Oximetry 93 L Oxygen Delivery Method Room Air Lab Data Lab Results 03/06/24 20:00: WBC 6.3, RBC 3.92 L, Hgb 12.3 L, Hct 36.9 L, MCV 94.1 H, MCH 31.3 H, MCHC 33.3, RDW 14.3, Plt Count 256, MPV 7.8, Neut % (Auto) 68.8, Lymph % (Auto) 21.4, [place] % (Auto) 7.4, Eos % (Auto) 1.6, Baso % (Auto) 0.7, Neut # (Auto) 4.4, Lymph # (Auto) 1.4, [place] # (Auto) 0.5, Eos # (Auto) 0.1, Baso # (Auto) 0.0, ESR 85 H, Sodium 135 L, Potassium 4.3, Chloride 97 L, Carbon Dioxide 31 H, Anion Gap 11.3, BUN 24 H, Creatinine 1.10, Estimated Creat Clear 102, Estimated GFR 66, Est GFR ( Amer) 80, Glucose 459 H*, Lactate 1.9, Calcium 8.9, Total Bilirubin 0.3, AST 45, ALT 25, Alkaline Phosphatase 131 H, C-Reactive Protein 18.7 H, Total Protein 6.8, Albumin 3.8, Globulin 3.0, Albumin/Globulin Ratio 1.3, Acetone Level None detected 03/06/24 20:38: VBG pH 7.37, VBG pCO2 49.1, VBG pO2 57.6 H, VBG HCO3 27.4, VBG Total CO2 28.9 H, VBG O2 Saturation 87.9 H, VBG Base Excess 2.1, VBG Lactic Acid 2.4 H 03/06/24 21:35: Urine Color Yellow, Urine Appearance Clear, Urine pH 6.5, Ur Specific [place] 1.010, Urine Protein Negative, Urine Glucose (UA) 3+, Urine Ketones Negative, Urine Blood Negative, Urine Nitrate Negative, Urine Bilirubin Negative, Urine Urobilinogen 0.2, Ur Leukocyte Esterase 1+ A, Urine RBC Occasional, Urine WBC 5-10, Ur Squamous Epith Cells Occasional, Urine Bacteria 1+ 03/06/24 20:00 03/06/24 20:00 Orders (Tests/Meds): ED MEDICATIONS Discontinued Medications Generic Name Dose Route Start Last Admin Trade Name Emely PRN Reason Stop Dose Admin Ceftriaxone Sodium 2 gm/ 100 mls @ 200 mls/hr 03/06/24 19:52 03/06/24 20:00 Sodium Chloride IV 03/06/24 20:21 200 mls/hr ONCE ONE Administration Sodium Chloride 1,000 mls @ 999 mls/hr 03/06/24 20:53 03/06/24 21:19 Sod Chlor 0.9% 1000ml Bag IV 03/06/24 21:53 999 mls/hr .Q1H1M ONE Administration Dalbavancin 1,500 mg/ Dextrose 250 mls @ 500 mls/hr 03/06/24 21:36 03/06/24 21:47 IV 03/06/24 21:37 500 mls/hr ONCE ONE Administration Insulin Human Lispro 10 unit 03/06/24 20:22 03/06/24 20:27 Humalog 100 Units/Ml 10ml Vial (Ssi) SUBCUT 03/06/24 20:23 10 unit ONCE ONE Administration ORDERS Category Date Time Status Ankle XR - Right 2 Views [XR ankle RT 2V] Stat Exams 03/06/24 19:59 Completed Tibia/fibula XR right 2 views [XR tibia fibula RT 2V] Exams 03/06/24 19:55 Completed Stat XR foot RT min 3V Stat Exams 03/06/24 19:59 Completed Acetone, Serum (Rapid) Stat Lab 03/06/24 20:00 Completed C-Reactive Protein Stat Lab 03/06/24 20:00 Completed CBC w/Auto Diff [Complete Blood Count Auto Diff] Stat Lab 03/06/24 20:00 Completed CMP [Comprehensive Metabolic Panel] Stat Lab 03/06/24 20:00 Completed Erythrocyte Sedimentation Rate Stat Lab 03/06/24 20:00 Completed Lactic Acid Stat Lab 03/06/24 20:00 Completed Urinalysis and Microscopic Stat Lab 03/06/24 21:35 Completed VBG PH Stat Lab 03/06/24 20:31 Ordered Blood Culture Stat Micro 03/06/24 20:14 Received Urine Culture Stat Micro 03/06/24 21:35 Received Venous Blood Gas Routine RT 03/06/24 20:38 Completed Medical Decision Narrative: Insert review patient is a 68-year-old male presenting to the emergency department for evaluation of right lower extremity cellulitis, erythema to right lower extremity that has been there for approximately 6 to 8 weeks according to patient. This has had no treatment other than some lotion last night.. Patient is hemodynamically stable and nontoxic-appearing upon arrival, afebrile. Differential diagnosis includes cellulitis, sepsis amongst others. Workup will be conducted with hematologic labs, specific imaging, provocative tests. Initial inventions include antibiotics. <Noa Menjivar, DO - Last Filed: 03/06/24 23:34> Vital Signs: 03/06/24 19:46 03/06/24 20:47 03/06/24 21:00 Temperature 98.4 F Temperature Source Oral Pulse Rate 82 80 Pulse Rate [Right] 86 Respiratory Rate 20 Blood Pressure 163/74 H 157/67 H Blood Pressure [Right Arm] 185/74 H Blood Pressure Mean [Right Arm] 111 02 Sat by Pulse Oximetry 94 L 93 L 94 L Oxygen Delivery Method Room Air 03/06/24 21:34 03/06/24 22:54 Temperature 98.2 F Temperature Source Oral Pulse Rate 91 H 74 Pulse Rate [Right] Respiratory Rate 18 Blood Pressure 177/73 H 170/75 H Blood Pressure [Right Arm] Blood Pressure Mean [Right Arm] 02 Sat by Pulse Oximetry 93 L Oxygen Delivery Method Room Air Lab Data Lab Results 03/06/24 20:00: WBC 6.3, RBC 3.92 L, Hgb 12.3 L, Hct 36.9 L, MCV 94.1 H, MCH 31.3 H, MCHC 33.3, RDW 14.3, Plt Count 256, MPV 7.8, Neut % (Auto) 68.8, Lymph % (Auto) 21.4, [place] % (Auto) 7.4, Eos % (Auto) 1.6, Baso % (Auto) 0.7, Neut # (Auto) 4.4, Lymph # (Auto) 1.4, [place] # (Auto) 0.5, Eos # (Auto) 0.1, Baso # (Auto) 0.0, ESR 85 H, Sodium 135 L, Potassium 4.3, Chloride 97 L, Carbon Dioxide 31 H, Anion Gap 11.3, BUN 24 H, Creatinine 1.10, Estimated Creat Clear 102, Estimated GFR 66, Est GFR ( Amer) 80, Glucose 459 H*, Lactate 1.9, Calcium 8.9, Total Bilirubin 0.3, AST 45, ALT 25, Alkaline Phosphatase 131 H, C-Reactive Protein 18.7 H, Total Protein 6.8, Albumin 3.8, Globulin 3.0, Albumin/Globulin Ratio 1.3, Acetone Level None detected 03/06/24 20:38: VBG pH 7.37, VBG pCO2 49.1, VBG pO2 57.6 H, VBG HCO3 27.4, VBG Total CO2 28.9 H, VBG O2 Saturation 87.9 H, VBG Base Excess 2.1, VBG Lactic Acid 2.4 H 03/06/24 21:35: Urine Color Yellow, Urine Appearance Clear, Urine pH 6.5, Ur Specific [place] 1.010, Urine Protein Negative, Urine Glucose (UA) 3+, Urine Ketones Negative, Urine Blood Negative, Urine Nitrate Negative, Urine Bilirubin Negative, Urine Urobilinogen 0.2, Ur Leukocyte Esterase 1+ A, Urine RBC Occasional, Urine WBC 5-10, Ur Squamous Epith Cells Occasional, Urine Bacteria 1+ Orders (Tests/Meds): ED MEDICATIONS Discontinued Medications Generic Name Dose Route Start Last Admin Trade Name Freq PRN Reason Stop Dose Admin Ceftriaxone Sodium 2 gm/ 100 mls @ 200 mls/hr 03/06/24 19:52 03/06/24 20:00 Sodium Chloride IV 03/06/24 20:21 200 mls/hr ONCE ONE Administration Sodium Chloride 1,000 mls @ 999 mls/hr 03/06/24 20:53 03/06/24 21:19 Sod Chlor 0.9% 1000ml Bag IV 03/06/24 21:53 999 mls/hr .Q1H1M ONE Administration Dalbavancin 1,500 mg/ Dextrose 250 mls @ 500 mls/hr 03/06/24 21:36 03/06/24 21:47 IV 03/06/24 21:37 500 mls/hr ONCE ONE Administration Insulin Human Lispro 10 unit 03/06/24 20:22 03/06/24 20:27 Humalog 100 Units/Ml 10ml Vial (Ssi) SUBCUT 03/06/24 20:23 10 unit ONCE ONE Administration ORDERS Category Date Time Status Ankle XR - Right 2 Views [XR ankle RT 2V] Stat Exams 03/06/24 19:59 Completed Tibia/fibula XR right 2 views [XR tibia fibula RT 2V] Exams 03/06/24 19:55 Completed Stat XR foot RT min 3V Stat Exams 03/06/24 19:59 Completed Acetone, Serum (Rapid) Stat Lab 03/06/24 20:00 Completed C-Reactive Protein Stat Lab 03/06/24 20:00 Completed CBC w/Auto Diff [Complete Blood Count Auto Diff] Stat Lab 03/06/24 20:00 Completed CMP [Comprehensive Metabolic Panel] Stat Lab 03/06/24 20:00 Completed Erythrocyte Sedimentation Rate Stat Lab 03/06/24 20:00 Completed Lactic Acid Stat Lab 03/06/24 20:00 Completed Urinalysis and Microscopic Stat Lab 03/06/24 21:35 Completed VBG PH Stat Lab 03/06/24 20:31 Ordered Blood Culture Stat Micro 03/06/24 20:14 Received Urine Culture Stat Micro 03/06/24 21:35 Received Venous Blood Gas Routine RT 03/06/24 20:38 Completed ECG Data Tracing #1: I reviewed this ECG and interpreted as documented below: Normal sinus rhythm with a ventricular rate of [address] changes concerning for ischemia. Normal axis and intervals. ECG initial impression date: 03/06/24 ECG initial impression time: 20:46 Medical Decision Narrative: Insert review patient is a 68-year-old male presenting to the emergency department for evaluation of right lower extremity cellulitis, erythema to right lower extremity that has been there for approximately 6 to 8 weeks according to patient. This has had no treatment other than some lotion last night.. Patient is hemodynamically stable and nontoxic-appearing upon arrival, afebrile. Differential diagnosis includes cellulitis, sepsis amongst others. Workup will be conducted with hematologic labs, specific imaging, provocative tests. Initial inventions include antibiotics. DO Otto: I was consulted by the HATTIE, and we discussed the complexity of the problems being addressed. I approved the treatment and management plan for this patient's care in the emergency department, thus performing a substantive portion of the medical decision making. I assumed care of the patient at 2100 at departure of the HATTIE. On my assessment, he has redness, warmth, chronic skin changes to the right lower extremity but is neurovascularly intact with good distal pulses. Labs are overall very reassuring with no significant leukocytosis. He does have elevated inflammatory markers, consistent with clinical diagnosis of cellulitis. He is hyperglycemic but not in DKA or HHS based on lab evaluation. He was given 10 units of insulin with good response and his blood sugar. Ultimately at this time, I do not feel the patient requires admission based on reassuring lab evaluation and exam as well as the fact that this has been a chronic progressively worsening issue. He was given Dalvance here in the emergency department and given instructions for close follow-up as an outpatient as well as strict return precautions. [facility]. Noa Menjivar, DO Critical Care <Elizabeth Marquez (ED), VIDEO GAME DESIGNER - Last Filed: 03/06/24 21:06> Critical Care Time Critical Care Time: No
[2024-03-06 20:12] LABS: Basophils % 0.7 % (0.1-2.0); Eosinophils # 0.1 K/mm3 (0.0-0.4); Eosinophils % 1.6 % (0.1-12.0); Hematocrit 36.9 % (42.0-52.0); Hemoglobin 12.3 g/dL (14.1-18.0); Lymphocytes # 1.4 K/mm3 (0.7-4.5); Lymphocytes % 21.4 % (10-50); Mean Corpuscular HGB Conc 33.3 g/dL (31.8-35.4); Mean Corpuscular Hemoglobin 31.3 pg (27.0-31.2); Mean Corpuscular Volume 94.1 fl (80-94); Mean Platelet Volume 7.8 fl (7.4-10.4); Monocytes # 0.5 K/mm3 (0.1-1.0); Monocytes % 7.4 % (1.7-9.3); Neutrophils # 4.4 K/mm3 (1.8-7.8); Neutrophils % 68.8 % (37.0-80.0); Platelet Count 256 K/mm3 (142-424); Red Blood Count 3.92 M/mm3 (4.60-6.20); Red Cell Distribution Width 14.3 % (11.5-17.5); White Blood Count 6.3 K/mm3 (4.8-10.8)
[2024-03-06 20:16] LABS: Albumin Level 3.8 g/dl (3.5-5.0); Chloride 97 mmol/L (98-107); Potassium 4.3 mmoL/L (3.5-5.1); Sodium 135 mmol/L (136-145)
[2024-03-06 20:19] LABS: Alanine Aminotransferase 25 U/L (12-78); Albumin/Globulin Ratio 1.3 (1.1-1.8); Alkaline Phosphatase 131 U/L (38-126); Anion Gap 11.3 mEq/L (5-15); Aspartate Amino Transferase 45 U/L (17-59); Bilirubin,Total 0.3 mg/dl (0.2-1.3); Blood Urea Nitrogen 24 mg/dl (9-20); Calcium 8.9 mg/dl (8.4-10.2); Carbon Dioxide 31 mmol/L (22.0-30.0); Creatinine Clearance Estimated 102 mL/min (50-200); Estimated Glomerular Filt Rate 66 ml/min (>60); GFR (African American) 80 ML/MIN (>60); Total Protein,Serum 6.8 g/dl (6.3-8.2)
[2024-03-06 20:20] LABS: Glucose 459 mg/dl (74-100); Lactic Acid 1.9 mmol/L (0.7-2.1)
[2024-03-06 20:25] LABS: C-Reactive Protein 18.7 mg/L (0-4)
[2024-03-06] MEDS: humaLOG 100 UNITS/ML 10ML VIAL (SSI) 10 UNIT SUBCUT (20:27)
[2024-03-06 20:30] LABS: Acetone, Serum (Rapid) None Detected (None Detect)
--- NOTE | 2024-03-06 20:42 | ECG_ITS ---
APPROVED REPORT Exam: Resting ECG HR:80 bpm ECG Measurements Heart Rate 80 AXES AL 171 P 71 QRSd 101 QRS 51 QT 370 T 57 QTc 406 Conclusion SINUS RHYTHM NORMAL ECG UNCONFIRMED REPORT Electronically signed by : SAKSHI LINK, 03/06/2024 23:10:26
[2024-03-06 20:43] LABS: Erythrocyte Sedimentation Rate 85 mm/hr (0-20)
[2024-03-06 20:44] LABS: VBG Base Excess 2.1 mmol/L (-2.4-2.3); VBG HCO3 27.4 mmol/L (23-30); VBG Oxygen Saturation 87.9 % (50-70); VBG PCO2 49.1 mmol/L (35-51); VBG PH 7.37 mmol/L (7.31-7.41); VBG PO2 57.6 mmol/L (28-40); VBG Total CO2 28.9 mmol/L (23-27)
[2024-03-06 20:45] LABS: Lactate Venous 2.4 mmol/L (0.4-2.0)
[2024-03-06 20:47] VITALS: BP 163/74; PULSE 82; O2SAT 93
[2024-03-06 21:00] VITALS: BP 157/67; PULSE 80; O2SAT 94
[2024-03-06] MEDS: 0.9 % SODIUM CHLORIDE 1000ML 1,000 ML 999 ML IV (21:19)
[2024-03-06 21:34] VITALS: BP 177/73; PULSE 91; O2SAT 93
[2024-03-06 21:38] LABS: Microscopic, Urine URINE MICROSCOPIC (MICROSCOPIC)
[2024-03-06 21:42] LABS: Appearance,Urine CLEAR (Clear); Bilirubin,Urine Negative (Negative); Blood, Urine Negative (Negative); Color,Urine YELLOW (Yellow); Glucose,Urine (UA) 3+ (Negative); Ketones,Urine Negative (Negative); Leukocyte Esterase,Urine 1+ (Negative); Nitrate,Urine Negative (Negative); PH,Urine 6.5 (5.0-8.5); Protein,Urine Negative (Negative); Urobilinogen,Urine 0.2 EU/dl (0.2)
[2024-03-06 21:46] LABS: Bacteria,Urine 1+ /lpf; RBC,Urine Occasional #/hpf (0-3); Squamous Epithelial Cell,Urine Occasional #/hpf (0-5)
[2024-03-06] MEDS: DALBAVANCIN HCL 1,500 MG in DEXTROSE 5 % IN WATER 250 ML 500 MG IV (21:47)
[2024-03-06 22:54] VITALS: BP 170/75; PULSE 74; RESP 18; TEMP 36.8; O2SAT 97
[2024-03-07 00:38] LABS: Reflex Lactic Add Lactic Reflex
== END 2024-03-06 23:06 | disposition home or self-care (01) ==
PROVIDERS: Nurse Practitioner; Emergency Provider Emergency Medicine
DX: L03.115 Cellulitis of right lower limb (principal); M79.661 Pain in right lower leg
CPT/HCPCS: 73590; 73600; 73630; 80053; 81001; 82009; 82803; 83605; 85025; 85651; 86140; 87040; 87086; 93005; 96361; 96365; 96372; 96374; 99284; J0696; J0875; J7030; J7060

== ENCOUNTER 2024-03-16 13:38 | Outpatient (CLI) | payer MEDICARE, OTHER, SELFPAY ==
[2024-03-16 14:03] LABS: Basophils # 0.1 K/mm3 (0-0.2); Basophils % 0.5 % (0.1-2.0); Eosinophils # 0.1 K/mm3 (0.0-0.4); Eosinophils % 1.1 % (0.1-12.0); Hemoglobin 13.2 g/dL (14.1-18.0); Lymphocytes # 2.1 K/mm3 (0.7-4.5); Lymphocytes % 20.6 % (10-50); Mean Corpuscular HGB Conc 33.9 g/dL (31.8-35.4); Mean Corpuscular Hemoglobin 30.9 pg (27.0-31.2); Mean Corpuscular Volume 91.3 fl (80-94); Mean Platelet Volume 8.3 fl (7.4-10.4); Monocytes # 0.5 K/mm3 (0.1-1.0); Neutrophils # 7.6 K/mm3 (1.8-7.8); Neutrophils % 72.7 % (37.0-80.0); Platelet Count 223 K/mm3 (142-424); Red Blood Count 4.27 M/mm3 (4.60-6.20); Red Cell Distribution Width 14.5 % (11.5-17.5); White Blood Count 10.4 K/mm3 (4.8-10.8)
[2024-03-16 14:42] LABS: Chloride 103 mmol/L (98-107); Sodium 138 mmol/L (136-145)
[2024-03-16 14:43] LABS: Potassium 4.5 mmoL/L (3.5-5.1)
[2024-03-16 14:45] LABS: Anion Gap 11.5 mEq/L (5-15); Blood Urea Nitrogen 26 mg/dl (9-20); Carbon Dioxide 28 mmol/L (22.0-30.0); Estimated Glomerular Filt Rate 55 ml/min (>60); GFR (African American) 66 ML/MIN (>60)
[2024-03-16 14:46] LABS: Alanine Aminotransferase 20 U/L (12-78); Albumin/Globulin Ratio 1.5 (1.1-1.8); Alkaline Phosphatase 128 U/L (38-126); Aspartate Amino Transferase 25 U/L (17-59); Bilirubin,Total 0.3 mg/dl (0.2-1.3); Calcium 8.8 mg/dl (8.4-10.2); Globulin 2.7 g/dL (1.3-3.2); Glucose 230 mg/dl (74-100); Total Protein,Serum 6.7 g/dl (6.3-8.2)
[2024-03-16 14:51] LABS: C-Reactive Protein 8.6 mg/L (0-4)
[2024-03-16 14:53] LABS: Microalbumin/Creatinine Ratio 15.8
[2024-03-16 14:54] LABS: Creatinine,Urine Random 135 mg/dL (Not Estab.)
[2024-03-16 14:57] LABS: Erythrocyte Sedimentation Rate 38 mm/hr (0-20)
[2024-03-16 15:16] LABS: Prostate Specific Ag Screen 4.3 ng/ml (0.0-4.0)
== END 2024-03-16 23:59 | disposition home or self-care (01) ==
LOC: LAB 13:39
PROVIDERS: PCP Internal Medicine; Visit Provider Internal Medicine
DX: L03.115 Cellulitis of right lower limb (principal); D64.9 Anemia, unspecified; L03.90 Cellulitis, unspecified; R73.03 Prediabetes; Z12.5 Encounter for screening for malignant neoplasm of prostate
CPT/HCPCS: 36415; 80053; 82043; 82570; 85025; 85651; 86140; G0103

== ENCOUNTER 2024-03-25 14:00 | Outpatient (RCR) | payer MEDICARE, OTHER, SELFPAY ==
--- NOTE | 2024-03-16 13:50 | HMH.PTOPWND ---
Rehab Outpt Wound Evaluation Rehab OP Wound Evaluation Start: 03/16/24 12:53 Freq: Status: Active Protocol: Document 03/16/24 13:34 PHOMARY (Rec: 03/16/24 13:50 PHORNE [id number]) E-signed By Boo Mcduffie, PT Subjective/History History History This is the initial PT wound care eval for Miles Vázquez, 68 yowm who presents with c/o R lower leg redness and open sores. He reports sores have been present x ~ 2 mos overall with insidious onset. He was in the ED ~ 9 days ago and diagnosed with cellulitis and treated with IV abx. He reports mild tenderness and increased pain over the past 2 -3 days. He has PMH of DM ( uncontrolled), schizophrenia, GERD. Subjective Subjective Currently pt has 1+ pitting edema to the R lower leg and 1 /4 TTP noted. He reports pain in R lower leg is 5/10. Moderate erythema noted throughout R lower leg. New diagnosis of cancer in past 12 No months? Wound Eval Wound Right Lateral Ma Wound Type Avulsion Is This a Chronic Wound Yes Wound Length (cm) 0.5 Wound Width (cm) 0.7 Wound Bed Appearance Beefy Red Percentage Granulated (%) 100 Wound Margins Description Well Defined Surrounding Tissue Appearance Bright Red Edema Type Pitting Edema Degree 1+ Query Text:1+ Trace, Barely Detectable, Rebound 15-30 seconds 2+ Moderate, Slight Indentation, Rebound 10-20 seconds 3+ Deep, Deeper Indentation, Rebound > 30 seconds 4+ Very Deep, Rebound > 60 seconds Drainage Description Sanguineous Drainage Amount Scant Primary Dressing Composite Comment optifoam, 2-layer calamine compression wrap system Wound Debridement Method Sharps,Forceps,Gauze, Mechanical Wound Debridement Amount of Tissue Minimal Removed Wound Debridement Result Healthy Tissue Revealed Dressing Change Patient Tolerance Tolerated Well Mckenna-Huston Wound Assessment Tool Assessment Wound size 1=Length x Width <4 sq cm Wound depth 2=Partial thickness skin loss involving epidermis &/or dermis Wound edges 2=Distinct, outline clearly visible, attached, even with wound base Wound undermining 1=None present Necrotic tissue type 1=Non visible Necrotic tissue amount 1=None visible Exudate type 2=Bloody Exudate amount 2=Scant, wound moist but no observable exudate Skin color surrounding wound 2=Bright red &/or blanches to touch Peripheral tissue edema 2=Non-pitting edema extends <4 cm around wound Peripheral tissue induration 1=None present Granulation tissue 2=Bright, beefy red;75% to 100 % of wound filled &/or tissue overgrowth Epithelialization 3=50% to <75% wound covered &/ or epithelial tissue extends to < 0.5cm Wound assessment total score 22 Wound Problems/Impairments Impairments Problems/Impairmments Palpation Tenderness,Impaired Walking,Impaired Standing, Increased Edema,Wound Care Needs,Subjective C/O Pain, Impaired Self Care/Self Management Prognosis Rehab Potential Good Comment Skilled therapy is indicated to reduce overall wound surface area, reduce edema, and decrease pain to return pt to PLOF. Clinical Impression Consistent with Diagnosis Yes Short Term Goals Number of Weeks 2 Decrease Wound Area Yes: by 25% Decrease Subjective C/O Pain Yes: 10 Peanut Separator Goals Number of Weeks 4 Decreased Palpation Tenderness Yes: 0/4 TTP to R lower leg Decrease Edema Yes: No pitting edema R LE Decrease Wound Area Yes: by 75% Decrease Subjective C/O Pain Yes: 0/10 Outpatient Therapy Plan of Care Treatment Plan May Include Therapeutic Exercise Including Home Yes Exercise Program Manual Therapy Techniques Yes Neuromuscular Re-education Yes Therapeutic Activities to Return to Yes Previous Functional/Work Level Wound Care Yes Eval/Re-Eval Yes Frequency Times per week 1 Duration Number of Weeks 2-4 Addendums This patient is a candidate for social No or vocational rehab? Patient/Guardian verbally acknowledges Yes understanding of treatment program and consents to further treatment? Patient/Guardian verbally acknowledges Yes understanding of diagnosis, prognosis and goals for treatment? Eval Complexity PT Charges 59730 - High Complexity PHYSICIAN CERTIFICATION: I certify the specified therapy services for Miles Vázquez are required, authorized, and reviewed every 30 days.
== END 2024-03-25 23:59 | disposition home or self-care (01) ==
LOC: PT 14:00
PROVIDERS: Visit Provider Internal Medicine
DX: L03.115 Cellulitis of right lower limb (principal)
CPT/HCPCS: 97163; 97597

== ENCOUNTER 2024-03-27 09:38 | Emergency (ER) | payer MEDICARE, OTHER, SELFPAY ==
[2024-03-27 09:49] VITALS: BP 147/66; PULSE 98; RESP 20; TEMP 36.9; O2SAT 97; BMI 38.3
[2024-03-27 10:28] LABS: Basophils # 0.1 K/mm3 (0-0.2); Basophils % 1.1 % (0.1-2.0); Eosinophils # 0.2 K/mm3 (0.0-0.4); Eosinophils % 3.2 % (0.1-12.0); Hemoglobin 13.2 g/dL (14.1-18.0); Lymphocytes # 1.2 K/mm3 (0.7-4.5); Lymphocytes % 19.2 % (10-50); Mean Corpuscular Hemoglobin 30.9 pg (27.0-31.2); Mean Corpuscular Volume 93.5 fl (80-94); Mean Platelet Volume 8.3 fl (7.4-10.4); Monocytes # 0.4 K/mm3 (0.1-1.0); Monocytes % 6.3 % (1.7-9.3); Neutrophils # 4.3 K/mm3 (1.8-7.8); Neutrophils % 70.3 % (37.0-80.0); Platelet Count 214 K/mm3 (142-424); Red Blood Count 4.28 M/mm3 (4.60-6.20); Red Cell Distribution Width 14.7 % (11.5-17.5); White Blood Count 6.1 K/mm3 (4.8-10.8)
[2024-03-27 10:51] LABS: Albumin Level 3.9 g/dl (3.5-5.0); Chloride 103 mmol/L (98-107); Sodium 137 mmol/L (136-145)
[2024-03-27 10:53] LABS: Alanine Aminotransferase 30 U/L (12-78); Alkaline Phosphatase 139 U/L (38-126); Aspartate Amino Transferase 32 U/L (17-59); Bilirubin,Total 0.4 mg/dl (0.2-1.3); Blood Urea Nitrogen 24 mg/dl (9-20); Carbon Dioxide 29 mmol/L (22.0-30.0); Creatinine Clearance Estimated 112 mL/min (50-200); Estimated Glomerular Filt Rate 66 ml/min (>60); GFR (African American) 80 ML/MIN (>60)
[2024-03-27 10:54] LABS: Albumin/Globulin Ratio 1.4 (1.1-1.8); Calcium 8.9 mg/dl (8.4-10.2); Creatine Kinase 60 U/L (55-170); Globulin 2.8 g/dL (1.3-3.2); Glucose 301 mg/dl (74-100); Total Protein,Serum 6.7 g/dl (6.3-8.2)
[2024-03-27 10:59] LABS: C-Reactive Protein 7.1 mg/L (0-4)
[2024-03-27 11:03] LABS: Erythrocyte Sedimentation Rate 96 mm/hr (0-20)
--- NOTE | 2024-03-27 11:21 | HMH.EDGENADL ---
Discharge Plan Disposition Patient Disposition: Xfer Other Condition: Good Chief Complaint: Extremity Injury, Lower Prescriptions Prescriptions: No Action ferrous sulfate 325 mg (65 mg iron) tablet 325 mg PO DAILY sertraline 100 mg tablet 100 mg PO HS doxycycline hyclate 100 mg capsule 100 mg PO BID 7 Days Qty: 14 0RF mupirocin 2 % ointment 1 applic topical BID 14 Days Qty: 15 0RF ammonium lactate 12 % cream 1 applic topical BID Qty: 385 1RF levofloxacin 750 mg tablet 750 mg PO 1100 14 Days Qty: 14 0RF gabapentin 100 mg capsule 100 mg PO BID Qty: 60 2RF Humulin 70/30 U-100 KwikPen 100 unit/mL (70-30) insulin pen 34 unit SQ BID Qty: 15 8RF lisinopril 30 mg tablet 30 mg PO DAILY Qty: 90 3RF simvastatin 40 mg tablet 40 mg PO HS Qty: 90 3RF aspirin 81 mg Tablet,Delayed Release (Dr/Ec) 81 mg PO DAILY oxcarbazepine 150 mg tablet 150 mg PO BID multivitamin 0 tablet 1 tab PO DAILY omeprazole 40 MG capsule,delayed release(DR/EC) 40 mg PO HS aripiprazole 30 tablet 30 mg PO DAILY metformin 500 mg tablet extended release 24 hr 1,000 mg PO BID fluticasone propionate 50 mcg/actuation [place],Suspension 1 spray INTRANASAL DAILY Rx Instructions: administer into each nostril pantoprazole 40 mg Tablet,Delayed Release (Dr/Ec) 40 mg PO HS 30 Days Qty: 30 0RF nystatin 100,000 unit/gram Powder 1 applic topical TIDP PRN (Reason: Skin Irritation) 10 Days Qty: 60 0RF bumetanide 1 mg tablet 1 mg PO BIDL 10 Days Qty: 20 0RF Referrals Follow up/Referrals: Jordan Acharya APRN [Primary Care Provider] - See instructions Tiera Doyle DPM [Staff Physician] - See instructions Sebastian Guerrero DO [Staff Physician] - See instructions Activity Restrictions/Add. Instructions Additional Instructions/Restrictions: You were evaluated in the emergency department today. Please contact your primary care provider on Friday and let them know that you were seen here today. Let them know your concerns with regards to need for placement for higher level of care. I also recommend close follow-up with podiatry as well as wound care. Continue with leg elevation to help with swelling. Take Tylenol and ibuprofen as needed for pain. Return to the emergency department for new or worsening symptoms. Clinical Impressions Clinical Impression: Chronic venous stasis, Diabetic foot, Chronic leg pain Instructions Patient Instructions: DI for Edema Due to Venous Stasis, DI for Cellulitis -- Adult Print Language Print Language: Portuguese Discharge ED Provider: Noa Menjivar General Adult HPI General Chief complaint: Extremity Injury, Lower Stated complaint: cellulitis Time Seen by Provider: 03/27/24 09:40 Mode of Arrival: EMS Source of Information: Patient Limitations: No Limitations Description of Symptoms (Recalled from ER Triage Doc. by RN): pt was brought in for right leg pain and cellulitis , has already seen and currently has treatment plan for it, leg is red and swollen but not critical History of Present Illness HPI narrative: This patient is a 68-year-old male with a history of schizophrenic disorder, hypertension, hyperlipidemia, type 2 diabetes, venous stasis of his right lower extremity, diabetic foot wound, and right lower extremity cellulitis presenting to the emergency department for evaluation with concern for difficulty with walking. Patient states that he wants to go back to [place], where he previously was for inpatient rehab after being discharged from the hospital 02/18/2024. He states that he is not getting the care that he needs at [facility], where he resides. He has been seen outpatient for this by both primary care, wound care, and by podiatry. His last evaluation was 2 days ago by wound care. Overall, his leg looks like it is doing better, but the patient states that he is having continued pain which is making it hard to walk. He states that today, he was barely able to get out of bed. No fevers, chills, or other systemic symptoms noted. Related Data Home Medications ?Medication ?Instructions ?Recorded ?Confirmed ferrous sulfate 325 mg (65 mg 325 mg PO DAILY 05/13/17 03/24/24 iron) tablet sertraline 100 mg tablet 100 mg PO HS 05/15/17 03/24/24 multivitamin 1 tab PO DAILY 04/23/19 03/24/24 omeprazole 40 mg capsule,delayed 40 mg PO HS 04/23/19 03/24/24 release aripiprazole 30 mg tablet 30 mg PO DAILY 04/24/19 03/24/24 metformin 500 mg tablet,extended 1,000 mg PO BID 01/24/20 03/24/24 release 24 hr aspirin 81 mg tablet,delayed 81 mg PO DAILY 11/15/23 03/24/24 release oxcarbazepine 150 mg tablet 150 mg PO BID 11/15/23 03/24/24 fluticasone propionate 50 1 spray intranasal DAILY 02/13/24 03/24/24 mcg/actuation nasal spray,suspension Previous Rx's ?Medication ?Instructions ?Recorded bumetanide 1 mg tablet 1 mg PO BIDL 10 days #20 tabs 02/18/24 nystatin 100,000 unit/gram topical 1 applic topical TIDP PRN Skin 02/18/24 powder Irritation 10 days #60 grams pantoprazole 40 mg tablet,delayed 40 mg PO HS 30 days #30 tabs 02/18/24 release gabapentin 100 mg capsule 100 mg PO BID Pain #60 caps 03/16/24 insulin NPH-regular 70-30 U-100 34 unit (0.34 mL) SQ BID #15 mL 03/16/24 insulin 100 unit/mL subcutaneous pen (Humulin 70/30 U-100 KwikPen) levofloxacin 750 mg tablet 750 mg PO 1100 14 days #14 tabs 03/16/24 lisinopril 30 mg tablet 30 mg PO DAILY #90 tabs 03/16/24 simvastatin 40 mg tablet 40 mg PO HS #90 tabs 03/16/24 ammonium lactate 12 % topical cream 1 applic topical BID dry skin, 03/24/24 callus care #385 grams doxycycline hyclate 100 mg capsule 100 mg PO BID infection 7 days 03/24/24 #14 caps mupirocin 2 % topical ointment 1 applic topical BID infection 14 03/24/24 days #15 grams Allergies Allergy/AdvReac Type Severity Reaction Status Date / Time sulfamethoxazole (From Allergy Intermediate Rash Verified 03/24/24 14:49 Bactrim) trimethoprim (From Bactrim) Allergy Intermediate Rash Verified 03/24/24 14:49 [facility] Disclaimer: The information contained in this section may have been updated after the patient was seen, as this information can be updated by other users. Medical History Depression Anxiety Schizophrenic disorder History of gastroesophageal reflux (GERD) Hypertension Hyperlipidemia Diabetes mellitus, type 2 Surgical History History of cholecystectomy Family History Other No significant family history Social History (Reviewed 03/27/24 @ :24 by Noa Menjivar DO) Smoking Status: Never smoker alcohol intake: never substance use type: denies use current occupational status: disabled Travel in the last 8 weeks: None housing: assisted living facility current occupational exposures/hazards: No caffeine: No Have you lived/traveled outside [place] in past 30 days?: No Contact w/someone who lives/traveled outside [place] past 30 days?: No Exposure to someone with infectious disease in past 14 days?: No Do you have a fever (greater than 100.4 F or 38 C)?: No Have you tested positive for COVID-19: No Exposed to someone with COVID-19 in past 14 days?: No Do you have a sore throat?: No Do you have a cough?: No Do you have any weakness?: No Do you have any diarrhea?: No Are you experiencing any unusual bleeding?: No Do you have any muscle aches/pain?: No Do you have any abdominal pain?: No Are you experiencing loss of taste or smell?: No Other Medical History Have you received the Flu Vaccine for this season: No Have you received the Pneumonia Vaccine: Yes ROS Obtained: Yes All systems reviewed & no additional complaints except as documented Physical Exam General General appearance: alert and in no apparent distress Head Head exam: atraumatic and normocephalic Eye Eye exam: Present normal appearance, PERRL and EOMI ENT ENT exam: Present normal exam, normal oropharynx, mucous membranes moist and normal external ear exam Neck Neck exam: Present normal inspection, full ROM and trachea midline; Absent tenderness Chest Chest inspection: Present normal inspection and symmetric chest wall rise; Absent tenderness Respiratory Respiratory exam: Present normal lung sounds bilaterally; Absent respiratory distress, wheezes, stridor or accessory muscle use Cardiovascular Cardiovascular exam: Present regular rate and normal rhythm Abdominal Exam Abdominal exam: Present soft; Absent distention, tenderness or guarding Extremities Exam Extremities exam: Present full ROM, normal capillary refill, edema and other (Chronic venous stasis changes to the right lower extremity. All compartments soft. Neurovascularly intact distally. Overall, looks improved from my prior evaluation at the end of February); Absent tenderness Back Exam Back exam: Present normal inspection and full ROM; Absent tenderness Neurological Exam Neurological exam: Present alert, oriented X3, CN II-XII intact and normal gait; Absent motor sensory deficit Psychiatric Psychiatric exam: Present normal affect and normal mood Skin Skin exam: Present warm and dry Medical Decision Making Medical Records Medical records reviewed: Yes I reviewed the patient's medical records. Screening: Per USPSTF and CDC recommendations, given the prevalence of disease in our region, it is our hospital?s policy to screen for HIV and viral Hepatitis for all patients aged 18 and over and those with ongoing risk factors. [place] Inquiry Pt receiving controlled substance: No Vital Signs: 03/27/24 09:49 Temperature 98.5 F Temperature Source Oral Pulse Rate [Left Radial] 98 H Respiratory Rate 20 Blood Pressure [Right Arm] 147/66 H Blood Pressure Mean [Right Arm] 93 02 Sat by Pulse Oximetry 97 Oxygen Delivery Method Room Air Lab Data Lab results reviewed: Yes I reviewed the patient's lab results. Lab Results 03/27/24 10:15: WBC 6.1, RBC 4.28 L, Hgb 13.2 L, Hct 40.0 L, MCV 93.5, MCH 30.9, MCHC 33.0, RDW 14.7, Plt Count 214, MPV 8.3, Neut % (Auto) 70.3, Lymph % (Auto) 19.2, Kimball % (Auto) 6.3, Eos % (Auto) 3.2, Baso % (Auto) 1.1, Neut # (Auto) 4.3, Lymph # (Auto) 1.2, Kimball # (Auto) 0.4, Eos # (Auto) 0.2, Baso # (Auto) 0.1, ESR 96 H, Sodium 137, Potassium 4.0, Chloride 103, Carbon Dioxide 29, Anion Gap 9.0, BUN 24 H, Creatinine 1.10, Estimated Creat Clear 112, Estimated GFR 66, Est GFR ( Amer) 80, Glucose 301 H, Calcium 8.9, Total Bilirubin 0.4, AST 32, ALT 30, Alkaline Phosphatase 139 H, Total Creatine Kinase 60, C-Reactive Protein 7.1 H, Total Protein 6.7, Albumin 3.9, Globulin 2.8, Albumin/Globulin Ratio 1.4 03/27/24 10:15 03/27/24 10:15 Orders (Tests/Meds): ORDERS Category Date Time Status CBC w/Auto Diff [Complete Blood Count Auto Diff] Stat Lab 03/27/24 10:15 Completed CK [Creatine Kinase] Stat Lab 03/27/24 10:15 Completed CMP [Comprehensive Metabolic Panel] Stat Lab 03/27/24 10:15 Completed CRP [C-Reactive Protein] Stat Lab 03/27/24 10:15 Completed ESR [Erythrocyte Sedimentation Rate] Stat Lab 03/27/24 10:15 Completed Medical Decision Narrative: In summary, this patient is a 68-year-old male presenting to the Emergency Department for evaluation of chronic right leg pain and swelling. He states that he is not getting the care he needs at [facility] and needs to be sent back to [place] for rehab.. Differential diagnoses considered include but are not limited to acute on chronic leg pain, chronic venous stasis, cellulitis, abscess. Ruling out the most morbid conditions drove assessment. It should be noted patient's history includes schizophrenia, diabetes which may or may not be at goal therapy. This complicates all aspects of care by increasing patient's risk for morbidity. I reviewed patient's past medical records and noted evaluations recently by podiatry and PCP as noted in HPI. On exam, the patient is sitting upright in a chair in no acute distress. Patient reports that he wants to be admitted to be sent back to [place] for rehabilitation, as he is having more trouble walking at [facility]. Per EMS, the patient ambulated to them without significant issue. Workup included CBC, CMP, ESR, CRP. I considered obtaining imaging, however it was deemed this would not change consultant so no imaging was ordered this visit. Labs no significant change from baseline. ESR is up a bit, but CRP is stable. No significant leukocytosis or other concerns. Ultimately, I feel that patient's presentation is stable and he already has good close outpatient follow-up with wound care, podiatry, PCP. He may benefit from placement in higher level of care, however I do not feel that he has an acute medical condition requiring admission today. Given this, I feel this would be most beneficial on an outpatient basis. He is able to ambulate at his baseline here. Outpatient facility and patient already have instructions provided by podiatry and wound care. Strict return precautions were given should he develop any acute worsening in his condition. Patient was discharged after all questions were answered. Critical Care Critical Care Time Critical Care Time: No
--- NOTE | 2024-03-27 11:33 | PC.NURSE ---
pt ambulated to the bathroom and around ER without difficulty
--- NOTE | 2024-03-27 11:33 | PC.NURSE ---
Called dietary for a lunch tray
[2024-03-27 11:36] VITALS: BP 130/85; PULSE 78; RESP 20; TEMP 36.9; O2SAT 96
--- NOTE | 2024-03-27 11:59 | PC.NURSE ---
TONY AT [facility] NOTIFIED THAT PT IS READY FOR DISCHARGE
== END 2024-03-27 12:34 | disposition other institution (70) ==
PROVIDERS: Emergency Provider Emergency Medicine; PCP Nurse Practitioner Acute Care
DX: I87.8 Other specified disorders of veins (principal); E11.8 Type 2 diabetes mellitus with unspecified complications; M79.604 Pain in right leg; R22.41 Localized swelling, mass and lump, right lower limb
CPT/HCPCS: 80053; 82550; 85025; 85651; 86140; 99283

== ENCOUNTER 2024-04-07 23:14 | Emergency (ER) | payer MEDICARE, OTHER, SELFPAY ==
[2024-04-07 23:14] VITALS: BP 162/75; PULSE 88; RESP 18; TEMP 36.6; O2SAT 96; BMI 34.8
[2024-04-07 23:45] VITALS: BP 110/50; PULSE 85; O2SAT 94
[2024-04-08] MEDS: LACTATED RINGERS 1000ML 1,000 ML 999 ML IV ×2 (00:03→01:10)
--- NOTE | 2024-04-08 00:35 | HMH.EDGENADL ---
Discharge Plan Disposition Patient Disposition: Home, Self-Care Condition: Good Prescriptions Prescriptions: No Action ferrous sulfate 325 mg (65 mg iron) tablet 325 mg PO DAILY sertraline 100 mg tablet 100 mg PO HS doxycycline hyclate 100 mg capsule 100 mg PO BID 7 Days Qty: 14 0RF mupirocin 2 % ointment 1 applic topical BID 14 Days Qty: 15 0RF ammonium lactate 12 % cream 1 applic topical BID Qty: 385 1RF levofloxacin 750 mg tablet 750 mg PO 1100 14 Days Qty: 14 0RF gabapentin 100 mg capsule 100 mg PO BID Qty: 60 2RF Humulin 70/30 U-100 KwikPen 100 unit/mL (70-30) insulin pen 34 unit SQ BID Qty: 15 8RF lisinopril 30 mg tablet 30 mg PO DAILY Qty: 90 3RF simvastatin 40 mg tablet 40 mg PO HS Qty: 90 3RF aspirin 81 mg Tablet,Delayed Release (Dr/Ec) 81 mg PO DAILY oxcarbazepine 150 mg tablet 150 mg PO BID multivitamin 0 tablet 1 tab PO DAILY omeprazole 40 MG capsule,delayed release(DR/EC) 40 mg PO HS aripiprazole 30 tablet 30 mg PO DAILY metformin 500 mg tablet extended release 24 hr 1,000 mg PO BID fluticasone propionate 50 mcg/actuation [place],Suspension 1 spray INTRANASAL DAILY Rx Instructions: administer into each nostril pantoprazole 40 mg Tablet,Delayed Release (Dr/Ec) 40 mg PO HS 30 Days Qty: 30 0RF nystatin 100,000 unit/gram Powder 1 applic topical TIDP PRN (Reason: Skin Irritation) 10 Days Qty: 60 0RF bumetanide 1 mg tablet 1 mg PO BIDL 10 Days Qty: 20 0RF Referrals Follow up/Referrals: Provider,Referral, [Primary Care Provider] - See instructions Sebastian Guerrero DO [Staff Physician] - See instructions (please re-check kidney function) Activity Restrictions/Add. Instructions Additional Instructions/Restrictions: You were evaluated in the ER and are appropriate for discharge at this time. Continue taking your home medications as prescribed. Please drink plenty of water to improve your hydration and to avoid muscle spasms. Call Dr. Guerrero and make an appointment for reevaluation immediately. He should recheck your kidney levels. Return to the ER with new, worsening, or otherwise concerning symptoms. Clinical Impressions Clinical Impression: Acidosis, lactic, Dehydration, Elevated CK Print Language Print Language: [place] Discharge ED Provider: Aranza Odom General Adult HPI General Chief complaint: Extremity Problem,Nontraumatic Stated complaint: muscle spasm Time Seen by Provider: 04/07/24 23:30 Mode of Arrival: EMS Source of Information: Patient and EMS Limitations: No Limitations Description of Symptoms (Recalled from ER Triage Doc. by RN): EMS was called out due to pt reporting muscle spasms all over. pt reports he has been out of insulin x1 week, pt just had a dose this evening. pt states it starts in his hands and they ache. History of Present Illness HPI narrative: 68-year-old male presents to the ER for complaints of muscle spasms all over but primarily in his hands. Patient reports he has not been provided his insulin for the last week, and was finally able to get a dose of it this evening. He states he has not been eating much because of not being able to take his insulin. He states he had an aching sensation that started in his hands and eventually his whole body had this type of discomfort. He did not have any abnormal movements, no recent injuries. He states he has not had any abdominal pain, he feels mildly nauseous but believes that is because he is hungry, he has had 2 episode of diarrhea today but it was nonbloody, nonmelanotic. He denies dysuria or hematuria. He has chronic swelling of the legs as well as a history of diabetic feet, venous stasis, previous cellulitis of the leg. He follows with Dr. Doyle. Patient denies fevers, chills, chest pain, difficulty breathing, cough, vomiting, dizziness, numbness, tingling, weakness. He states his spasms seem to have improved now that he has gotten his insulin dose tonight. Related Data Home Medications ?Medication ?Instructions ?Recorded ?Confirmed ferrous sulfate 325 mg (65 mg 325 mg PO DAILY 05/13/17 04/05/24 iron) tablet sertraline 100 mg tablet 100 mg PO HS 05/15/17 04/05/24 multivitamin 1 tab PO DAILY 04/23/19 04/05/24 omeprazole 40 mg capsule,delayed 40 mg PO HS 04/23/19 04/05/24 release aripiprazole 30 mg tablet 30 mg PO DAILY 04/24/19 04/05/24 metformin 500 mg tablet,extended 1,000 mg PO BID 01/24/20 04/05/24 release 24 hr aspirin 81 mg tablet,delayed 81 mg PO DAILY 11/15/23 04/05/24 release oxcarbazepine 150 mg tablet 150 mg PO BID 11/15/23 04/05/24 fluticasone propionate 50 1 spray intranasal DAILY 02/13/24 04/05/24 mcg/actuation nasal spray,suspension Previous Rx's ?Medication ?Instructions ?Recorded bumetanide 1 mg tablet 1 mg PO BIDL 10 days #20 tabs 02/18/24 nystatin 100,000 unit/gram topical 1 applic topical TIDP PRN Skin 02/18/24 powder Irritation 10 days #60 grams pantoprazole 40 mg tablet,delayed 40 mg PO HS 30 days #30 tabs 02/18/24 release gabapentin 100 mg capsule 100 mg PO BID Pain #60 caps 03/16/24 insulin NPH-regular 70-30 U-100 34 unit (0.34 mL) SQ BID #15 mL 03/16/24 insulin 100 unit/mL subcutaneous pen (Humulin 70/30 U-100 KwikPen) levofloxacin 750 mg tablet 750 mg PO 1100 14 days #14 tabs 03/16/24 lisinopril 30 mg tablet 30 mg PO DAILY #90 tabs 03/16/24 simvastatin 40 mg tablet 40 mg PO HS #90 tabs 03/16/24 ammonium lactate 12 % topical cream 1 applic topical BID dry skin, 03/24/24 callus care #385 grams doxycycline hyclate 100 mg capsule 100 mg PO BID infection 7 days 03/24/24 #14 caps mupirocin 2 % topical ointment 1 applic topical BID infection 14 03/24/24 days #15 grams Allergies Allergy/AdvReac Type Severity Reaction Status Date / Time sulfamethoxazole (From Allergy Intermediate Rash Verified 04/05/24 13:33 Bactrim) trimethoprim (From Bactrim) Allergy Intermediate Rash Verified 04/05/24 13:33 [facility] Disclaimer: The information contained in this section may have been updated after the patient was seen, as this information can be updated by other users. Medical History Depression Anxiety Schizophrenic disorder History of gastroesophageal reflux (GERD) Hypertension Hyperlipidemia Diabetes mellitus, type 2 Surgical History History of cholecystectomy Family History Other No significant family history Social History Smoking Status: Never smoker alcohol intake: never substance use type: denies use current occupational status: disabled Travel in the last 8 weeks: None housing: assisted living facility current occupational exposures/hazards: No caffeine: No Other Medical History Have you received the Flu Vaccine for this season: No Have you received the Pneumonia Vaccine: Yes ROS Obtained: Yes Systems reviewed as appropriate & no additional complaints except as documented Per HPI Physical Exam General General appearance: alert, in no apparent distress and obese Head Head exam: atraumatic and normocephalic Eye Eye exam: Present PERRL and EOMI ENT ENT exam: Present mucous membranes moist Neck Neck exam: Present normal inspection and full ROM Chest Chest inspection: Present symmetric chest wall rise Respiratory Respiratory exam: Present normal lung sounds bilaterally; Absent respiratory distress, wheezes or stridor Cardiovascular Cardiovascular exam: Present regular rate and normal rhythm Abdominal Exam Abdominal exam: Present soft; Absent distention or tenderness Extremities Exam Extremities exam: Present full ROM, edema (Mild +1 pitting edema bilateral lower extremities) and other (Right lower extremity is slightly more erythematous than the left, however it is not tender, there is no induration, he has bilateral venous stasis changes and it appears that the right is worse than the left); Absent calf tenderness Neurological Exam Neurological exam: Present alert, oriented X3 and motor sensory deficit (Baseline decreased sensation in the feet) Psychiatric Psychiatric exam: Present normal affect and normal mood Skin Skin exam: Present warm, dry and other (No open wounds, no diabetic foot wounds, right nail hallux bed is well-appearing) Medical Decision Making Medical Records Medical records reviewed: Yes I reviewed the patient's medical records. Screening: Per USPSTF and CDC recommendations, given the prevalence of disease in our region, it is our hospital?s policy to screen for HIV and viral Hepatitis for all patients aged 18 and over and those with ongoing risk factors. MR Comment: Most recent podiatry note from March 24 demonstrates right hallux nail had been lifted off, patient had pitting edema, lymphedema at that time, he also had erythematous skin per that note [place] Inquiry Pt receiving controlled substance: No Vital Signs: 04/07/24 23:14 04/07/24 23:45 Temperature 97.8 F Temperature Source Oral Pulse Rate 85 Pulse Rate [Right] 88 Respiratory Rate 18 Blood Pressure 110/50 L Blood Pressure [Right Arm] 162/75 H Blood Pressure Mean [Right Arm] 104 02 Sat by Pulse Oximetry 96 94 L Oxygen Delivery Method Room Air Lab Data Lab Results 04/08/24 00:10: WBC 8.8, RBC 4.09 L, Hgb 12.7 L, Hct 36.4 L, MCV 89.0, MCH 31.1, MCHC 34.9, RDW 13.2, Plt Count 183, MPV 9.7, Neut % (Auto) 60.6, Lymph % (Auto) 27.3, Baker % (Auto) 8.6, Eos % (Auto) 2.2, Baso % (Auto) 0.8, Neut # (Auto) 5.4, Lymph # (Auto) 2.4, Baker # (Auto) 0.8, Eos # (Auto) 0.2, Baso # (Auto) 0.1, Sodium 138, Potassium 4.4, Chloride 96 L, Carbon Dioxide 31 H, Anion Gap 15.4 H, BUN 29 H, Creatinine 1.40 H, Estimated Creat Clear 80, Estimated GFR 50 L, Est GFR ( Amer) 61, Glucose 224 H, Calcium 10.0, Total Bilirubin 0.4, AST 39, ALT 28, Alkaline Phosphatase 110, Total Creatine Kinase 221 H, Total Protein 7.1, Albumin 4.4, Globulin 2.7, Albumin/Globulin Ratio 1.6, Acetone Level None detected 04/08/24 00:15: VBG pH 7.29 L, VBG pCO2 62.0 H, VBG pO2 27.0 L, VBG HCO3 28.8, VBG Total CO2 30.7 H, VBG O2 Saturation 44.9 L, VBG Base Excess 2.1, VBG Lactic Acid 4.7 H, SARS-CoV-2 (PCR) Not detected, Influenza A Untype (PCR) Not detected, Influenza Type B (PCR) Not detected 04/08/24 02:35: VBG pH 7.32, VBG pCO2 55.5 H, VBG pO2 31.8, VBG HCO3 28.0, VBG Total CO2 29.7 H, VBG O2 Saturation 59.9, VBG Base Excess 1.9, VBG Lactic Acid 3.3 H 04/08/24 03:42: Lactate 2.6 H, Total Creatine Kinase 186 H 04/08/24 00:10 04/08/24 00:10 Orders (Tests/Meds): ED MEDICATIONS Discontinued Medications Generic Name Dose Route Start Last Admin Trade Name Freq PRN Reason Stop Dose Admin Albuterol/Ipratropium 3 ml 04/08/24 03:02 04/08/24 03:34 Ipratropium/Albuterol 3 Ml Neb IH 04/08/24 03:03 3 ml ONCE ONE Administration Lactated Ringer's 1,000 mls @ 999 mls/hr 04/07/24 23:56 04/08/24 00:03 Lactated Ringer's 1000 Ml Bag IV 04/08/24 00:56 999 mls/hr .Q1H1M ONE Administration Lactated Ringer's 1,000 mls @ 999 mls/hr 04/08/24 01:03 04/08/24 01:10 Lactated Ringer's 1000 Ml Bag IV 04/08/24 02:03 999 mls/hr .Q1H1M ONE Administration ORDERS Category Date Time Status Acetone, Serum (Rapid) Stat Lab 04/07/24 23:56 Completed CBC w/Auto Diff [Complete Blood Count Auto Diff] Stat Lab 04/07/24 23:56 Completed CK [Creatine Kinase] Stat Lab 04/08/24 00:10 Completed CK [Creatine Kinase] Stat Lab 04/08/24 03:42 Completed CMP [Comprehensive Metabolic Panel] Stat Lab 04/07/24 23:56 Completed Lactic Acid Stat Lab 04/08/24 03:42 Completed Rapid PCR Covid and Flu A/B Stat Lab 04/08/24 00:15 Completed VBG [Venous Blood Gas] Stat RT 04/08/24 00:15 Completed VBG [Venous Blood Gas] Stat RT 04/08/24 02:35 Completed Medical Decision Narrative: In summary, this 68-year-old male with comorbidities described in HPI presents to the emergency department today with muscle spasms/body aches. On initial evaluation patient is hemodynamically stable, afebrile, resting comfortably, GCS 15, no neurologic deficits aside from baseline decree sensation in the feet likely secondary to neuropathy, right lower extremity has more erythema compared to the left, bilateral lower extremities demonstrate venous stasis changes, right lower extremity notably does not have any induration or erythema. Differential diagnosis includes but is not limited to DKA, lactic acidosis, hyperglycemia, electrolyte abnormality, kidney dysfunction, rhabdomyolysis, muscle spasm, viral syndrome, dehydration. Based on these concerns, I ordered serum labs, VBG, viral swab. Patient received IV fluids initially for treatment. Labs were reviewed by me. VBG resulted with lactic acidosis and pH 7.29 as well as hypercarbia. Patient does not have a history of hypercarbia and has no wheezing, good oxygenation, no abnormalities on respiratory exam. Unsure why this hypercarbia is present. The lactic acidosis is likely secondary to dehydration, patient does have slightly worsened kidney dysfunction compared to March 27 when his creatinine was 1.1, today is 1.40. I considered the possibility of lower extremity cellulitis contributing to this however patient just completed a course of doxycycline and I do not believe his legs appear infected since they are not indurated or warm to the touch. He also does not have a leukocytosis on labs. He does have mild anemia but normal platelets. CK was mildly elevated at 221. Acetone negative. Despite patient having a lactic acidosis, findings are not consistent with DKA. Patient in total is receiving aggressive fluid resuscitation with 2 L of IV fluids. Patient placed in the ED observation at 0130 for continued monitoring and IV fluid resuscitation. This was done in order to preclude unnecessary admission and be able to trend labs that I anticipate will rapidly correct with fluids. Repeat VBG demonstrates downtrending lactic, normalized pH, still has mild hypercarbia. DuoNeb is being administered to see if this changes patient's respiratory exam and potentially opens any airways however I do not hear wheezing at baseline. Chemistry lactic is being sent for confirmation since there is often disagreement between our VBG and chemistry lactic. Repeat CK pending. On reevaluation after DuoNeb was administered, patient had no change in his respiratory status, no wheezing, still moving air well and saturating well on room air. He reports he feels completely better, he has no bodyaches or spasms, he is currently eating and drinking. I do not have a good explanation for patient's mild hypercarbia but it was spontaneously improving before the DuoNeb and his respiratory status and exam is unchanged since administration of the DuoNeb, so I will not be prescribing any bronchodilators to the patient. He reports he has no history of asthma or COPD, never smoker. Chemistry lactic 2.6. Down trended compared to VBG. Repeat CK downtrending, now 186. With all these labs showing signs of improvement and patient stating he feels much better and actually back to baseline after receiving fluids, I believe he is appropriate for discharge. Seems as though his symptoms were primarily caused by dehydration, possibly also not having his insulin for the last week though he was not in DKA or HHS. His lactic acidosis and dehydration may have been exacerbated by the diarrhea he is having as well. At this time I believe he is appropriate for discharge especially since he is tolerating plenty of oral intake. I instructed him to make an appointment with his PCP (Dr. Guerrero) for close follow-up and reevaluation of his kidney functions. Also given instructions to continue his home medications and strict return precautions for the ER. He indicated understanding and the patient was discharged in stable condition. Total time in ED observation: 2 hours 50 minutes Critical Care Critical Care Time Critical Care Time: No
[2024-04-08 00:36] LABS: Coronavirus 19, PCR Not Detected (NotDetected); Influenza A, PCR Not Detected (NotDetected); Influenza B, PCR Not Detected (NotDetected)
[2024-04-08 00:40] LABS: VBG Base Excess 2.1 mmol/L (-2.4-2.3); VBG HCO3 28.8 mmol/L (23-30); VBG Oxygen Saturation 44.9 % (50-70); VBG PH 7.29 mmol/L (7.31-7.41); VBG Total CO2 30.7 mmol/L (23-27)
[2024-04-08 00:42] LABS: Alanine Aminotransferase 28 U/L (12-78); Albumin Level 4.4 g/dl (3.5-5.0); Albumin/Globulin Ratio 1.6 (1.1-1.8); Alkaline Phosphatase 110 U/L (38-126); Anion Gap 15.4 mEq/L (5-15); Aspartate Amino Transferase 39 U/L (17-59); Bilirubin,Total 0.4 mg/dl (0.2-1.3); Blood Urea Nitrogen 29 mg/dl (9-20); Carbon Dioxide 31 mmol/L (22.0-30.0); Chloride 96 mmol/L (98-107); Creatinine Clearance Estimated 80 mL/min (50-200); Estimated Glomerular Filt Rate 50 ml/min (>60); GFR (African American) 61 ML/MIN (>60); Globulin 2.7 g/dL (1.3-3.2); Glucose 224 mg/dl (74-100); Potassium 4.4 mmoL/L (3.5-5.1); Sodium 138 mmol/L (136-145); Total Protein,Serum 7.1 g/dl (6.3-8.2); White Blood Count 8.8 K/mm3 (4.8-10.8)
[2024-04-08 00:43] LABS: Basophils % 0.8 % (0.1-2.0); Eosinophils % 2.2 % (0.1-12.0); Hematocrit 36.4 % (42.0-52.0); Hemoglobin 12.7 g/dL (14.1-18.0); Lymphocytes % 27.3 % (10-50); Mean Corpuscular HGB Conc 34.9 g/dL (31.8-35.4); Mean Corpuscular Hemoglobin 31.1 pg (27.0-31.2); Mean Platelet Volume 9.7 fl (7.4-10.4); Monocytes % 8.6 % (1.7-9.3); Neutrophils % 60.6 % (37.0-80.0); Platelet Count 183 K/mm3 (142-424); Red Blood Count 4.09 M/mm3 (4.60-6.20); Red Cell Distribution Width 13.2 % (11.5-17.5)
[2024-04-08 00:44] LABS: Basophils # 0.1 K/mm3 (0-0.2); Eosinophils # 0.2 K/mm3 (0.0-0.4); Lymphocytes # 2.4 K/mm3 (0.7-4.5); Monocytes # 0.8 K/mm3 (0.1-1.0); Neutrophils # 5.4 K/mm3 (1.8-7.8)
[2024-04-08 00:45] LABS: Lactate Venous 4.7 mmol/L (0.4-2.0)
[2024-04-08 01:11] LABS: Acetone, Serum (Rapid) None Detected (None Detect)
[2024-04-08 01:24] LABS: Creatine Kinase 221 U/L (55-170)
[2024-04-08 02:45] LABS: VBG Base Excess 1.9 mmol/L (-2.4-2.3); VBG Oxygen Saturation 59.9 % (50-70); VBG PCO2 55.5 mmol/L (35-51); VBG PH 7.32 mmol/L (7.31-7.41); VBG PO2 31.8 mmol/L (28-40); VBG Total CO2 29.7 mmol/L (23-27)
[2024-04-08 02:46] LABS: Lactate Venous 3.3 mmol/L (0.4-2.0)
[2024-04-08] MEDS: IPRATROPIUM/ALBUTEROL 3 ML NEB IH (03:34)
[2024-04-08 03:58] LABS: Creatine Kinase 186 U/L (55-170)
[2024-04-08 04:03] LABS: Lactic Acid 2.6 mmol/L (0.7-2.1)
--- NOTE | 2024-04-08 04:17 | PC.NURSE ---
attempted to call both gilbert ballesteros and sharan brown to find a ride for this patient and neither answered.
[2024-04-08 04:21] VITALS: BP 164/74; PULSE 77; RESP 18; TEMP 36.6; O2SAT 96
--- NOTE | 2024-04-08 05:27 | PC.NURSE ---
spoke to [facility] staff, informed that patient is ready to return they will have someone here shortly to get patient
== END 2024-04-08 05:43 | disposition home or self-care (01) ==
PROVIDERS: Emergency Provider Emergency Medicine
DX: E86.0 Dehydration (principal); E87.20 Acidosis, unspecified; R74.8 Abnormal levels of other serum enzymes; M62.838 Other muscle spasm; R11.0 Nausea; R19.7 Diarrhea, unspecified
CPT/HCPCS: 80053; 82009; 82550; 82803; 83605; 85025; 87636; 96360; 96361; 99284; J7120; J7620

== ENCOUNTER 2024-04-26 07:32 | Outpatient (CLI) | payer MEDICARE, OTHER, SELFPAY ==
--- NOTE | 2024-04-26 07:39 | MR_ITS ---
FINAL REPORT CLINICAL HISTORY: pancreatic head and tail lesion seen on CT scan 11/14/2023 COMPARISON: CT abdomen and pelvis on 11/14/2023 FINDINGS: Multiplanar MR imaging of the abdomen was performed without and with contrast. The pancreatic lesion of question is located in the anterior margin of the proximal pancreatic body and measures 10 mm. The central component is cystic. There is a thin enhancing capsule associated with the lesion. The pancreas is predominantly fatty replaced. There is no biliary or pancreatic ductal dilatation. A right renal cyst is seen measuring 14 mm. The remaining solid organs are unremarkable. There is no evidence of adenopathy or ascites. The patient is status postcholecystectomy. IMPRESSION: Cystic lesion anterior proximal pancreatic body is nonspecific and favored benign. Recommend continued MRI surveillance in 6 months. Reviewed, Interpreted and Dictated by Kaylee Rosa MD Transcribed by Lisa Ryder Authenticated and . [facility]
[2024-04-26] MEDS: GADOTERIDOL INJ 10ML SYRINGE 3 ML IV (08:46)
[2024-04-26] MEDS: SODIUM CHLORIDE 0.9% 10ML SYR (RAD ONLY) 10 ML IV (08:46)
[2024-04-26] MEDS: SODIUM CHLORIDE 0.9% 50ML BAG 25 ML IV (08:46)
[2024-04-26] MEDS: GADOTERIDOL INJ 20ML SYRINGE 20 ML IV (08:47)
== END 2024-04-26 23:59 | disposition home or self-care (01) ==
PROVIDERS: PCP Internal Medicine; Visit Provider Internal Medicine
DX: K86.9 Disease of pancreas, unspecified (principal)
CPT/HCPCS: 74183; A9576

== ENCOUNTER 2024-05-02 08:02 | Observation (INO) | payer MEDICARE, OTHER, SELFPAY ==
[2024-05-02] VITALS (10 sets, daily range): BP systolic 111–146; BP diastolic 53–92; PULSE 60–95; RESP 16–20; TEMP 36.7–37.2; O2SAT 93–100; BMI 34.8
--- NOTE | 2024-05-02 07:59 | PC.NURSE ---
Fingerstick glucose 209 at 0757. Nurse aware
--- NOTE | 2024-05-02 08:00 | HMH.EDGENADL ---
Discharge Plan Disposition Patient Disposition: Admitted Condition: Good Prescriptions Prescriptions: No Action lisinopril 40 mg tablet 40 mg PO DAILY Qty: 30 2RF ferrous sulfate 325 mg (65 mg iron) tablet 325 mg PO DAILY sertraline 100 mg tablet 100 mg PO HS doxycycline hyclate 100 mg capsule 100 mg PO BID 7 Days Qty: 14 0RF mupirocin 2 % ointment 1 applic topical BID 14 Days Qty: 15 0RF ammonium lactate 12 % cream 1 applic topical BID Qty: 385 1RF levofloxacin 750 mg tablet 750 mg PO 1100 14 Days Qty: 14 0RF gabapentin 100 mg capsule 100 mg PO BID Qty: 60 2RF Humulin 70/30 U-100 KwikPen 100 unit/mL (70-30) insulin pen 34 unit SQ BID Qty: 15 8RF lisinopril 30 mg tablet 30 mg PO DAILY Qty: 90 3RF simvastatin 40 mg tablet 40 mg PO HS Qty: 90 3RF aspirin 81 mg Tablet,Delayed Release (Dr/Ec) 81 mg PO DAILY oxcarbazepine 150 mg tablet 150 mg PO BID multivitamin 0 tablet 1 tab PO DAILY omeprazole 40 MG capsule,delayed release(DR/EC) 40 mg PO HS aripiprazole 30 tablet 30 mg PO DAILY metformin 500 mg tablet extended release 24 hr 1,000 mg PO BID fluticasone propionate 50 mcg/actuation [place],Suspension 1 spray INTRANASAL DAILY Rx Instructions: administer into each nostril pantoprazole 40 mg Tablet,Delayed Release (Dr/Ec) 40 mg PO HS 30 Days Qty: 30 0RF nystatin 100,000 unit/gram Powder 1 applic topical TIDP PRN (Reason: Skin Irritation) 10 Days Qty: 60 0RF bumetanide 1 mg tablet 1 mg PO BIDL 10 Days Qty: 20 0RF Clinical Impressions Clinical Impression: Acute hyponatremia, Nausea, vomiting, and diarrhea, Headache, General weakness, Pancreas cyst Instructions Patient Instructions: DI for Diarrhea and Traveler's Diarrhea -- Adult, DI for Diarrhea and Traveler's Diarrhea -- Child, DI for Nausea -- Adult, DI for Nausea -- Child Print Language Print Language: Luxem[place] Discharge ED Provider: Noa Menjivar General Adult HPI General Chief complaint: Nausea/Vomiting/Diarrhea Stated complaint: headache Time Seen by Provider: 05/02/24 08:05 History of Present Illness HPI narrative: This patient is a 68-year-old male with a history of insulin-dependent type 2 diabetes, schizophrenia, hypertension, GERD, pancreatic lesion, chronic venous stasis of his bilateral lower extremities presenting to the emergency department for evaluation with concern for headache, nausea, vomiting, and diarrhea. He is a resident at [facility]. Patient states that he started having diarrhea 2 to 3 days ago, but is only had 1 episode of emesis which was today. He notes that he developed a headache on the way over here that is a mild generalized headache without any vision changes, numbness, tingling, weakness, or other concerns. He has some mild generalized abdominal pain but no localizable pain or discomfort. He also has had no hematochezia or melena. He also notes he was almost too generally weak to get out of bed this morning. No other concerns noted at this time. He reports that he has been using his insulin and keeping an eye on his blood sugar. Related Data Home Medications ?Medication ?Instructions ?Recorded ?Confirmed ferrous sulfate 325 mg (65 mg 325 mg PO DAILY 05/13/17 05/02/24 iron) tablet sertraline 100 mg tablet 100 mg PO HS 05/15/17 05/02/24 multivitamin 1 tab PO DAILY 04/23/19 05/02/24 omeprazole 40 mg capsule,delayed 40 mg PO HS 04/23/19 05/02/24 release aripiprazole 30 mg tablet 30 mg PO DAILY 04/24/19 05/02/24 metformin 500 mg tablet,extended 1,000 mg PO BID 01/24/20 05/02/24 release 24 hr aspirin 81 mg tablet,delayed 81 mg PO DAILY 11/15/23 05/02/24 release oxcarbazepine 150 mg tablet 150 mg PO BID 11/15/23 05/02/24 fluticasone propionate 50 1 spray intranasal DAILY 02/13/24 05/02/24 mcg/actuation nasal spray,suspension Previous Rx's ?Medication ?Instructions ?Recorded bumetanide 1 mg tablet 1 mg PO BIDL 10 days #20 tabs 02/18/24 nystatin 100,000 unit/gram topical 1 applic topical TIDP PRN Skin 02/18/24 powder Irritation 10 days #60 grams pantoprazole 40 mg tablet,delayed 40 mg PO HS 30 days #30 tabs 02/18/24 release gabapentin 100 mg capsule 100 mg PO BID Pain #60 caps 03/16/24 insulin NPH-regular 70-30 U-100 34 unit (0.34 mL) SQ BID #15 mL 03/16/24 insulin 100 unit/mL subcutaneous pen (Humulin 70/30 U-100 KwikPen) levofloxacin 750 mg tablet 750 mg PO 1100 14 days #14 tabs 03/16/24 lisinopril 30 mg tablet 30 mg PO DAILY #90 tabs 03/16/24 simvastatin 40 mg tablet 40 mg PO HS #90 tabs 03/16/24 ammonium lactate 12 % topical cream 1 applic topical BID dry skin, 03/24/24 callus care #385 grams doxycycline hyclate 100 mg capsule 100 mg PO BID infection 7 days 03/24/24 #14 caps mupirocin 2 % topical ointment 1 applic topical BID infection 14 03/24/24 days #15 grams lisinopril 40 mg tablet 40 mg PO DAILY #30 tabs 04/13/24 Allergies Allergy/AdvReac Type Severity Reaction Status Date / Time sulfamethoxazole (From Allergy Intermediate Rash Verified 05/02/24 08:09 Bactrim) trimethoprim (From Bactrim) Allergy Intermediate Rash Verified 05/02/24 08:09 PFSH PFS Disclaimer: The information contained in this section may have been updated after the patient was seen, as this information can be updated by other users. Medical History Pancreatic lesion Depression Anxiety Schizophrenic disorder History of gastroesophageal reflux (GERD) Hypertension Hyperlipidemia Diabetes mellitus, type 2 Surgical History History of cholecystectomy Family History Other No significant family history Social History Smoking Status: Former smoker alcohol intake: never substance use type: denies use current occupational status: disabled Travel in the last 8 weeks: None housing: assisted living facility current occupational exposures/hazards: No caffeine: No Have you lived/traveled outside [place] in past 30 days?: No Contact w/someone who lives/traveled outside US past 30 days?: No Exposure to someone with infectious disease in past 14 days?: No Do you have a fever (greater than 100.4 F or 38 C)?: No Have you tested positive for COVID-19: No Exposed to someone with COVID-19 in past 14 days?: No Do you have a sore throat?: No Do you have a cough?: No Do you have any weakness?: No Do you have any diarrhea?: No Are you experiencing any unusual bleeding?: No Do you have any muscle aches/pain?: No Do you have any abdominal pain?: No Are you experiencing loss of taste or smell?: No Other Medical History Have you received the Flu Vaccine for this season: No Have you received the Pneumonia Vaccine: Yes ROS Obtained: Yes All systems reviewed & no additional complaints except as documented Physical Exam General General appearance: alert and in no apparent distress Head Head exam: atraumatic and normocephalic Eye Eye exam: Present normal appearance, PERRL and EOMI ENT ENT exam: Present normal exam, normal oropharynx, mucous membranes moist and normal external ear exam Neck Neck exam: Present normal inspection, full ROM and trachea midline; Absent tenderness Chest Chest inspection: Present normal inspection and symmetric chest wall rise; Absent tenderness Respiratory Respiratory exam: Present normal lung sounds bilaterally; Absent respiratory distress, wheezes, stridor or accessory muscle use Cardiovascular Cardiovascular exam: Present regular rate and normal rhythm Abdominal Exam Abdominal exam: Absent tenderness, guarding, rebound or rigidity Extremities Exam Extremities exam: Present full ROM, normal capillary refill and edema (Bilateral lower extremity edema with chronic skin changes to the bilateral lower extremities); Absent tenderness Back Exam Back exam: Present normal inspection and full ROM; Absent tenderness Neurological Exam Neurological exam: Present alert, oriented X3 and CN II-XII intact; Absent motor sensory deficit Psychiatric Psychiatric exam: Present normal affect and normal mood Skin Skin exam: Present warm and dry Medical Decision Making Medical Records Medical records reviewed: Yes I reviewed the patient's medical records. Screening: Per USPSTF and CDC recommendations, given the prevalence of disease in our region, it is our hospital?s policy to screen for HIV and viral Hepatitis for all patients aged 18 and over and those with ongoing risk factors. [place] Inquiry Pt receiving controlled substance: No Vital Signs: 05/02/24 08:02 05/02/24 08:15 05/02/24 09:01 Temperature 98.3 F Temperature Source Oral Pulse Rate 83 76 Pulse Rate [Left Radial] 95 H Respiratory Rate 16 Blood Pressure 122/53 L Blood Pressure [Right Arm] 143/70 H Blood Pressure Mean [Right Arm] 94 02 Sat by Pulse Oximetry 95 93 L 96 Oxygen Delivery Method Room Air Room Air 05/02/24 09:45 05/02/24 09:49 05/02/24 10:00 Temperature Temperature Source Pulse Rate 80 81 83 Pulse Rate [Left Radial] Respiratory Rate Blood Pressure 111/57 L 111/57 L 121/58 L Blood Pressure [Right Arm] Blood Pressure Mean [Right Arm] 02 Sat by Pulse Oximetry 96 95 94 L Oxygen Delivery Method Room Air Room Air Room Air Lab Data Lab results reviewed: Yes I reviewed the patient's lab results. Lab Results 05/02/24 08:02: WBC 9.2, RBC 4.27 L, Hgb 13.1 L, Hct 37.5 L, MCV 87.8, MCH 30.7, MCHC 34.9, RDW 13.6, Plt Count 172, MPV 10.0, Neut % (Auto) 90.7 H, Lymph % (Auto) 3.4 L, [place] % (Auto) 4.1, Eos % (Auto) 1.0, Baso % (Auto) 0.4, Neut # (Auto) 8.3 H, Lymph # (Auto) 0.3 L, [place] # (Auto) 0.4, Eos # (Auto) 0.1, Baso # (Auto) 0.0, Total Counted 100, Neutrophils % (Manual) 93 H, Lymphocytes % (Manual) 4 L, Monocytes % (Manual) 1 L, Eosinophils % (Manual) 2, Platelet Estimate Normal, RBC Morphology Normal, Sodium 125 L, Potassium 4.8, Chloride 89 L, Carbon Dioxide 28, Anion Gap 12.8, BUN 16, Creatinine 1.00, Estimated Creat Clear 112, Estimated GFR 74, Est GFR ( Amer) 90, Glucose 195 H, Calcium 9.2, Phosphorus 4.2, Magnesium 1.2 L, Total Bilirubin 0.3, AST 39, ALT 39, Alkaline Phosphatase 152 H, Troponin I < 0.01, NT-Pro-B Natriuret Pep 262 H, Total Protein 6.7, Albumin 4.2, Globulin 2.5, Albumin/Globulin Ratio 1.7, Lipase 63, SARS-CoV-2 (PCR) Not detected, HIV Ag/Ab Combo Qual Negative, Influenza A Untype (PCR) Not detected, Influenza Type B (PCR) Not detected 05/02/24 08:04: VBG pH 7.31, VBG pCO2 47.5, VBG pO2 31.5, VBG HCO3 23.6, VBG Total CO2 25.1, VBG O2 Saturation 55.5, VBG Base Excess -2.6 L, VBG Lactic Acid 2.4 H 05/02/24 08:02 05/02/24 08:02 Orders (Tests/Meds): ED MEDICATIONS Generic Name Dose Route Start Last Admin Trade Name Freq PRN Reason Stop Dose Admin Sodium Chloride 10 ml 05/02/24 09:35 05/02/24 09:37 Sodium Chloride 0.9% 10ml Syr (Rad Only) IV 06/01/24 09:34 10 ml NEEDED PRN Administration Maintain IV Site Sodium Chloride 10 ml 05/02/24 09:37 Sodium Chloride 0.9% 10ml Syr (Rad Only) IV 06/01/24 09:36 NEEDED PRN Maintain IV Site Discontinued Medications Generic Name Dose Route Start Last Admin Trade Name Freq PRN Reason Stop Dose Admin Acetaminophen 1,000 mg 05/02/24 08:00 05/02/24 08:04 Acetaminophen 1,000mg/100ml Vial IV 05/02/24 08:01 1,000 mg ONCE ONE Administration Acetaminophen 500 mg 05/02/24 08:46 05/02/24 09:06 Acetaminophen 500mg Tab PO 05/02/24 08:47 Not Given ONCE ONE Magnesium Sulfate 2 gm in 50 mls @ 50 mls/hr 05/02/24 08:50 05/02/24 08:59 Magnesium Sulfate 2gm/50ml Premix IV 05/02/24 09:49 50 mls/hr ONCE ONE Administration Iopamidol 75 ml 05/02/24 09:35 05/02/24 09:36 Iopamidol-370 (76%);100ml Bottle IV 05/02/24 09:36 75 ml ONCE ONE Administration Ketorolac Tromethamine 15 mg 05/02/24 08:00 05/02/24 08:04 Ketorolac 30mg/Ml Vial IV 05/02/24 08:01 15 mg ONCE ONE Administration Ondansetron HCl 4 mg 05/02/24 08:00 05/02/24 08:04 Ondansetron 4mg/2ml Vial IV 05/02/24 08:01 4 mg ONCE ONE Administration Sodium Chloride 500 ml 05/02/24 08:48 05/02/24 08:59 Sodium Chloride 0.9% 500ml Bag IV 05/02/24 08:49 500 ml ONCE ONE Administration Sodium Chloride 50 ml 05/02/24 09:35 05/02/24 09:37 0.9 % Sodium Chloride 50 Ml Vial IV 05/02/24 09:36 Not Given ONCE ONE ORDERS Category Date Time Status CT abdomen pelvis w con Stat Cat Scan 05/02/24 08:[address] head/brain wo con Stat Cat Scan 05/02/24 08:51 Completed BNP [NT Pro Brain Natriuretic Pep.] Stat Lab 05/02/24 08:02 Completed Complete Blood Count Auto Diff Stat Lab 05/02/24 08:02 Completed Comprehensive Metabolic Panel Stat Lab 05/02/24 08:02 Completed Diarrhea 23 Panel, PCR Stat Lab 05/02/24 08:50 Ordered HIV Combo Stat Lab 05/02/24 08:02 Completed Hepatitis C Ab Qual. W/ RFX Stat Lab 05/02/24 08:02 Received Lipase Stat Lab 05/02/24 08:02 Completed Magnesium Stat Lab 05/02/24 08:02 Completed PHOS [Phosphorous] Stat Lab 05/02/24 08:02 Completed Rapid PCR Covid and Flu A/B Stat Lab 05/02/24 08:02 Completed Trop I [Troponin I] Stat Lab 05/02/24 08:02 Completed Troponin I Q3H Lab 05/02/24 11:00 Ordered Troponin I Q3H Lab 05/02/24 14:00 Ordered UA [Urinalysis and Microscopic] Stat Lab 05/02/24 07:58 Ordered VBG [Venous Blood Gas] Stat RT 05/02/24 08:04 Completed ECG Data Tracing #1: I reviewed this ECG and interpreted as documented below: Normal sinus rhythm with a ventricular rate of [address] changes concerning for ischemia. Normal intervals ECG initial impression date: 05/02/24 ECG initial impression time: 08:13 Medical Decision Narrative: In summary, this patient is a 68-year-old male presenting to the Emergency Department for evaluation of headache, nausea, vomiting, diarrhea, and general weakness. Differential diagnoses considered include but are not limited to viral syndrome, gastroenteritis, dehydration, electrolyte derangements, SUJIT, colitis, DKA. Ruling out the most morbid conditions drove assessment. It should be noted patient's history includes insulin-dependent diabetes, schizophrenia, hypertension, hyperlipidemia which may or may not be at goal therapy. This complicates all aspects of care by increasing patient's risk for morbidity. I reviewed patient's past medical records and noted recent ED evaluations for chronic bilateral lower extremity edema as well as for lactic acidosis in the setting of volume depletion. Also noted his recent PCP evaluation at which point correction placement was discussed, however this was deferred at this time because of patient's concerns and insurance issues. On exam, the patient is sitting upright in no acute distress. He is alert, pleasant, conversational. Abdominal exam is benign with no localizable tenderness. Overall, exam is very reassuring. Vitals are reassuring on cardiac telemetry. EKG was obtained and is also reassuring. Workup included CBC, CMP, lipase, magnesium, phosphorus, VBG with lactic acid, troponin, BNP, EKG, urinalysis, and viral swab. I also obtain CT scan of the head without contrast as well as CT abdomen pelvis with IV contrast. He was given IV Toradol, Zofran, acetaminophen for symptomatic improvement. I independently interpreted CT scans prior to the radiologist read and noted obvious cerebral edema or large space-occupying lesion, patient does have fluid-filled bowel concerning for enteritis but no obstruction. Please see their read for final interpretation. Labs were obtained that demonstrated acute hyponatremia. He also has hypomagnesemia. Lactic acid is mildly elevated but blood gas otherwise reassuring.. I did order him 500 cc bolus of normal saline as well as IV magnesium replacement 2 g for this. On reassessment, he continues to be nauseated and gagging, so I gave him IV Reglan At this time, I feel patient is stable and appropriate for admission for acute hyponatremia in the setting of likely gastroenteritis. I ordered diarrhea panel but he has not yet been able to provide a specimen. I had an interactive discussion with the hospitalist who admitted the patient in stable condition for further evaluation and management. Critical Care Critical Care Time Critical Care Time: Yes Attestation: On 05/02/24, the high probability of a clinically significant, sudden or life threatening deterioration of the following system(s) required my full and direct attention, intervention and personal management. The time I documented below is in addition to time spent performing reported procedures but includes the following listed in this critical care notation. Total Time Total Critical Care Time: 30
[2024-05-02] MEDS: ONDANSETRON 4MG/2ML VIAL 4 MG IV ×2 (08:04→23:03)
[2024-05-02] MEDS: ACETAMINOPHEN 1,000MG/100ML VIAL 1000 MG IV (08:04)
[2024-05-02] MEDS: KETOROLAC 30MG/ML VIAL 15 MG IV (08:04)
--- NOTE | 2024-05-02 08:08 | ECG_ITS ---
APPROVED REPORT Exam: Resting ECG HR:89 bpm ECG Measurements Heart Rate 89 AXES OH 174 P 34 QRSd 97 QRS 38 QT 352 T 37 QTc 399 Conclusion SINUS RHYTHM NORMAL ECG Electronically signed by : CORINA WRIGHT, 05/02/2024 13:34:45
[2024-05-02 08:11] LABS: Lactate Venous 2.4 mmol/L (0.4-2.0); VBG Base Excess -2.6 mmol/L (-2.4-2.3); VBG HCO3 23.6 mmol/L (23-30); VBG Oxygen Saturation 55.5 % (50-70); VBG PCO2 47.5 mmol/L (35-51); VBG PH 7.31 mmol/L (7.31-7.41); VBG PO2 31.5 mmol/L (28-40); VBG Total CO2 25.1 mmol/L (23-27)
[2024-05-02 08:12] LABS: Coronavirus 19, PCR Not Detected (NotDetected); Influenza A, PCR Not Detected (NotDetected); Influenza B, PCR Not Detected (NotDetected)
[2024-05-02 08:24] LABS: Alanine Aminotransferase 39 U/L (12-78); Albumin Level 4.2 g/dl (3.5-5.0); Albumin/Globulin Ratio 1.7 (1.1-1.8); Alkaline Phosphatase 152 U/L (38-126); Anion Gap 12.8 mEq/L (5-15); Aspartate Amino Transferase 39 U/L (17-59); Basophils % 0.4 % (0.1-2.0); Bilirubin,Total 0.3 mg/dl (0.2-1.3); Blood Urea Nitrogen 16 mg/dl (9-20); Calcium 9.2 mg/dl (8.4-10.2); Carbon Dioxide 28 mmol/L (22.0-30.0); Chloride 89 mmol/L (98-107); Creatinine Clearance Estimated 112 mL/min (50-200); Eosinophils # 0.1 K/mm3 (0.0-0.4); Estimated Glomerular Filt Rate 74 ml/min (>60); GFR (African American) 90 ML/MIN (>60); Globulin 2.5 g/dL (1.3-3.2); Glucose 195 mg/dl (74-100); Hematocrit 37.5 % (42.0-52.0); Hemoglobin 13.1 g/dL (14.1-18.0); Lipase 63 U/L (23-300); Lymphocytes # 0.3 K/mm3 (0.7-4.5); Lymphocytes % 3.4 % (10-50); Magnesium 1.2 mg/dl (1.6-2.3); Mean Corpuscular HGB Conc 34.9 g/dL (31.8-35.4); Mean Corpuscular Hemoglobin 30.7 pg (27.0-31.2); Mean Corpuscular Volume 87.8 fl (80-94); Monocytes # 0.4 K/mm3 (0.1-1.0); Monocytes % 4.1 % (1.7-9.3); Neutrophils # 8.3 K/mm3 (1.8-7.8); Neutrophils % 90.7 % (37.0-80.0); Phosphorous 4.2 mg/dl (2.5-4.5); Platelet Count 172 K/mm3 (142-424); Red Blood Count 4.27 M/mm3 (4.60-6.20); Red Cell Distribution Width 13.6 % (11.5-17.5); Sodium 125 mmol/L (136-145); Total Protein,Serum 6.7 g/dl (6.3-8.2); White Blood Count 9.2 K/mm3 (4.8-10.8)
[2024-05-02 08:36] LABS: NT Pro Brain Natriuretic Pep. 262 pg/mL (0-125)
[2024-05-02 08:43] LABS: Potassium 4.8 mmoL/L (3.5-5.1); Troponin I < 0.01 ng/ml (0.00-0.034)
[2024-05-02 08:50] LABS: MANUAL DIFFERENTIAL MANUAL DIFFERENTIAL (MANUAL DIFF)
--- NOTE | 2024-05-02 08:51 | CT_ITS ---
PROCEDURE INFORMATION: Exam: CT Head Without Contrast Exam date and time: 05/02/2024 9:16 AM Age: 68 years old Clinical indication: Pain; Headache; Additional info: Headache, hyponatremia TECHNIQUE: Imaging protocol: Computed tomography of the head without contrast. Radiation optimization: All CT scans at this facility use at least one of these dose optimization techniques: automated exposure control; mA and/or kV adjustment per patient size (includes targeted exams where dose is matched to clinical indication); or iterative reconstruction. COMPARISON: CT HEAD/BRAIN WO CON 11/14/2023 9:29 AM FINDINGS: Brain: There is no evidence of acute parenchymal hemorrhage, extra-axial collection, or acute infarction. There is no mass effect, midline shift, or downward herniation. Cerebral ventricles: No ventriculomegaly. Paranasal sinuses: Visualized sinuses are unremarkable. No fluid levels. Mastoid air cells: Visualized mastoid air cells are well aerated. Bones: Unremarkable. No acute fracture. Soft tissues: Unremarkable. IMPRESSION: No acute intracranial abnormality.
--- NOTE | 2024-05-02 08:51 | CT_ITS ---
PROCEDURE INFORMATION: Exam: CT Abdomen And Pelvis With Contrast Exam date and time: 05/02/2024 9:29 AM Age: 68 years old Clinical indication: Abdominal pain; Additional info: Abd pain, diarrhea TECHNIQUE: Imaging protocol: Computed tomography of the abdomen and pelvis with contrast. Radiation optimization: All CT scans at this facility use at least one of these dose optimization techniques: automated exposure control; mA and/or kV adjustment per patient size (includes targeted exams where dose is matched to clinical indication); or iterative reconstruction. Contrast material: ISOVUE; Contrast volume: 75 ml; Contrast route: IV; COMPARISON: 1. CT ABDOMEN PELVIS W CON 05/02/2024 9:29 AM 2. MR ABDOMEN WO/W CON 04/26/2024 8:[address] ABDOMEN PELVIS W CON 02/13/2024 9:32 AM FINDINGS: Liver: Normal. No mass. Gallbladder and biliary ducts: Previous cholecystectomy. Pancreas: 11 mm cystic focus along the anterior aspect pancreatic body as detailed on earlier MRI. Spleen: Normal. No splenomegaly. Adrenal glands: Normal. No mass. Kidneys and ureters: Small, simple cortical renal cysts, no additional follow-up necessary. No hydronephrosis. Stomach and bowel: Fluid within nondistended colon, compatible with submitted history of diarrhea. No bowel wall thickening or adjacent inflammatory changes. No evidence of obstruction. Appendix: No evidence of appendicitis. Intraperitoneal space: Unremarkable. No free air. No significant fluid collection. Vasculature: Unremarkable. No abdominal aortic aneurysm. Lymph nodes: Unremarkable. No enlarged lymph nodes. Urinary bladder: Unremarkable as visualized. Reproductive: Unremarkable as visualized. Bones/joints: Unremarkable. No acute fracture. Soft tissues: Unremarkable. IMPRESSION: 1. Fluid within nondistended colon, compatible with submitted history of diarrhea. No bowel wall thickening or adjacent inflammatory changes. No evidence of obstruction. 2. 11 mm cystic focus along the anterior aspect pancreatic body as detailed on earlier MRI. COMMENTS: Consistent with the [employer]'s Incidental Findings Committee white paper (J Am Kristi Radiol 2018): Any incidental renal lesion less than 1 cm or classified as too small to characterize, or any incidental cystic renal lesion characterized as simple-appearing, is likely benign. No follow-up imaging is recommended for these lesions per consensus recommendations based on imaging criteria.
[2024-05-02] MEDS: MAGNESIUM SULFATE IN WATER 2 GM/50 ML PIGGYBACK IV (08:59)
[2024-05-02] MEDS: SODIUM CHLORIDE 0.9% 500ML BAG 500 ML IV (08:59)
[2024-05-02] MEDS: IOPAMIDOL-370 (76%);100ML BOTTLE 75 ML IV (09:36)
[2024-05-02] MEDS: SODIUM CHLORIDE 0.9% 10ML SYR (RAD ONLY) 10 ML IV (09:37)
--- NOTE | 2024-05-02 09:43 | PC.NURSE ---
PT REFUSES TO STAND TO OBTAIN A URINE SAMPLE. HE ALSO REFUSES TO LET NURSING CATH HIM TO OBTAIN SPECIMEN.
[2024-05-02 09:48] LABS: HIV Combo NEGATIVE (Negative)
[2024-05-02 10:11] LABS: Eosinophils % 2 % (0-3); Lymphocytes % 4 % (10-50); Monocytes % 1 % (2-9); Neutrophils % 93 % (42-76); Platelet Estimate Normal; RBC Morphology Normal; Total Cells Counted 100
--- NOTE | 2024-05-02 10:22 | PC.NURSE ---
dr deng is speaking to hospitalist at [facility] time.
[2024-05-02 10:24] LABS: Hepatitis C Ab Qual. W/ RFX NEGATIVE (Negative)
--- NOTE | 2024-05-02 10:24 | PC.NURSE ---
house aware of admission
[2024-05-02] MEDS: METOCLOPRAMIDE HCL 10MG/2ML VIAL 5 MG IVP (10:33)
--- NOTE | 2024-05-02 10:35 | PC.NURSE ---
REPORT CALLED TO SECOND FLOOR
--- NOTE | 2024-05-02 10:58 | PC.NURSE ---
arrived by stretcher from ED
[2024-05-02 12:11] LABS: Reflex Lactic Add Lactic Reflex
[2024-05-02 12:31] LABS: Adenovirus F 40/41, stool Not Detected (NotDetected); Astrovirus Not Detected (NotDetected); Campylobacter Not Detected (NotDetected); Clostridium Difficile A/B, PCR Not Detected (NotDetected); Cryptosporidium Not Detected (NotDetected); Cyclospora Cayetanesis Not Detected (NotDetected); Entamoeba histolytica Not Detected (NotDetected); Enteroaggregative E coli Not Detected (NotDetected); Enteropathogenic E coli Not Detected (NotDetected); Enterotoxigenic E coli Not Detected (NotDetected); Giardia lamblia Not Detected (NotDetected); Microscopic, Urine URINE MICROSCOPIC (MICROSCOPIC); Plesimonas Shigalloides, PCR Not Detected (NotDetected); Rotavirus A Not Detected (NotDetected); Salmonella, PCR Not Detected (NotDetected); Sapovirus Not Detected (NotDetected); Shiga-like toxin E coli Not Detected (NotDetected); Shigella Enterovasive E coli Not Detected (NotDetected); Vibrio Cholerae Not Detected (NotDetected); Vibrio, PCR Not Detected (NotDetected); Yersinia Entercolitica, PCR Not Detected (NotDetected)
[2024-05-02 12:45] LABS: Appearance,Urine CLEAR (Clear); Bilirubin,Urine Negative (Negative); Blood, Urine Negative (Negative); Color,Urine YELLOW (Yellow); Glucose,Urine (UA) Negative (Negative); Ketones,Urine Negative (Negative); Leukocyte Esterase,Urine Negative (Negative); Nitrate,Urine Negative (Negative); Protein,Urine Negative (Negative); Urobilinogen,Urine 0.2 EU/dl (0.2)
--- NOTE | 2024-05-02 14:46 | P.CONPHA_ITS ---
Pharmacy Intervention Comments: [facility] REC[facility].
--- NOTE | 2024-05-02 14:46 | HMH.PHAINT1 ---
Pharmacy Intervention Comments: MED[facility].
[2024-05-02 14:50] LABS: Chloride 89 mmol/L (98-107); Potassium 4.7 mmoL/L (3.5-5.1); Sodium 121 mmol/L (136-145)
[2024-05-02 14:53] LABS: Anion Gap 10.7 mEq/L (5-15); Blood Urea Nitrogen 17 mg/dl (9-20); Calcium 8.7 mg/dl (8.4-10.2); Carbon Dioxide 26 mmol/L (22.0-30.0); Creatinine Clearance Estimated 112 mL/min (50-200); Estimated Glomerular Filt Rate 74 ml/min (>60); GFR (African American) 90 ML/MIN (>60); Glucose 234 mg/dl (74-100); Lactic Acid Follow Up (RFLX 1) 1.4 mmol/L (0.7-2.1)
[2024-05-02] MEDS: 0.9 % SODIUM CHLORIDE 1000ML 1,000 ML 75 ML IV (15:05)
[2024-05-02 15:44] LABS: Norovirus Detected (NotDetected)
--- NOTE | 2024-05-02 16:05 | XR_ITS ---
PROCEDURE INFORMATION: Exam: XR Chest Exam date and time: 05/02/2024 4:30 PM Age: 68 years old Clinical indication: Other: Generalized weakness, hyponatremia TECHNIQUE: Imaging protocol: Radiologic exam of the chest. Views: 1 view. COMPARISON: CR XR CHEST PORTABLE 02/13/2024 9:49 PM FINDINGS: Lungs: Opacity in the left base may represent atelectasis or pneumonia. Pleural spaces: There may be mild left pleural effusion No pneumothorax. Heart/Mediastinum: Cardiomegaly Bones/joints: Unremarkable. IMPRESSION: Opacity in the left base may represent atelectasis or pneumonia.
[2024-05-02] MEDS: SODIUM CHLORIDE 3 % 500 ML 10 ML IV (16:48)
[2024-05-02 17:26] LABS: POC Glucose,Bedside 282 (70-110)
[2024-05-02] MEDS: humaLOG 100 UNITS/ML 10ML VIAL (SSI) SUBCUT ×2 (17:30→20:30)
--- NOTE | 2024-05-02 17:56 | P.HP_ITS ---
History of Present Illness *Admission Date: 05/02/24 *Reason for visit:: Nausea/vomiting/diarrhea *History of present illness: Miles Arango is a 68-year-old male with a medical history significant for uncontrolled insulin-dependent diabetes, schizophrenia, hypertension, hyperlipidemia, peripheral neuropathy who presents with worsening diarrhea for the past few days, and episode of nausea/vomiting this morning. He was recently admitted to our facility about 2 months ago for similar presentation and was found to be strep bacteremic. Patient states he has been having on and off diarrhea for weeks and it was attributed to metformin which was discontinued. However, over the past few days his diarrhea worsened and was more foul- smelling. Today, he reports an episode of nausea/vomiting. Denies abdominal pain, chest pain, shortness of breath, urinary symptoms, fever/chills. Workup in the ED significant for sodium 125, magnesium 1.2. Unremarkable UA, CBC, respiratory panel. CT abdomen/pelvis consistent with diarrheal state with fluid within the colon. Case discussed with ED provider and decision was made to admit patient for acute hyponatremia, and intractable diarrhea. [facility] Disclaimer: The information contained in this section may have been updated after the patient was seen, as this information can be updated by other users. Medical History Pancreatic lesion Depression Anxiety Schizophrenic disorder History of gastroesophageal reflux (GERD) Hypertension Hyperlipidemia Diabetes mellitus, type 2 Surgical History History of cholecystectomy Family History Other No significant family history Social History Smoking Status: Former smoker alcohol intake: never substance use type: denies use current occupational status: disabled Travel in the last 8 weeks: None housing: assisted living facility current occupational exposures/hazards: No caffeine: No Have you lived/traveled outside [place] in past 30 days?: No Contact w/someone who lives/traveled outside US past 30 days?: No Exposure to someone with infectious disease in past 14 days?: No Do you have a fever (greater than 100.4 F or 38 C)?: No Have you tested positive for COVID-19: No Exposed to someone with COVID-19 in past 14 days?: No Do you have a sore throat?: No Do you have a cough?: No Do you have any weakness?: No Do you have any diarrhea?: No Are you experiencing any unusual bleeding?: No Do you have any muscle aches/pain?: No Do you have any abdominal pain?: No Are you experiencing loss of taste or smell?: No Other Medical History Have you received the Flu Vaccine for this season: Yes Have you received the Pneumonia Vaccine: No Meds Home Medications and Allergies Home Medications ?Medication ?Instructions ?Recorded ?Confirmed ?Type ferrous sulfate 325 mg (65 mg 325 mg PO DAILY 05/13/17 05/02/24 History iron) tablet sertraline 100 mg tablet 100 mg PO HS 05/15/17 05/02/24 History multivitamin 1 tab PO DAILY 04/23/19 05/02/24 History omeprazole 40 mg capsule,delayed 40 mg PO HS 04/23/19 05/02/24 History release aripiprazole 30 mg tablet 30 mg PO DAILY 04/24/19 05/02/24 History oxcarbazepine 150 mg tablet 150 mg PO BID 11/15/23 05/02/24 History fluticasone propionate 50 1 spray intranasal DAILY 02/13/24 05/02/24 History mcg/actuation nasal spray,suspension bumetanide 1 mg tablet 1 mg PO BIDL 10 days #20 tabs 02/18/24 05/02/24 Rx gabapentin 100 mg capsule 100 mg PO BID Pain #60 caps 03/16/24 05/02/24 Rx insulin NPH-regular 70-30 U-100 34 unit (0.34 mL) SQ BID #15 mL 03/16/24 05/02/24 Rx insulin 100 unit/mL subcutaneous pen (Humulin 70/30 U-100 KwikPen) lisinopril 30 mg tablet 30 mg PO DAILY #90 tabs 03/16/24 05/02/24 Rx acetaminophen 325 mg tablet 650 mg PO BID 05/02/24 05/02/24 History (Tylenol) acidophilus 100 million 1 cap PO DAILY 05/02/24 05/02/24 History cell-pectin, citrus 10 mg capsule ascorbic acid (vitamin C) 250 mg 250 mg PO DAILY 05/02/24 05/02/24 History tablet aspirin 81 mg chewable tablet 81 mg PO DAILY 05/02/24 05/02/24 History atorvastatin 40 mg tablet 40 mg PO HS 05/02/24 05/02/24 History cyanocobalamin (vitamin B-12) 500 500 mcg PO DAILY 05/02/24 05/02/24 History mcg tablet diphenhydramine HCl 25 mg capsule 25 mg PO Q4HP PRN Itching 05/02/24 05/02/24 History (Banophen) guaifenesin 600 mg tablet, 600 mg PO Q12HP PRN Congestion 05/02/24 05/02/24 History extended release 12 hr ibuprofen 600 mg tablet 600 mg PO Q8HP PRN Mild Pain 05/02/24 05/02/24 History (Scale Score 1-4) lidocaine 5 % topical patch 1 patch topical DAILY 05/02/24 05/02/24 History loperamide 2 mg capsule 2 mg PO NEEDED PRN Diarrhea 05/02/24 05/02/24 History metformin 500 mg tablet 500 mg PO BIDWMEAL 05/02/24 05/02/24 History naproxen 500 mg tablet,delayed 500 mg PO BIDP PRN Mild Pain 05/02/24 05/02/24 History release (Scale Score 1-4) nystatin 100,000 unit/gram topical 1 applic topical DAILYP PRN Skin 05/02/24 05/02/24 History cream Condition ondansetron 4 mg disintegrating 4 mg PO Q6HP PRN Nausea And 05/02/24 05/02/24 History tablet Vomiting New Prescriptions to Start Prescriptions: Allergies Allergy/AdvReac Type Severity Reaction Status Date / Time sulfamethoxazole (From Allergy Intermediate Rash Verified 05/02/24 08:09 Bactrim) trimethoprim (From Bactrim) Allergy Intermediate Rash Verified 05/02/24 08:09 Exam Data for Last 24 hours Vital signs and Labs for Last 24 Hours: Temp Pulse Resp BP Pulse Ox O2 Del Method 98.1 F 88 18 133/72 98 Room Air 05/02/24 10:54 05/02/24 10:54 05/02/24 10:54 05/02/24 10:54 05/02/24 10:30 05/02/24 11:00 Laboratory Results - last 24 hr 05/02/24 08:02: WBC 9.2, RBC 4.27 L, Hgb 13.1 L, Hct 37.5 L, MCV 87.8, MCH 30.7, MCHC 34.9, RDW 13.6, Plt Count 172, MPV 10.0, Neut % (Auto) 90.7 H, Lymph % (Auto) 3.4 L, [place] % (Auto) 4.1, Eos % (Auto) 1.0, Baso % (Auto) 0.4, Neut # (Auto) 8.3 H, Lymph # (Auto) 0.3 L, [place] # (Auto) 0.4, Eos # (Auto) 0.1, Baso # (Auto) 0.0, Total Counted 100, Neutrophils % (Manual) 93 H, Lymphocytes % (Manual) 4 L, Monocytes % (Manual) 1 L, Eosinophils % (Manual) 2, Platelet Estimate Normal, RBC Morphology Normal, Sodium 125 L, Potassium 4.8, Chloride 89 L, Carbon Dioxide 28, Anion Gap 12.8, BUN 16, Creatinine 1.00, Estimated Creat Clear 112, Estimated GFR 74, Est GFR ( Amer) 90, Glucose 195 H, Calcium 9.2, Phosphorus 4.2, Magnesium 1.2 L, Total Bilirubin 0.3, AST 39, ALT 39, Alkaline Phosphatase 152 H, Troponin I < 0.01, NT-Pro-B Natriuret Pep 262 H, Total Protein 6.7, Albumin 4.2, Globulin 2.5, Albumin/Globulin Ratio 1.7, Lipase 63, SARS-CoV-2 (PCR) Not detected, HCV Ab NORIS w/Rflx PCR Qn Negative, HIV Ag/Ab Combo Qual Negative, Influenza A Untype (PCR) Not detected, Influenza Type B (PCR) Not detected 05/02/24 08:04: VBG pH 7.31, VBG pCO2 47.5, VBG pO2 31.5, VBG HCO3 23.6, VBG Total CO2 25.1, VBG O2 Saturation 55.5, VBG Base Excess -2.6 L, VBG Lactic Acid 2.4 H 05/02/24 11:37: Urine Color Yellow, Urine Appearance Clear, Urine pH 6.0, Ur Specific Wilson 1.010, Urine Protein Negative, Urine Glucose (UA) Negative, Urine Ketones Negative, Urine Blood Negative, Urine Nitrate Negative, Urine Bilirubin Negative, Urine Urobilinogen 0.2, Ur Leukocyte Esterase Negative, Urine RBC None, Urine WBC None, Ur Squamous Epith Cells None, Urine Bacteria None, Stl Aeromonas (PCR) Not detected, Stl C. cayetanensis PCR Not detected, Stool Rotavirus (PCR) Not detected, Stl Adenov F 40/41 PCR Not detected, Stool Astrovirus (PCR) Not detected, Stool Campylobacter PCR Not detected, Stl C.difficile Tox PCR Not detected, Stool Cryptosporidium PCR Not detected, Stl E.coli Shiga Tox PCR Not detected, Stool E coli O157 PCR Not detected, Stl Enterotoxigenic E PCR Not detected, Stool EPEC (PCR) Not detected, Stool EAEC (PCR) Not detected, Stl E. histolytica PCR Not detected, Stool Giardia Lamblia PCR Not detected, Stool Salmonella PCR Not detected, Stool Sapovirus (PCR) Not detected, Stl P. shigelloides PCR Not detected, Stl Shigella/EIEC PCR Not detected, St Y.enterocolitica PCR Not detected, Stool Vibrio (PCR) Not detected, Stl Vibrio cholerae PCR Not detected, Stl Norovirus GI/GII PCR Detected A 05/02/24 14:10: Sodium 121 L, Potassium 4.7, Chloride 89 L, Carbon Dioxide 26, Anion Gap 10.7, BUN 17, Creatinine 1.00, Estimated Creat Clear 112, Estimated GFR 74, Est GFR ( Amer) 90, Glucose 234 H, Lactate 1.4, Calcium 8.7 05/02/24 17:17: POC Glucose 282 H I & O for Last 24 hours: Intake & Output 04/29/24 04/30/24 05/01/24 05/02/24 23:59 23:59 23:59 23:59 Output Total 0 / 0 Balance 0 / 0 Weight 113.398 kg Constitutional Constitutional: no acute distress *Routine HEENT Exam Head: Present normocephalic Eye: Present EOMI and PERRL ENT: Present mucous membranes moist *Routine Neck Exam Neck: Present supple; Absent lymphadenopathy *Routine Respiratory Exam Respiratory: Present CTA bilaterally *Routine Cardiovascular Exam Cardiovascular: Present RRR *Routine Abdominal Exam Abdominal: Present soft and normoactive bowel sounds; Absent tenderness *Routine Rectal Exam Rectal:: deferred *Routine Genitalia Exam Genitalia:: deferred *Routine Extremities Exam Extremities: Absent cyanosis, clubbing or edema Comments: Chronic venous stasis changes bilateral lower extremities, right more than left. *Routine Skin Exam Skin: Present warm; Absent rash *Routine Neurological Exam Neurological: Present alert and oriented X3 Assessment and Plan *Assessment and plan (1) Nausea, vomiting, and diarrhea: Status: Acute Category: Medical Code(s): R11.2 - Nausea with vomiting, unspecified; R19.7 - Diarrhea, unspecified Plan Miles Arango is a 68-year-old male with a medical history significant for uncontrolled insulin-dependent diabetes, schizophrenia, hypertension, hyperlipidemia, peripheral neuropathy who presents with worsening diarrhea for the past few days, and episode of nausea/vomiting this morning. He was recently admitted to our facility about 2 months ago for similar presentation and was found to be strep bacteremic. Patient states he has been having on and off diarrhea for weeks and it was attributed to metformin which was discontinued. However, over the past few days his diarrhea worsened and was more foul- smelling. Today, he reports an episode of nausea/vomiting. Denies abdominal pain, chest pain, shortness of breath, urinary symptoms, fever/chills. Workup in the ED significant for sodium 125, magnesium 1.2. Unremarkable UA, CBC, respiratory panel. CT abdomen/pelvis consistent with diarrheal state with fluid within the colon. Case discussed with ED provider and decision was made to admit patient for acute hyponatremia, and intractable diarrhea. #Acute hyponatremia #Norovirus gastroenteritis ? Stool PCR positive for norovirus. Initial sodium 125. ? Was given 500 mL NS fluid challenge in the ED, repeat sodium 121. No signs of volume overload. Patient did have another diarrhea episode between fluid challenge and BMP redraw. ? Given significant drop in sodium, initiated on hypertonic saline at 10 mL/h for 4 hours. Stop at 8 PM and recheck BMP. ? No clinical indication to suggest SIADH at this time, as patient's sodium was within normal limits about 2 months ago but no significant changes since then, including to medications. ? Patient is on Bumex which may be contributing to hyponatremia. Will hold for now. ? Hyponatremia likely secondary to dehydration, diarrhea at this time. ? Started on regular diabetic diet. #History of recurrent bacteremia ? Admitted twice in the past few months for similar symptoms and found to be bacteremic. ? Follow-up blood cultures. Chronic medical problems: #Venous stasis dermatitis ? Chronic venous stasis changes lower extremities, right lower extremity more than left. Previous DVT, infectious studies in right lower extremity were unremarkable. ? Hold Bumex in the setting of hyponatremia. #Insulin-dependent diabetes ? Lantus 30 units nightly. Uptitrate based on SSI needs. ? LDSSI, ACHS glucose checks. ? Hold metformin in the setting of diarrhea. #Schizophrenia #Peripheral neuropathy ? Resumed home oxcarbazepine, Abilify, gabapentin, sertraline. #Hypertension ? Hold lisinopril as BP stable. #GERD ? Resume home PPI. Full code DVT prophylaxis: Lovenox 40
[2024-05-02] MEDS: GABAPENTIN 100MG CAPSULE 100 MG PO (20:30)
[2024-05-02] MEDS: ATORVASTATIN 40MG TABLET 40 MG PO (20:30)
[2024-05-02] MEDS: PANTOPRAZOLE 40MG TABLET 40 MG PO (20:31)
[2024-05-02] MEDS: SERTRALINE 100MG TABLET 100 MG PO (20:33)
[2024-05-02 20:36] LABS: Anion Gap 14.4 mEq/L (5-15); Blood Urea Nitrogen 16 mg/dl (9-20); Calcium 8.4 mg/dl (8.4-10.2); Carbon Dioxide 22 mmol/L (22.0-30.0); Chloride 92 mmol/L (98-107); Creatinine Clearance Estimated 112 mL/min (50-200); Estimated Glomerular Filt Rate 74 ml/min (>60); GFR (African American) 90 ML/MIN (>60); Glucose 262 mg/dl (74-100); Potassium 4.4 mmoL/L (3.5-5.1); Sodium 124 mmol/L (136-145)
[2024-05-02] MEDS: ACETAMINOPHEN 325MG TAB 650 MG PO (20:39)
[2024-05-02 21:16] LABS: POC Glucose,Bedside 274 (70-110)
[2024-05-03] VITALS: BP 136/69; PULSE 80; PULSE 82; RESP 18; TEMP 36.8; O2SAT 99
[2024-05-03 04:00] VITALS: BP 143/68; PULSE 86; PULSE 90; RESP 16; TEMP 36.8; O2SAT 93; BMI 36.7
[2024-05-03] MEDS: PROMETHAZINE HCL 25MG/ML 1ML VIAL 6.5 MG IV (04:08)
[2024-05-03 05:20] LABS: Albumin Level 3.7 g/dl (3.5-5.0); Chloride 93 mmol/L (98-107); Sodium 128 mmol/L (136-145)
[2024-05-03 05:21] LABS: Potassium 4.4 mmoL/L (3.5-5.1)
[2024-05-03 05:23] LABS: Alanine Aminotransferase 38 U/L (12-78); Albumin/Globulin Ratio 1.4 (1.1-1.8); Alkaline Phosphatase 144 U/L (38-126); Anion Gap 11.4 mEq/L (5-15); Aspartate Amino Transferase 46 U/L (17-59); Bilirubin,Total 0.6 mg/dl (0.2-1.3); Blood Urea Nitrogen 13 mg/dl (9-20); Carbon Dioxide 28 mmol/L (22.0-30.0); Creatinine Clearance Estimated 117 mL/min (50-200); Estimated Glomerular Filt Rate 84 ml/min (>60); GFR (African American) 101 ML/MIN (>60); Globulin 2.6 g/dL (1.3-3.2); Total Protein,Serum 6.3 g/dl (6.3-8.2)
[2024-05-03 05:24] LABS: Calcium 8.7 mg/dl (8.4-10.2); Glucose 189 mg/dl (74-100); Magnesium 1.9 mg/dl (1.6-2.3)
[2024-05-03 05:28] LABS: Basophils % 0.4 % (0.1-2.0); Eosinophils % 0.8 % (0.1-12.0); Hematocrit 34.4 % (42.0-52.0); Hemoglobin 11.9 g/dL (14.1-18.0); Lymphocytes # 0.6 K/mm3 (0.7-4.5); Lymphocytes % 12.6 % (10-50); Mean Corpuscular HGB Conc 34.6 g/dL (31.8-35.4); Mean Corpuscular Hemoglobin 30.5 pg (27.0-31.2); Mean Corpuscular Volume 88.2 fl (80-94); Mean Platelet Volume 10.3 fl (7.4-10.4); Monocytes # 0.6 K/mm3 (0.1-1.0); Monocytes % 13.4 % (1.7-9.3); Neutrophils # 3.5 K/mm3 (1.8-7.8); Neutrophils % 72.4 % (37.0-80.0); Platelet Count 164 K/mm3 (142-424); Red Cell Distribution Width 14.1 % (11.5-17.5); White Blood Count 4.8 K/mm3 (4.8-10.8)
--- NOTE | 2024-05-03 05:54 | PC.NURSE ---
Pt has remained alert and oriented and has tolerated room air. He has complained of n/v multiple times this shift and was medicated per JUN. Sodium levels have improved this morning. Will continue to monitor labs. Has remained in contact precautions. Currently resting in bed with call light within reach.
[2024-05-03] MEDS: humaLOG 100 UNITS/ML 10ML VIAL (SSI) SUBCUT ×2 (06:29→11:25)
[2024-05-03 06:45] LABS: POC Glucose,Bedside 226 (70-110)
[2024-05-03 07:46] VITALS: BP 141/69; PULSE 88; RESP 18; TEMP 37.7; O2SAT 96
[2024-05-03 08:00] VITALS: PULSE 80
[2024-05-03] MEDS: ENOXAPARIN 40MG/0.4ML SYRINGE 40 MG SUBCUT (09:07)
[2024-05-03] MEDS: ASPIRIN 81MG CHEWABLE TABLET 81 MG PO (09:07)
[2024-05-03] MEDS: GABAPENTIN 100MG CAPSULE 100 MG PO (09:07)
[2024-05-03] MEDS: ARIPiprazole 10MG TABLET 30 MG PO (09:07)
--- NOTE | 2024-05-03 09:38 | HMH.PTEV ---
Physical Therapy Evaluation Rehab PT IP Evaluation Start: 05/02/24 18:14 Freq: ONCE Status: Active Protocol: Document 05/03/24 09:25 MATTHEW (Rec: 05/03/24 09:37 MATTHEW [id number]) Subjective/History History History Per H&P: Miles Arango is a 68- year-old male with a medical history significant for uncontrolled insulin-dependent diabetes, schizophrenia, hypertension, hyperlipidemia, peripheral neuropathy who presents with worsening diarrhea for the past few days , and episode of nausea/ vomiting this morning. He was recently admitted to our facility about 2 months ago for similar presentation and was found to be strep bacteremic. Subjective Subjective PLOF: Reports he is IND with most mobility using RW. Not driving. Staff assists with ADLs such as bathing/dressing. Difficulty answering some questions d/t cognition. Home: Lives at [facility]. New diagnosis of cancer in past 12 No months? Rehab PT IP Eval Objective Appearance Patient Behavior Appropriate,Cooperative Patient Orientation Person,Place Difficulty following instructions none Speech Pattern Mumbled Ambulation Patient Able to Ambulate No Balance Ability to Arise Able, uses arms to help Sitting Balance Steady, safe Standing Balance Unsteady Dynamic Sitting Balance Ability Good Transfers Bed Transfer Ability Minimal x 1 (25% assist) Sit to Stand Bed Transfer Ability Minimal x 1 (25% assist) Sit to Stand Chair Transfer Ability Moderate x 1 (50% assist) Rehab PT IP prob,goals,plan Problems Date of Evaluation: 05/03/24 PT IP Problems Bed Mobility,Transfers,Gait, Balance,Self care,Safety Rehab Potential Rehab Potential Good Plan PT Intervention Plan Bed Mobility,Transfers,Gait, Balance,Self care,Safety, Therapeutic Exercise Other Intervention Plan 1-2 times PT Plan Frequency Daily Duration LOS Discharge Goals Bed Transfer Ability Contact Guard/Hand Hold Sit to Stand Chair Transfer Ability Contact Guard/Hand Hold Discharge Plan PT Discharge Plan Initial physical therapy evaluation performed. Patient presents below baseline at this time in functional mobility, transfers, and strength. Pt required multiple attempts to stand from EOB d/ t weakness. Pt stood with elevated bed and Min A. Pt performed stand-step transfer with Min A. Pt was mildly unsteady during transfer. Pt became bladder incontinent during transfer requiring PT to assist with toileting hygiene. Pt required Max-DEP assist for hygiene tasks ( donning/doffing brief). PT recommending short-term rehabilitation stay upon d/c from [facility]. Pt would benefit from skilled PT while at [facility] to prevent further functional decline and maximize safety with mobility. Eval Complexity Eval Charge Codes 02312 - Moderate Complexity PHYSICIAN CERTIFICATION: I certify the specified therapy services for Miles Vázquez are required, authorized, and reviewed every 30 days.
--- NOTE | 2024-05-03 09:59 | HMH.OTEV ---
OT Inpatient Evaluation Rehab OT IP Evaluation Start: 05/02/24 18:14 Freq: ONCE Status: Active Protocol: Document 05/03/24 09:54 [facility] (Rec: 05/03/24 09:59 [facility] [id number]) Rehab OT IP Assessment Subjective History Pt oriented x 2 on arrival. Pt agreeable to engage in therapy evaluation. Pt admitted on 05/02/24 due to nausea and vomiting. Per H&P: Miles Arango is a 68- year-old male with a medical history significant for uncontrolled insulin-dependent diabetes, schizophrenia, hypertension, hyperlipidemia, peripheral neuropathy who presents with worsening diarrhea for the past few days , and episode of nausea/ vomiting this morning. He was recently admitted to our facility about 2 months ago for similar presentation and was found to be strep bacteremic. Subjective PLOF: Reports he is IND with functional transfers using RW. Not driving. Pt claims to be independent with dressing, but requires minimal assistance with bathing for safety. Staff completes all IADLs. Difficulty answering some questions d/t cognition. Home: Lives at [facility] Objective Patient Orientation Person,Birthday Right Upper Extremity Gross ROM Min Limitation <25% Left Upper Extremity Gross ROM Min Limitation <25% Shoulder ROM Limitations Muscle Weakness Elbow ROM Limitations Muscle Weakness Wrist Limitations of Range of Motion Muscle Weakness Transfer Training Sit/Stand Transfer Assist Level Moderate x 1 (50% assist) Chair Transfer Ability Moderate x 1 (50% assist) Chair Transfer Technique Sit to/from Ambulatory Rehab OT IP prob,goals,plan Problems Date of Evaluation: 05/03/24 OT IP Problems Bed Mobility,Transfers,Balance ,Self care,Safety Rehab Potential Rehab Potential Good Equipment Needs Assistive Devices Rolling / Wheeled Walker Plan OT intervention Plan Bed Mobility,Transfers,Balance ,Self care,Safety,Therapeutic Exercise OT Plan Frequency Daily Duration LOS Discharge Goals Bed Mobility Ability Assistance x1 Sit to Stand Chair Transfer Ability Minimal x 1 (25% assist) Chair Transfer Ability Minimal x 1 (25% assist) Chair Transfer Technique Sit to/from Ambulatory Chair Transfer Assistive Devices Rolling Walker Feeding Ability Assist with Tray Set Up Lower Body Dressing Ability Moderate Assistance Upper Body Dressing Ability Contact Guard Bathing Ability Moderate Assistance Performing Toilet Hygiene Ability Moderate Assistance Overall Commode/Toilet Transfer Ability Minimal Assistance Commode/Toilet Transfer Technique Sit to/from Ambulatory Commode/Toilet Transfer Assistive Grab Bars Devices Oral Care Assist Contact Guard Decrease in Endurance Yes Discharge Plan OT Discharge Plan Pt will continue to be seen while at [facility] for OT services. Pt would benefit most from short term rehab at SNF following discharge from hospital. Continued skilled therapy services are important in order for patient to improve strength, safety, endurance, ADL independence, and functional transfers to reach PLOF. Eval Complexity Eval Charge Codes 70294 - Moderate Complexity PHYSICIAN CERTIFICATION: I certify the specified therapy services for Miles Vázquez are required, authorized, and reviewed every 30 days.
--- NOTE | 2024-05-03 10:24 | SW/DCPLANNER ---
Addendum entered by Anjail Valadez 05/03/24 14:08: [facility] is not able to accept due to bed availability. Patient will discharge to [facility] today. Addendum entered by Anjali Valadez 05/03/24 12:09: [facility] this patient [facility] level of care. Patient is agreeable and I have updated Yesenia/Xiomy w/ Danny Bravo. Original Note: I spoke w/ this patient regarding plans once medically stable for discharge. PT/OT evaluated patient and recommended SNF level of care. Patient currently resides at [facility] and I have updated Xiomy/Yesenia that patient may require short term placement. Patient is agreeable for information to be faxed to [facility] (has been to this facility in the past). Patient information will be faxed this AM. Discharge date is unknown at this time. I will continue to follow up.
[2024-05-03] MEDS: MAGNESIUM SULFATE IN WATER 2 GM/50 ML PIGGYBACK IV (10:55)
[2024-05-03 11:34] LABS: POC Glucose,Bedside 237 (70-110)
[2024-05-03 12:00] VITALS: PULSE 70
--- NOTE | 2024-05-03 14:08 | EXP.DC.SUM ---
General Admission date:: 05/02/24 HPI HPI HPI: Miles Arango is a 68-year-old male with a medical history significant for uncontrolled insulin-dependent diabetes, schizophrenia, hypertension, hyperlipidemia, peripheral neuropathy who presents with worsening diarrhea for the past few days, and episode of nausea/vomiting this morning. He was recently admitted to our facility about 2 months ago for similar presentation and was found to be strep bacteremic. Patient states he has been having on and off diarrhea for weeks and it was attributed to metformin which was discontinued. However, over the past few days his diarrhea worsened and was more foul-smelling. Today, he reports an episode of nausea/vomiting. Denies abdominal pain, chest pain, shortness of breath, urinary symptoms, fever/chills. Workup in the ED significant for sodium 125, magnesium 1.2. Unremarkable UA, CBC, respiratory panel. CT abdomen/pelvis consistent with diarrheal state with fluid within the colon. Case discussed with ED provider and decision was made to admit patient for acute hyponatremia, and intractable diarrhea. Hospital Course Hospital Course Hospital Course: Miles Arango is a 68-year-old male with a medical history significant for uncontrolled insulin-dependent diabetes, schizophrenia, hypertension, hyperlipidemia, peripheral neuropathy who presents with worsening diarrhea for the past few days, and episode of nausea/vomiting this morning. He was recently admitted to our facility about 2 months ago for similar presentation and was found to be strep bacteremic. Patient states he has been having on and off diarrhea for weeks and it was attributed to metformin which was discontinued. However, over the past few days his diarrhea worsened and was more foul-smelling. Today, he reports an episode of nausea/vomiting. Denies abdominal pain, chest pain, shortness of breath, urinary symptoms, fever/chills. Workup in the ED significant for sodium 125, magnesium 1.2. Unremarkable UA, CBC, respiratory panel. CT abdomen/pelvis consistent with diarrheal state with fluid within the colon. Case discussed with ED provider and decision was made to admit patient for acute hyponatremia, and intractable diarrhea. #Acute hyponatremia #Norovirus gastroenteritis ? Stool PCR positive for norovirus. Initial sodium 125. ? Hyponatremia likely secondary to dehydration, diarrhea. ? Clinically improved with IV and oral fluid resuscitation. Sodium did dip to 121 after multiple episodes of diarrhea during hospitalization, but improved with hypertonic saline and oral feeds. ? No clinical indication to suggest SIADH at this time, as patient's sodium was within normal limits about 2 months ago but no significant changes since then, including to medications. ? Patient is on Bumex for venous stasis which may be contributing to hyponatremia. Will hold for now, can be used as needed for leg swelling. ? Started on regular diabetic diet with good toleration. #History of recurrent bacteremia ? Admitted twice in the past few months for similar symptoms and found to be bacteremic. ? Blood cultures negative at 24 hours. #Physical deconditioning ? PT/OT consulted, recommended SNF. [facility] graciously accepted patient. Chronic medical problems: #Venous stasis dermatitis ? Chronic venous stasis changes lower extremities, right lower extremity more than left. Previous DVT, infectious studies in right lower extremity were unremarkable. ? Hold Bumex in the setting of hyponatremia. Can be used as needed for leg swelling. #Insulin-dependent diabetes ? Resume home regimen with 70/30 insulin. Would be beneficial to transition to glargine outpatient. ? Discontinue metformin in the setting of chronic diarrhea the patient endorses. #Schizophrenia #Peripheral neuropathy ? Resumed home oxcarbazepine, Abilify, gabapentin, sertraline. #Hypertension ? Hold lisinopril as BP stable. #GERD ? Resume home PPI. Exam Data for Last 24 hours Vital signs and Labs for Last 24 Hours: Temp Pulse Resp BP Pulse Ox O2 Del Method 99.9 F H 70 18 141/69 H 96 Room Air 05/03/24 07:46 05/03/24 12:00 05/03/24 07:46 05/03/24 07:46 05/03/24 07:46 05/03/24 11:00 Laboratory Results - last 24 hr 05/02/24 11:37: Stl Aeromonas (PCR) Not detected, Stl C. cayetanensis PCR Not detected, Stool Rotavirus (PCR) Not detected, Stl Adenov F 40/41 PCR Not detected, Stool Astrovirus (PCR) Not detected, Stool Campylobacter PCR Not detected, Stl C.difficile Tox PCR Not detected, Stool Cryptosporidium PCR Not detected, Stl E.coli Shiga Tox PCR Not detected, Stool E coli O157 PCR Not detected, Stl Enterotoxigenic E PCR Not detected, Stool EPEC (PCR) Not detected, Stool EAEC (PCR) Not detected, Stl E. histolytica PCR Not detected, Stool Giardia Lamblia PCR Not detected, Stool Salmonella PCR Not detected, Stool Sapovirus (PCR) Not detected, Stl P. shigelloides PCR Not detected, Stl Shigella/EIEC PCR Not detected, St Y.enterocolitica PCR Not detected, Stool Vibrio (PCR) Not detected, Stl Vibrio cholerae PCR Not detected, Stl Norovirus GI/GII PCR Detected A 05/02/24 14:10: Sodium 121 L, Potassium 4.7, Chloride 89 L, Carbon Dioxide 26, Anion Gap 10.7, BUN 17, Creatinine 1.00, Estimated Creat Clear 112, Estimated GFR 74, Est GFR ( Amer) 90, Glucose 234 H, Lactate 1.4, Calcium 8.7 05/02/24 17:17: POC Glucose 282 H 05/02/24 19:58: Sodium 124 L, Potassium 4.4, Chloride 92 L, Carbon Dioxide 22, Anion Gap 14.4, BUN 16, Creatinine 1.00, Estimated Creat Clear 112, Estimated GFR 74, Est GFR ( Amer) 90, Glucose 262 H, Calcium 8.4 05/02/24 20:29: POC Glucose 274 H 05/03/24 04:40: WBC 4.8 D, RBC 3.90 L, Hgb 11.9 L, Hct 34.4 L, MCV 88.2, MCH 30.5, MCHC 34.6, RDW 14.1, Plt Count 164, MPV 10.3, Neut % (Auto) 72.4, Lymph % (Auto) 12.6, [place] % (Auto) 13.4 H, Eos % (Auto) 0.8, Baso % (Auto) 0.4, Neut # (Auto) 3.5, Lymph # (Auto) 0.6 L, [place] # (Auto) 0.6, Eos # (Auto) 0.0, Baso # (Auto) 0.0, Sodium 128 L, Potassium 4.4, Chloride 93 L, Carbon Dioxide 28, Anion Gap 11.4, BUN 13, Creatinine 0.90, Estimated Creat Clear 117, Estimated GFR 84, Est GFR ( Amer) 101, Glucose 189 H D, Calcium 8.7, Magnesium 1.9 D, Total Bilirubin 0.6, AST 46, ALT 38, Alkaline Phosphatase 144 H, Total Protein 6.3, Albumin 3.7 D, Globulin 2.6, Albumin/Globulin Ratio 1.4 05/03/24 06:29: POC Glucose 226 H 05/03/24 11:23: POC Glucose 237 H I & O for Last 24 hours: Intake & Output 04/30/24 05/01/24 05/02/24 05/03/24 23:59 23:59 23:59 23:59 Intake Total 300 / 610 990 / 990 Output Total 0 / 0 0 / 0 Balance 300 / 610 990 / 990 Weight 113.398 kg 118.977 kg Constitutional Constitutional: no acute distress and obese *Routine HEENT Exam Head: Present normocephalic Eye: Present EOMI and PERRL ENT: Present mucous membranes moist *Routine Neck Exam Neck: Present supple; Absent lymphadenopathy *Routine Respiratory Exam Respiratory: Present CTA bilaterally *Routine Cardiovascular Exam Cardiovascular: Present RRR *Routine Abdominal Exam Abdominal: Present soft and normoactive bowel sounds; Absent tenderness *Routine Extremities Exam Extremities: Absent cyanosis, clubbing or edema *Routine Skin Exam Skin: Present warm; Absent rash *Routine Neurological Exam Neurological: Present alert and oriented X3 Results Data Completed and Pending Labs on day of discharge: Labs from last 24 hours 05/03/24 05/03/24 05/03/24 11:23 06:29 04:40 WBC 4.8 D RBC 3.90 L Hgb 11.9 L Hct 34.4 L MCV 88.2 MCH 30.5 MCHC 34.6 RDW 14.1 Plt Count 164 MPV 10.3 Neut % (Auto) 72.4 Lymph % (Auto) 12.6 [place] % (Auto) 13.4 H Eos % (Auto) 0.8 Baso % (Auto) 0.4 Neut # (Auto) 3.5 Lymph # (Auto) 0.6 L [place] # (Auto) 0.6 Eos # (Auto) 0.0 Baso # (Auto) 0.0 Sodium 128 L Potassium 4.4 Chloride 93 L Carbon Dioxide 28 Anion Gap 11.4 BUN 13 Creatinine 0.90 Estimated Creat Clear 117 Estimated GFR 84 Est GFR ( Amer) 101 Glucose 189 H D POC Glucose 237 H 226 H Lactate Calcium 8.7 Magnesium 1.9 D Total Bilirubin 0.6 AST 46 ALT 38 Alkaline Phosphatase 144 H Total Protein 6.3 Albumin 3.7 D Globulin 2.6 Albumin/Globulin Ratio 1.4 Stl Aeromonas (PCR) Stl C. cayetanensis PCR Stool Rotavirus (PCR) Stl Adenov F PCR Stool Astrovirus (PCR) Stool Campylobacter PCR Stl C.difficile Tox PCR Stool Cryptosporidium PCR Stl E.coli Shiga Tox PCR Stool E coli O157 PCR Stl Enterotoxigenic E PCR Stool EPEC (PCR) Stool EAEC (PCR) Stl E. histolytica PCR Stool Giardia Lamblia PCR Stool Salmonella PCR Stool Sapovirus (PCR) Stl P. shigelloides PCR Stl Shigella/EIEC PCR St Y.enterocolitica PCR Stool Vibrio (PCR) Stl Vibrio cholerae PCR Stl Norovirus GI/GII PCR 05/02/24 05/02/24 05/02/24 20:29 19:58 17:17 WBC RBC Hgb Hct MCV MCH MCHC RDW Plt Count MPV Neut % (Auto) Lymph % (Auto) [place] % (Auto) Eos % (Auto) Baso % (Auto) Neut # (Auto) Lymph # (Auto) [place] # (Auto) Eos # (Auto) Baso # (Auto) Sodium 124 L Potassium 4.4 Chloride 92 L Carbon Dioxide 22 Anion Gap 14.4 BUN 16 Creatinine 1.00 Estimated Creat Clear 112 Estimated GFR 74 Est GFR ( Amer) 90 Glucose 262 H POC Glucose 274 H 282 H Lactate Calcium 8.4 Magnesium Total Bilirubin AST ALT Alkaline Phosphatase Total Protein Albumin Globulin Albumin/Globulin Ratio Stl Aeromonas (PCR) Stl C. cayetanensis PCR Stool Rotavirus (PCR) Stl Adenov F PCR Stool Astrovirus (PCR) Stool Campylobacter PCR Stl C.difficile Tox PCR Stool Cryptosporidium PCR Stl E.coli Shiga Tox PCR Stool E coli O157 PCR Stl Enterotoxigenic E PCR Stool EPEC (PCR) Stool EAEC (PCR) Stl E. histolytica PCR Stool Giardia Lamblia PCR Stool Salmonella PCR Stool Sapovirus (PCR) Stl P. shigelloides PCR Stl Shigella/EIEC PCR St Y.enterocolitica PCR Stool Vibrio (PCR) Stl Vibrio cholerae PCR Stl Norovirus GI/GII PCR 05/02/24 05/02/24 14:10 11:37 WBC RBC Hgb Hct MCV MCH MCHC RDW Plt Count MPV Neut % (Auto) Lymph % (Auto) [place] % (Auto) Eos % (Auto) Baso % (Auto) Neut # (Auto) Lymph # (Auto) [place] # (Auto) Eos # (Auto) Baso # (Auto) Sodium 121 L Potassium 4.7 Chloride 89 L Carbon Dioxide 26 Anion Gap 10.7 BUN 17 Creatinine 1.00 Estimated Creat Clear 112 Estimated GFR 74 Est GFR ( Amer) 90 Glucose 234 H POC Glucose Lactate 1.4 Calcium 8.7 Magnesium Total Bilirubin AST ALT Alkaline Phosphatase Total Protein Albumin Globulin Albumin/Globulin Ratio Stl Aeromonas (PCR) Not detected Stl C. cayetanensis PCR Not detected Stool Rotavirus (PCR) Not detected Stl Adenov F 40/41 PCR Not detected Stool Astrovirus (PCR) Not detected Stool Campylobacter PCR Not detected Stl C.difficile Tox PCR Not detected Stool Cryptosporidium PCR Not detected Stl E.coli Shiga Tox PCR Not detected Stool E coli O157 PCR Not detected Stl Enterotoxigenic E PCR Not detected Stool EPEC (PCR) Not detected Stool EAEC (PCR) Not detected Stl E. histolytica PCR Not detected Stool Giardia Lamblia PCR Not detected Stool Salmonella PCR Not detected Stool Sapovirus (PCR) Not detected Stl P. shigelloides PCR Not detected Stl Shigella/EIEC PCR Not detected St Y.enterocolitica PCR Not detected Stool Vibrio (PCR) Not detected Stl Vibrio cholerae PCR Not detected Stl Norovirus GI/GII PCR Detected A DS: Diagnosis Discharge Diagnosis (1) Nausea, vomiting, and diarrhea: Status: Acute Code(s): R11.2 - Nausea with vomiting, unspecified; R19.7 - Diarrhea, unspecified Meds Home Medications and Allergies Home Medications ?Medication ?Instructions ?Recorded ?Confirmed ?Type ferrous sulfate 325 mg (65 mg 325 mg PO DAILY 05/13/17 05/02/24 History iron) tablet sertraline 100 mg tablet 100 mg PO HS 05/15/17 05/02/24 History multivitamin 1 tab PO DAILY 04/23/19 05/02/24 History omeprazole 40 mg capsule,delayed 40 mg PO HS 04/23/19 05/02/24 History release aripiprazole 30 mg tablet 30 mg PO DAILY 04/24/19 05/02/24 History oxcarbazepine 150 mg tablet 150 mg PO BID 11/15/23 05/02/24 History fluticasone propionate 50 1 spray intranasal DAILY 02/13/24 05/02/24 History mcg/actuation nasal spray,suspension gabapentin 100 mg capsule 100 mg PO BID Pain #60 caps 03/16/24 05/02/24 Rx insulin NPH-regular 70-30 U-100 34 unit (0.34 mL) SQ BID #15 mL 03/16/24 05/02/24 Rx insulin 100 unit/mL subcutaneous pen (Humulin 70/30 U-100 KwikPen) lisinopril 30 mg tablet 30 mg PO DAILY #90 tabs 03/16/24 05/02/24 Rx acetaminophen 325 mg tablet 650 mg PO BID 05/02/24 05/02/24 History (Tylenol) ascorbic acid (vitamin C) 250 mg 250 mg PO DAILY 05/02/24 05/02/24 History tablet aspirin 81 mg chewable tablet 81 mg PO DAILY 05/02/24 05/02/24 History atorvastatin 40 mg tablet 40 mg PO HS 05/02/24 05/02/24 History cyanocobalamin (vitamin B-12) 500 500 mcg PO DAILY 05/02/24 05/02/24 History mcg tablet diphenhydramine HCl 25 mg capsule 25 mg PO Q4HP PRN Itching 05/02/24 05/02/24 History (Banophen) guaifenesin 600 mg tablet, 600 mg PO Q12HP PRN Congestion 05/02/24 05/02/24 History extended release 12 hr ibuprofen 600 mg tablet 600 mg PO Q8HP PRN Mild Pain 05/02/24 05/02/24 History (Scale Score 1-4) lidocaine 5 % topical patch 1 patch topical DAILY 05/02/24 05/02/24 History loperamide 2 mg capsule 2 mg PO NEEDED PRN Diarrhea 05/02/24 05/02/24 History naproxen 500 mg tablet,delayed 500 mg PO BIDP PRN Mild Pain 05/02/24 05/02/24 History release (Scale Score 1-4) nystatin 100,000 unit/gram topical 1 applic topical DAILYP PRN Skin 05/02/24 05/02/24 History cream Condition ondansetron 4 mg disintegrating 4 mg PO Q6HP PRN Nausea And 05/02/24 05/02/24 History tablet Vomiting bumetanide 1 mg tablet 1 mg PO DAILY PRN Leg swelling 10 05/03/24 05/02/24 Rx days #20 tabs New Prescriptions to Start Prescriptions: Allergies Allergy/AdvReac Type Severity Reaction Status Date / Time sulfamethoxazole (From Allergy Intermediate Rash Verified 05/02/24 08:09 Bactrim) trimethoprim (From Bactrim) Allergy Intermediate Rash Verified 05/02/24 08:09 Discharge Plan Disposition Patient Disposition: Xfer SNF Condition: Fair Discharge Order Discharge Orders: Discharge Order (Routine); Ordered 05/03/24 Ordered By: Sebastian Bill Follow up Plan Follow up with: Provider,Referral, [Primary Care Provider] - 05/10/24 Prescriptions/Medication Reconciliation: Continued ferrous sulfate 325 mg (65 mg iron) tablet 325 mg PO DAILY sertraline 100 mg tablet 100 mg PO HS gabapentin 100 mg capsule 100 mg PO BID Qty: 60 2RF Humulin 70/30 U-100 KwikPen 100 unit/mL (70-30) insulin pen 34 unit SQ BID Qty: 15 8RF lisinopril 30 mg tablet 30 mg PO DAILY Qty: 90 3RF oxcarbazepine 150 mg tablet 150 mg PO BID multivitamin 0 tablet 1 tab PO DAILY omeprazole 40 MG capsule,delayed release(DR/EC) 40 mg PO HS aripiprazole 30 tablet 30 mg PO DAILY fluticasone propionate 50 mcg/actuation [facility],Suspension 1 spray INTRANASAL DAILY atorvastatin 40 mg Tablet 40 mg PO HS acetaminophen [Tylenol] 325 mg Tablet 650 mg PO BID cyanocobalamin (vitamin B-12) 500 mcg Tablet 500 mcg PO DAILY ascorbic acid (vitamin C) 250 mg Tablet 250 mg PO DAILY aspirin 81 mg Tablet,Chewable 81 mg PO DAILY lidocaine 5 % Adhesive Patch,Medicated 1 patch TOPICAL DAILY Rx Instructions: leave on most painful area for up to 12 hrs loperamide 2 mg Capsule 2 mg PO NEEDED PRN (Reason: Diarrhea) Rx Instructions: administer after each loose stool until symptoms controlled; do not exceed 8 mg per 24 hrs diphenhydramine HCl [Banophen] 25 mg Capsule 25 mg PO Q4HP PRN (Reason: Itching) nystatin 100,000 unit/gram Cream 1 applic TOPICAL DAILYP PRN (Reason: Skin Condition) naproxen 500 mg Tablet,Delayed Release (Dr/Ec) 500 mg PO BIDP PRN (Reason: Mild Pain (Scale Score 1-4)) Rx Instructions: DO NOT GIVE IF PATIENT RECEIVED IBUPROFEN. ibuprofen 600 mg Tablet 600 mg PO Q8HP PRN (Reason: Mild Pain (Scale Score 1-4)) Rx Instructions: DO NOT GIVE IF PATIENT RECEIVED NAPROXEN. ondansetron 4 mg Tablet,Disintegrating 4 mg PO Q6HP PRN (Reason: Nausea And Vomiting) guaifenesin 600 mg Tablet Extended Release 12hr 600 mg PO Q12HP PRN (Reason: Congestion) Changed bumetanide 1 mg tablet 1 mg PO DAILY PRN (Reason: Leg swelling) 10 Days Qty: 20 0RF Discontinued acidophilus-pectin, citrus [Acidophilus Probiotic] 100 million cell-10 mg Capsule 1 cap PO DAILY metformin 500 mg Tablet 500 mg PO BIDWMEAL Problem Reconciliation Problems Reviewed?: Yes Patient Discharge Instructions Patient Instructions: Diarrhea, Nausea and Vomiting-Adult, Hyponatremia-Adult Print Language: Polish Providers Primary Care Provider: Provider,Referral Admit Provider: Sebastian Bill Attending Provider: Sebastian Bill
[2024-05-03 14:48] LABS: Chloride 96 mmol/L (98-107); Potassium 4.4 mmoL/L (3.5-5.1); Sodium 132 mmol/L (136-145)
[2024-05-03 14:51] LABS: Anion Gap 10.4 mEq/L (5-15); Blood Urea Nitrogen 10 mg/dl (9-20); Carbon Dioxide 30 mmol/L (22.0-30.0); Creatinine Clearance Estimated 117 mL/min (50-200); Estimated Glomerular Filt Rate 96 ml/min (>60); GFR (African American) 116 ML/MIN (>60)
[2024-05-03 14:52] LABS: Calcium 8.5 mg/dl (8.4-10.2); Glucose 220 mg/dl (74-100)
[2024-05-03 16:00] VITALS: PULSE 70
== END 2024-05-03 16:37 ==
LOC: ER 10:24 → 2ND 10:28
PROVIDERS: Admitting Provider Student in an Organized Health Care Education/Training Program; Emergency Provider Emergency Medicine; Visit Provider Student in an Organized Health Care Education/Training Program
DX: A08.11 Acute gastroenteropathy due to Norwalk agent (principal); E11.42 Type 2 diabetes mellitus with diabetic polyneuropathy; I87.2 Venous insufficiency (chronic) (peripheral); K21.9 Gastro-esophageal reflux disease without esophagitis; E83.42 Hypomagnesemia; E87.1 Hypo-osmolality and hyponatremia; E86.0 Dehydration; F20.9 Schizophrenia, unspecified; K86.89 Other specified diseases of pancreas; R53.81 Other malaise; Z79.82 Long term (current) use of aspirin; Z79.84 Long term (current) use of oral hypoglycemic drugs; Z79.4 Long term (current) use of insulin; Z79.899 Other long term (current) drug therapy; Z79.01 Long term (current) use of anticoagulants; Z87.891 Personal history of nicotine dependence; Z90.49 Acquired absence of other specified parts of digestive tract
CPT/HCPCS: 36415; 70450; 71045; 74177; 80048; 80053; 81001; 82803; 82962; 83605; 83690; 83735; 83880; 84100; 84484; 85007; 85025; 86803; 87040; 87389; 87507; 87636; 93005; 97162; 97166; 97530; 99285; G0378; J0131; J1650; J1885; J2405; J2550; J2765; J3475; J7030; Q9967

== ENCOUNTER 2024-05-12 14:22 | Outpatient (RCR) | payer MEDICARE, OTHER, SELFPAY ==
--- NOTE | 2024-05-12 17:31 | HMH.PTOPWND ---
Rehab Outpt Wound Evaluation Rehab OP Wound Evaluation Start: 05/12/24 17:17 Freq: Status: Active Protocol: Document 05/12/24 17:18 ROHINI (Rec: 05/12/24 17:30 PHORBULMARO [id number]) E-signed By Boo Mcduffie, PT Subjective/History History History This is the initial PT eval for Miles Vázquez, 68 yowm who presents with chronic lymphedema to B LE, worse in the R LE at this time x ~ 5 mos. He reports recent bout of cellulitis in the R LE as well. He presents with no c/o pain, but significant tenderness to palpation and edema in the R lower leg. He was recently hospitalized and is now in a short term rehab facility. He generally resides in a local personal long term . He reports suffering GI issues due to a viral infection for some time now as well. He has PMH of DM with neuropathy, HTN, HLD, CVI, and schizophrenia. Subjective Subjective Currently he reports no pain, 0/10. He does present with 2/4 TTP to R lower leg, Severe erythema, 2+ pitting edema, and skin throughout the R LE gaiter area appears shiny. Lymphedema Eval Classification of Lymphedema Secondary Lymphedema Yes: CVI Stemmer's sign Stemmer's Sign yes Stage of Lymphedema Lymphedema stages Stage II (Pitting edema, increased fibrosis w/ decreased pitting) Skin Changes Dry Skin Yes Taut, Shiny Skin Yes Hyperkeratosis Yes Redness Yes Brittle Uneven Nails Yes Discoloration of Skin Yes Other Changes Yes Pain Scale Pain Scale (0-10) 0 Affected Extremities Areas Affected by Lymphedema/Edema Right Lower Extremity,Left Lower Extremity Lower Extremity Measurements Right MTP Measurement (cm) 24.8 Heel Measurement (cm) 35.0 10 cm Proximal to Lateral Malleoli 26.7 Measurement (cm) 20 cm Proximal to Lateral Malleoli 35.6 Measurement (cm) 30 cm Proximal to Lateral Malleoli 42.3 Measurement (cm) 40 cm Proximal to Lateral Malleoli 39.0 Measurement (cm) 50 cm Proximal to Lateral Malleoli 0 Measurement (cm) 60 cm Proximal to Lateral Malleoli 0 Measurement (cm) Lower Extremity Measurement Total (cm) 203.4 Wound Problems/Impairments Impairments Problems/Impairmments Palpation Tenderness,Impaired Strength,Impaired Endurance, Impaired Transfers,Impaired Gait Pattern,Impaired Walking, Impaired Shower/Bathing, Impaired Household Care, Increased Edema,Lymphedema Present,Impaired Self Care/ Self Management Prognosis Rehab Potential Good Comment Skilled therapy is indicated to reduce overall edema burden in order to return pt to PLOF . Clinical Impression Consistent with Diagnosis Yes Short Term Goals Number of Weeks 2 Decreased Palpation Tenderness Yes: 1/4 R LE Decrease Edema Yes: 1+ pitting edema R lower leg Decrease Lymphedema Yes: MILD fibrotic edema R LE Patient to Understand Lymphedema Yes Treatment and Exercises Decrease Girth Measurments by (cm) Yes: R LE total by 5 cm Correction Goals Number of Weeks 4 Decreased Palpation Tenderness Yes: 0/4 R lower leg Decrease Edema Yes: no pitting edema R lower leg Decrease Lymphedema Yes: NO fibrotic edema R LE Patient to be Ind w/ HEP Yes Patient to be Ind w/ Donning/[place] Yes Compression Garments Patient to Adhere Lymphedema Precautions Yes Decrease Girth Measurments by (cm) Yes: R LE total by 15 cm Outpatient Therapy Plan of Care Treatment Plan May Include Therapeutic Exercise Including Home Yes Exercise Program Manual Therapy Techniques Yes Neuromuscular Re-education Yes Therapeutic Activities to Return to Yes Previous Functional/Work Level ADL/Self Care Education Yes Orthotics/Bracing/Splinting Yes Manual Lymphatic Drainage Yes Eval/Re-Eval Yes Frequency Times per week 2-3 Duration Number of Weeks 4 Addendums This patient is a candidate for social No or vocational rehab? Patient/Guardian verbally acknowledges Yes understanding of treatment program and consents to further treatment? Patient/Guardian verbally acknowledges Yes understanding of diagnosis, prognosis and goals for treatment? Eval Complexity PT Charges 44445 - High Complexity PHYSICIAN CERTIFICATION: I certify the specified therapy services for Miles Vázquez are required, authorized, and reviewed every 30 days.
== END 2024-05-12 23:59 | disposition home or self-care (01) ==
LOC: PT 14:22
PROVIDERS: Visit Provider Internal Medicine
DX: I89.0 Lymphedema, not elsewhere classified (principal)
CPT/HCPCS: 97163

== ENCOUNTER 2024-06-11 14:00 | Outpatient (RCR) | payer MEDICARE, OTHER, SELFPAY ==
--- NOTE | 2024-06-11 16:01 | HMH.RHREAS ---
Rehab Reassessment Rehab OP Re-assessment Start: 05/19/24 09:51 Freq: Status: Active Protocol: Document 06/11/24 15:49 ROHINI (Rec: 06/11/24 16:00 ROHINI [id number]) E-signed By Boo Mcduffie, PT Rehab Re-assessment Subjective Subjective Pt has no reports of pain at this time and he reports being less tender to touch in his R lower leg. He reports compression garments help him feel better when he is able to wear them consistently. Objective Objective Notes Circumferential measurements: R LE total is 190.0 cm which is -13.4 cm since IE. TTP: 04/17 R lower leg Edema: Moderate fibrotic edema with 2+ pitting at the ankle B. Assessment Progress Assessment Progressing as Expected Assessment Notes Pt has shown reduction of overall edema throughout the R LE, but continues to have increased fibrosis and pitting . Skilled therapy remains indicated to improve overall edema burden in order to return pt to PLOF. Patient goals met ST LT/ Plan Plan Continue per initial POC. Frequency of Therapy 2 x/wk Duration of therapy 4 wks Time and Billing Re-Eval Time 11 Re-Eval Billing Units 0 Charge for PT reassessment? No PHYSICIAN CERTIFICATION: I certify the specified therapy services for Miles Vázquez are required, authorized, and reviewed every 30 days.
== END 2024-06-11 23:59 | disposition home or self-care (01) ==
LOC: PT 14:00
PROVIDERS: Visit Provider Internal Medicine
DX: I89.0 Lymphedema, not elsewhere classified (principal)
CPT/HCPCS: 97140; 97760

== ENCOUNTER 2024-06-23 15:00 | Outpatient (RCR) | payer MEDICARE, OTHER, SELFPAY | END 2024-06-23 23:59 | disposition home or self-care (01) | LOC: PT 15:00 | PROVIDERS: Visit Provider Internal Medicine | DX: I89.0 Lymphedema, not elsewhere classified (principal) | CPT/HCPCS: 97140 ==

== ENCOUNTER 2024-07-07 09:22 | Outpatient (CLI) | payer MEDICARE, OTHER, SELFPAY ==
[2024-07-07 09:36] LABS: Glucose,Fasting 156 mg/dl (74-100)
== END 2024-07-07 23:59 | disposition home or self-care (01) ==
PROVIDERS: PCP Family Medicine; Visit Provider Family Medicine
DX: E10.9 Type 1 diabetes mellitus without complications (principal)
CPT/HCPCS: 36415; 82947

== ENCOUNTER 2024-07-14 07:38 | Outpatient (CLI) | payer MEDICARE, OTHER, SELFPAY ==
[2024-07-14 09:13] LABS: Chol/HDL Ratio 3.6 (1-3.5); Cholesterol 115 mg/dl (140-200); HDL Cholesterol 32 mg/dl (40-60); Triglycerides 237 mg/dl (30-150); VLDL Cholesterol 47 mg/dL (0-40)
[2024-07-14 09:25] LABS: Direct LDL Cholesterol 37.68 mg/dL (100-129)
== END 2024-07-14 23:59 | disposition home or self-care (01) ==
LOC: LAB 07:39
PROVIDERS: PCP Nurse Practitioner Family; Visit Provider Nurse Practitioner Family
DX: E11.9 Type 2 diabetes mellitus without complications (principal)
CPT/HCPCS: 36415; 80061; 83036

== ENCOUNTER 2024-08-04 07:19 | Outpatient (CLI) | payer MEDICARE, OTHER, SELFPAY ==
[2024-08-04 07:57] LABS: Glucose,Fasting 133 mg/dl (74-100)
== END 2024-08-04 23:59 | disposition home or self-care (01) ==
PROVIDERS: PCP Nurse Practitioner Family; Visit Provider Nurse Practitioner Family
DX: E11.9 Type 2 diabetes mellitus without complications (principal); Z79.4 Long term (current) use of insulin
CPT/HCPCS: 36415; 82947; 83036

== ENCOUNTER 2024-10-29 07:54 | Outpatient (CLI) | payer MEDICARE, MEDICAID, SELFPAY ==
--- OUTSIDE RECORDS SUMMARY | 2024-10-29 07:56 | XMS_ITS | Clinical Summary ---
Author Organization [facility] Address [address] [place] [address] Phone Care Team Providers Care Plaster Caster Name Role Phone Unavailable Primary Care Provider Unavailabl e Allergies No known active allergies Medications * This document contains information received from the source organization and may not represent a complete record from that organization. 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 09/09/2023 Mood disorder 09/09/2023 Psychosis 09/09/2023 Undifferentiated schizophrenia 03/13/2017 Resolved Problems Problem Noted Date Diagnosed Date Resolved Date Mood disturbance 01/02/2021 10/06/2023 Irritability and anger 01/02/202110/05 Medication monitoring encounter 04/17/2017 10/06/2023 KATHY (generalized anxiety disorder) 03/13/2017 10/06/2023 Recurrent depressive disorde r, current episode mild 03/13/2017 10/06/2023 Social History Tobacco Use Types Packs/Day Years Used Date Smoking Tobacco: Never Assessed Sex and Gender Information Value Date Recorded Sex Assigned at Not on file Legal Sex Male 2:10 PM EST Gender Identity Not on file Sexual Orientation Not on file Obstetrics History Plan of Treatment Health Maintenance Due Date Last Done Comments Wellness Exam Medicare 1958 Hepatitis C Screening 1972 DTaP/TDaP/Td (1 - Tdap) 1973 Cologuard 06/17/1999 Colon Cancer Screening 06/17/1999 Colonoscopy 06/17/1999 FIT 06/17/1999 Sigmoidoscopy 06/17/1999 Virtual Colonography 06/17/1999 Pneumococcal Vaccine 50+ (1 of 1 - PCV) 2004 Zoster (1 of 2) 2004 COVID-19 Vaccine (1 2023-2 5 season) 2023 Influenza Vaccine (#1) 2024 Hepatitis B Vaccine Aged Out No longe r eligible based on patient's age to complete this topic Meningococcal B Vaccine Aged Out No l onger eligible based on patient's age to complete this topic Insurance [facility] [place] [address] [facility]
--- OUTSIDE RECORDS SUMMARY | 2024-10-29 07:56 | XMS_ITS | Clinical Summary ---
Author Organization Healthcare Address [address] [place] [address] Care Team Providers Care Project Structural Engineer Name Role Phone Caleb Coelho MD Primary Care Provider [phone] Family History Medical History Relation Name Comments Heart attack Father Diabetes Mother Relation Name Status Comments Father Mother Social History Tobacco Use Types Packs/Day Years Used Date Smoking Tobacco: Never Alcohol Use Standard Drinks/Week Comments No 0 (1 standard drink = 0.6 oz pur e alcohol) Sex and Gender Information Value Date Recorded Sex Assigned at Not on file Legal Sex Male 8:42 PM EDT Gender Identity Not on file Sexual Orientation Not on file Last Filed Vital Signs Vital Sign Reading Time Taken Comments Blood Pressure 136/81 07/23/2018 11:23 AM EDT Pulse 63 07/23/2018 11:23 AM EDT Temperature 36.9 C (98.5 F) 07/23/2018 11:23 AM EDT Respiratory Rate - - Oxygen Saturation - - Inhaled Oxygen Concentration - - Weight 116 kg (256 lb 6.3 oz) 07/23/2018 11:20 A M EDT Height 181.6 cm (5' 11.5 ) 01/16/2018 3:12 PM ED T Body Mass Index 35.26 01/16/2018 3:12 PM EDT Plan of Treatment Not on file Care Teams Project Structural Engineer Relationship Specialty Start Date End Date Caleb Coelho MD [address] [place] [address] PCP - General 08/25/20
[2024-10-29 08:28] LABS: Alanine Aminotransferase 30 U/L (12-78); Albumin Level 3.6 g/dl (3.5-5.0); Albumin/Globulin Ratio 1.8 (1.1-1.8); Alkaline Phosphatase 145 U/L (38-126); Anion Gap 13.8 mEq/L (5-15); Aspartate Amino Transferase 25 U/L (17-59); Bilirubin,Total 0.4 mg/dl (0.2-1.3); Blood Urea Nitrogen 24 mg/dl (9-20); Calcium 8.5 mg/dl (8.4-10.2); Carbon Dioxide 29 mmol/L (22.0-30.0); Chloride 98 mmol/L (98-107); Cholesterol 118 mg/dl (140-200); Creatinine,Serum 1.00 mg/dl (0.66-1.25); Estimated Glomerular Filt Rate 74 ml/min (>60); GFR (African American) 89 ML/MIN (>60); Globulin 2.0 g/dL (1.3-3.2); Glucose 196 mg/dl (74-100); HDL Cholesterol 45 mg/dl (40-60); Potassium 4.8 mmoL/L (3.5-5.1); Sodium 136 mmol/L (136-145); Total Protein,Serum 5.6 g/dl (6.3-8.2); Triglycerides 130 mg/dl (30-150)
--- OUTSIDE RECORDS SUMMARY | 2024-10-29 08:56 | XMS_ITS | CCD ---
Author Organization Unknown Care Team Providers Care Heel Breaster Name Role Phone Unavailable Primary Care Provider Unavailabl e Unavailable Chronic Care Management Unavaila ble Summary Purpose DataExchange Insurance Providers Payer name Policy type / Coverage type Covered green party ID Effective Begin Date Effective End Date [facility] [id number] Unknown Unknown Family History Family History data not found Medication Administered No Medication Administered data Reason For Visit No Reason For Visit data Medical Equipment No Medical Equipment data Advance Directives No Advance Directive data
[2024-10-29 09:32] LABS: Hemoglobin A1C 10.5 % (4.0-6.0)
== END 2024-10-29 23:59 | disposition home or self-care (01) ==
PROVIDERS: PCP Family Medicine; Visit Provider Family Medicine
DX: E11.9 Type 2 diabetes mellitus without complications (principal)
CPT/HCPCS: 36415; 80053; 80061; 83036

== ENCOUNTER 2024-11-14 01:33 | Emergency (ER) | payer MEDICARE, MEDICAID, SELFPAY ==
[2024-11-14] VITALS (8 sets, daily range): BP systolic 102–147; BP diastolic 43–67; PULSE 59–77; RESP 13–21; TEMP 36.9; O2SAT 93–97; BMI 36.2
--- NOTE | 2024-11-14 01:20 | ECG_ITS ---
APPROVED REPORT Exam: Resting ECG HR:72 bpm ECG Measurements Heart Rate 72 AXES TX 193 P 74 QRSd 96 QRS 67 QT 370 T 59 QTc 394 Conclusion SINUS RHYTHM NORMAL ECG Electronically signed by : SHELBY CHRISTINE, 11/14/2024 07:05:16
--- NOTE | 2024-11-14 01:20 | XR_ITS ---
PROCEDURE INFORMATION: Exam: XR Chest Exam date and time: 11/14/2024 2:31 AM Age: 69 years old Clinical indication: Sternal or substernal pain; Additional info: Heartburn/indigestion TECHNIQUE: Imaging protocol: Radiologic exam of the chest. Views: 2 views. COMPARISON: CR XR CHEST PORTABLE 05/02/2024 4:30 PM FINDINGS: Lungs: Peribronchial interstitial opacities versus vascular congestion Pleural spaces: No pleural effusions. Heart/Mediastinum: Borderline cardiomegaly Bones/joints: Unremarkable. IMPRESSION: 1. No acute airspace infiltrates 2. Vascular congestion versus airways disease
--- NOTE | 2024-11-14 01:21 | CT_ITS ---
PROCEDURE INFORMATION: Exam: CT Abdomen And Pelvis With Contrast Exam date and time: 11/14/2024 2:52 AM Age: 69 years old Clinical indication: Abdominal pain; Additional info: Heartburn, nausea, diffuse abdominal discomfort TECHNIQUE: Imaging protocol: Computed tomography of the abdomen and pelvis with contrast. Radiation optimization: All CT scans at this facility use at least one of these dose optimization techniques: automated exposure control; mA and/or kV adjustment per patient size (includes targeted exams where dose is matched to clinical indication); or iterative reconstruction. Contrast material: ISOVUE; Contrast volume: 75 ml; Contrast route: IV; COMPARISON: CT ABDOMEN PELVIS W CON 05/02/2024 9:29 AM FINDINGS: Liver: Normal. No mass. Gallbladder and biliary ducts: Cholecystectomy Pancreas: Normal. No ductal dilation. Spleen: Normal. No splenomegaly. Adrenal glands: Normal. No mass. Kidneys and ureters: Normal. No hydronephrosis. Stomach and bowel: Several duodenal diverticula are identified. Increased stool burden that ascending into colon Appendix: Appendectomy Intraperitoneal space: Unremarkable. No free air. No significant fluid collection. Vasculature: Unremarkable. No abdominal aortic aneurysm. Lymph nodes: Unremarkable. No enlarged lymph nodes. Urinary bladder: Unremarkable as visualized. Reproductive: Mild prostate enlargement up to 5.6 cm Bones/joints: Unremarkable. No acute fracture. Soft tissues: Unremarkable. IMPRESSION: 1. Mild constipation 2. Otherwise negative examination
--- OUTSIDE RECORDS SUMMARY | 2024-11-14 01:42 | XMS_ITS | Clinical Summary ---
Author Organization [facility] Address [address] [place] [address] Phone Care Team Providers Care Compliance Counsel Name Role Phone Unavailable Primary Care Provider [...] patient's age to complete this topic [facility] [place] [facility] [facility]
--- OUTSIDE RECORDS SUMMARY | 2024-11-14 01:42 | XMS_ITS | Clinical Summary ---
Author Organization Healthcare Address [address] [place] [address] Care Team Providers Care Container Washer Machine Name Role Phone Caleb Coelho MD Primary Care Provider [phone] Family History Medical History Relation Name Comments [...] of Treatment Not on file Care Teams Container Washer Machine Relationship Specialty Start Date End Date Caleb Coelho MD [address] [place] [address] PCP - General 08/25/20
[2024-11-14] MEDS: ASPIRIN 81MG CHEWABLE TABLET 324 MG PO (01:53)
[2024-11-14] MEDS: ONDANSETRON 4MG/2ML VIAL 4 MG IV (01:53)
[2024-11-14] MEDS: BELLADONNA ALKALOIDS 60 ML ML PO (01:53)
[2024-11-14 01:56] LABS: Hematocrit 33.7 % (42.0-52.0); Hemoglobin 11.8 g/dL (14.1-18.0); Immature Granulocytes % 0.5 %; Mean Corpuscular HGB Conc 35.0 g/dL (31.8-35.4); Mean Corpuscular Hemoglobin 31.8 pg (27.0-31.2); Mean Corpuscular Volume 90.8 fl (80-94); Nucleated Red Blood Cells % 0 %; Platelet Count 172 K/mm3 (142-424); Red Blood Count 3.71 M/mm3 (4.60-6.20); Red Cell Distribution Width-SD 42.7 fL; White Blood Count 7.3 K/mm3 (4.8-10.8)
[2024-11-14 01:56] LABS: Microscopic, Urine URINE MICROSCOPIC (MICROSCOPIC)
--- NOTE | 2024-11-14 01:56 | HMH.EDGENADL ---
Discharge Plan Disposition Patient Disposition: Home, Self-Care Condition: Good Prescriptions Prescriptions: New ondansetron 4 mg tablet,disintegrating 4 mg PO Q6H PRN (Reason: nausea and vomiting) Qty: 10 0RF No Action guaifenesin 100 mg/5 mL liquid 200 mg PO TID docusate sodium 100 mg capsule 100 mg PO DAILY PRN Januvia 50 mg tablet 50 mg PO DAILY ferrous sulfate 325 mg (65 mg iron) tablet 325 mg PO DAILY sertraline 100 mg tablet 100 mg PO HS lisinopril 30 mg tablet 30 mg PO DAILY Qty: 90 3RF naproxen 500 mg tablet 500 mg PO BID PRN Jardiance 25 mg tablet 25 mg PO DAILY Qty: 90 3RF Saccharomyces boulardii [Florastor] 250 mg capsule 250 mg PO DAILY Qty: 30 5RF insulin aspart U-100 100 unit/mL (3 mL) insulin pen 1 sliding scale dose SQ TID Qty: 15 4RF gabapentin 100 mg capsule 100 mg PO BID Qty: 60 5RF insulin glargine [Basaglar KwikPen U-100 Insulin] 100 unit/mL (3 mL) insulin pen 50 unit SQ BID multivitamin 0 tablet 1 tab PO DAILY omeprazole 40 MG capsule,delayed release(DR/EC) 40 mg PO HS aripiprazole 30 tablet 30 mg PO DAILY fluticasone propionate 50 mcg/actuation [place],Suspension 1 spray INTRANASAL DAILY atorvastatin 40 mg Tablet 40 mg PO HS acetaminophen [Tylenol] 325 mg Tablet 650 mg PO BID cyanocobalamin (vitamin B-12) 500 mcg Tablet 500 mcg PO DAILY ascorbic acid (vitamin C) 250 mg Tablet 250 mg PO DAILY aspirin 81 mg Tablet,Chewable 81 mg PO DAILY loperamide 2 mg Capsule 2 mg PO NEEDED PRN (Reason: Diarrhea) Rx Instructions: administer after each loose stool until symptoms controlled; do not exceed 8 mg per 24 hrs ibuprofen 600 mg Tablet 600 mg PO Q8HP PRN (Reason: Mild Pain (Scale Score 1-4)) Rx Instructions: DO NOT GIVE IF PATIENT RECEIVED NAPROXEN. ondansetron 4 mg Tablet,Disintegrating 4 mg PO Q6HP PRN (Reason: Nausea And Vomiting) guaifenesin 600 mg Tablet Extended Release 12hr 600 mg PO Q12HP PRN (Reason: Congestion) bumetanide 1 mg tablet 1 mg PO DAILY PRN (Reason: Leg swelling) 10 Days Qty: 20 0RF Referrals Follow up/Referrals: Salvador Benitez MD [Primary Care Provider, Family Practice] - See instructions Activity Restrictions/Add. Instructions Additional Instructions/Restrictions: You were evaluated in the ER and are appropriate for discharge at this time. Take the prescribed Zofran if needed for nausea. Drink plenty of water to maintain good hydration. Make an appointment with primary care doctor for reevaluation and to discuss your enlarged prostate. Return to the ER with any new, worsening, or otherwise concerning symptoms. Clinical Impressions Clinical Impression: Nausea, Enlarged prostate Instructions Patient Instructions: DI for Acute Abdominal Pain Print Language Print Language: Chilean Discharge ED Provider: Aranza Odom Adult HPI General Chief complaint: Abdominal Pain Stated complaint: Heartburn Time Seen by Provider: 11/14/24 01:37 Mode of Arrival: EMS Source of Information: Patient and EMS Description of Symptoms (Recalled from ER Triage Doc. by RN): Pt presents via ems with c/o heartburn that began earlier today with no chest pain or SOA. Pt reports slight nausea with no vomiting. Pt reports associated abd bloating with last normal bowel movement beging yesterday. History of Present Illness HPI narrative: 69-year-old male presents to the ER complaining of heartburn and generalized indigestion with nausea but no vomiting. Patient is a resident at [facility] and he came in because EMS had been called for his roommate after the roommate had a fall which she witnessed. Patient reports he decided to come to the ER for evaluation since his symptoms had not yet gone away. Patient states he thinks ibuprofen would help his symptoms. He states his symptoms started at least 7 hours prior to arrival after he had supper and have not really changed since that time. He reports normal daily bowel movements. No emesis. No fevers or chills, no chest pain or difficulty breathing. Patient reports a history of appendectomy and cholecystectomy. Patient reports he was just started on antibiotics for cellulitis in his lower legs by his PCP today. detention report demonstrates patient was started on doxycycline by Dr. Benitez today. Patient reports no history of problems with this medication. No other complaints or concerns. Related Data Home Medications ?Medication ?Instructions ?Recorded ?Confirmed ferrous sulfate 325 mg (65 mg 325 mg PO DAILY 05/13/17 10/27/24 iron) tablet sertraline 100 mg tablet 100 mg PO HS 05/15/17 10/27/24 multivitamin 1 tab PO DAILY 04/23/19 10/27/24 omeprazole 40 mg capsule,delayed 40 mg PO HS 04/23/19 10/27/24 release aripiprazole 30 mg tablet 30 mg PO DAILY 04/24/19 10/27/24 fluticasone propionate 50 1 spray intranasal DAILY 02/13/24 10/27/24 mcg/actuation nasal spray,suspension acetaminophen 325 mg tablet 650 mg PO BID 05/02/24 10/27/24 (Tylenol) ascorbic acid (vitamin C) 250 mg 250 mg PO DAILY 05/02/24 10/27/24 tablet aspirin 81 mg chewable tablet 81 mg PO DAILY 05/02/24 10/27/24 atorvastatin 40 mg tablet 40 mg PO HS 05/02/24 10/27/24 cyanocobalamin (vitamin B-12) 500 500 mcg PO DAILY 05/02/24 10/27/24 mcg tablet guaifenesin 600 mg tablet, 600 mg PO Q12HP PRN Congestion 05/02/24 10/27/24 extended release 12 hr ibuprofen 600 mg tablet 600 mg PO Q8HP PRN Mild Pain 05/02/24 10/27/24 (Scale Score 1-4) loperamide 2 mg capsule 2 mg PO NEEDED PRN Diarrhea 05/02/24 10/27/24 ondansetron 4 mg disintegrating 4 mg PO Q6HP PRN Nausea And 05/02/24 10/27/24 tablet Vomiting naproxen 500 mg tablet 500 mg PO BID PRN 07/13/24 10/27/24 docusate sodium 100 mg capsule 100 mg PO DAILY PRN 09/21/24 10/27/24 guaifenesin 100 mg/5 mL oral liquid 200 mg PO TID 09/21/24 10/27/24 insulin glargine 100 unit/mL (3 50 unit SQ BID 09/21/24 10/27/24 mL) subcutaneous pen (Basaglar KwikPen U-100 Insulin) sitagliptin phosphate 50 mg tablet 50 mg PO DAILY 09/21/24 10/27/24 (Januvia) Previous Rx's ?Medication ?Instructions ?Recorded lisinopril 30 mg tablet 30 mg PO DAILY #90 tabs 03/16/24 bumetanide 1 mg tablet 1 mg PO DAILY PRN Leg swelling 10 05/03/24 days #20 tabs empagliflozin 25 mg tablet 25 mg PO DAILY #90 tabs 05/18/24 (Jardiance) Saccharomyces boulardii 250 mg 250 mg PO DAILY #30 caps 07/07/24 capsule (Florastor) insulin aspart U-100 100 unit/mL 1 sliding scale dose SQ TID high 07/14/24 (3 mL) subcutaneous pen intensity SSI #15 mL gabapentin 100 mg capsule 100 mg PO BID Pain #60 caps 07/20/24 ondansetron 4 mg disintegrating 4 mg PO Q6H PRN nausea and 11/14/24 tablet vomiting #10 tabs Allergies Allergy/AdvReac Type Severity Reaction Status Date / Time sulfamethoxazole (From Allergy Intermediate Rash Verified 10/27/24 15:02 Bactrim) trimethoprim (From Bactrim) Allergy Intermediate Rash Verified 10/27/24 15:02 metformin AdvReac Severe Diarrhea Verified 10/27/24 15:02 [facility] Disclaimer: The information contained in this section may have been updated after the patient was seen, as this information can be updated by other users. Medical History Lymphedema of both lower extremities Hyponatremia Hypertension Hyperlipidemia Gastroenteritis Chronic leg pain At risk for osteoporosis Cellulitis of leg, right Dysphagia UTI (urinary tract infection) Bacteremia due to Streptococcus Callus of foot Decreased sensation of lower extremity Pre-ulcerative calluses Diabetic foot Diverticulosis Splenomegaly Pancreatic lesion Depression Anxiety Schizophrenic disorder History of gastroesophageal reflux (GERD) Diabetes mellitus, type 2 Surgical History History of cholecystectomy Family History Other No significant family history Social History Smoking Status: Never smoker alcohol intake: never substance use type: denies use current occupational status: disabled Travel in the last 8 weeks?: None housing: assisted living facility current occupational exposures/hazards: No caffeine: No Have you lived/traveled outside US in past 30 days?: No Contact w/someone who lives/traveled outside US past 30 days?: No Exposure to someone with infectious disease in past 14 days?: No Do you have a fever (greater than 100.4 F or 38 C)?: No Have you tested positive for COVID-19?: No Exposed to someone with COVID-19 in past 14 days?: No Do you have a sore throat?: No Do you have a cough?: No Do you have any weakness?: No Do you have any diarrhea?: No Are you experiencing any unusual bleeding?: No Do you have any muscle aches/pain?: No Do you have any abdominal pain?: No Are you experiencing loss of taste or smell?: No Other Medical History Have you received the Flu Vaccine for this season: No Have you received the Pneumonia Vaccine: Yes ROS Obtained: Yes Systems reviewed as appropriate & no additional complaints except as documented Per HPI Physical Exam General General appearance: alert and in no apparent distress Head Head exam: atraumatic and normocephalic Eye Eye exam: Present PERRL and EOMI ENT ENT exam: Present mucous membranes moist Neck Neck exam: Present normal inspection and full ROM Chest Chest inspection: Present symmetric chest wall rise; Absent tenderness Respiratory Respiratory exam: Present normal lung sounds bilaterally; Absent respiratory distress, wheezes or stridor Cardiovascular Cardiovascular exam: Present regular rate and normal rhythm Abdominal Exam Abdominal exam: Present soft and tenderness (Mild diffuse); Absent distention, guarding or rebound Extremities Exam Extremities exam: Present full ROM, edema (+1 bilateral lower extremity pitting edema) and other (Distal bilateral lower extremities are mildly erythematous, warm to the touch.) Neurological Exam Neurological exam: Present alert and oriented X3; Absent motor sensory deficit Psychiatric Psychiatric exam: Present normal affect and normal mood Skin Skin exam: Present warm and dry Medical Decision Making Medical Records Medical records reviewed: Yes I reviewed the patient's medical records. Screening: Per USPSTF and CDC recommendations, given the prevalence of disease in our region, it is our hospital?s policy to screen for HIV and viral Hepatitis for all patients aged 18 and over and those with ongoing risk factors. [place] Inquiry Pt receiving controlled substance: No Vital Signs: 11/14/24 01:00 11/14/24 01:30 11/14/24 02:15 Temperature 98.4 F Temperature Source Oral Pulse Rate 71 67 Pulse Rate [Radial] 77 Respiratory Rate 16 15 Blood Pressure 131/56 L 136/67 Blood Pressure [Right Arm] 143/65 H Blood Pressure Mean [Right Arm] 91 Blood Pressure Position [Right Arm] Sitting 02 Sat by Pulse Oximetry 96 95 97 Oxygen Delivery Method Room Air 11/14/24 02:31 11/14/24 03:01 Temperature Temperature Source Pulse Rate 67 71 Pulse Rate [Radial] Respiratory Rate 13 20 Blood Pressure 111/47 L 147/66 H Blood Pressure [Right Arm] Blood Pressure Mean [Right Arm] Blood Pressure Position [Right Arm] 02 Sat by Pulse Oximetry 96 95 Oxygen Delivery Method Lab Data Lab Results 11/14/24 01:48: WBC 7.3, RBC 3.71 L, Hgb 11.8 L, Hct 33.7 L, MCV 90.8, MCH 31.8 H, MCHC 35.0, RDW 13.0, Plt Count 172, MPV 9.7, Neut % (Auto) 59.1, Lymph % (Auto) 26.0, Bowie % (Auto) 11.2 H, Eos % (Auto) 2.7, Baso % (Auto) 0.5, Neut # (Auto) 4.3, Lymph # (Auto) 1.9, Bowie # (Auto) 0.8, Eos # (Auto) 0.2, Baso # (Auto) 0.0, PT 10.3, INR 0.92, Sodium 136, Potassium 5.0, Chloride 104, Carbon Dioxide 26, Anion Gap 11.0, BUN 25 H, Creatinine 1.00, Estimated Creat Clear 115, Estimated GFR 74, Est GFR ( Amer) 89, Glucose 186 H, Calcium 9.4, Total Bilirubin 0.4, AST 38, ALT 27, Alkaline Phosphatase 135 H, Troponin I < 0.01, NT-Pro-B Natriuret Pep 99.6, Total Protein 5.8 L, Albumin 3.9, Globulin 1.9, Albumin/Globulin Ratio 2.1 H, Lipase 76 11/14/24 01:54: Urine Color Yellow, Urine Appearance Clear, Urine pH 6.0, Ur Specific Gilliam 1.010, Urine Protein Negative, Urine Glucose (UA) Negative, Urine Ketones Negative, Urine Blood Negative, Urine Nitrate Negative, Urine Bilirubin Negative, Urine Urobilinogen 0.2, Ur Leukocyte Esterase 1+ A, Urine RBC None, Urine WBC 3-5, Ur Squamous Epith Cells None, Urine Bacteria None 11/14/24 02:02: Lactate 1.0 11/14/24 01:48 11/14/24 01:48 Orders (Tests/Meds): ED MEDICATIONS Generic Name Dose Route Start Last Admin Trade Name Emely PRN Reason Stop Dose Admin Nitroglycerin 0.4 mg 11/14/24 01:19 Nitroglycerin 0.4mg Sl Tablet SL 11/15/24 01:20 Q5MINP PRN Chest Pain Discontinued Medications Generic Name Dose Route Start Last Admin Trade Name Emely PRN Reason Stop Dose Admin Aspirin 324 mg 11/14/24 01:19 11/14/24 01:53 Aspirin 81mg Chewable Tablet PO 11/14/24 01:20 324 mg ONCE ONE Administration Belladonna Alkaloids 60 ml 11/14/24 01:19 11/14/24 01:53 Belladonna Alkaloids 60 Ml Ml PO 11/14/24 01:20 60 ml ONCE ONE Administration Lactated Ringer's 500 mls @ 999 mls/hr 11/14/24 02:22 11/14/24 02:45 Lactated Ringer's 500ml IV 11/14/24 02:52 999 mls/hr .Q31M ONE Administration Iopamidol 75 ml 11/14/24 02:52 11/14/24 02:54 Iopamidol-370 (76%);100ml Bottle IV 11/14/24 02:53 75 ml ONCE ONE Administration Ondansetron HCl 4 mg 11/14/24 01:19 11/14/24 01:53 Ondansetron 4mg/2ml Vial IV 11/14/24 01:20 4 mg ONCE ONE Administration Sodium Chloride 10 ml 11/14/24 02:52 11/14/24 02:54 Sodium Chloride 0.9% 10ml Syr (Rad Only) IV 11/14/24 02:53 10 ml ONCE ONE Administration ORDERS Category Date Time Status CT abdomen pelvis w con Stat Cat Scan 11/14/24 01:21 Completed XR chest 2V Stat Exams 11/14/24 01:20 Completed Complete Blood Count Auto Diff Stat Lab 11/14/24 01:48 Completed Comprehensive Metabolic Panel Stat Lab 11/14/24 01:48 Completed Lactic Acid Stat Lab 11/14/24 02:02 Completed Lipase Stat Lab 11/14/24 01:48 Completed NT Pro Brain Natriuretic Pep. Stat Lab 11/14/24 01:48 Completed Prothrombin Time INR Stat Lab 11/14/24 01:48 Completed Troponin I Q3H Lab 11/14/24 04:30 Ordered Troponin I Q3H Lab 11/14/24 07:30 Ordered Troponin I Stat Lab 11/14/24 01:48 Completed Urinalysis and Microscopic Stat Lab 11/14/24 01:54 Completed Urine Culture Stat Micro 11/14/24 01:54 Received Medical Decision Narrative: In summary, this 69-year-old male with comorbidities including history of GERD, hyperlipidemia, hypertension, pancreatic cyst, diabetes presents to the emergency department today with nausea, indigestion with no vomiting or chest pain. On initial evaluation patient is hemodynamically stable, afebrile, abdominal exam with mild diffuse tenderness but no focal tenderness, no rebound or guarding, no chest tenderness, cardiopulmonary exam benign, patient does have mild peripheral edema in the bilateral lower extremities, mild erythema in the distal lower extremities for which patient reports he is already being treated with doxycycline for cellulitis. Differential diagnosis includes but is not limited to with history of GERD it is likely symptoms are related, however I also considered the possibility of atypical presentation of ACS, bowel obstruction, pancreatitis, urinary tract infection, among others. Based on these concerns, I ordered serum labs, CT imaging, cardiac workup. ECG personally interpreted demonstrates normal sinus rhythm, rate 72, normal axis, normal LA and QTc, no STEMI. Patient received aspirin, GI cocktail, Zofran initially for treatment. Labs personally reviewed demonstrate no leukocytosis, mild anemia nonactionable, normal platelets, CMP with mild prerenal azotemia. Small IV fluid bolus administered so as to not volume overload the patient but to correct his mild prerenal azotemia. CMP otherwise nonactionable. Initial troponin undetectably low less than 0.01, undetectably low. This is significantly reassuring since patient reports he has been having symptoms for more than 6 hours prior to arrival. If his symptoms were cardiac in nature I would expect the troponin to be elevated by now. XR personally interpreted demonstrates no lobar infiltrate or pleural effusion, see radiology read for final interpretation. Radiology read comments on vascular congestion which is consistent with patient's history. CT imaging personally interpreted demonstrate no acute intra-abdominal pathology, no obstruction, see radiology read for final interpretation. Enlarged prostate was discussed with the patient and he was instructed to follow-up outpatient. CT read discusses mild constipation but patient reports normal daily bowel movements at this time. On reassessment patient is resting very comfortably. He is asymptomatic at this time. He is appropriate for discharge. All results were reviewed with the patient. I prescribed Zofran for outpatient management of symptoms if needed. Patient was given instructions on symptomatic management, follow up instructions, and return precautions for the emergency department. Patient indicated understanding and was discharged in stable condition. Discharge instructions were also provided to [facility]. Patient taken back to the facility by EMS Critical Care Critical Care Time Critical Care Time: No
[2024-11-14 02:03] LABS: Bilirubin,Urine Negative (Negative); Color,Urine YELLOW (Yellow); Glucose,Urine (UA) Negative (Negative); Ketones,Urine Negative (Negative); Leukocyte Esterase,Urine 1+ (Negative); PH,Urine 6.0 (5.0-8.5); Protein,Urine Negative (Negative); Specific Gravity, Urine 1.010 (1.005-1.030); Urobilinogen,Urine 0.2 EU/dl (0.2)
[2024-11-14 02:06] LABS: Lipase 76 U/L (23-300)
[2024-11-14 02:13] LABS: INR 0.92 (0.9-1.1); Prothrombin Time 10.3 seconds (10.1-12.5)
[2024-11-14 02:16] LABS: NT Pro Brain Natriuretic Pep. 99.6 pg/mL (0-125)
[2024-11-14 02:17] LABS: Alanine Aminotransferase 27 U/L (12-78); Albumin Level 3.9 g/dl (3.5-5.0); Albumin/Globulin Ratio 2.1 (1.1-1.8); Alkaline Phosphatase 135 U/L (38-126); Anion Gap 11.0 mEq/L (5-15); Aspartate Amino Transferase 38 U/L (17-59); Bilirubin,Total 0.4 mg/dl (0.2-1.3); Blood Urea Nitrogen 25 mg/dl (9-20); Calcium 9.4 mg/dl (8.4-10.2); Carbon Dioxide 26 mmol/L (22.0-30.0); Chloride 104 mmol/L (98-107); Creatinine Clearance Estimated 115 mL/min (50-200); Creatinine,Serum 1.00 mg/dl (0.66-1.25); Estimated Glomerular Filt Rate 74 ml/min (>60); GFR (African American) 89 ML/MIN (>60); Globulin 1.9 g/dL (1.3-3.2); Glucose 186 mg/dl (74-100); Potassium 5.0 mmoL/L (3.5-5.1); Sodium 136 mmol/L (136-145); Total Protein,Serum 5.8 g/dl (6.3-8.2)
[2024-11-14 02:29] LABS: Troponin I < 0.01 ng/ml (0.00-0.034)
--- OUTSIDE RECORDS SUMMARY | 2024-11-14 02:42 | XMS_ITS | CCD ---
Author Organization Unknown Care Team Providers Care Outcome Analyst Name Role Phone Unavailable Primary Care Provider Unavailabl e Unavailable Chronic Care Management Unavaila ble Summary Purpose DataExchange Insurance Providers Payer name Policy type / Coverage type Covered alliance party ID Effective Begin Date Effective End Date [facility] [id number] Unknown Unknown Family History Family History data not found Medication Administered No Medication Administered data Reason For Visit No Reason For Visit data Medical Equipment No Medical Equipment data Advance Directives No Advance Directive data
--- OUTSIDE RECORDS SUMMARY | 2024-11-14 02:42 | XMS_ITS | CCD ---
Author Organization Unknown Care Team Providers Care Printing Estimator Name Role Phone Unavailable Primary Care Provider Unavailabl e Unavailable Chronic Care Management Unavaila ble Summary Purpose DataExchange Insurance Providers Payer name Policy type / Coverage type Covered green party ID Effective Begin Date Effective End Date [facility] [id number] Unknown Unknown Family History Family History data not found Medication Administered No Medication Administered data Reason For Visit No Reason For Visit data Medical Equipment No Medical Equipment data Advance Directives No Advance Directive data
[2024-11-14] MEDS: RINGERS SOLUTION,LACTATED 500 ML 999 ML IV (02:45)
[2024-11-14] MEDS: IOPAMIDOL-370 (76%);100ML BOTTLE 75 ML IV (02:54)
[2024-11-14] MEDS: SODIUM CHLORIDE 0.9% 10ML SYR (RAD ONLY) 10 ML IV (02:54)
--- NOTE | 2024-11-14 02:58 | PC.NURSE ---
pt brought back from radiology at this time.
--- NOTE | 2024-11-14 04:10 | PC.NURSE ---
ED provider at the bedside updating pt on POC. plan to discharge.
--- NOTE | 2024-11-14 04:11 | PC.NURSE ---
Dispatch contacted this time and made aware of need for transportation back to detention. BHARGAV Jay at the facility aware that patient will be coming back to them with no new medications or changed suggested.
--- NOTE | 2024-11-15 09:25 | PC.NURSE ---
Urine culture results reviewed by Dr. Baltazar. No new orders received at this time.
--- NOTE | 2024-11-16 10:18 | PC.NURSE ---
Urine culture results reviewed by Dr. Baltazar. Cefdinir 300 mg PO BID x 7 days prescribed. Called [facility], spoke with Misty, she asked that I fax results to [phone]. Prescription called in to [facility] pharmacy.
== END 2024-11-14 04:32 | disposition home or self-care (01) ==
PROVIDERS: Emergency Provider Emergency Medicine; PCP Family Medicine
DX: N40.0 Benign prostatic hyperplasia without lower urinary tract symptoms (principal); E11.9 Type 2 diabetes mellitus without complications; F32.A Depression, unspecified; I10 Essential (primary) hypertension
CPT/HCPCS: 71046; 74177; 80053; 81001; 83605; 83690; 83880; 84484; 85025; 85610; 87086; 87088; 87186; 93005; 96374; 99285; J2405; J7120; Q9967

== ENCOUNTER 2025-01-07 14:00 | Outpatient (RCR) | payer MEDICARE, MEDICAID, SELFPAY ==
--- NOTE | 2024-12-21 16:27 | HMH.OPLYMPH ---
Rehab Lymphedema Evaluation Rehab Lymphedema Evaluation Start: 12/21/24 13:58 Freq: Status: Active Protocol: Document 12/21/24 16:17 ROHINI (Rec: 12/21/24 16:26 PHOMARY [id number]) E-signed By Boo Mcduffie, PT Subjective/History History History This is the initial PT lymphedema eval for miles Vázquez, 69 yowm who presents with c/o B LE increased edema for many years, R LE worse after recent bout of cellulitis. He is a resident of local SNF facility. He presents using a RW for ambulation. He reports increased discomfort due to edema throughout the day with prolonged dependent positioning PMH: DM, HTN, HLD, CCY, depression, anxiety, schizophrenia. Subjective Subjective Pain at this time 0/10. 2/4 TTP to B lower legs, 2+ pitting edema noted to B lower legs. Moderate erythema to R lower leg. Lymphedema Eval Classification of Lymphedema Secondary Lymphedema Yes Stemmer's sign Stemmer's Sign yes Stage of Lymphedema Lymphedema stages Stage I (Pitting edema, reduces w/ elevation, no fibrosis) Lower Extremity Measurements Right MTP Measurement (cm) 24.2 Heel Measurement (cm 35.7 ) 10 cm Proximal to 30.9 Lateral Malleoli Measurement (cm) 20 cm Proximal to 37.5 Lateral Malleoli Measurement (cm) 30 cm Proximal to 47.0 Lateral Malleoli Measurement (cm) 40 cm Proximal to 0 Lateral Malleoli Measurement (cm) 50 cm Proximal to 0 Lateral Malleoli Measurement (cm) 60 cm Proximal to 0 Lateral Malleoli Measurement (cm) Lower Extremity 175.3 Measurement Total ( cm) Left MTP Measurement (cm) 25.5 Heel Measurement (cm 35.8 ) 10 cm Proximal to 31.7 Lateral Malleoli Measurement (cm) 20 cm Proximal to 39.1 Lateral Malleoli Measurement (cm) 30 cm Proximal to 44.0 Lateral Malleoli Measurement (cm) 40 cm Proximal to 0 Lateral Malleoli Measurement (cm) 50 cm Proximal to 0 Lateral Malleoli Measurement (cm) 60 cm Proximal to 0 Lateral Malleoli Measurement (cm) Lower Extremity 176.1 Measurement Total ( cm) Manual Lymphatic Drainage Treatment Area MLD Treatment Area Right Lower Extremity,Left Lower Extremity Wound Problems/Impairments Impairments Problems/ Palpation Tenderness,Impaired Walking,Impaired Standing Impairmments ,Impaired Household Care,Increased Edema,Lymphedema Present,Impaired Self Care/Self Management Prognosis Rehab Potential Good Comment Skilled therapy services are indicated in order to aid reduction of B LE edema in order to aid improvement in QOL. Clinical Impression Consistent with Yes Diagnosis Lymphedema Patient Goals Lymphedema Patient Goals Lymphedema Short in 2 wks pt will: Term Patient Goals 1) Reduce pitting edema to 1+ in B LE 2) Reduce circumferential measurements to B LE by 5 cm 3) be independent with Lymphedema management via [facility] Lymphedema Scientific Software Engineer in 4 wks pt will: Patient Goals 1) Reduce pitting edema to 0 in B LE 2) Reduce circumferential measurements to B LE by 10 cm 3) Be independent with donning/doffing of compression garments Outpatient Therapy Plan of Care Treatment Plan May Include Therapeutic Exercise Yes Including Home Exercise Program Manual Therapy Yes Techniques Neuromuscular Re- Yes education Therapeutic Yes Activities to Return to Previous Functional/Work Level ADL/Self Care Yes Education Orthotics/Bracing/ Yes Splinting Manual Lymphatic Yes Drainage Eval/Re-Eval Yes Frequency Times per week 2 Duration Number of Weeks 4 Addendums This patient is a No candidate for social or vocational rehab ? Patient/Guardian Yes verbally acknowledges understanding of treatment program and consents to further treatment? Patient/Guardian Yes verbally acknowledges understanding of diagnosis, prognosis and goals for treatment? Eval Complexity PT Charges 50357 - High Complexity PHYSICIAN CERTIFICATION: I certify the specified therapy services for Miles Vázquez are required, authorized, and reviewed every 30 days.
== END 2025-01-07 23:59 | disposition home or self-care (01) ==
LOC: PT 14:00
PROVIDERS: PCP Family Medicine; Visit Provider Nurse Practitioner
DX: I89.0 Lymphedema, not elsewhere classified (principal)
CPT/HCPCS: 97140; 97163

== ENCOUNTER 2025-02-02 09:24 | Outpatient (CLI) | payer MEDICARE, MEDICAID, SELFPAY ==
--- OUTSIDE RECORDS SUMMARY | 2025-02-02 09:34 | XMS_ITS | Clinical Summary ---
Author Organization Healthcare Address [address] [place] [address] Care Team Providers Care Building Illuminating Engineer Name Role Phone Salvador Benitez MD Primary Care Provider +1- [phone] Encounters Date Type Department Care Team Description 12/09/2024 Telephone External Location [address] [place] [address] Salvador Benitez MD from Last 3 Months Family History Medical History Relation Name Comments [...] 01/16/2018 3:12 PM EDT Plan of Treatment Upcoming Encounters Date Type Department Care Team (Late st Contact Info) Description 03/24/2025 8:50 AM EST Consult [place] [facility] [address] [place] [address] Libertad Spears P, STRESS ENGINEER, DNP [address] [place] [address] Health Maintenance Due Date Last Done Comments [facility]-Depression Screening 1954 [facility]-Hepatitis C Screening 1954 [facility]-Medicare Annual Wellness (AWV) 1955 [facility]-/Child/Adol SDOH Screenings 1954 [facility]- SDOH Screenings 1972 [facility]-Adult SDOH Screenings 1972 [facility]-DTaP,Tdap,and Td Vaccines (1 - Tdap) 1973 CT Colonography 06/17/1999 Colonoscopy 06/17/1999 FIT-DNA 06/17/1999 FIT 06/17/1999 FOBT 06/17/1999 Sigmoidoscopy 06/17/1999 [facility]-Colorectal Cancer Screening 06/17/1999 [facility]-Pneumococcal Vaccine: 50+ Years (1 of 1 - PCV) 2004 [facility]-Zoster Vaccines (2 of 2) 03/29/2024 02/02/2024 [id number] Vaccine (2 - 2024- season) 2024 10/05/2021 [facility]-Influenza Vaccine (#1) 12/13/202402/01, 02/14/2021, 02/14/2020, Additional history exists [facility]-RSV Vaccine: 60+ Years or (1 - 1-dose 75+ series) 2029 [facility]-Hepatitis A Vaccines Aged Out 02/27/2018 No longer eligible based on patient's age to complete this topic HPV Vaccines Aged Out No longer eligi ble based on patient's age to complete this topic [facility]-HIB Vaccines Aged Out No longer e ligible based on patient's age to complete this topic [facility]-IPV Vaccines Aged Out No longer e ligible based on patient's age to complete this topic [facility]-Rotavirus Vaccines Aged Out No lo nger eligible based on patient's age to complete this topic Insurance [place] MEDICARE Care Teams Building Illuminating Engineer Relationship Specialty Start Date End Date Salvador Benitez MD [address] [place] [address] PCP - General 12/09/24
--- OUTSIDE RECORDS SUMMARY | 2025-02-02 09:34 | XMS_ITS | Clinical Summary ---
Author Organization [facility] Address [address] [place] [address] Phone Care Team Providers Care Agile Developer Name Role Phone Unavailable Primary Care Provider [...] on file Sexual Orientation Not on file Plan of Treatment Health Maintenance Due Date Last Done Comments Wellness Exam Medicare 1958 Hepatitis C Screening 1972 DTaP/TDaP/Td (1 - Tdap) 1973 Cologuard 06/17/1999 Colon Cancer Screening 06/17/1999 Colonoscopy 06/17/1999 FIT 06/17/1999 Sigmoidoscopy 06/17/1999 Virtual Colonography 06/17/1999 Pneumococcal Vaccine 50+ (1 of 1 - PCV) 2004 Zoster (1 of 2) 2004 COVID-19 Vaccine (1 - 2024-2 6 season) 2024 Influenza Vaccine (#1) 2024 Hepatitis B Vaccine Aged Out No longe r eligible based on patient's age to complete this topic Meningococcal B Vaccine Aged Out No l onger eligible based on patient's age to complete this topic [facility] [place] [facility] GINGER [place]A
--- OUTSIDE RECORDS SUMMARY | 2025-02-02 09:34 | XMS_ITS | Encounter Summary ---
Author Organization Healthcare Address [address] [place] [address] Care Team Providers Care Ortho/Prosthetic Aide Name Role Phone Salvador Benitez MD Primary Care Provider +1- [phone] Encounter Details Date Type Department Care Team (Late Contact Info) Description 12/09/2024 Telephone External Location [address] [place] [address] Salvador Benitez MD [address] [place] [address] Social History Tobacco Use Types Packs/Day Years Used Date Smoking Tobacco: Never Alcohol Use Standard Drinks/Week Comments No 0 (1 standard drink = 0.6 oz pur e alcohol) Sex and Gender Information Value Date Recorded Sex Assigned at Not on file Legal Sex Male 8:42 PM EDT Gender Identity Not on file Sexual Orientation Not on file documented as of this encounter Plan of Treatment Upcoming Encounters Date Type Department Care Team (Late Contact Info) Description 03/24/2025 8:50 AM EST Consult [place] [facility] [address] [place] [address] Libertad Spears, COLORING ROOM MAN, DNP [address] [place] [address] documented as of this encounter Visit Diagnoses Not on filedocumented in this encounter Care Teams Ortho/Prosthetic Aide Relationship Specialty Start Date End Date Salvador Benitez MD [address] [place] [address] PCP - General 12/09/24 documented as of this encounter
[2025-02-02 09:52] LABS: Adenovirus F 40/41, stool Not Detected (NotDetected); Clostridium Difficile A/B, PCR Not Detected (NotDetected); Cyclospora Cayetanesis Not Detected (NotDetected); Plesimonas Shigalloides, PCR Not Detected (NotDetected); Salmonella, PCR Not Detected (NotDetected); Shiga-like toxin E coli Not Detected (NotDetected); Shigella Enterovasive E coli Not Detected (NotDetected); Vibrio, PCR Not Detected (NotDetected)
--- OUTSIDE RECORDS SUMMARY | 2025-02-02 10:34 | XMS_ITS | CCD ---
Author Organization Unknown Care Team Providers Care Rail Crew Member Name Role Phone Unavailable Primary Care Provider Unavailabl e Unavailable Chronic Care Management Unavaila ble Summary Purpose DataExchange Insurance Providers Payer name Policy type / Coverage type Covered constitution party ID Effective Begin Date Effective End Date [facility] [id number] Unknown Unknown Family History Family History data not found Medication Administered No Medication Administered data Reason For Visit No Reason For Visit data Medical Equipment No Medical Equipment data Advance Directives No Advance Directive data
[2025-02-02 16:46] LABS: Yersinia Entercolitica, PCR Detected (NotDetected)
== END 2025-02-02 23:59 | disposition home or self-care (01) ==
LOC: LAB.DROPOF 09:31
PROVIDERS: PCP Family Medicine; Visit Provider Family Medicine
DX: K52.9 Noninfective gastroenteritis and colitis, unspecified (principal)
CPT/HCPCS: 87507

== ENCOUNTER 2025-02-09 08:48 | Outpatient (CLI) | payer MEDICARE, MEDICAID, SELFPAY ==
--- OUTSIDE RECORDS SUMMARY | 2025-02-09 09:15 | XMS_ITS | Clinical Summary ---
Author Organization Healthcare Address [address] [place] [address] Care Team Providers Care Dental Insurance Biller Name Role Phone Salvador Benitez MD Primary Care Provider +1- [phone] Encounters Date Type Department Care Team Description 12/09/2024 Telephone External Location [address] [place] [address] Salvador Benitez MD from Last 3 Months [...] Info) Description 03/24/2025 8:50 AM EST Consult [place] [facility] [address] [place] [address] Libertad Spears P, SALVAGE DIVER, DNP [address] [place] [address] Health Maintenance Due Date Last [...] [facility]-Zoster Vaccines (2 of 2) 03/29/2024 02/02/2024 [id number] Vaccine (2 - 2024- season) 2024 10/05/2021 [...] this topic Insurance [place] Care Teams Dental Insurance Biller Relationship Specialty Start Date End Date Salvador Benitez MD [address] [place] [address] PCP - General 12/09/24
--- OUTSIDE RECORDS SUMMARY | 2025-02-09 09:15 | XMS_ITS | Encounter Summary ---
Author Organization Healthcare Address [address] [place] [address] Care Team Providers Care Regional Vice President Life Sales Name Role Phone Salvador Benitez MD Primary Care Provider +1- [phone] Encounter Details Date Type Department Care Team (Late Contact Info) Description 12/09/2024 Telephone External Location [address] [place] [address] Salvador Benitez MD [address] [place] [address] Social History Tobacco Use Types Packs/Day Years [...] Info) Description 03/24/2025 8:50 AM EST Consult [place] [facility] [address] [place] [address] Libertad Spears, TRUCK DRIVER'S OFFSIDER, DNP [address] [place] [address] documented as of this encounter Visit Diagnoses Not on filedocumented in this encounter Care Teams Regional Vice President Life Sales Relationship Specialty Start Date End Date Salvador Benitez MD [address] [place] [address] PCP - General 12/09/24 documented as of this encounter
[2025-02-09 09:47] LABS: Anion Gap 10.9 mEq/L (5-15); Blood Urea Nitrogen 33 mg/dl (9-20); Calcium 8.9 mg/dl (8.4-10.2); Carbon Dioxide 27 mmol/L (22.0-30.0); Chloride 106 mmol/L (98-107); Creatinine,Serum 1.40 mg/dl (0.66-1.25); Estimated Glomerular Filt Rate 50 ml/min (>60); GFR (African American) 61 ML/MIN (>60); Glucose 83 mg/dl (74-100); Potassium 4.9 mmoL/L (3.5-5.1); Sodium 139 mmol/L (136-145)
--- OUTSIDE RECORDS SUMMARY | 2025-02-09 10:15 | XMS_ITS | CCD ---
Author Organization Unknown Care Team Providers Care Polymer Tester Name Role Phone Unavailable Primary Care Provider Unavailabl e Unavailable Chronic Care Management Unavaila ble Summary Purpose DataExchange Insurance Providers Payer name Policy type / Coverage type Covered alliance party ID Effective Begin Date Effective End Date [facility] [id number] Unknown Unknown Family History Family History data not found Medication Administered No Medication Administered data Reason For Visit No Reason For Visit data Medical Equipment No Medical Equipment data Advance Directives No Advance Directive data
[2025-02-09 12:32] LABS: Hemoglobin A1C 6.9 % (4.0-6.0)
== END 2025-02-09 23:59 | disposition home or self-care (01) ==
PROVIDERS: PCP Nurse Practitioner Family; Visit Provider Nurse Practitioner Family
DX: E11.9 Type 2 diabetes mellitus without complications (principal)
CPT/HCPCS: 36415; 80048; 83036